=== PATIENT | female | born 1980 | race Caucasian/White ===

== ENCOUNTER 2016-05-19 10:06 | Emergency (ER) | payer MEDICARE, OTHER ==
[2016-05-19] MEDS ORDERED: PANTOPRAZOLE 40 MG/10 ML VIAL IVP STA (10:46)
[2016-05-19] MEDS ORDERED: ONDANSETRON 4 MG/2 ML VIAL IVP STA (10:46)
[2016-05-19] MEDS ORDERED: SODIUM CHLORIDE 0.9% 1,000 ML IV STA ×2 (10:46)
--- NOTE | 2016-05-19 11:11 | ED ---
General Adult HPI - General Chief complaint: Upper Respiratory Infection Stated complaint: Sob/weak Time Seen by Provider: 05/19/16 10:33 Source: patient, RN notes reviewed Mode of arrival: ambulatory Limitations: no limitations - History of Present Illness Initial comments: Patient 36-year-old female who presents emergency room today with a chief complaint of cough congestion over the last 5 days. Does admit that her boyfriend was diagnosed with pneumonia. Does admit that she's had increased cough congestion. Does admit to bodyaches. Admits also that she's been having some abdominal pain over the last 2 days with diarrhea. States she noticed some black dark bowel movements over the last 2 days. Does admit that she's had a colonoscopy once in the past that this all polyps. She also admits to symptoms of nausea vomiting this morning. Patient currently denies any other complaints or symptoms at this time. Patient denies any shortness of breath, chest pain, back pain, numbness or tingling, dysuria or hematuria, constipation , headaches or visual changes, or any other complaints. - Related Data Home Medications Medication Instructions Recorded Confirmed Albuterol Inhaler [Ventolin Hfa 2 puff INHALATION RT-Q4H PRN 05/19/16 05/19/16 Inhaler] Pantoprazole [Protonix] 40 mg PO DAILY PRN 05/19/16 05/19/16 Travoprost [Travatan Z 0.004%] 1 drop BOTH EYES HS 05/19/16 05/19/16 Previous Rx's Medication Instructions Recorded Dicyclomine [Bentyl] 20 mg PO QID #20 tablet 05/19/16 Ondansetron Odt [Zofran ODT] 4 mg PO Q8HR PRN #15 tab 05/19/16 Allergies Allergy/AdvReac Type Severity Reaction Status Date / Time carbamazepine [From Tegretol] Allergy Intermediate Unknown Verified 05/19/16 12: 05 adhesive Allergy Unknown Verified 05/19/16 12:05 amphetamine aspartate Allergy Unknown Verified 05/19/16 12:05 [From Adderall] amphetamine sulfate Allergy Unknown Verified 05/19/16 12:05 [From Adderall] azithromycin Allergy Unknown Verified 05/19/16 12:05 [From Zithromax Z-Tunde] cephalexin monohydrate Allergy Unknown Verified 05/19/16 12:05 [From Keflex] dextroamphetamine saccharate Allergy Unknown Verified 05/19/16 12:05 [From Adderall] dextroamphetamine sulfate Allergy Unknown Verified 05/19/16 12:05 [From Adderall] Iodinated Contrast Media - Allergy Anaphylaxis Verified 05/19/16 12:05 Oral and [Iodinated Contrast Media - IV Dye] ketorolac tromethamine Allergy Rash/Hives Verified 05/19/16 12:05 [From Toradol] latex Allergy Anaphylaxis Verified 05/19/16 12:05 levofloxacin [From Levaquin] Allergy Swelling Verified 05/19/16 12:05 lorazepam [From Ativan] Allergy Unknown Verified 05/19/16 12:05 metoclopramide HCl Allergy Unknown Verified 05/19/16 12:05 [From Reglan] nitrofurantoin Allergy Unknown Verified 05/19/16 12:05 [From Macrobid] nitrofurantoin Allergy Unknown Verified 05/19/16 12:05 macrocrystalline [From Macrobid] Sulfa (Sulfonamide Allergy Unknown Verified 05/19/16 12:05 Antibiotics) codeine AdvReac Diarrhea Verified 05/19/16 12:05 doxycycline AdvReac Diarrhea Verified 05/19/16 12:05 methimazole AdvReac Unknown Verified 05/19/16 12:05 Penicillins AdvReac Diarrhea Verified 05/19/16 12:05 Review of Systems ROS Statement: Those systems with pertinent positive or pertinent negative responses have been documented in the HPI. ROS Other: All systems not noted in ROS Statement are negative. Past Medical History Past Medical History: Asthma, GERD/Reflux, Pneumonia, Seizure Disorder Additional Past Medical History / Comment(s): arthritis, hiatal hernia, 4X CHROMOSONE DISORDER, (MTHFR-GENE)-METHYLENETETRAHYDROFOLATE REDUCTASE. History of Any Multi-Drug Resistant Organisms: MRSA Date of last positivie culture/infection: 2006 MDRO Source:: spider bite/buttocks Past Surgical History: Cholecystectomy, Hysterectomy, Orthopedic Surgery, Tubal Ligation Additional Past Surgical History / Comment(s): rt elbow orif. debridment frank buttocks d/t spider bite Past Anesthesia/Blood Transfusion Reactions: No Reported Reaction Past Psychological History: No Psychological Hx Reported Additional Psychological History / Comment(s): Patient continues to smoke on a daily basis. At this point in with mother present extensive conversation about smoking and its many adverse reactions are discussed. We talked about smoking and pulmonary infections. No each bout of pulmonary infection related to smoking can worsen her pulmonary function. His primary function worsens she will get more infections and have a poor quality of life. Because a smoking cessation is important. She was she cannot wear the patch she is ALLERGIC to adhesive. And she doesn't have teeth that she can't to the gum. We talked about the nicotine lozenge or so she relates she doesn't like cough drops. We discussed the lozenge or is not a cough drop and certainly could be one of her options to try to help with smoking cessation. There is a cat at the house. No experience, no travels, so that she does have a boyfriend. Smoking Status: Current every day smoker Past Alcohol Use History: None Reported Past Drug Use History: None Reported - Past Family History Mother Family Medical History: Congestive Heart Failure (CHF) General Exam - General Exam Comments Initial Comments: General: The patient is awake and alert, in no distress, and does not appear acutely ill. Eye: Pupils are equal, round and reactive to light, extra-ocular movements are intact. No nystagmus. There is normal conjunctiva bilaterally. No signs of icterus. Ears, nose, mouth and throat: There are moist mucous membranes and no oral lesions. Neck: The neck is supple, there is no tenderness or JVD. Cardiovascular: There is a regular rate and rhythm. No murmur, rub or gallop is appreciated. Respiratory: Lungs are clear to auscultation, respirations are non-labored, breath sounds are equal. No wheezes, stridor, rales, or rhonchi. Gastrointestinal: Normal appearance of the abdomen. Normal bowel sounds. Abdomen soft on palpation. Patient does have mild tenderness and lower quadrants. No rebound tenderness. No guarding. No CVA tenderness. Musculoskeletal: Normal ROM, no tenderness. Strength 5/5. Sensation intact. Pulses equal bilaterally 2+. Neurological: A&O x 3. CN II-XII intact, There are no obvious motor or sensory deficits. Coordination appears grossly intact. Speech is normal. Skin: Skin is warm and dry and no rashes or lesions are noted. Psychiatric: Cooperative, appropriate mood & affect, normal judgment. : [employer] present for exam. Normal rectal tone. No bright red blood per rectum. Limitations: no limitations Course Vital Signs 05/19/16 10:22 Temperature 97.7 F Pulse Rate 83 Respiratory 18 Rate Blood Pressure 136/72 O2 Sat by Pulse 97 Oximetry Medical Decision Making - Medical Decision Making His labs been reviewed and are unremarkable. Patient's guaiac test negative. X -rays of both chest and abdomen are unremarkable. Patient does admit to cough congestion with sputum production. Admits that boyfriend was diagnosed with pneumonia. She'll be given Bentyl and nausea medication go home with for her symptoms of abdominal discomfort with diarrhea. Patient advised follow-up the family doctor over the next 2 days. Advised return to emergency room if any symptoms increase or worsen or for any other concerns. - Lab Data Result diagrams: 05/19/16 11:10 05/19/16 11:10 Lab Results 05/19/16 05/19/16 05/19/16 Range/Units 11:10 11:10 11:10 WBC 5.7 (3.8-10.6) k/uL RBC 4.33 (3.80-5.40) m/uL Hgb 14.1 (11.4-16.0) gm/dL Hct 41.5 (34.0-46.0) % MCV 95.8 (80.0-100.0) fL MCH 32.5 (25.0-35.0) pg MCHC 33.9 (31.0-37.0) g/dL RDW 12.8 (11.5-15.5) % Plt Count 189 (150-450) k/uL Neutrophils % 48 % Lymphocytes % 38 % Monocytes % 7 % Eosinophils % 2 % Basophils % 3 % Neutrophils # 2.7 (1.3-7.7) k/uL Lymphocytes # 2.2 (1.0-4.8) k/uL Monocytes # 0.4 (0-1.0) k/uL Eosinophils # 0.1 (0-0.7) k/uL Basophils # 0.2 (0-0.2) k/uL PT (9.0-12.0) sec INR (<1.1) APTT (22.0-30.0) sec Sodium 144 (137-145) mmol/L Potassium 4.3 (3.5-5.1) mmol/L Chloride 108 H (98-107) mmol/L Carbon Dioxide 26 (22-30) mmol/L Anion Gap 10 mmol/L BUN 16 (7-17) mg/dL Creatinine 0.78 (0.52-1.04) mg/dL Est GFR (MDRD) Af Amer >60 (>60 ml/min/1.73 sqM) Est GFR (MDRD) Non-Af >60 (>60 ml/min/1.73 sqM) Glucose 85 (74-99) mg/dL Calcium 9.6 (8.4-10.2) mg/dL Total Bilirubin 0.9 (0.2-1.3) mg/dL AST 25 (14-36) U/L ALT 39 (9-52) U/L Alkaline Phosphatase 72 (38-126) U/L Total Protein 8.0 (6.3-8.2) g/dL Albumin 4.4 (3.5-5.0) g/dL Urine Color Urine Appearance (Clear) Urine pH (5.0-8.0) Ur Specific [place] (1.001-1.035) Urine Protein (Negative) Urine Glucose (UA) (Negative) Urine Ketones (Negative) Urine Blood (Negative) Urine Nitrate (Negative) Urine Bilirubin (Negative) Urine Urobilinogen (<2.0) mg/dL Ur Leukocyte Esterase (Negative) Urine RBC (0-5) /hpf Urine WBC (0-5) /hpf Ur Squamous Epith Cells (0-4) /hpf Urine Bacteria (None) /hpf Hyaline Casts (0-2) /lpf Urine Mucus (None) /hpf Stool Occult Blood Negative (Negative) 05/19/16 05/19/16 Range/Units 11:10 11:10 WBC (3.8-10.6) k/uL RBC (3.80-5.40) m/uL Hgb (11.4-16.0) gm/dL Hct (34.0-46.0) % MCV (80.0-100.0) fL MCH (25.0-35.0) pg MCHC (31.0-37.0) g/dL RDW (11.5-15.5) % Plt Count (150-450) k/uL Neutrophils % % Lymphocytes % % Monocytes % % Eosinophils % % Basophils % % Neutrophils # (1.3-7.7) k/uL Lymphocytes # (1.0-4.8) k/uL Monocytes # (0-1.0) k/uL Eosinophils # (0-0.7) k/uL Basophils # (0-0.2) k/uL PT 10.4 (9.0-12.0) sec INR 1.0 (<1.1) APTT 25.5 (22.0-30.0) sec Sodium (137-145) mmol/L Potassium (3.5-5.1) mmol/L Chloride (98-107) mmol/L Carbon Dioxide (22-30) mmol/L Anion Gap mmol/L BUN (7-17) mg/dL Creatinine (0.52-1.04) mg/dL Est GFR (MDRD) Af Amer (>60 ml/min/1.73 sqM) Est GFR (MDRD) Non-Af (>60 ml/min/1.73 sqM) Glucose (74-99) mg/dL Calcium (8.4-10.2) mg/dL Total Bilirubin (0.2-1.3) mg/dL AST (14-36) U/L ALT (9-52) U/L Alkaline Phosphatase (38-126) U/L Total Protein (6.3-8.2) g/dL Albumin (3.5-5.0) g/dL Urine Color Yellow Urine Appearance Cloudy H (Clear) Urine pH 6.0 (5.0-8.0) Ur Specific [place] 1.025 (1.001-1.035) Urine Protein 1+ H (Negative) Urine Glucose (UA) Negative (Negative) Urine Ketones Negative (Negative) Urine Blood Negative (Negative) Urine Nitrate Negative (Negative) Urine Bilirubin Negative (Negative) Urine Urobilinogen 3.0 (<2.0) mg/dL Ur Leukocyte Esterase Negative (Negative) Urine RBC 1 (0-5) /hpf Urine WBC 4 (0-5) /hpf Ur Squamous Epith Cells 18 H (0-4) /hpf Urine Bacteria Rare H (None) /hpf Hyaline Casts 2 (0-2) /lpf Urine Mucus Occasional H (None) /hpf Stool Occult Blood (Negative) Disposition Clinical Impression: Nausea vomiting and diarrhea, Acute bronchitis Disposition: HOME SELF-CARE Condition: Good Instructions: Acute Bronchitis (ED) Additional Instructions: Please use medication as discussed. Please follow-up with family doctor in the next 2 days of symptoms have not improved. Please return to emergency room if the symptoms increase or worsen or for any other concerns. Prescriptions: Dicyclomine [Bentyl] 20 mg PO QID #20 tablet Ondansetron Odt [Zofran ODT] 4 mg PO Q8HR PRN #15 tab PRN Reason: Nausea Referrals: None,Stated [Primary Care Provider] - 1-2 days Vilma Gonzalez MD [REFERRING] - 1-2 days Temi Dillard MD [STAFF PHYSICIAN] - 1-2 days Time of Disposition: 12:27
[2016-05-19 11:36] LABS: Basophils # (A) 0.2 k/uL (0-0.2); Basophils % (A) 3 %; CH 33.1; CHCM 34.8; Eosinophils # (A) 0.1 k/uL (0-0.7); Eosinophils % (A) 2 %; HCT 41.5 % (34.0-46.0); HDW 2.83; HGB 14.1 gm/dL (11.4-16.0); Luc # (Auto) 0.14; Luc % (Auto) 3; Lymphocytes # (A) 2.2 k/uL (1.0-4.8); Lymphocytes % (A) 38 %; MCH 32.5 pg (25.0-35.0); MCHC 33.9 g/dL (31.0-37.0); MCV 95.8 fL (80.0-100.0); Mean Platelet Volume 7.7; Monocytes # (A) 0.4 k/uL (0-1.0); Monocytes % (A) 7 %; Neutrophils # (A) 2.7 k/uL (1.3-7.7); Neutrophils % (A) 48 %; RBC 4.33 m/uL (3.80-5.40); RDW 12.8 % (11.5-15.5); WBC 5.7 k/uL (3.8-10.6); WBC (Perox) 5.37
[2016-05-19 11:41] LABS: Appearance,Urine Cloudy (Clear); Bacteria,Urine Rare /hpf; Bilirubin,Urine Negative (Negative); Glucose,Urine (UA) Negative (Negative); Ketones,Urine Negative (Negative); Leukocyte Esterase,Urine Negative (Negative); Mucus,Urine Occasional /hpf; Nitrite,Urine Negative (Negative); Particle Count 9172; Protein,Urine 1+ (Negative); RBC,Urine 1 /hpf (0-5); Specific Gravity,Urine 1.025 (1.001-1.035); Squamous Epithelial Cell,Urine 18 /hpf (0-4); UA Billing (MACRO vs. MICRO) MICRO; WBC,Urine 4 /hpf (0-5)
[2016-05-19 11:45] LABS: ALT 39 U/L (9-52); AST 25 U/L (14-36); Alkaline Phosphatase 72 U/L (38-126); Anion Gap 10 mmol/L; Blood Urea Nitrogen 16 mg/dL (7-17); Calcium 9.6 mg/dL (8.4-10.2); Carbon Dioxide 26 mmol/L (22-30); Chloride 108 mmol/L (98-107); Glucose 85 mg/dL (74-99); Non-African American GFR(MDRD) >60 (>60 ml/min/1.73 sqM); Potassium 4.3 mmol/L (3.5-5.1); Sodium 144 mmol/L (137-145); Total Bilirubin 0.9 mg/dL (0.2-1.3)
--- NOTE | 2016-05-19 11:57 | XR ---
EXAMINATION TYPE: XR chest 2V DATE OF EXAM: 05/19/2016 11:51 AM COMPARISON: 01/10/2015 INDICATION: Cough abdomen pain for a few days TECHNIQUE: Frontal and lateral views of the chest are obtained. FINDINGS: The heart size is normal. The pulmonary vasculature is normal. The lungs are clear. IMPRESSION: 1. No acute pulmonary process.
--- NOTE | 2016-05-19 11:58 | XR ---
EXAMINATION TYPE: XR KUB DATE OF EXAM: 05/19/2016 11:51 AM COMPARISON: NONE INDICATION: Abdomen pain TECHNIQUE: Single view abdomen FINDINGS: There is a normal bowel gas pattern. Psoas margins are normal. No organomegaly is present. Post cholecystectomy surgical clips are present. No suspicious air-fluid levels or differential air-fluid levels are present. No free air is present. Mild fecal debris is within the colon. IMPRESSION: 1. Unremarkable Abdomen
[2016-05-19 12:14] LABS: Partial Thromboplastin Time 25.5 sec (22.0-30.0); Prothrombin Time 10.4 sec (9.0-12.0)
[2016-05-19] MEDS ORDERED: DICYCLOMINE 10 MG/ML 2 ML AMP IM STA (12:25)
[2016-05-19 12:48] VITALS: BP 100/57; PULSE 68; RESP 16; TEMP 98.7
== END 2016-05-19 12:48 | disposition home or self-care (01) ==
LOC: EC 10:06
DX: J20.9 Acute bronchitis, unspecified (principal); R11.2 Nausea with vomiting, unspecified; R19.7 Diarrhea, unspecified; R10.9 Unspecified abdominal pain; F17.200 Nicotine dependence, unspecified, uncomplicated; K21.9 Gastro-esophageal reflux disease without esophagitis; Z86.14 Personal history of Methicillin resistant Staphylococcus aureus infection; Z79.899 Other long term (current) drug therapy; Z88.2 Allergy status to sulfonamides; Z88.1 Allergy status to other antibiotic agents; Z88.5 Allergy status to narcotic agent; Z88.8 Allergy status to other drugs, medicaments and biological substances; Z91.041 Radiographic dye allergy status
CPT/HCPCS: 36415; 80053; 85025; 85610; 85730; 82272; 81001; 71020; 74000; 99283; 96374; 96375; 96361; 96372; J0500; J2405; C9113

== ENCOUNTER 2016-05-24 11:22 | Emergency (ER) | payer MEDICARE, OTHER ==
[2016-05-24] MEDS ORDERED: MORPHINE SULFATE 4 MG/ML SYRINGE IVP STA (12:07)
[2016-05-24] MEDS ORDERED: ONDANSETRON 4 MG/2 ML VIAL IVP STA (12:07)
[2016-05-24] MEDS ORDERED: SODIUM CHLORIDE 0.9% 1,000 ML IV STA (12:07)
--- NOTE | 2016-05-24 12:10 | ED ---
Abdominal Pain HPI - General Chief Complaint: Abdominal Pain Stated Complaint: LLQ pain Time Seen by Provider: 05/24/16 11:39 Source: patient Mode of arrival: ambulatory Limitations: no limitations - History of Present Illness Initial Comments: Patient is a 36-year-old female history of XXXX chromosomes, COPD, tobacco abuse , seizure disorder, cholecystectomy, hysterectomy presenting with left lower quadrant pain. Mom is guardian. Mom states has been on for the past several weeks. She is been trying Tylenol without relief. She was seen on May 19 and diagnosed with possible IBS and started on Bentyl. Mom states the Bentyl is not working and patient states the Bentyl is causing her pain. Mom states she alternates from diarrhea to hard stools. She is currently having hard stools and had hard bowel movement yesterday. Mom denies any documented fever, chills, chest pain, shortness breath, vomiting, diarrhea, vaginal bleeding, vaginal discharge. Patient did have a hysterectomy. - Related Data Home Medications Medication Instructions Recorded Confirmed Albuterol Inhaler [Ventolin Hfa 2 puff INHALATION RT-Q4H PRN 05/19/16 05/24/16 Inhaler] Pantoprazole [Protonix] 40 mg PO DAILY PRN 05/19/16 05/24/16 Travoprost [Travatan Z 0.004%] 1 drop BOTH EYES HS 05/19/16 05/24/16 Previous Rx's Medication Instructions Recorded Dicyclomine [Bentyl] 20 mg PO QID #20 tablet 05/19/16 Ondansetron Odt [Zofran ODT] 4 mg PO Q8HR PRN #15 tab 05/19/16 Allergies Allergy/AdvReac Type Severity Reaction Status Date / Time carbamazepine [From Tegretol] Allergy Intermediate Unknown Verified 05/24/16 12: 38 adhesive Allergy Unknown Verified 05/24/16 12:38 amphetamine aspartate Allergy Unknown Verified 05/24/16 12:38 [From Adderall] amphetamine sulfate Allergy Unknown Verified 05/24/16 12:38 [From Adderall] azithromycin Allergy Unknown Verified 05/24/16 12:38 [From Zithromax Z-Tunde] cephalexin monohydrate Allergy Unknown Verified 05/24/16 12:38 [From Keflex] dextroamphetamine saccharate Allergy Unknown Verified 05/24/16 12:38 [From Adderall] dextroamphetamine sulfate Allergy Unknown Verified 05/24/16 12:38 [From Adderall] Iodinated Contrast Media - Allergy Anaphylaxis Verified 05/24/16 12:38 Oral and [Iodinated Contrast Media - IV Dye] ketorolac tromethamine Allergy Rash/Hives Verified 05/24/16 12:38 [From Toradol] latex Allergy Anaphylaxis Verified 05/24/16 12:38 levofloxacin [From Levaquin] Allergy Swelling Verified 05/24/16 12:38 lorazepam [From Ativan] Allergy Unknown Verified 05/24/16 12:38 metoclopramide HCl Allergy Unknown Verified 05/24/16 12:38 [From Reglan] nitrofurantoin Allergy Unknown Verified 05/24/16 12:38 [From Macrobid] nitrofurantoin Allergy Unknown Verified 05/24/16 12:38 macrocrystalline [From Macrobid] Sulfa (Sulfonamide Allergy Unknown Verified 05/24/16 12:38 Antibiotics) codeine AdvReac Diarrhea Verified 05/24/16 12:38 doxycycline AdvReac Diarrhea Verified 05/24/16 12:38 methimazole AdvReac Unknown Verified 05/24/16 12:38 Penicillins AdvReac Diarrhea Verified 05/24/16 12:38 Review of Systems ROS Statement: Those systems with pertinent positive or pertinent negative responses have been documented in the HPI. Constitutional: No fever and no chills. HENT: No congestion, no rhinorrhea and no sore throat. Eyes: No discharge and no redness. Respiratory: No cough and no shortness of breath. Cardiovascular: No chest pain and no palpitations. Gastrointestinal: +nausea, no vomiting, +abdominal pain and no diarrhea. Genitourinary: No dysuria and no hematuria. Musculoskeletal: No back pain and no arthralgias. Skin: No pallor and no rash. Neurological: No dizziness and No headaches. ROS Other: All systems not noted in ROS Statement are negative. Past Medical History Past Medical History: Asthma, GERD/Reflux, Pneumonia, Seizure Disorder Additional Past Medical History / Comment(s): arthritis, hiatal hernia, 4X CHROMOSONE DISORDER, (MTHFR-GENE)-METHYLENETETRAHYDROFOLATE REDUCTASE. History of Any Multi-Drug Resistant Organisms: MRSA Date of last positivie culture/infection: 2006 MDRO Source:: spider bite/buttocks Past Surgical History: Cholecystectomy, Hysterectomy, Orthopedic Surgery, Tubal Ligation Additional Past Surgical History / Comment(s): rt elbow orif. debridment frank buttocks d/t spider bite Past Anesthesia/Blood Transfusion Reactions: No Reported Reaction Past Psychological History: No Psychological Hx Reported Additional Psychological History / Comment(s): Patient continues to smoke on a daily basis. At this point in with mother present extensive conversation about smoking and its many adverse reactions are discussed. We talked about smoking and pulmonary infections. No each bout of pulmonary infection related to smoking can worsen her pulmonary function. His primary function worsens she will get more infections and have a poor quality of life. Because a smoking cessation is important. She was she cannot wear the patch she is ALLERGIC to adhesive. And she doesn't have teeth that she can't to the gum. We talked about the nicotine lozenge or so she relates she doesn't like cough drops. We discussed the lozenge or is not a cough drop and certainly could be one of her options to try to help with smoking cessation. There is a cat at the house. No experience, no travels, so that she does have a boyfriend. Smoking Status: Current every day smoker Past Alcohol Use History: None Reported Past Drug Use History: None Reported - Past Family History Mother Family Medical History: Congestive Heart Failure (CHF) General Exam - General Exam Comments Initial Comments: Constitutional: Patient appears well-developed and well-nourished. Mild distress. Head: Normocephalic and atraumatic. Eyes: Conjunctivae and EOM are normal. Right eye exhibits no discharge. Left eye exhibits no discharge. No scleral icterus. Neck: Normal range of motion. Neck supple. Cardiovascular: Normal rate and regular rhythm. No murmur heard. Pulmonary/Chest: Effort normal and breath sounds normal. No respiratory distress. Faint wheezes. Abdominal: Soft. No distension. Tenderness to left upper quadrant, left lower quadrant, suprapubic region.. There is no rebound and no guarding. Musculoskeletal: Normal range of motion. No edema or tenderness. Neurological: Patient alert and oriented to person. Skin: Skin is warm and dry. Not diaphoretic. Nursing notes and vitals reviewed. Limitations: no limitations Course Vital Signs 05/24/16 05/24/16 11:33 14:55 Temperature 98.2 F 97.4 F L Pulse Rate 68 64 Respiratory 18 16 Rate Blood Pressure 97/65 103/59 O2 Sat by Pulse 99 100 Oximetry - Reevaluation(s) Reevaluation #1: I reevaluation patient resting comfortably in bed. Patient improved with IV fluids and morphine. Abdomen Soft nontender. Medical Decision Making - Medical Decision Making Patient is a 36-year-old female presenting with left-sided abdominal pain. Patient is diffusely tender left-sided and suprapubic. Pain was controlled with IV fluids and morphine. Laboratory work including CBC, CMP, lipase, UA unremarkable. CT abdomen and pelvis showed large stool burden. Prior to discharge, patient was resting comfortably in bed. Course of stay improved. Abdomen soft nontender. Denies pain. Discussed physical exam and diagnostic tests with patient. Questions answered and patient is agreeable to discharge with close follow up with Primary Care Physician. Instructed to return to Emergency Department if symptoms worsen. Patient given GI referral and instructed to increase fluid intake until clear urine as her urine here is concentrated. - Lab Data Result diagrams: 05/24/16 12:27 05/24/16 12:27 Lab Results 05/24/16 05/24/16 05/24/16 Range/Units 12:27 12:27 12:27 WBC 5.8 (3.8-10.6) k/uL RBC 4.23 (3.80-5.40) m/uL Hgb 13.7 (11.4-16.0) gm/dL Hct 40.8 (34.0-46.0) % MCV 96.3 (80.0-100.0) fL MCH 32.3 (25.0-35.0) pg MCHC 33.5 (31.0-37.0) g/dL RDW 12.6 (11.5-15.5) % Plt Count 186 (150-450) k/uL Neutrophils % 58 % Lymphocytes % 33 % Monocytes % 5 % Eosinophils % 1 % Basophils % 0 % Neutrophils # 3.4 (1.3-7.7) k/uL Lymphocytes # 1.9 (1.0-4.8) k/uL Monocytes # 0.3 (0-1.0) k/uL Eosinophils # 0.1 (0-0.7) k/uL Basophils # 0.0 (0-0.2) k/uL Sodium 144 (137-145) mmol/L Potassium 4.3 (3.5-5.1) mmol/L Chloride 110 H (98-107) mmol/L Carbon Dioxide 25 (22-30) mmol/L Anion Gap 9 mmol/L BUN 16 (7-17) mg/dL Creatinine 0.79 (0.52-1.04) mg/dL Est GFR (MDRD) Af Amer >60 (>60 ml/min/1.73 sqM) Est GFR (MDRD) Non-Af >60 (>60 ml/min/1.73 sqM) Glucose 95 (74-99) mg/dL Plasma Lactic Acid Eladio 0.9 (0.7-2.0) mmol/L Calcium 9.7 (8.4-10.2) mg/dL Magnesium 1.9 (1.6-2.3) mg/dL Total Bilirubin 0.6 (0.2-1.3) mg/dL AST 19 (14-36) U/L ALT 31 (9-52) U/L Alkaline Phosphatase 69 (38-126) U/L Total Protein 7.5 (6.3-8.2) g/dL Albumin 4.2 (3.5-5.0) g/dL Lipase 197 (23-300) U/L Urine Color Urine Appearance (Clear) Urine pH (5.0-8.0) Ur Specific [place] (1.001-1.035) Urine Protein (Negative) Urine Glucose (UA) (Negative) Urine Ketones (Negative) Urine Blood (Negative) Urine Nitrate (Negative) Urine Bilirubin (Negative) Urine Urobilinogen (<2.0) mg/dL Ur Leukocyte Esterase (Negative) 05/24/16 Range/Units 12:27 WBC (3.8-10.6) k/uL RBC (3.80-5.40) m/uL Hgb (11.4-16.0) gm/dL Hct (34.0-46.0) % MCV (80.0-100.0) fL MCH (25.0-35.0) pg MCHC (31.0-37.0) g/dL RDW (11.5-15.5) % Plt Count (150-450) k/uL Neutrophils % % Lymphocytes % % Monocytes % % Eosinophils % % Basophils % % Neutrophils # (1.3-7.7) k/uL Lymphocytes # (1.0-4.8) k/uL Monocytes # (0-1.0) k/uL Eosinophils # (0-0.7) k/uL Basophils # (0-0.2) k/uL Sodium (137-145) mmol/L Potassium (3.5-5.1) mmol/L Chloride (98-107) mmol/L Carbon Dioxide (22-30) mmol/L Anion Gap mmol/L BUN (7-17) mg/dL Creatinine (0.52-1.04) mg/dL Est GFR (MDRD) Af Amer (>60 ml/min/1.73 sqM) Est GFR (MDRD) Non-Af (>60 ml/min/1.73 sqM) Glucose (74-99) mg/dL Plasma Lactic Acid [place]adio (0.7-2.0) mmol/L Calcium (8.4-10.2) mg/dL Magnesium (1.6-2.3) mg/dL Total Bilirubin (0.2-1.3) mg/dL AST (14-36) U/L ALT (9-52) U/L Alkaline Phosphatase (38-126) U/L Total Protein (6.3-8.2) g/dL Albumin (3.5-5.0) g/dL Lipase (23-300) U/L Urine Color Yellow Urine Appearance Clear (Clear) Urine pH 5.5 (5.0-8.0) Ur Specific [place] 1.025 (1.001-1.035) Urine Protein Trace H (Negative) Urine Glucose (UA) Negative (Negative) Urine Ketones Negative (Negative) Urine Blood Negative (Negative) Urine Nitrate Negative (Negative) Urine Bilirubin Negative (Negative) Urine Urobilinogen 3.0 (<2.0) mg/dL Ur Leukocyte Esterase Negative (Negative) Disposition Clinical Impression: Abdominal pain, Constipation Disposition: HOME SELF-CARE Condition: Good Instructions: Abdominal Pain (ED) Referrals: None,Stated [Primary Care Provider] - 1-2 days Vilma Gonzalez MD [REFERRING] - 1-2 days Miguel Angel Mac MD [STAFF PHYSICIAN] - 1-2 days
[2016-05-24 12:45] LABS: Appearance,Urine Clear (Clear); Bilirubin,Urine Negative (Negative); Glucose,Urine (UA) Negative (Negative); Ketones,Urine Negative (Negative); Leukocyte Esterase,Urine Negative (Negative); Nitrite,Urine Negative (Negative); PH, Urine 5.5 (5.0-8.0); Protein,Urine Trace (Negative); Specific Gravity,Urine 1.025 (1.001-1.035); UA Billing (MACRO vs. MICRO) CHEM
[2016-05-24 13:04] LABS: ALT 31 U/L (9-52); AST 19 U/L (14-36); Alkaline Phosphatase 69 U/L (38-126); Anion Gap 9 mmol/L; Blood Urea Nitrogen 16 mg/dL (7-17); Calcium 9.7 mg/dL (8.4-10.2); Carbon Dioxide 25 mmol/L (22-30); Chloride 110 mmol/L (98-107); Glucose 95 mg/dL (74-99); Magnesium 1.9 mg/dL (1.6-2.3); Non-African American GFR(MDRD) >60 (>60 ml/min/1.73 sqM); Potassium 4.3 mmol/L (3.5-5.1); Sodium 144 mmol/L (137-145); Total Bilirubin 0.6 mg/dL (0.2-1.3); Total Protein 7.5 g/dL (6.3-8.2)
[2016-05-24 13:05] LABS: Basophils % (A) 0 %; CH 33.2; CHCM 34.6; Eosinophils # (A) 0.1 k/uL (0-0.7); Eosinophils % (A) 1 %; HCT 40.8 % (34.0-46.0); HDW 2.77; HGB 13.7 gm/dL (11.4-16.0); Luc # (Auto) 0.16; Luc % (Auto) 3; Lymphocytes # (A) 1.9 k/uL (1.0-4.8); Lymphocytes % (A) 33 %; MCH 32.3 pg (25.0-35.0); MCHC 33.5 g/dL (31.0-37.0); MCV 96.3 fL (80.0-100.0); Mean Platelet Volume 7.1; Monocytes # (A) 0.3 k/uL (0-1.0); Monocytes % (A) 5 %; Neutrophils # (A) 3.4 k/uL (1.3-7.7); Neutrophils % (A) 58 %; RBC 4.23 m/uL (3.80-5.40); RDW 12.6 % (11.5-15.5); WBC 5.8 k/uL (3.8-10.6)
--- NOTE | 2016-05-24 13:21 | CT ---
EXAMINATION TYPE: CT abdomen pelvis wo con DATE OF EXAM: 05/24/2016 1:01 PM COMPARISON: 12/14/2013 HISTORY: 36-year-old female LLQ pain CT DLP: 289.5 mGycm. Automated exposure control for dose reduction was used. TECHNIQUE: Contiguous axial scanning of the abdomen and pelvis without IV contrast. Coronal and sagit lena reconstructions performed. FINDINGS: Heart is normal size without pericardial effusion. Lung bases clear without pleural effusion. Noncontrast appearance of the liver, adrenal glands, kidneys, spleen, and pancreas grossly unremarkab le. Cholecystectomy clips are present. Stable scattered prominent mesenteric lymph nodes. No dilated small bowel, free fluid, or free air. Normal appendix. Moderate stool burden. No pericolonic inflammatory change. Bladder is nondistended. Uterus appears surgically absent. Neither ovary is visualized and could be s mall or also surgically absent. No abnormal fluid collection in the pelvis. Bones: Mild marginal spurring at the hips. No osseous destructive process. IMPRESSION: 1. Moderate stool burden. 2. No acute inflammatory process identified in the abdomen or pelvis to explain the patient's sympto ms.
[2016-05-24 14:55] VITALS: BP 103/59; PULSE 64; RESP 16; TEMP 97.4
== END 2016-05-24 15:10 | disposition home or self-care (01) ==
LOC: EC 11:22
DX: K59.00 Constipation, unspecified (principal); J45.909 Unspecified asthma, uncomplicated; K21.9 Gastro-esophageal reflux disease without esophagitis; F17.200 Nicotine dependence, unspecified, uncomplicated; Z86.14 Personal history of Methicillin resistant Staphylococcus aureus infection; Z87.01 Personal history of pneumonia (recurrent); Z79.899 Other long term (current) drug therapy; Z88.1 Allergy status to other antibiotic agents; Z88.6 Allergy status to analgesic agent; Z88.8 Allergy status to other drugs, medicaments and biological substances; Z88.2 Allergy status to sulfonamides; Z88.5 Allergy status to narcotic agent; Z90.49 Acquired absence of other specified parts of digestive tract; Z90.710 Acquired absence of both cervix and uterus
CPT/HCPCS: 36415; 80053; 83605; 83690; 83735; 85025; 81003; 87086; 74176; 99284; 96374; 96375; 96361 ×2; J2270; J2405

== ENCOUNTER 2016-07-02 11:56 | Inpatient (IN) | payer MEDICARE, OTHER ==
[2016-07-02] MEDS ORDERED: ACETAMINOPHEN TAB 325 MG TAB PO PRN (14:17)
[2016-07-02] MEDS ORDERED: ONDANSETRON 4 MG/2 ML VIAL IVP PRN (14:17)
[2016-07-02] MEDS ORDERED: ALBUTEROL NEBULIZED 2.5 MG/3 ML INHALATION PRN (14:19)
[2016-07-02] MEDS ORDERED: Magnesium Replacement Protocol 1 EACH MISC MISCELLANE PRN (14:20)
[2016-07-02] MEDS ORDERED: Potassium Replacement Protocol 1 EACH MISC MISCELLANE PRN (14:20)
[2016-07-02] MEDS ORDERED: LEVALBUTEROL NEB (CONC) 1.25 MG/0.5 ML AMP INHALATION PRN (14:46)
--- NOTE | 2016-07-02 15:06 | P.HPIM ---
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 Patient said for the past several days her chest is being getting more tight. She noted audible wheezing. She is also complaining of worsening shortness of breath mostly with ambulation. She is having cough that is generally productive of yellowish or greenish sputum. She denies any fevers or chills. She is not aware of any trigger for this current exacerbation. She said that she was unable to use her nebulizer at home as they don't half hour. She is also complaining of blood per rectum. She said that she's been having the symptoms on-and-off for couple of weeks and started initially with small amount of bright red blood. She is also complaining of significant abdominal pain. For the past few days the amount of blood is being getting worse. Last time she had a large bowel movement with approximately half cupful of blood. She denies feeling dizzy or lightheaded. No known history of GI bleed. No underlying inflammatory bowel disease. She is having good appetite otherwise. Review of Systems Review of system: 14 points review of systems were obtained and were negative except to what were mentioned in the HPI. Past Medical History Past Medical History: Asthma, Eye Disorder, GERD/Reflux, Osteoarthritis (OA), Pneumonia, Seizure Disorder Additional Past Medical History / Comment(s): Pt and her mother states that pt has had abdominal pain and rectal bleeding intermittently over the past 4-5 months and that it has become worse over the past 4 days. She was seen be Dr. Frias today in his office and he stated her lungs sounded like she was not moving air so she was sent to hospital per mother. 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 History of Any Multi-Drug Resistant Organisms: MRSA Date of last positivie culture/infection: 2006 MDRO Source:: spider bite/buttocks Past Surgical History: Cholecystectomy, Hysterectomy, Orthopedic Surgery, Tubal Ligation Additional Past Surgical History / Comment(s): rt elbow orif. debridment frank buttocks d/t spider bite, nasal septal surgery, mediastinoscopy with bx-benign, colonoscopy, laparoscopy with lysis of adhesions. Past Anesthesia/Blood Transfusion Reactions: No Reported Reaction Past Psychological History: No Psychological Hx Reported Additional Psychological History / Comment(s): Pt resides with her parents. She has developmental diability. She performs her own ADLs. She uses no assistive device. She does not drive. Mother takes her to [employer]. Smoking Status: Current every day smoker Past Alcohol Use History: None Reported Additional Past Alcohol Use History / Comment(s): Pt started smoking in 2001. Past Drug Use History: None Reported - Past Family History Father Family Medical History: Coronary Artery Disease (CAD), Diabetes Mellitus, Myocardial Infarction (DC) Additional Family Medical History / Comment(s): Father had a DC at the age of 62 yrs. He has had CABG. Mother Family Medical History: Congestive Heart Failure (CHF), COPD, Osteoarthritis (OA ), Rheumatoid Arthritis (RA) Additional Family Medical History / Comment(s): Spondylosis, subclavian boyce with stents. Medications and Allergies Home Medications Medication Instructions Recorded Confirmed Type Albuterol Inhaler [Ventolin Hfa 2 puff INHALATION RT-Q4H PRN 05/19/16 07/02/16 History Inhaler] Pantoprazole [Protonix] 40 mg PO DAILY PRN 05/19/16 07/02/16 History Travoprost [Travatan Z 0.004%] 1 drop BOTH EYES HS 05/19/16 07/02/16 History Hydrocodone/Acetaminophen [[place] 1 tab PO Q6H PRN 07/02/16 07/02/16 History 10-325] Multivitamin [Children's 2 tab PO DAILY 07/02/16 07/02/16 History Multivitamins] Olopatadine HCl [Pataday] 2.5 ml OP DAILY PRN 07/02/16 07/02/16 History valACYclovir HCL [Valtrex] 500 mg PO DAILY PRN 07/02/16 07/02/16 History Allergies Allergy/AdvReac Type Severity Reaction Status Date / Time carbamazepine [From Tegretol] Allergy Intermediate Unknown Verified 07/02/16 14: 30 adhesive Allergy Unknown Verified 07/02/16 14:30 amphetamine aspartate Allergy Unknown Verified 07/02/16 14:30 [From Adderall] amphetamine sulfate Allergy Unknown Verified 07/02/16 14:30 [From Adderall] azithromycin Allergy Unknown Verified 07/02/16 14:30 [From Zithromax Z-Tunde] cephalexin monohydrate Allergy Unknown Verified 07/02/16 14:30 [From Keflex] dextroamphetamine saccharate Allergy Unknown Verified 07/02/16 14:30 [From Adderall] dextroamphetamine sulfate Allergy Unknown Verified 07/02/16 14:30 [From Adderall] Iodinated Contrast Media - Allergy Anaphylaxis Verified 07/02/16 14:30 Oral and [Iodinated Contrast Media - IV Dye] ketorolac tromethamine Allergy Rash/Hives Verified 07/02/16 14:30 [From Toradol] latex Allergy Anaphylaxis Verified 07/02/16 14:30 levofloxacin [From Levaquin] Allergy Swelling Verified 07/02/16 14:30 lorazepam [From Ativan] Allergy Unknown Verified 07/02/16 14:30 metoclopramide HCl Allergy Unknown Verified 07/02/16 14:30 [From Reglan] nitrofurantoin Allergy Unknown Verified 07/02/16 14:30 [From Macrobid] nitrofurantoin Allergy Unknown Verified 07/02/16 14:30 macrocrystalline [From Macrobid] Sulfa (Sulfonamide Allergy Unknown Verified 07/02/16 14:30 Antibiotics) codeine AdvReac Diarrhea Verified 07/02/16 14:30 doxycycline AdvReac Diarrhea Verified 07/02/16 14:30 methimazole AdvReac Unknown Verified 07/02/16 14:30 Penicillins AdvReac Diarrhea Verified 07/02/16 14:30 prednisone AdvReac Unknown Verified 07/02/16 14:30 TAPE AdvReac Unknown Uncoded 07/02/16 14:30 Physical Exam Vitals: Intake and Output 07/01/16 07/02/16 07/02/16 22:59 06:59 14:59 Other: Weight 71.441 kg Patient Weight 07/03/16 06:59 Weight 71.441 kg General: The patient is awake and alert Eye: extra-ocular movements are intact; there is normal conjunctiva bilaterally. Neck: The neck is supple, there is no VD. Cardiovascular: Normal S1-S2, no S3-S4, no murmurs. Respiratory: Lungs are diminished with diffuse end expiratory wheezing Gastrointestinal: Abdomen is soft, nondistended, with moderate to severe tenderness to palpation all over the abdomen Musculoskeletal: Normal ROM, no tenderness, There is no pedal edema. Neurological: There are no obvious motor or sensory deficits. Speech is normal. Skin: Skin is warm and dry and no rashes or lesions are noted. Thrombosis Risk Factor Assmnt - Choose All That Apply Any of the Below Risk Factors Present?: Yes Other Risk Factors: No Other congenital or acquired thrombophilia - If yes, enter type in comment: No Assessment and Plan Plan: 1. Acute asthma exacerbation: Started on bronchodilators and IV steroids. Pulmonology consulted. 2. Lower GI bleed: Exact etiology unclear. We will check stat CBC. Liquid diet for now. GI consult requested. 3. Acute bacterial bronchitis: I would obtain chest x-ray to rule out pneumonia. Consultation requested for infectious disease given her multiple ALLERGIES. I would clarify her ALLERGIES with her mother in details 4. Tetrasomy X syndrome with mild developmental delay Today, I discussed with the patient and her mother, her legal guardian, at the bedside to her current clinical condition. I answered all their questions to their satisfaction. We will continue current regimen for now. Continue clear liquid diet until evaluated by GI. Pain control and antiemetic as needed. Stat Hemoccult test ordered.
--- NOTE | 2016-07-02 15:13 | XR ---
EXAMINATION TYPE: XR chest 2V DATE OF EXAM: 07/02/2016 3:05 PM COMPARISON: Prior chest x-ray May 19, 2016 HISTORY: Shortness of breath TECHNIQUE: Frontal and lateral views of the chest are obtained. FINDINGS: There is no focal air space opacity, pleural effusion, or pneumothorax seen. The cardiac silhouette size is within normal limits. The osseous structures are intact. Multiple cholecystectom y clips are redemonstrated. IMPRESSION: No acute process. No significant change from prior.
[2016-07-02] MEDS ORDERED: IPRATROPIUM-ALBUTEROL 3 ML NEB INHALATION SCH (16:00)
[2016-07-02] MEDS: LEVALBUTEROL NEB 1.25 MG/3 ML AMP INHALATION SCH ×2 (16:22→20:46)
[2016-07-02 16:24] LABS: Basophils # (A) 0.1 k/uL (0-0.2); Basophils % (A) 1 %; CHCM 34.3; Eosinophils # (A) 0.1 k/uL (0-0.7); Eosinophils % (A) 1 %; HCT 42.9 % (34.0-46.0); HDW 2.71; HGB 14.6 gm/dL (11.4-16.0); Luc # (Auto) 0.28; Luc % (Auto) 4; Lymphocytes # (A) 1.9 k/uL (1.0-4.8); Lymphocytes % (A) 30 %; MCH 32.9 pg (25.0-35.0); MCHC 34.1 g/dL (31.0-37.0); MCV 96.6 fL (80.0-100.0); Monocytes # (A) 0.3 k/uL (0-1.0); Monocytes % (A) 5 %; Neutrophils # (A) 3.7 k/uL (1.3-7.7); Neutrophils % (A) 59 %; RBC 4.44 m/uL (3.80-5.40); RDW 12.4 % (11.5-15.5); WBC 6.4 k/uL (3.8-10.6); WBC (Perox) 6.61
[2016-07-02 16:36] LABS: ALT 46 U/L (9-52); AST 30 U/L (14-36); Alkaline Phosphatase 69 U/L (38-126); Anion Gap 11 mmol/L; Blood Urea Nitrogen 14 mg/dL (7-17); Calcium 9.7 mg/dL (8.4-10.2); Carbon Dioxide 25 mmol/L (22-30); Chloride 108 mmol/L (98-107); Glucose 90 mg/dL (74-99); Iron 81 ug/dL (37-170); Magnesium 1.8 mg/dL (1.6-2.3); Non-African American GFR(MDRD) >60 (>60 ml/min/1.73 sqM); Potassium 4.1 mmol/L (3.5-5.1); Sodium 144 mmol/L (137-145); Total Bilirubin 0.5 mg/dL (0.2-1.3); Total Protein 7.6 g/dL (6.3-8.2)
[2016-07-02 16:46] LABS: Total Iron Binding Capacity 316 ug/dL (265-497)
[2016-07-02] MEDS: DEXAMETHASONE SOD PHOSPHATE 4 MG/ML 1 ML VIAL IV SCH ×2 (18:00→23:35)
[2016-07-02] MEDS: SODIUM CHLORIDE 0.9% 1,000 ML IV SCH (18:03)
[2016-07-02] MEDS: HYDROmorphone 1 MG/ML 1 ML SYRINGE IVP PRN ×2 (18:55→23:35)
[2016-07-02 19:05] LABS: Amorphous Sediment,Urine Rare /hpf; Appearance,Urine Turbid (Clear); Bacteria,Urine Many /hpf; Bilirubin,Urine Negative (Negative); Glucose,Urine (UA) Negative (Negative); Ketones,Urine Negative (Negative); Leukocyte Esterase,Urine Negative (Negative); Mucus,Urine Many /hpf; Nitrite,Urine Negative (Negative); PH, Urine 5.5 (5.0-8.0); Particle Count 35612; Protein,Urine 1+ (Negative); RBC,Urine 17 /hpf (0-5); Squamous Epithelial Cell,Urine 36 /hpf (0-4); UA Billing (MACRO vs. MICRO) MICRO
[2016-07-02] MEDS: SYMBICORT 160-4.5 MCG INHALER INHALATION SCH (20:39)
[2016-07-02] MEDS ORDERED: HEPARIN SODIUM,PORCINE 5,000 UNIT/ML 1 ML VIAL SQ SCH (21:00)
--- NOTE | 2016-07-02 23:21 | P.CONS ---
History of Present Illness - Reason for Consult Consult date: 07/02/16 - Chief Complaint Shortness of breath - History of Present Illness 36 year old female with history of tetrasomy X syndrome who presents from home with a several-day history of increasing shortness of breath. She's having increasing chest tightness over the last few days. The family's home had no power and she was unable to give her several breathing treatment. Her mother is also been ill with a viral infection and was also having some cough and shortness of breath. Because of the worsening shortness of breath she was seen in the outpatient clinic. There believe she was given a treatment and then sent to hospital for admission because of her significant exacerbation of her shortness of breath and asthma. She is now received a treatment and is feeling a bit jittery inability irritation to her mouth. But his breathing considerably better. She is denying significant fevers chills or rigors. Her shortness of breath as noted is improved She is having some intermittent bright red blood per rectum. Which the mother is extremely concerned about. She is denying abdominal pain or rectal pain. Exposure to ill mother's occurred. No other acute changes in the home environment. Review of Systems HEENT:Denies headache or acute visual change. Denies sinus or mouth discomforts. Denies neck stiffness or pain. Denies significant oral cavity pain. Denies difficulty on swallowing. After breathing treatment developed some minimal discomfort to oral cavity. Lungs: As per the HPI Cardiovascular: Denies chest pain, chest wall pain, orthopnea, dyspnea on exertion, syncope Gastrointestinal:Denies nausea, vomiting, diarrhea, constipation, hematemesis, but has had some blood per rectum. Quantity is difficult to determine. Musculoskeletal: denies significant myalgias or arthralgias. No new joint swelling. Denies new back pain. Skin: Denies new rash or lesions. No new ulcers or wounds are related.. Neuro: Denies headache or visual change. Denies any new onset weakness or difficulty with ambulation. Denies falls or seizures. Psychiatric:Denies anxiety or depression. Endocrine: Chronic fatigue weight is stable Past Medical History Past Medical History: Asthma, Eye Disorder, GERD/Reflux, Osteoarthritis (OA), Pneumonia, Seizure Disorder Additional Past Medical History / Comment(s): Pt and her mother states that pt has had abdominal pain and rectal bleeding intermittently over the past 4-5 months and that it has become worse over the past 4 days. She was seen be Dr. Frias today in his office and he stated her lungs sounded like she was not moving air so she was sent to hospital per mother. 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 History of Any Multi-Drug Resistant Organisms: MRSA Year Discovered:: 2006 MDRO Source:: spider bite/buttocks Past Surgical History: Cholecystectomy, Hysterectomy, Orthopedic Surgery, Tubal Ligation Additional Past Surgical History / Comment(s): rt elbow orif. debridment frank buttocks d/t spider bite, nasal septal surgery, mediastinoscopy with bx-benign, colonoscopy, laparoscopy with lysis of adhesions. Past Anesthesia/Blood Transfusion Reactions: No Reported Reaction Past Psychological History: No Psychological Hx Reported Additional Psychological History / Comment(s): Pt resides with her parents. She has developmental diability. She performs her own ADLs. She uses no assistive device. She does not drive. Mother takes her to [employer]. There is a pet cat in the home. No other animal exposures. No tobacco use. No alcohol use. No travel Smoking Status: Current every day smoker Past Alcohol Use History: None Reported Additional Past Alcohol Use History / Comment(s): Pt started smoking in 2001. Past Drug Use History: None Reported - Past Family History Father Family Medical History: Coronary Artery Disease (CAD), Diabetes Mellitus, Myocardial Infarction (LA) Additional Family Medical History / Comment(s): Father had a LA at the age of 62 yrs. He has had CABG. Mother Family Medical History: Congestive Heart Failure (CHF), COPD, Osteoarthritis (OA ), Rheumatoid Arthritis (RA) Additional Family Medical History / Comment(s): Spondylosis, subclavian boyce with stents. Medications and Allergies Home Medications and Allergies Comment(s): Current Medications Acetaminophen (Tylenol Tab) 650 mg PO Q6HR PRN PRN Reason: Fever and/ or Mild Pain Budesonide/Formoterol Fumarate (Symbicort 160-4.5 Mcg Inhaler) 2 puff INHALATION RT-BID DOMINIQUE Last Admin: 03/16/17 20:39 Dose: 2 puff Dexamethasone Sodium Phosphate (Decadron) 4 mg IV Q6HR [facility] Last Admin: 07/02/16 18:00 Dose: 4 mg Hydromorphone HCl (Dilaudid) 0.5 mg IVP Q4HR PRN PRN Reason: Moderate-Severe Pain Last Admin: 07/02/16 18:55 Dose: 0.5 mg Sodium Chloride (Saline 0.9%) 1,000 mls @ 75 mls/hr IV .[id number] [facility] Last Admin: 07/02/16 18:03 Dose: 75 mls/hr Levalbuterol HCl (Xopenex Nebulized) 1.25 mg INHALATION RT-TID [facility] Last Admin: 07/02/16 20:46 Dose: 1.25 mg Miscellaneous Information (Magnesium Per Protocol) 1 each MISCELLANE DAILY PRN ; Protocol PRN Reason: Per Protocol Miscellaneous Information (Potassium Per Protocol) 1 each MISCELLANE DAILY PRN ; Protocol PRN Reason: Per Protocol Ondansetron HCl (Zofran) 4 mg IVP Q6HR PRN PRN Reason: Nausea And Vomiting Sodium Bicarbonate () 10 ml PO 5XD [facility] Home Medications Medication Instructions Recorded Confirmed Type Albuterol Inhaler [Ventolin Hfa 2 puff INHALATION RT-Q4H PRN 05/19/16 07/02/16 History Inhaler] Pantoprazole [Protonix] 40 mg PO DAILY PRN 05/19/16 07/02/16 History Travoprost [Travatan Z 0.004%] 1 drop BOTH EYES HS 05/19/16 07/02/16 History Hydrocodone/Acetaminophen [[place] 1 tab PO Q6H PRN 07/02/16 07/02/16 History 10-325] Multivitamin [Children's 2 tab PO DAILY 07/02/16 07/02/16 History Multivitamins] Olopatadine HCl [Pataday] 2.5 ml OP DAILY PRN 07/02/16 07/02/16 History valACYclovir HCL [Valtrex] 500 mg PO DAILY PRN 07/02/16 07/02/16 History Allergies Allergy/AdvReac Type Severity Reaction Status Date / Time carbamazepine [From Tegretol] Allergy Intermediate Unknown Verified 07/02/16 14: 30 adhesive Allergy Unknown Verified 07/02/16 14:30 amphetamine aspartate Allergy Unknown Verified 07/02/16 14:30 [From Adderall] amphetamine sulfate Allergy Unknown Verified 07/02/16 14:30 [From Adderall] azithromycin Allergy Unknown Verified 07/02/16 14:30 [From Zithromax Z-Tunde] cephalexin monohydrate Allergy Unknown Verified 07/02/16 14:30 [From Keflex] dextroamphetamine saccharate Allergy Unknown Verified 07/02/16 14:30 [From Adderall] dextroamphetamine sulfate Allergy Unknown Verified 07/02/16 14:30 [From Adderall] Iodinated Contrast Media - Allergy Anaphylaxis Verified 07/02/16 14:30 Oral and [Iodinated Contrast Media - IV Dye] ketorolac tromethamine Allergy Rash/Hives Verified 07/02/16 14:30 [From Toradol] kiwi Allergy Anaphylaxis Verified 07/02/16 15:49 latex Allergy Anaphylaxis Verified 07/02/16 14:30 levofloxacin [From Levaquin] Allergy Swelling Verified 07/02/16 14:30 lorazepam [From Ativan] Allergy Unknown Verified 07/02/16 14:30 metoclopramide HCl Allergy Unknown Verified 07/02/16 14:30 [From Reglan] nitrofurantoin Allergy Unknown Verified 07/02/16 14:30 [From Macrobid] nitrofurantoin Allergy Unknown Verified 07/02/16 14:30 macrocrystalline [From Macrobid] peanut Allergy Anaphylaxis Verified 07/02/16 15:49 Sulfa (Sulfonamide Allergy Unknown Verified 07/02/16 14:30 Antibiotics) codeine AdvReac Diarrhea Verified 07/02/16 14:30 doxycycline AdvReac Diarrhea Verified 07/02/16 14:30 methimazole AdvReac Unknown Verified 07/02/16 14:30 Penicillins AdvReac Diarrhea Verified 07/02/16 14:30 prednisone AdvReac Unknown Verified 07/02/16 14:30 [place] Allergy Anaphylaxis Uncoded 07/02/16 15:49 cantalope Allergy Anaphylaxis Uncoded 07/02/16 15:49 TAPE AdvReac Unknown Uncoded 07/02/16 14:30 Physical Exam Vitals: Vital Signs Temp Pulse Pulse Resp BP Pulse Ox 07/02/16 21:11 74 07/02/16 20:46 70 07/02/16 16:35 74 07/02/16 16:22 72 07/02/16 16:00 18 07/02/16 15:00 97.9 F 79 18 121/59 98 Intake and Output 07/02/16 07/02/16 07/03/16 14:59 22:59 06:59 Other: Voiding Method Toilet # Voids 2 # Bowel Movements 1 Weight 71.441 kg Patient Weight 07/03/16 06:59 Weight 71.441 kg Pleasant 36-year-old woman who is comfortable at this time. She is much less short of breath. His minimal oral cavity discomfort. HEENT: Anicteric conjunctiva are pink and moist nasal mucosa grossly intact without significant lesions, there is no thrush. Is some minimal swelling to the lower part of the gumline where her teeth yet been removed. But no ulcerations are seen Neck: The neck is supple without significant lymphadenopathy or thyromegaly. Lungs: There is no symmetric air entry. There is good air exchange. There are few expiratory wheezes. There are no bronchial sounds. No egophony or dullness. This apparently is a much improved exam from admission. Heart: Regular rate and rhythm with an audible S1-S2, no S3 no S4. There is no significant murmur click or rub, PMI was nondisplaced. Abdomen: Abdomen has evidence of the prior surgery. There some tenderness into the right upper quadrant. No guarding or rebound is noted. Rectal exam is deferred to the surgeon. Extremities: The upper extremities have excellent pulses they are symmetric, no significant petechiae or telangiectasia. No splinter hemorrhages were noted. The lower extremities are free from significant edema. The peripheral pulses were 2+ and symmetric. Neuro: Awake alert oriented to person place and time. There are no acute new gross focal sensory motor deficits. Results CBC & Chem 7: 07/02/16 16:00 07/02/16 16:00 Labs: Abnormal Lab Results - Last 24 Hours (Table) 07/02/16 07/02/16 Range/Units 16:00 18:30 Chloride 108 H (98-107) mmol/L Urine Appearance Turbid H (Clear) Urine Protein 1+ H (Negative) Urine RBC 17 H (0-5) /hpf Ur Squamous Epith Cells 36 H (0-4) /hpf Amorphous Sediment Rare H (None) /hpf Urine Bacteria Many H (None) /hpf Urine Mucus Many H (None) /hpf Laboratory Results WBC 6.4 k/uL (3.8-10.6) 07/02/16 16:00 RBC 4.44 m/uL (3.80-5.40) 07/02/16 16:00 Hgb 14.6 gm/dL (11.4-16.0) 07/02/16 16:00 Hct 42.9 % (34.0-46.0) 07/02/16 16:00 MCV 96.6 fL (80.0-100.0) 07/02/16 16:00 MCH 32.9 pg (25.0-35.0) 07/02/16 16:00 MCHC 34.1 g/dL (31.0-37.0) 07/02/16 16:00 RDW 12.4 % (11.5-15.5) 07/02/16 16:00 Plt Count 166 k/uL (150-450) 07/02/16 16:00 Neutrophils % 59 % 07/02/16 16:00 Lymphocytes % 30 % 07/02/16 16:00 Monocytes % 5 % 07/02/16 16:00 Eosinophils % 1 % 07/02/16 16:00 Basophils % 1 % 07/02/16 16:00 Neutrophils # 3.7 k/uL (1.3-7.7) 07/02/16 16:00 Lymphocytes # 1.9 k/uL (1.0-4.8) 07/02/16 16:00 Monocytes # 0.3 k/uL (0-1.0) 07/02/16 16:00 Eosinophils # 0.1 k/uL (0-0.7) 07/02/16 16:00 Basophils # 0.1 k/uL (0-0.2) 07/02/16 16:00 Sodium 144 mmol/L (137-145) 07/02/16 16:00 Potassium 4.1 mmol/L (3.5-5.1) 07/02/16 16:00 Chloride 108 mmol/L (98-107) H 07/02/16 16:00 Carbon Dioxide 25 mmol/L (22-30) 07/02/16 16:00 Anion Gap 11 mmol/L 07/02/16 16:00 BUN 14 mg/dL (7-17) 07/02/16 16:00 Creatinine 0.70 mg/dL (0.52-1.04) 07/02/16 16:00 Est GFR (MDRD) Af Amer >60 (>60 ml/min/1.73 sqM) 07/02/16 16:00 Est GFR (MDRD) Non-Af >60 (>60 ml/min/1.73 sqM) 07/02/16 16:00 Glucose 90 mg/dL (74-99) 07/02/16 16:00 Plasma Lactic Acid Eladio 1.1 mmol/L (0.7-2.0) 07/02/16 16:00 Calcium 9.7 mg/dL (8.4-10.2) 07/02/16 16:00 Magnesium 1.8 mg/dL (1.6-2.3) 07/02/16 16:00 Iron 81 ug/dL (37-170) 07/02/16 16:00 TIBC 316 ug/dL (265-497) 07/02/16 16:00 Ferritin 135 ng/mL (6-137) 07/02/16 16:00 Total Bilirubin 0.5 mg/dL (0.2-1.3) 07/02/16 16:00 AST 30 U/L (14-36) 07/02/16 16:00 ALT 46 U/L (9-52) 07/02/16 16:00 Alkaline Phosphatase 69 U/L (38-126) 07/02/16 16:00 Total Protein 7.6 g/dL (6.3-8.2) 07/02/16 16:00 Albumin 4.3 g/dL (3.5-5.0) 07/02/16 16:00 Urine Color Yellow 07/02/16 18:30 Urine Appearance Turbid (Clear) H 07/02/16 18:30 Urine pH 5.5 (5.0-8.0) 07/02/16 18:30 Ur Specific [place] 1.030 (1.001-1.035) 07/02/16 18:30 Urine Protein 1+ (Negative) H 07/02/16 18:30 Urine Glucose (UA) Negative (Negative) 07/02/16 18:30 Urine Ketones Negative (Negative) 07/02/16 18:30 Urine Blood Negative (Negative) 07/02/16 18:30 Urine Nitrite Negative (Negative) 07/02/16 18:30 Urine Bilirubin Negative (Negative) 07/02/16 18:30 Urine Urobilinogen 2.0 mg/dL (<2.0) 07/02/16 18:30 Ur Leukocyte Esterase Negative (Negative) 07/02/16 18:30 Urine RBC 17 /hpf (0-5) H 07/02/16 18:30 Ur Squamous Epith Cells 36 /hpf (0-4) H 07/02/16 18:30 Amorphous Sediment Rare /hpf (None) H 07/02/16 18:30 Urine Bacteria Many /hpf (None) H 07/02/16 18:30 Urine Mucus Many /hpf (None) H 07/02/16 18:30 Stool Occult Blood Negative (Negative) 07/02/16 19:27 Chest x-ray: image reviewed (No evidence of pneumonia) Assessment and Plan (1) Acute bronchospasm Narrative/Plan: 36-year-old woman with history of tetrasomy X syndrome presents to Hospital was having shortness of breath. The patient did not have access to her respiratory treatments at home due to the lack of power. This developed an acute exacerbation. She's now been given breathing treatments as well as some IV steroids. She's feeling jittery and out of sorts from the steroid therapy. Her breathing is much improved. From the recent Xopenex treatment her oral cavity is minimally irritated. Salt and soda will be given for the oral cavity. There is no thrush. Her chest x-ray was reviewed and she does not have pneumonia. She has not need of antibiotic therapy at this point in time. Mother been ill and if she does have a pulmonary process at this time is most likely viral. She is without high-grade fever or leukocytosis. With her many ALLERGIES would avoid antibiotics therapy unless she has a distinct pneumonia at this time. Status: Acute
[2016-07-03] MEDS: SALT AND SODA MOUTHWASH 1,000 ML PO SCH ×5 (00:22→22:35)
[2016-07-03] MEDS: SODIUM CHLORIDE 0.9% 1,000 ML IV SCH ×2 (05:49→18:00)
[2016-07-03] MEDS: DEXAMETHASONE SOD PHOSPHATE 4 MG/ML 1 ML VIAL IV SCH ×3 (05:50→16:20)
[2016-07-03] MEDS: LEVALBUTEROL NEB 1.25 MG/3 ML AMP INHALATION SCH ×3 (07:14→19:34)
[2016-07-03] MEDS: SYMBICORT 160-4.5 MCG INHALER INHALATION SCH ×2 (07:14→19:34)
[2016-07-03 07:39] LABS: Basophils % (A) 0 %; CH 32.6; CHCM 33.6; Eosinophils % (A) 0 %; HCT 39.4 % (34.0-46.0); HDW 2.68; HGB 12.9 gm/dL (11.4-16.0); Luc # (Auto) 0.07; Luc % (Auto) 1; Lymphocytes # (A) 0.8 k/uL (1.0-4.8); Lymphocytes % (A) 15 %; MCHC 32.8 g/dL (31.0-37.0); MCV 97.4 fL (80.0-100.0); Mean Platelet Volume 7.2; Monocytes # (A) 0.1 k/uL (0-1.0); Monocytes % (A) 2 %; Neutrophils # (A) 4.6 k/uL (1.3-7.7); Neutrophils % (A) 82 %; RBC 4.04 m/uL (3.80-5.40); RDW 12.4 % (11.5-15.5); WBC 5.6 k/uL (3.8-10.6); WBC (Perox) 6.18
[2016-07-03 08:12] LABS: Anion Gap 13 mmol/L; Blood Urea Nitrogen 11 mg/dL (7-17); Calcium 9.9 mg/dL (8.4-10.2); Carbon Dioxide 23 mmol/L (22-30); Chloride 107 mmol/L (98-107); Glucose 161 mg/dL (74-99); Magnesium 1.7 mg/dL (1.6-2.3); Non-African American GFR(MDRD) >60 (>60 ml/min/1.73 sqM); Potassium 4.6 mmol/L (3.5-5.1); Sodium 143 mmol/L (137-145)
[2016-07-03] MEDS ORDERED: PANTOPRAZOLE 40 MG TABLET PO PRN (08:41)
[2016-07-03] MEDS ORDERED: ALBUTEROL NEBULIZED 2.5 MG/3 ML INHALATION PRN (08:41)
[2016-07-03] MEDS ORDERED: HYDROcodone/APAP 10-325MG 1 EACH TAB PO PRN (08:41)
[2016-07-03] MEDS ORDERED: KETOTIFEN 0.025% OPHTH DROPS 5 ML BTL BOTH EYES PRN (08:41)
[2016-07-03] MEDS: DICYCLOMINE 20 MG TAB PO SCH ×4 (10:35→22:35)
--- NOTE | 2016-07-03 11:29 | P.PN ---
Subjective patient presented with shortness of breath and blood per rectum. she's been treated for an asthma exacerbation. Patient reports improvement in her breathing. No further blood in stool. Stool for occult blood was negative. Denies any chest pain. Denies any nausea or vomiting. Is complaining of some diffuse abdominal pain. Objective - Vital Signs Vital signs: Vital Signs Temp 97.6 F 07/03/16 07:00 Pulse 73 07/03/16 07:00 Resp 18 07/03/16 08:00 BP 134/71 07/03/16 07:00 Pulse Ox 98 07/03/16 07:00 Intake & Output 07/02/16 07/03/16 07/03/16 18:59 06:59 18:59 Intake Total 725 Balance 725 Weight 71.441 kg Intake: IV 375 Sodium Chloride 0.9% 1, 375 000 ml @ 75 mls/hr IV . [id number] [facility] Rx#:[id number] Oral 350 Other: Voiding Method Toilet Toilet Toilet # Voids 1 # Bowel Movements 1 - Exam Head normocephalic Neck supple Lungs diminished and no wheezing Heart regular rate and rhythm S1-S2, no rub or gallop Abdomen is soft nondistended with diffuse abdominal tenderness with palpation Extremities no edema Neuro alert and orientated to 3 - Labs CBC & Chem 7: 07/03/16 07:14 07/03/16 07:14 Labs: Abnormal Lab Results - Last 24 Hours (Table) 07/02/16 07/02/16 07/03/16 Range/Units 16:00 18:30 07:14 Lymphocytes # 0.8 L (1.0-4.8) k/uL Chloride 108 H (98-107) mmol/L Glucose (74-99) mg/dL Urine Appearance Turbid H (Clear) Urine Protein 1+ H (Negative) Urine RBC 17 H (0-5) /hpf Ur Squamous Epith Cells 36 H (0-4) /hpf Amorphous Sediment Rare H (None) /hpf Urine Bacteria Many H (None) /hpf Urine Mucus Many H (None) /hpf 07/03/16 Range/Units 07:14 Lymphocytes # (1.0-4.8) k/uL Chloride (98-107) mmol/L Glucose 161 H (74-99) mg/dL Urine Appearance (Clear) Urine Protein (Negative) Urine RBC (0-5) /hpf Ur Squamous Epith Cells (0-4) /hpf Amorphous Sediment (None) /hpf Urine Bacteria (None) /hpf Urine Mucus (None) /hpf Microbiology - Last 24 Hours (Table) 07/02/16 18:30 Urine Culture - Preliminary Urine,Voided Assessment and Plan Plan: 1. Acute asthma exacerbation: continue bronchodilators and IV steroids. Pulmonology consulted. 2. Lower GI bleed: Exact etiology unclear. Liquid diet for now. GI consult requested. hemoglobin stable at 12.9. Stool for occult blood negative 3. viral upper respiratory infection: Evaluated by infectious disease. They' re recommending no antibiotics at this time. Chest x-ray negative for pneumonia. patient is afebrile and no leukocytosis 4. 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
[2016-07-03] MEDS ORDERED: MULTIVITAMINS, THERA 1 EACH TAB PO SCH (12:00)
--- NOTE | 2016-07-03 13:18 | P.CONS ---
History of Present Illness - Reason for Consult Consult date: 07/03/16 rectal bleeding Requesting physician: Zabrina Burrell - History of Present Illness 36-year-old female with a history of Tetrasomy X syndrome presents with shortness of breath exacerbation of asthma. Consultation requested for rectal bleeding. History obtained from mother and patient. According to the mother she's had intermittent bright red blood per rectum with clots for the last 3 months mixed in her stool as well as on toilet tissue. Intermittent bloatedness with lower abdominal discomfort. EGD colonoscopy about [address] [facility] but does not remember the results. Sometimes bowel movements are black in color sometimes red. Denies aspirin or NSAID usage. No fever, chills, weight loss. admission hemoglobin 14.6. MCV 96. Platelet 166. BUN 14. Creatinine 0.7. hemoglobin today 12.9. Hemoccult stool negative. Review of Systems Constitutional: Denies fever, chills, sweats, weight gain, or loss. HEENT: Negative for migraines, blurred vision or loss, earaches, drainage, tinnitus, oral mucosal lesions, dysphagia, or odynophagia. CARDIAC: Negative for chest pain, arrhythmias, or palpitation. RESPIRATORY: asthma.shortness of breath on admission. Denies production of sputum. GI: See HPI for pertinent findings.history of GERD. : Negative for hematuria, urgency, frequency, polyuria, or dysuria. GYNc: Denies possibility of . Negative vaginal discharge. MUSCULOSKELETAL: Negative for muscle aches, swelling, arthritis, and arthralgias. NEUROLOGIC: history of seizure disorder.Negative for stroke or TIA. ENDOCRINE: Negative for thyroid problems. SKIN: Negative for rash or itching.history of MRSA. PSYCHIATRIC: Tetrasomy X. Negative history for depression and anxiety All systems: negative (see HPI) Past Medical History Past Medical History: Asthma, Eye Disorder, GERD/Reflux, Osteoarthritis (OA), Pneumonia, Seizure Disorder Additional Past Medical History / Comment(s): Pt and her mother states that pt has had abdominal pain and rectal bleeding intermittently over the past 4-5 months and that it has become worse over the past 4 days. She was seen be Dr. Frias today in his office and he stated her lungs sounded like she was not moving air so she was sent to hospital per mother. 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 History of Any Multi-Drug Resistant Organisms: MRSA Year Discovered:: 2006 MDRO Source:: spider bite/buttocks Past Surgical History: Cholecystectomy, Hysterectomy, Orthopedic Surgery, Tubal Ligation Additional Past Surgical History / Comment(s): rt elbow orif. debridment frank buttocks d/t spider bite, nasal septal surgery, mediastinoscopy with bx-benign, colonoscopy, laparoscopy with lysis of adhesions. Past Anesthesia/Blood Transfusion Reactions: No Reported Reaction Past Psychological History: No Psychological Hx Reported Additional Psychological History / Comment(s): Pt resides with her parents. She has developmental diability. She performs her own ADLs. She uses no assistive device. She does not drive. Mother takes her to [place]. There is a pet cat in the home. No other animal exposures. No tobacco use. No alcohol use. No travel Smoking Status: Current every day smoker Past Alcohol Use History: None Reported Additional Past Alcohol Use History / Comment(s): Pt started smoking in 2001. Past Drug Use History: None Reported - Past Family History Father Family Medical History: Coronary Artery Disease (CAD), Diabetes Mellitus, Myocardial Infarction ([place]) Additional Family Medical History / Comment(s): Father had a [place] at the age of 62 yrs. He has had CABG. Mother Family Medical History: Congestive Heart Failure (CHF), COPD, Osteoarthritis (OA ), Rheumatoid Arthritis (RA) Additional Family Medical History / Comment(s): Spondylosis, subclavian boyce with stents. Medications and Allergies Home Medications Medication Instructions Recorded Confirmed Type Albuterol Inhaler [Ventolin Hfa 2 puff INHALATION RT-Q4H PRN 05/19/16 07/02/16 History Inhaler] Pantoprazole [Protonix] 40 mg PO DAILY PRN 05/19/16 07/02/16 History Travoprost [Travatan Z 0.004%] 1 drop BOTH EYES HS 05/19/16 07/02/16 History Hydrocodone/Acetaminophen [[place] 1 tab PO Q6H PRN 07/02/16 07/02/16 History 10-325] Multivitamin [Children's 2 tab PO DAILY 07/02/16 07/02/16 History Multivitamins] Olopatadine HCl [Pataday] 2.5 ml OP DAILY PRN 07/02/16 07/02/16 History valACYclovir HCL [Valtrex] 500 mg PO DAILY PRN 07/02/16 07/02/16 History Allergies Allergy/AdvReac Type Severity Reaction Status Date / Time carbamazepine [From Tegretol] Allergy Intermediate Unknown Verified 07/02/16 14: 30 adhesive Allergy Unknown Verified 07/02/16 14:30 amphetamine aspartate Allergy Unknown Verified 07/02/16 14:30 [From Adderall] amphetamine sulfate Allergy Unknown Verified 07/02/16 14:30 [From Adderall] azithromycin Allergy Unknown Verified 07/02/16 14:30 [From Zithromax Z-Tunde] cephalexin monohydrate Allergy Unknown Verified 07/02/16 14:30 [From Keflex] dextroamphetamine saccharate Allergy Unknown Verified 07/02/16 14:30 [From Adderall] dextroamphetamine sulfate Allergy Unknown Verified 07/02/16 14:30 [From Adderall] Iodinated Contrast Media - Allergy Anaphylaxis Verified 07/02/16 14:30 Oral and [Iodinated Contrast Media - IV Dye] ketorolac tromethamine Allergy Rash/Hives Verified 07/02/16 14:30 [From Toradol] kiwi Allergy Anaphylaxis Verified 07/02/16 15:49 latex Allergy Anaphylaxis Verified 07/02/16 14:30 levofloxacin [From Levaquin] Allergy Swelling Verified 07/02/16 14:30 lorazepam [From Ativan] Allergy Unknown Verified 07/02/16 14:30 metoclopramide HCl Allergy Unknown Verified 07/02/16 14:30 [From Reglan] nitrofurantoin Allergy Unknown Verified 07/02/16 14:30 [From Macrobid] nitrofurantoin Allergy Unknown Verified 07/02/16 14:30 macrocrystalline [From Macrobid] peanut Allergy Anaphylaxis Verified 07/02/16 15:49 Sulfa (Sulfonamide Allergy Unknown Verified 07/02/16 14:30 Antibiotics) codeine AdvReac Diarrhea Verified 07/02/16 14:30 doxycycline AdvReac Diarrhea Verified 07/02/16 14:30 methimazole AdvReac Unknown Verified 07/02/16 14:30 Penicillins AdvReac Diarrhea Verified 07/02/16 14:30 prednisone AdvReac Unknown Verified 07/02/16 14:30 [place]ac[place] Allergy Anaphylaxis Uncoded 07/02/16 15:49 cantalope Allergy Anaphylaxis Uncoded 07/02/16 15:49 TAPE AdvReac Unknown Uncoded 07/02/16 14:30 Physical Exam Vitals: Vital Signs Temp Pulse Pulse Resp BP Pulse Ox 07/03/16 08:00 18 07/03/16 07:00 97.6 F 73 18 134/71 98 07/02/16 23:00 98.9 F 104 H 16 103/50 96 07/02/16 21:11 74 07/02/16 20:46 70 07/02/16 16:35 74 07/02/16 16:22 72 07/02/16 16:00 18 07/02/16 15:00 97.9 F 79 18 121/59 98 Intake and Output 07/02/16 07/03/16 07/03/16 22:59 06:59 14:59 Intake Total 725 Balance 725 Intake: IV 375 Sodium Chloride 0.9% 1, 375 000 ml @ 75 mls/hr IV . [id number] COUNT INCLUDES THE [facility] Rx#:[id number] Oral 350 Other: Voiding Method Toilet Toilet # Voids 2 1 # Bowel Movements 1 General appearance: The patient is alert, oriented, in no acute distress. HET: Head is normocephalic and atraumatic. Pupils are equal and reactive. Oropharynx is clear without lesions. Neck: Supple without lymphadenopathy. Trachea midline. Heart: S1 S2. Regular rate and rhythm. Lungs: No crackles or wheezes are heard. Abdomen: Soft, nontender, nondistended with bowel sounds. No peritoneal signs. No palpable organomegaly or masses. Extremities: Normal skin color and turgor. No cyanosis, rash, ulceration, clubbing, or edema. Radial and pedal pulses are 2/4 bilaterally. Neurological: No focal deficits. Strength and sensation are grossly intact. Rectal: no external hemorrhoids. Yellow stool on finger. No palpable masses. Results CBC & Chem 7: 07/03/16 07:14 07/03/16 07:14 Labs: Abnormal Lab Results - Last 24 Hours (Table) 07/02/16 07/02/16 07/03/16 Range/Units 16:00 18:30 07:14 Lymphocytes # 0.8 L (1.0-4.8) k/uL Chloride 108 H (98-107) mmol/L Glucose (74-99) mg/dL Urine Appearance Turbid H (Clear) Urine Protein 1+ H (Negative) Urine RBC 17 H (0-5) /hpf Ur Squamous Epith Cells 36 H (0-4) /hpf Amorphous Sediment Rare H (None) /hpf Urine Bacteria Many H (None) /hpf Urine Mucus Many H (None) /hpf 07/03/16 Range/Units 07:14 Lymphocytes # (1.0-4.8) k/uL Chloride (98-107) mmol/L Glucose 161 H (74-99) mg/dL Urine Appearance (Clear) Urine Protein (Negative) Urine RBC (0-5) /hpf Ur Squamous Epith Cells (0-4) /hpf Amorphous Sediment (None) /hpf Urine Bacteria (None) /hpf Urine Mucus (None) /hpf Microbiology - Last 24 Hours (Table) 07/02/16 18:30 Urine Culture - Preliminary Urine,Voided Assessment and Plan (1) Rectal bleeding Narrative/Plan: 36-year-old female with history of chromosomal disorder presents withshortness of breath exacerbation of asthma with intermittent rectal bleeding with bright red blood sometimes black bowel movements x 3 months. Status: Acute Plan: 1. Colonoscopy EGD was discussed with family scheduled Wednesday[address] [facility]. 2. Discharge per medicine. GI office provided electronic bowel prep prescription. Thank you for this kind referral and the opportunity to participate in the care of your patient. This consultation was discussed with Dr. Mac. The impression and plan of care have been directed as dictated.
[2016-07-03 15:52] VITALS: BMI 23.9
--- NOTE | 2016-07-03 17:38 | P.CNPUL ---
History of Present Illness Consult date: 07/03/16 Requesting physician: Zabrina Burrell Reason for consult: asthma Chief complaint: Shortness of breath and abdominal pain, rectal bleeding History of present illness: This is a very pleasant 36-year-old female patient who follows with Dr. Frias in our office as her primary care physician. She has a history of tetrasomy X syndrome and mild developmental delay, chronic bronchial asthma, chronic tobacco dependence, gastroesophageal reflux disease, osteoarthritis, seizure disorder, MTHFR deficiency. She and her mother had presented to Dr. Johnson's office yesterday with complaints of abdominal pain and intermittent rectal bleeding of the past 4-5 months. She said some complaints of shortness of breath and suspected asthma exacerbation. She was admitted for the same. She is seen today in consultation. She is awake and alert in no acute distress. She's been refusing most of her medications. She is taking her nebulized treatments. She's been up ambulating in the hallway. She currently denies any shortness of breath, cough or congestion. No fever chills or night sweats. Her chest x-ray is negative for any acute pulmonary process. Her abdominal pain is improved. There's been no significant bleeding since admission. Her hemoglobin is stable at 12.9. Stool for occult blood was negative. He has no previous history of GI bleeding. She has been seen by GI services recommended outpatient upper and lower endoscopy to be performed on 07/06/2016. Review of Systems 14 point review of systems was conducted. All negative other than as mentioned in the HPI. Past Medical History Past Medical History: Asthma, Eye Disorder, GERD/Reflux, Osteoarthritis (OA), Pneumonia, Seizure Disorder Additional Past Medical History / Comment(s): Pt and her mother states that pt has had abdominal pain and rectal bleeding intermittently over the past 4-5 months and that it has become worse over the past 4 days. She was seen be Dr. Frias today in his office and he stated her lungs sounded like she was not moving air so she was sent to hospital per mother. 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 History of Any Multi-Drug Resistant Organisms: MRSA Date of last positivie culture/infection: 2006 MDRO Source:: spider bite/buttocks Past Surgical History: Cholecystectomy, Hysterectomy, Orthopedic Surgery, Tubal Ligation Additional Past Surgical History / Comment(s): rt elbow orif. debridment frank buttocks d/t spider bite, nasal septal surgery, mediastinoscopy with bx-benign, colonoscopy, laparoscopy with lysis of adhesions. Past Anesthesia/Blood Transfusion Reactions: No Reported Reaction Past Psychological History: No Psychological Hx Reported Additional Psychological History / Comment(s): Pt resides with her parents. She has developmental diability. She performs her own ADLs. She uses no assistive device. She does not drive. Mother takes her to [email or web address]. There is a pet cat in the home. No other animal exposures. No tobacco use. No alcohol use. No travel Smoking Status: Current every day smoker Past Alcohol Use History: None Reported Additional Past Alcohol Use History / Comment(s): Pt started smoking in 2001. Past Drug Use History: None Reported - Past Family History Father Family Medical History: Coronary Artery Disease (CAD), Diabetes Mellitus, Myocardial Infarction ([place]) Additional Family Medical History / Comment(s): Father had a [place] at the age of 62 yrs. He has had CABG. Mother Family Medical History: Congestive Heart Failure (CHF), COPD, Osteoarthritis (OA ), Rheumatoid Arthritis ([place]) Additional Family Medical History / Comment(s): Spondylosis, subclavian boyce with stents. Medications and Allergies Home Medications Medication Instructions Recorded Confirmed Type Albuterol Inhaler [Ventolin Hfa 2 puff INHALATION RT-Q4H PRN 05/19/16 07/02/16 History Inhaler] Pantoprazole [Protonix] 40 mg PO DAILY PRN 05/19/16 07/02/16 History Travoprost [Travatan Z 0.004%] 1 drop BOTH EYES HS 05/19/16 07/02/16 History Hydrocodone/Acetaminophen [[place] 1 tab PO Q6H PRN 07/02/16 07/02/16 History 10-325] Multivitamin [Children's 2 tab PO DAILY 07/02/16 07/02/16 History Multivitamins] Olopatadine HCl [Pataday] 2.5 ml OP DAILY PRN 07/02/16 07/02/16 History valACYclovir HCL [Valtrex] 500 mg PO DAILY PRN 07/02/16 07/02/16 History Allergies Allergy/AdvReac Type Severity Reaction Status Date / Time carbamazepine [From Tegretol] Allergy Intermediate Unknown Verified 07/02/16 14: 30 adhesive Allergy Unknown Verified 07/02/16 14:30 amphetamine aspartate Allergy Unknown Verified 07/02/16 14:30 [From Adderall] amphetamine sulfate Allergy Unknown Verified 07/02/16 14:30 [From Adderall] azithromycin Allergy Unknown Verified 07/02/16 14:30 [From Zithromax Z-Tunde] cephalexin monohydrate Allergy Unknown Verified 07/02/16 14:30 [From Keflex] dextroamphetamine saccharate Allergy Unknown Verified 07/02/16 14:30 [From Adderall] dextroamphetamine sulfate Allergy Unknown Verified 07/02/16 14:30 [From Adderall] Iodinated Contrast Media - Allergy Anaphylaxis Verified 07/02/16 14:30 Oral and [Iodinated Contrast Media - IV Dye] ketorolac tromethamine Allergy Rash/Hives Verified 07/02/16 14:30 [From Toradol] kiwi Allergy Anaphylaxis Verified 07/02/16 15:49 latex Allergy Anaphylaxis Verified 07/02/16 14:30 levofloxacin [From Levaquin] Allergy Swelling Verified 07/02/16 14:30 lorazepam [From Ativan] Allergy Unknown Verified 07/02/16 14:30 metoclopramide HCl Allergy Unknown Verified 07/02/16 14:30 [From Reglan] nitrofurantoin Allergy Unknown Verified 07/02/16 14:30 [From Macrobid] nitrofurantoin Allergy Unknown Verified 07/02/16 14:30 macrocrystalline [From Macrobid] peanut Allergy Anaphylaxis Verified 07/02/16 15:49 Sulfa (Sulfonamide Allergy Unknown Verified 07/02/16 14:30 Antibiotics) codeine AdvReac Diarrhea Verified 07/02/16 14:30 doxycycline AdvReac Diarrhea Verified 07/02/16 14:30 methimazole AdvReac Unknown Verified 07/02/16 14:30 Penicillins AdvReac Diarrhea Verified 07/02/16 14:30 prednisone AdvReac Unknown Verified 07/02/16 14:30 [place] Allergy Anaphylaxis Uncoded 07/02/16 15:49 cantalope Allergy Anaphylaxis Uncoded 07/02/16 15:49 TAPE AdvReac Unknown Uncoded 07/02/16 14:30 Physical Exam Vitals: Vital Signs Temp Pulse Pulse Resp BP Pulse Ox 07/03/16 16:00 18 07/03/16 08:00 18 07/03/16 07:00 97.6 F 73 18 134/71 98 07/02/16 23:00 98.9 F 104 H 16 103/50 96 07/02/16 21:11 74 07/02/16 20:46 70 Intake and Output 07/03/16 07/03/16 07/03/16 06:59 14:59 22:59 Intake Total 725 525 Balance 725 525 Intake: IV 375 525 Sodium Chloride 0.9% 1, 375 525 000 ml @ 75 mls/hr IV . [id number] [facility] Rx#:[id number] Oral 350 Other: Voiding Method Toilet Toilet # Voids 1 Weight 71.441 kg Patient Weight 07/04/16 06:59 Weight 71.441 kg GENERAL EXAM: Alert, active, comfortable in no apparent distress. Developmentally delayed. HEAD: Normocephalic. EYES: Normal reaction of pupils, equal size. NOSE: Clear with pink turbinates. THROAT: No erythema or exudates. NECK: No masses, no JVD. CHEST: No chest wall deformity. LUNGS: Equal air entry with no crackles, wheeze, rhonchi or dullness. CVS: S1 and S2 normal with no audible murmurs, regular rhythm. ABDOMEN: No hepatosplenomegaly, normal bowel sounds, no guarding or rigidity. Extremities: There is no peripheral edema. No clubbing, no cyanosis. Peripheral pulses are intact. Results - Laboratory Findings CBC and BMP: 07/03/16 07:14 07/03/16 07:14 Abnormal lab findings: Abnormal Labs 07/02/16 07/02/16 07/03/16 16:00 18:30 07:14 Lymphocytes # 0.8 L Chloride 108 H Glucose Urine Appearance Turbid H Urine Protein 1+ H Urine RBC 17 H Ur Squamous Epith Cells 36 H Amorphous Sediment Rare H Urine Bacteria Many H Urine Mucus Many H 07/03/16 07:14 Lymphocytes # Chloride Glucose 161 H Urine Appearance Urine Protein Urine RBC Ur Squamous Epith Cells Amorphous Sediment Urine Bacteria Urine Mucus - Diagnostic Findings Chest x-ray: image reviewed (No acute pulmonary process.) Assessment and Plan Plan: Impression: #1 Acute exacerbation of mild intermittent asthma. #2 Chronic and ongoing tobacco dependence. #3 Abdominal pain with intermittent rectal bleeding. #4 Trisomy X syndrome with developmental delay #5 Multiple medication ALLERGIES #6 History of seizure disorder. #7 Gastroesophageal reflux disease. #8 Osteoarthritis. Plan: The patient was seen and evaluated by Dr. Brunner. Her chest x-ray and labs were reviewed. There is no evidence of acute pulmonary process. She is significantly improved today as far as her pulmonary status. She denies any shortness of breath, cough or congestion. No wheezing or bronchospasms. No evidence of acute GI bleed. She was seen and evaluated by GI services were planning a EGD/colonoscopy on 07/06/2016. She's been seen and evaluated by infectious disease was not recommending any antibiotics at this time. The patient has refused all steroids. She does have sensitivities to them. The patient is quite anxious to go home and is restless and pacing the hallways. Her mother who is at the bedside is agreeable for her to go home. She will follow-up with Dr. Frias in the office next week. They will call sooner with any recurrence of symptoms or other questions or concerns. She is cleared for discharge from the pulmonary standpoint. Time with Patient: Greater than 30
--- NOTE | 2016-07-03 18:00 | P.PN ---
Subjective Principal diagnosis: Shortness of breath 36 year old female with history of tetrasomy X syndrome who presents from home with a several-day history of increasing shortness of breath. She's having increasing chest tightness over the last few days. The family's home had no power and she was unable to give her several breathing treatment. Her mother is also been ill with a viral infection and was also having some cough and shortness of breath. Because of the worsening shortness of breath she was seen in the outpatient clinic. There believe she was given a treatment and then sent to hospital for admission because of her significant exacerbation of her shortness of breath and asthma. She is now received a treatment and is feeling a bit jittery inability irritation to her mouth. But his breathing considerably better. She is denying significant fevers chills or rigors. Her shortness of breath as noted is improved She is having some intermittent bright red blood per rectum. Which the mother is extremely concerned about. She is denying abdominal pain or rectal pain. Exposure to ill mother's occurred. No other acute changes in the home environment. Feeling considerably better today. Up walking the hallways without wheezing. Energy level is good. Does have some pain to her left hip which is not new. Does follow with orthopedics. Objective - Vital Signs Vital signs: Vital Signs Temp 97.6 F 07/03/16 07:00 Pulse 71 07/03/16 15:00 Resp 18 07/03/16 16:00 BP 110/57 07/03/16 15:00 Pulse Ox 98 07/03/16 15:00 Intake & Output 07/02/16 07/03/16 07/03/16 18:59 06:59 18:59 Intake Total 725 525 Balance 725 525 Weight 71.441 kg 71.441 kg Intake: IV 375 525 Sodium Chloride 0.9% 1, 375 525 000 ml @ 75 mls/hr IV . [id number] [facility] Rx#:[id number] Oral 350 Other: Voiding Method Toilet Toilet Toilet # Voids 1 # Bowel Movements 1 - Exam Pleasant 36-year-old woman who is comfortable at this time. She is much less short of breath. His minimal oral cavity discomfort. HEENT: Anicteric conjunctiva are pink and moist nasal mucosa grossly intact without significant lesions, there is no thrush. Is some minimal swelling to the lower part of the gumline where her teeth yet been removed. But no ulcerations are seen Neck: The neck is supple without significant lymphadenopathy or thyromegaly. Lungs: There is no symmetric air entry. There is good air exchange. There are few expiratory wheezes. There are no bronchial sounds. No egophony or dullness. This apparently is a much improved exam from admission. Heart: Regular rate and rhythm with an audible S1-S2, no S3 no S4. There is no significant murmur click or rub, PMI was nondisplaced. Abdomen: Abdomen has evidence of the prior surgery. There some tenderness into the right upper quadrant. No guarding or rebound is noted. Rectal exam is deferred to the surgeon. Extremities: The upper extremities have excellent pulses they are symmetric, no significant petechiae or telangiectasia. No splinter hemorrhages were noted. The lower extremities are free from significant edema. The peripheral pulses were 2+ and symmetric. Neuro: Awake alert oriented to person place and time. There are no acute new gross focal sensory motor deficits. - Labs CBC & Chem 7: 07/03/16 07:14 07/03/16 07:14 Labs: Abnormal Lab Results - Last 24 Hours (Table) 07/02/16 07/03/16 07/03/16 Range/Units 18:30 07:14 07:14 Lymphocytes # 0.8 L (1.0-4.8) k/uL Glucose 161 H (74-99) mg/dL Urine Appearance Turbid H (Clear) Urine Protein 1+ H (Negative) Urine RBC 17 H (0-5) /hpf Ur Squamous Epith Cells 36 H (0-4) /hpf Amorphous Sediment Rare H (None) /hpf Urine Bacteria Many H (None) /hpf Urine Mucus Many H (None) /hpf Microbiology - Last 24 Hours (Table) 07/02/16 18:30 Urine Culture - Preliminary Urine,Voided Laboratory Results WBC 5.6 k/uL (3.8-10.6) 07/03/16 07:14 RBC 4.04 m/uL (3.80-5.40) 07/03/16 07:14 Hgb 12.9 gm/dL (11.4-16.0) 07/03/16 07:14 Hct 39.4 % (34.0-46.0) 07/03/16 07:14 MCV 97.4 fL (80.0-100.0) 07/03/16 07:14 MCH 32.0 pg (25.0-35.0) 07/03/16 07:14 MCHC 32.8 g/dL (31.0-37.0) 07/03/16 07:14 RDW 12.4 % (11.5-15.5) 07/03/16 07:14 Plt Count 164 k/uL (150-450) 07/03/16 07:14 Neutrophils % 82 % 07/03/16 07:14 Lymphocytes % 15 % 07/03/16 07:14 Monocytes % 2 % 07/03/16 07:14 Eosinophils % 0 % 07/03/16 07:14 Basophils % 0 % 07/03/16 07:14 Neutrophils # 4.6 k/uL (1.3-7.7) 07/03/16 07:14 Lymphocytes # 0.8 k/uL (1.0-4.8) L 07/03/16 07:14 Monocytes # 0.1 k/uL (0-1.0) 07/03/16 07:14 Eosinophils # 0.0 k/uL (0-0.7) 07/03/16 07:14 Basophils # 0.0 k/uL (0-0.2) 07/03/16 07:14 Sodium 143 mmol/L (137-145) 07/03/16 07:14 Potassium 4.6 mmol/L (3.5-5.1) 07/03/16 07:14 Chloride 107 mmol/L (98-107) 07/03/16 07:14 Carbon Dioxide 23 mmol/L (22-30) 07/03/16 07:14 Anion Gap 13 mmol/L 07/03/16 07:14 BUN 11 mg/dL (7-17) 07/03/16 07:14 Creatinine 0.62 mg/dL (0.52-1.04) 07/03/16 07:14 Est GFR (MDRD) Af Amer >60 (>60 ml/min/1.73 sqM) 07/03/16 07:14 Est GFR (MDRD) Non-Af >60 (>60 ml/min/1.73 sqM) 07/03/16 07:14 Glucose 161 mg/dL (74-99) H 07/03/16 07:14 Plasma Lactic Acid Eladio 1.1 mmol/L (0.7-2.0) 07/02/16 16:00 Calcium 9.9 mg/dL (8.4-10.2) 07/03/16 07:14 Magnesium 1.7 mg/dL (1.6-2.3) 07/03/16 07:14 Iron 81 ug/dL (37-170) 07/02/16 16:00 TIBC 316 ug/dL (265-497) 07/02/16 16:00 Ferritin 135 ng/mL (6-137) 07/02/16 16:00 Total Bilirubin 0.5 mg/dL (0.2-1.3) 07/02/16 16:00 AST 30 U/L (14-36) 07/02/16 16:00 ALT 46 U/L (9-52) 07/02/16 16:00 Alkaline Phosphatase 69 U/L (38-126) 07/02/16 16:00 Total Protein 7.6 g/dL (6.3-8.2) 07/02/16 16:00 Albumin 4.3 g/dL (3.5-5.0) 07/02/16 16:00 Urine Color Yellow 07/02/16 18:30 Urine Appearance Turbid (Clear) H 07/02/16 18:30 Urine pH 5.5 (5.0-8.0) 07/02/16 18:[address] [place] 1.030 (1.001-1.035) 07/02/16 18:30 Urine Protein 1+ (Negative) H 07/02/16 18:30 Urine Glucose (UA) Negative (Negative) 07/02/16 18:30 Urine Ketones Negative (Negative) 07/02/16 18:30 Urine Blood Negative (Negative) 07/02/16 18:30 Urine Nitrite Negative (Negative) 07/02/16 18:30 Urine Bilirubin Negative (Negative) 07/02/16 18:30 Urine Urobilinogen 2.0 mg/dL (<2.0) 07/02/16 18:30 Ur Leukocyte Esterase Negative (Negative) 07/02/16 18:30 Urine RBC 17 /hpf (0-5) H 07/02/16 18:30 Ur Squamous Epith Cells 36 /hpf (0-4) H 07/02/16 18:30 Amorphous Sediment Rare /hpf (None) H 07/02/16 18:30 Urine Bacteria Many /hpf (None) H 07/02/16 18:30 Urine Mucus Many /hpf (None) H 07/02/16 18:30 Stool Occult Blood Negative (Negative) 07/02/16 19:27 Microbiology 07/02/16 18:30 Urine,Voided Urine Culture - Preliminary Assessment and Plan (1) Acute bronchospasm Narrative/Plan: 36-year-old woman with history of tetrasomy X syndrome presents to Hospital was having shortness of breath. The patient did not have access to her respiratory treatments at home due to the lack of power. This developed an acute exacerbation. She's now been given breathing treatments as well as some IV steroids. She's feeling jittery and out of sorts from the steroid therapy. Her breathing is much improved. From the recent Xopenex treatment her oral cavity is minimally irritated. Salt and soda will be given for the oral cavity. There is no thrush. Her chest x-ray was reviewed and she does not have pneumonia. She has not need of antibiotic therapy at this point in time. Urinalysis mildly abnormal but she has no urine symptoms Mother been ill and if she does have a pulmonary process at this time is most likely viral. She is without high-grade fever or leukocytosis. With her many ALLERGIES would avoid antibiotics therapy unless she has a distinct pneumonia at this time. Status: Acute
[2016-07-03] MEDS ORDERED: LATANOPROST 0.005% OPHTH DROPS 2.5 ML BTL BOTH EYES SCH (21:00)
[2016-07-04] MEDS: SALT AND SODA MOUTHWASH 1,000 ML PO SCH ×2 (00:13→06:09)
[2016-07-04] MEDS: DEXAMETHASONE SOD PHOSPHATE 4 MG/ML 1 ML VIAL IV SCH ×2 (00:14→06:11)
[2016-07-04 07:48] LABS: Basophils % (A) 0 %; CH 32.3; Eosinophils % (A) 0 %; HCT 35.6 % (34.0-46.0); HDW 2.66; HGB 11.7 gm/dL (11.4-16.0); Luc # (Auto) 0.16; Luc % (Auto) 3; Lymphocytes # (A) 2.3 k/uL (1.0-4.8); Lymphocytes % (A) 38 %; MCH 32.4 pg (25.0-35.0); MCHC 32.9 g/dL (31.0-37.0); MCV 98.4 fL (80.0-100.0); Mean Platelet Volume 7.8; Monocytes # (A) 0.2 k/uL (0-1.0); Monocytes % (A) 4 %; Neutrophils # (A) 3.4 k/uL (1.3-7.7); Neutrophils % (A) 55 %; RBC 3.62 m/uL (3.80-5.40); RDW 12.6 % (11.5-15.5); WBC 6.1 k/uL (3.8-10.6); WBC (Perox) 6.15
[2016-07-04 08:02] LABS: Anion Gap 8 mmol/L; Blood Urea Nitrogen 13 mg/dL (7-17); Calcium 9.5 mg/dL (8.4-10.2); Carbon Dioxide 25 mmol/L (22-30); Chloride 109 mmol/L (98-107); Glucose 88 mg/dL (74-99); Magnesium 1.8 mg/dL (1.6-2.3); Non-African American GFR(MDRD) >60 (>60 ml/min/1.73 sqM); Potassium 4.1 mmol/L (3.5-5.1); Sodium 142 mmol/L (137-145)
[2016-07-04] MEDS: DICYCLOMINE 20 MG TAB PO SCH (08:22)
[2016-07-04] MEDS: SYMBICORT 160-4.5 MCG INHALER INHALATION SCH (08:23)
[2016-07-04] MEDS: LEVALBUTEROL NEB 1.25 MG/3 ML AMP INHALATION SCH (08:23)
[2016-07-04 08:43] VITALS: BP 100/61; PULSE 64; RESP 19; TEMP 97.6
--- NOTE | 2016-07-04 12:06 | P.DS ---
Providers Date of admission: 07/02/16 12:09 Expected date of discharge: 07/04/16 [facility] Consults: 07/02/16 14:18 Consult Physician Routine Consulting Provider: Zoe Frias Consult Reason/Comments: Asthma exacerbation Do you want consulting provider notified?: Yes 07/02/16 14:44 Consult Physician Routine Consulting Provider: Mackenzie Giron Consult Reason/Comments: GI bleed Do you want consulting provider notified?: Yes 07/02/16 14:48 Consult Physician Routine Consulting Provider: Javy Chavez Consult Reason/Comments: Multiple antibiotic allergies Do you want consulting provider notified?: Yes Primary care physician: [facility] Course: This is a 36-year-old female with past medical history noted below who presented to the hospital with acute asthma exacerbation and reported blood per rectum. Patient was monitored and was treated with IV steroids and bronchodilator. Hemoccult test was negative. No evidence of blood in stool during this admission. Hemoglobin relatively stable. She was seen and evaluated by GI. Plan for colonoscopy on Wednesday. Patient will be discharged home in a stable condition. 1. Acute asthma exacerbation 2. Lower GI bleed 3. viral upper respiratory infection: Evaluated by infectious disease. They' re recommending no antibiotics at this time. Chest x-ray negative for pneumonia. patient is afebrile and no leukocytosis 4. Tetrasomy X syndrome with mild developmental delay Plan - Discharge Summary Discharge Medication List Albuterol Inhaler [Ventolin Hfa Inhaler] 2 puff INHALATION RT-Q4H PRN 05/19/16 [ History] Dicyclomine [Bentyl] 20 mg PO QID #20 tablet 05/19/16 [Rx] Pantoprazole [Protonix] 40 mg PO DAILY PRN 05/19/16 [History] Travoprost [Travatan Z 0.004%] 1 drop BOTH EYES HS 05/19/16 [History] Hydrocodone/Acetaminophen [[place] 10-325] 1 tab PO Q6H PRN 07/02/16 [History] Multivitamin [Children's Multivitamins] 2 tab PO DAILY 07/02/16 [History] Olopatadine HCl [Pataday] 2.5 ml OP DAILY PRN 07/02/16 [History] valACYclovir HCL [Valtrex] 500 mg PO DAILY PRN 07/02/16 [History] Follow up Appointment(s)/Referral(s): Jessica New MD [Primary Care Provider] - 1 Week Activity/Diet/Wound Care/Special Instructions: Outpatient EGD/colonoscopy with Dr. Giron at [facility] Wednesday July 06, 2016. presurgical screening to notify patient with additional instructions and arrival time. Clear liquid diet WednesdayJuly 05 breakfast followed by nothing to eat or drink after midnight. Discharge Disposition: HOME SELF-CARE
--- NOTE | 2016-07-04 12:52 | P.PN ---
Subjective This is a very pleasant 36-year-old female patient who follows with Dr. Frias in our office as her primary care physician. She has a history of tetrasomy X syndrome and mild developmental delay, chronic bronchial asthma, chronic tobacco dependence, gastroesophageal reflux disease, osteoarthritis, seizure disorder, MTHFR deficiency. She and her mother had presented to Dr. Johnson's office yesterday with complaints of abdominal pain and intermittent rectal bleeding of the past 4-5 months. She said some complaints of shortness of breath and suspected asthma exacerbation. She was admitted for the same. She is seen today in consultation. She is awake and alert in no acute distress. She's been refusing most of her medications. She is taking her nebulized treatments. She's been up ambulating in the hallway. She currently denies any shortness of breath, cough or congestion. No fever chills or night sweats. Her chest x-ray is negative for any acute pulmonary process. Her abdominal pain is improved. There's been no significant bleeding since admission. Her hemoglobin is stable at 12.9. Stool for occult blood was negative. He has no previous history of GI bleeding. She has been seen by GI services recommended outpatient upper and lower endoscopy to be performed on 07/06/2016. The patient was seen and evaluated again 07/04/2016 on the pediatric unit. She is awake and alert in no acute distress. She denies any worsening shortness of breath, cough or congestion. No evidence of gastrointestinal bleeding. No other complaints. She is quite anxious to go home. Objective - Vital Signs Vital signs: Vital Signs Temp 97.6 F 07/04/16 07:00 Pulse 64 07/04/16 07:00 Resp 19 07/04/16 07:00 BP 100/61 07/04/16 07:00 Pulse Ox 97 07/04/16 07:00 Intake & Output 07/03/16 07/04/16 07/04/16 18:59 06:59 18:59 Intake Total 525 240 Balance 525 240 Weight 71.441 kg Intake: IV 525 Sodium Chloride 0.9% 1, 525 000 ml @ 75 mls/hr IV . [id number] [facility] Rx#:[id number] Oral 240 Other: Voiding Method Toilet # Voids 1 - Exam GENERAL EXAM: Alert, active, comfortable in no apparent distress. Developmentally delayed. HEAD: Normocephalic. EYES: Normal reaction of pupils, equal size. NOSE: Clear with pink turbinates. THROAT: No erythema or exudates. NECK: No masses, no JVD. CHEST: No chest wall deformity. LUNGS: Equal air entry with no crackles, wheeze, rhonchi or dullness. CVS: S1 and S2 normal with no audible murmurs, regular rhythm. ABDOMEN: No hepatosplenomegaly, normal bowel sounds, no guarding or rigidity. Extremities: There is no peripheral edema. No clubbing, no cyanosis. Peripheral pulses are intact. - Labs CBC & Chem 7: 07/04/16 06:37 07/04/16 06:37 Labs: Abnormal Lab Results - Last 24 Hours (Table) 07/04/16 07/04/16 Range/Units 06:37 06:37 RBC 3.62 L (3.80-5.40) m/uL Plt Count 128 L (150-450) k/uL Chloride 109 H (98-107) mmol/L Microbiology - Last 24 Hours (Table) 07/02/16 18:30 Urine Culture - Final Urine,Voided Assessment and Plan Plan: Impression: #1 Acute exacerbation of mild intermittent asthma. #2 Chronic and ongoing tobacco dependence. #3 Abdominal pain with intermittent rectal bleeding. #4 Trisomy X syndrome with developmental delay #5 Multiple medication ALLERGIES #6 History of seizure disorder. #7 Gastroesophageal reflux disease. #8 Osteoarthritis. Plan: The patient was seen and evaluated by Dr. Brunner. She is significantly improved today as far as her pulmonary status. She denies any shortness of breath, cough or congestion. No wheezing or bronchospasms. No evidence of acute GI bleed. She was seen and evaluated by GI services were planning a EGD/ colonoscopy on 07/06/2016. She's been seen and evaluated by infectious disease was not recommending any antibiotics at this time. She is cleared for discharge from the pulmonary standpoint. She'll follow-up with Dr. Frias in our office in 1-2 weeks' time. She and her mother are both encouraged to call sooner with any recurrence of symptoms or any other questions or concerns.
== END 2016-07-04 12:35 | disposition home or self-care (01) | DRG 203 ==
LOC: 5MS5E 12:09 → 6PED 07-03 21:38
PROVIDERS: ADMIT Internal Medicine; ATTEND Internal Medicine
DX: J45.21 Mild intermittent asthma with (acute) exacerbation (principal); G40.909 Epilepsy, unspecified, not intractable, without status epilepticus; J06.9 Acute upper respiratory infection, unspecified; Z72.0 Tobacco use; J40 Bronchitis, not specified as acute or chronic; K21.9 Gastro-esophageal reflux disease without esophagitis; M19.90 Unspecified osteoarthritis, unspecified site; Q92.9 Trisomy and partial trisomy of autosomes, unspecified; Z82.49 Family history of ischemic heart disease and other diseases of the circulatory system; Z82.5 Family history of asthma and other chronic lower respiratory diseases; Z88.1 Allergy status to other antibiotic agents; Z79.899 Other long term (current) drug therapy
CPT/HCPCS: 71020; 80048; 80053; 81001; 82272; 82728; 83540; 83550; 83605; 83735; 85025; 87086; 94640; 99214

== ENCOUNTER → 2016-07-31 | Outpatient (CLI) | payer MEDICARE, OTHER ==
--- NOTE | 2016-07-31 09:15 | US ---
EXAMINATION TYPE: US abdomen complete DATE OF EXAM: 07/31/2016 8:04 AM COMPARISON: Previous study dated 01/24/2011. CLINICAL HISTORY: R10.0 R FLANK PAIN. Right side pain. GB removed. EXAM MEASUREMENTS: Liver Length: 14.1 cm CHD: 0.4 cm Spleen: 9.3 cm Right Kidney: 10.2 x 4.6 x 4.0 cm Left Kidney: 10.9 x 4.3 x 4.6 cm Pancreas: echogenic, tail not well seen due to overlying bowel gas Liver: wnl Gallbladder: removed CHD: wnl Spleen: wnl Right Kidney: wnl Left Kidney: wnl Upper IVC: seen Abd Aorta: seen Limited views of the pancreas are unremarkable. Liver is normal in size without biliary dilatation. There is a previous cholecystectomy. The distal common hepatic duct measures 4 mm. Both kidneys are unremarkable. The spleen is normal in size. Visualized portions of the aorta and IVC are normal. IMPRESSION: NORMAL POST CHOLECYSTECTOMY ULTRASOUND.
== END | disposition home or self-care (01) ==
LOC: RADUSWWP 07:38
PROVIDERS: ATTEND Internal Medicine
DX: R10.11 Right upper quadrant pain (principal); Z98.890 Other specified postprocedural states
CPT/HCPCS: 76700

== ENCOUNTER → 2016-09-09 | Outpatient (CLI) | payer MEDICARE, OTHER ==
--- NOTE | 2016-09-09 07:53 | US ---
EXAMINATION TYPE: US abdomen complete DATE OF EXAM: 09/09/2016 7:16 AM COMPARISON: 07/31/2016 CLINICAL HISTORY: R10.9 Abdominal pain. RLQ pain and swelling EXAM MEASUREMENTS: Liver Length: 12.3 cm Gallbladder Wall: Surgically absent cm CBD: 0.4 cm Spleen: 8.8 cm Right Kidney: 9.9 x 4.1 x 4.2 cm Left Kidney: 10.6 x 4.3 x 4.7 cm Pancreas: Limited by bowel gas. Liver: wnl Gallbladder: Surgically absent CBD: wnl Spleen: wnl Right Kidney: No hydronephrosis or masses seen Left Kidney: No hydronephrosis or masses seen Upper IVC: wnl Abd Aorta: wnl The liver is homogenous. The intrahepatic portion of the IVC and proximal abdominal aorta are within normal limits. There is absence of the gallbladder. Common bile duct is unremarkable. The visuali zed portions of the pancreas are homogenous. The spleen is unremarkable. Kidneys are symmetric and free of hydronephrosis. No renal lesions are seen. IMPRESSION: 1. No acute process.
--- NOTE | 2016-09-09 07:54 | US ---
EXAMINATION TYPE: US transvaginal DATE OF EXAM: 09/09/2016 7:41 AM COMPARISON: NONE CLINICAL HISTORY: R10.9 Abdominal pain. RLQ pain and swelling TECHNIQUE: Transvaginal (TV) Date of LMP: hysterectomy EXAM MEASUREMENTS: Uterus: Surgically absent cm Endometrial Stripe: Surgically absent cm Right Ovary: 1.8 x 1.8 x 1.3 cm Left Ovary: 1.8 x 2.0 x 1.0 cm 1. Uterus: Surgically absent 2. Endometrium: Surgically absent 3. Right Ovary: wnl 4. Left Ovary: wnl 5. Bilateral Adnexa: bowel noted left adnexa 6. Posterior cul-de-sac: no free fluid IMPRESSION: 1. Postsurgical changes.
== END | disposition home or self-care (01) ==
LOC: RADUSWWP 06:54
PROVIDERS: ATTEND Internal Medicine Gastroenterology
DX: R10.9 Unspecified abdominal pain (principal); Z90.710 Acquired absence of both cervix and uterus; Z90.49 Acquired absence of other specified parts of digestive tract
CPT/HCPCS: 76700; 76830

== ENCOUNTER → 2017-07-08 | Outpatient (CLI) | payer MEDICARE, OTHER ==
[2017-07-08 11:10] LABS: HCT 42.2 % (34.0-46.0); MCHC 33.2 g/dL (31.0-37.0); MCV 96.5 fL (80.0-100.0); Mean Platelet Volume 7.5; Platelet Count 197 k/uL (150-450); RBC 4.37 m/uL (3.80-5.40); RDW 12.5 % (11.5-15.5)
[2017-07-08 11:17] LABS: ALT 16 U/L (9-52); AST 16 U/L (14-36); Albumin 4.4 g/dL (3.5-5.0); Alkaline Phosphatase 71 U/L (38-126); Anion Gap 10 mmol/L; Blood Urea Nitrogen 13 mg/dL (7-17); Carbon Dioxide 27 mmol/L (22-30); Chloride 111 mmol/L (98-107); Glucose 87 mg/dL (74-99); Sodium 148 mmol/L (137-145); Total Bilirubin 0.3 mg/dL (0.2-1.3); Total Protein 7.7 g/dL (6.3-8.2)
[2017-07-08 11:32] LABS: T4, Free (Free Thyroxine) 0.92 ng/dL (0.78-2.19)
== END | disposition home or self-care (01) ==
LOC: LABWHC1 10:40
PROVIDERS: ATTEND Internal Medicine Endocrinology, Diabetes & Metabolism
DX: R53.83 Other fatigue (principal)
CPT/HCPCS: 36415; 80053; 82533; 82607; 84146; 84439; 84443; 84481; 85027

== ENCOUNTER 2018-07-03 16:31 | Inpatient (IN) | payer MEDICARE, OTHER ==
[2018-07-03] MEDS ORDERED: PANTOPRAZOLE 40 MG/10 ML VIAL IVP STA (17:58)
[2018-07-03] MEDS ORDERED: SODIUM CHLORIDE 0.9% 1,000 ML IV STA (17:58)
[2018-07-03 18:10] LABS: Basophils % (A) 1 %; Eosinophils # (A) 0.1 k/uL (0-0.7); Eosinophils % (A) 2 %; HCT 43.2 % (34.0-46.0); Lymphocytes # (A) 2.3 k/uL (1.0-4.8); Lymphocytes % (A) 42 %; MCH 30.9 pg (25.0-35.0); MCHC 32.3 g/dL (31.0-37.0); MCV 95.7 fL (80.0-100.0); Mean Platelet Volume 7.6; Monocytes # (A) 0.3 k/uL (0-1.0); Monocytes % (A) 5 %; Neutrophils # (A) 2.5 k/uL (1.3-7.7); Neutrophils % (A) 46 %; Platelet Count 188 k/uL (150-450); RBC 4.51 m/uL (3.80-5.40); RDW 13.2 % (11.5-15.5); WBC 5.4 k/uL (3.8-10.6)
[2018-07-03] MEDS ORDERED: ONDANSETRON 4 MG/2 ML VIAL IVP STA (18:17)
[2018-07-03] MEDS ORDERED: HYDROmorphone 1 MG/ML 1 ML SYRINGE IVP STA (18:17)
[2018-07-03 18:18] LABS: ALT 29 U/L (9-52); AST 22 U/L (14-36); Albumin 4.4 g/dL (3.5-5.0); Alkaline Phosphatase 86 U/L (38-126); Anion Gap 9 mmol/L; Blood Urea Nitrogen 16 mg/dL (7-17); Calcium 9.5 mg/dL (8.4-10.2); Carbon Dioxide 22 mmol/L (22-30); Chloride 113 mmol/L (98-107); Glucose 79 mg/dL (74-99); Potassium 4.3 mmol/L (3.5-5.1); Sodium 144 mmol/L (137-145); Total Bilirubin 0.4 mg/dL (0.2-1.3); Total Protein 7.8 g/dL (6.3-8.2)
[2018-07-03 18:19] LABS: INR 0.9 (<1.2); Partial Thromboplastin Time 24.7 sec (22.0-30.0); Prothrombin Time 9.7 sec (9.0-12.0)
--- NOTE | 2018-07-03 18:21 | ED ---
GI Bleed HPI - General Source: patient Mode of arrival: ambulatory Limitations: no limitations <Lizette Nickerson - Last Filed: 07/03/18 20:29> <Evans Valencia - Last Filed: 07/03/18 20:40> - General Chief complaint: GI Bleed Stated complaint: Rectal Bleeding Time Seen by Provider: 07/03/18 17:31 - History of Present Illness Initial comments: 38-year-old female patient who is mentally disabled presents with mother for evaluation of GI bleed and abdominal pain. Patient states that bleeding started earlier today. States it was initially next with stool and then proceeded to be only bloody output. States her was presence of clots. States it is bright red in color. States she is having significant pain to the right lower quadrant abdomen. Denies any nausea or vomiting with this. Patient states that she did have rectal bleeding in the past however they're unable to find a cause for her symptoms. Denies history of hemorrhoids. Patient is also reporting increased low back pain. States that she has chronic back issues and pain does radiate down the right leg. Denies any loss of bowel or bladder control. Denies any saddle anesthesia. Denies any numbness or tingling to the lower extremities. Patient denies any recent rash, fever, chills, shortness breath, chest pain, dizziness, weakness, hematuria, dysuria, urinary urgency, urinary frequency, headache, visual changes, or any other complaints. (Lizette Nickerson) - Related Data Home Medications Medication Instructions Recorded Confirmed Albuterol Inhaler [Ventolin Hfa 2 puff INHALATION RT-Q4H PRN 05/19/16 07/03/18 Inhaler] Pantoprazole [Protonix] 40 mg PO DAILY PRN 05/19/16 07/03/18 Travoprost [Travatan Z 0.004%] 1 drop BOTH EYES HS 05/19/16 07/03/18 Multivitamin [Children's 2 tab PO DAILY 07/02/16 07/03/18 Multivitamins] Olopatadine HCl [Pataday] 2.5 ml BOTH EYES DAILY PRN 07/02/16 07/03/18 Suzan Back And Body (Unknown) 1 tab PO DAILY 07/03/18 07/03/18 EPINEPHrine (Auto Inject) [Epipen] 0.3 mg IM DIRECTED PRN 07/03/18 07/03/18 Topiramate [Topamax] 50 mg PO HS 07/03/18 07/03/18 Allergies Allergy/AdvReac Type Severity Reaction Status Date / Time carbamazepine [From Tegretol] Allergy Intermediate Unknown Verified 07/03/18 18:12 adhesive Allergy Unknown Verified 07/03/18 18:12 amphetamine aspartate Allergy Unknown Verified 07/03/18 18:12 [From Adderall] amphetamine sulfate Allergy Unknown Verified 07/03/18 18:12 [From Adderall] azithromycin Allergy Unknown Verified 07/03/18 18:12 [From Zithromax Z-Tunde] cephalexin monohydrate Allergy Unknown Verified 07/03/18 18:12 [From Keflex] dextroamphetamine saccharate Allergy Unknown Verified 07/03/18 18:12 [From Adderall] dextroamphetamine sulfate Allergy Unknown Verified 07/03/18 18:12 [From Adderall] Iodinated Contrast- Oral and Allergy Anaphylaxis Verified 07/03/18 18:12 IV Dye [Iodinated Contrast Media - IV Dye] ketorolac tromethamine Allergy Rash/Hives Verified 07/03/18 18:12 [From Toradol] kiwi Allergy Anaphylaxis Verified 07/03/18 18:12 latex Allergy Anaphylaxis Verified 07/03/18 18:12 levofloxacin [From Levaquin] Allergy Swelling Verified 07/03/18 18:12 lorazepam [From Ativan] Allergy Unknown Verified 07/03/18 18:12 metoclopramide HCl Allergy Unknown Verified 07/03/18 18:12 [From Reglan] nitrofurantoin Allergy Unknown Verified 07/03/18 18:12 [From Macrobid] nitrofurantoin Allergy Unknown Verified 07/03/18 18:12 macrocrystalline [From Macrobid] peanut Allergy Anaphylaxis Verified 07/03/18 18:12 Sulfa (Sulfonamide Allergy Unknown Verified 07/03/18 18:12 Antibiotics) codeine AdvReac Diarrhea Verified 07/03/18 18:12 doxycycline AdvReac Diarrhea Verified 07/03/18 18:12 methimazole AdvReac Unknown Verified 07/03/18 18:12 Penicillins AdvReac Diarrhea Verified 07/03/18 18:12 prednisone AdvReac Unknown Verified 07/03/18 18:12 avacado Allergy Anaphylaxis Uncoded 09/21/16 15:14 cantalope Allergy Anaphylaxis Uncoded 09/21/16 15:14 TAPE AdvReac Unknown Uncoded 09/21/16 15:14 Review of Systems ROS Other: All systems not noted in ROS Statement are negative. <Lizette Nickerson - Last Filed: 07/03/18 20:29> ROS Other: All systems not noted in ROS Statement are negative. <Evans Valencia - Last Filed: 07/03/18 20:40> ROS Statement: Those systems with pertinent positive or pertinent negative responses have been documented in the HPI. Past Medical History Past Medical History: Asthma, Eye Disorder, GERD/Reflux, Osteoarthritis (OA), Pneumonia, Seizure Disorder Additional Past Medical History / Comment(s): Pt and her mother states that pt has had abdominal pain and rectal bleeding intermittently over the past 4-5 months and that it has become worse over the past 4 days. She was seen be Dr. Frias today in his office and he stated her lungs sounded like she was not moving air so she was sent to hospital per mother. 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 History of Any Multi-Drug Resistant Organisms: MRSA Date of last positivie culture/infection: 2006 MDRO Source:: spider bite/buttocks Past Surgical History: Cholecystectomy, Hysterectomy, Orthopedic Surgery, Tubal Ligation Additional Past Surgical History / Comment(s): rt elbow orif. debridment frank buttocks d/t spider bite, nasal septal surgery, mediastinoscopy with bx-benign, colonoscopy, laparoscopy with lysis of adhesions. Past Anesthesia/Blood Transfusion Reactions: No Reported Reaction Past Psychological History: No Psychological Hx Reported Smoking Status: Current every day smoker Past Alcohol Use History: None Reported Past Drug Use History: None Reported - Past Family History Father Family Medical History: Coronary Artery Disease (CAD), Diabetes Mellitus, Myocardial Infarction ([place]) Additional Family Medical History / Comment(s): Father had a ID at the age of 62 yrs. He has had CABG. Mother Family Medical History: Congestive Heart Failure (CHF), COPD, Osteoarthritis (OA), Rheumatoid Arthritis (RA) Additional Family Medical History / Comment(s): Spondylosis, subclavian boyce with stents. <Lizette Nickerson - Last Filed: 07/03/18 20:29> General Exam Limitations: no limitations General appearance: alert, in no apparent distress, other (Physical well- developed, well-nourished adult female patient in no acute distress. Vital sig ns upon presentation are temperature 98.1F, pulse 76, respirations 18, blood pressure 105/70, pulse ox 96% on room air.) Eye exam: Present: normal appearance, PERRL, EOMI. Absent: scleral icterus, conjunctival injection, periorbital swelling ENT exam: Present: normal exam, normal oropharynx, mucous membranes moist Respiratory exam: Present: normal lung sounds bilaterally. Absent: respiratory distress, wheezes, rales, rhonchi, stridor Cardiovascular Exam: Present: regular rate, normal rhythm, normal heart sounds. Absent: systolic murmur, diastolic murmur, rubs, gallop, clicks GI/Abdominal exam: Present: soft, tenderness (Right upper and right lower quadrant tenderness), normal bowel sounds. Absent: distended, guarding, rebound, rigid Rectal exam: Present: bloody stool. Absent: hemorrhoids Neurological exam: Present: alert, oriented X3, CN II-XII intact Psychiatric exam: Present: normal affect, normal mood Skin exam: Present: warm, dry, intact, normal color. Absent: rash <Lizette Nickerson - Last Filed: 07/03/18 20:29> Course Vital Signs 07/03/18 07/03/18 16:55 18:26 Temperature 98.1 F Pulse Rate 76 65 Respiratory 18 18 Rate Blood Pressure 105/70 101/63 O2 Sat by Pulse 96 98 Oximetry Medical Decision Making - Lab Data Result diagrams: 07/03/18 17:35 07/03/18 17:35 - EKG Data -: EKG Interpreted by Az - Radiology Data Radiology results: report reviewed, image reviewed <Lizette Nickerson - Last Filed: 07/03/18 20:29> - Lab Data Result diagrams: 07/03/18 17:35 07/03/18 17:35 <Evans Valencia - Last Filed: 03/17/19 20:40> - Medical Decision Making 38-year-old female patient presented to the emergency department today for evaluation after having 2 bloody bowel movements at home. Physical examination did reveal right lower quadrant abdominal tenderness. The rectal exam was unremarkable. Labs reviewed and were unremarkable. Occult was positive for blood. Patient was given Protonix here in the emergency department. Given IV fluids. Patient remains uncomfortable and did have one bloody bowel movement here in the emergency department. By attending Dr. Valencia was in to see and evaluate the patient and she'll be admitted to the hospital for further evaluation and GI consult. We'll repeat CBCs every 6 hours. Parent and patient verbalize understanding and agree with this plan. (Lizette Nickerson) Medical decision making; this is a 38-year-old female with complaint of abdominal discomfort for several weeks if not several months. She has an the past seen both GI and general surgery. Today she had a bloody bowel movement and then blood without stool. One emergency the patient's labs were white count of 5 hemoglobin 14 hematocrit 43. INR 0.9. Patient is not on blood thinners. Potassium is 4.3, BUN 16 creatinine 0.83 with a GFR 89. Glucose 79. Troponin less than 0.012. CT the abdomen was done with IV contrast ; radiologist report mentions there is some ground glass interstitial density in the lower lung cody. Heart is enlarged. There is no pericardial effusion. There is no pleural effusion. There is no interstitial wall thickening. There is no mesenteric edema. Appendix appears normal. There is no free air. There is no ascites. Impression; mild increased interstitial density at the lung bases is nons pecific. No acute abnormality within the abdomen and pelvis. He does not see a cause for the rectal bleeding. No adverse change compared to old exam. As read by Dr. Avila. The case discussed with Dr. Burrell, patient will be admitted his service. I discussed the case with her security systems specialist Dr. Amanda Giron. She recommended a clear liquid diet and hemoglobin and hematocrit every [address] Valencia (Evans Valencia) - Lab Data Lab Results 07/03/18 07/03/18 07/03/18 Range/Units 17:35 17:35 17:35 WBC 5.4 (3.8-10.6) k/uL RBC 4.51 (3.80-5.40) m/uL Hgb 14.0 (11.4-16.0) gm/dL Hct 43.2 (34.0-46.0) % MCV 95.7 (80.0-100.0) fL MCH 30.9 (25.0-35.0) pg MCHC 32.3 (31.0-37.0) g/dL RDW 13.2 (11.5-15.5) % Plt Count 188 (150-450) k/uL Neutrophils % 46 % Lymphocytes % 42 % Monocytes % 5 % Eosinophils % 2 % Basophils % 1 % Neutrophils # 2.5 (1.3-7.7) k/uL Lymphocytes # 2.3 (1.0-4.8) k/uL Monocytes # 0.3 (0-1.0) k/uL Eosinophils # 0.1 (0-0.7) k/uL Basophils # 0.0 (0-0.2) k/uL PT 9.7 (9.0-12.0) sec INR 0.9 (<1.2) APTT 24.7 (22.0-30.0) sec Sodium 144 (137-145) mmol/L Potassium 4.3 (3.5-5.1) mmol/L Chloride 113 H (98-107) mmol/L Carbon Dioxide 22 (22-30) mmol/L Anion Gap 9 mmol/L BUN 16 (7-17) mg/dL Creatinine 0.83 (0.52-1.04) mg/dL Est GFR (CKD-EPI)AfAm >90 (>60 ml/min/1.73 sqM) Est GFR (CKD-EPI)NonAf 89 (>60 ml/min/1.73 sqM) Glucose 79 (74-99) mg/dL Calcium 9.5 (8.4-10.2) mg/dL Total Bilirubin 0.4 (0.2-1.3) mg/dL AST 22 (14-36) U/L ALT 29 (9-52) U/L Alkaline Phosphatase 86 (38-126) U/L Troponin I (0.000-0.034) ng/mL Total Protein 7.8 (6.3-8.2) g/dL Albumin 4.4 (3.5-5.0) g/dL Stool Occult Blood (Negative) 07/03/18 07/03/18 Range/Units 17:35 18:41 WBC (3.8-10.6) k/uL RBC (3.80-5.40) m/uL Hgb (11.4-16.0) gm/dL Hct (34.0-46.0) % MCV (80.0-100.0) fL MCH (25.0-35.0) pg MCHC (31.0-37.0) g/dL RDW (11.5-15.5) % Plt Count (150-450) k/uL Neutrophils % % Lymphocytes % % Monocytes % % Eosinophils % % Basophils % % Neutrophils # (1.3-7.7) k/uL Lymphocytes # (1.0-4.8) k/uL Monocytes # (0-1.0) k/uL Eosinophils # (0-0.7) k/uL Basophils # (0-0.2) k/uL PT (9.0-12.0) sec INR (<1.2) APTT (22.0-30.0) sec Sodium (137-145) mmol/L Potassium (3.5-5.1) mmol/L Chloride (98-107) mmol/L Carbon Dioxide (22-30) mmol/L Anion Gap mmol/L BUN (7-17) mg/dL Creatinine (0.52-1.04) mg/dL Est GFR (CKD-EPI)AfAm (>60 ml/min/1.73 sqM) Est GFR (CKD-EPI)NonAf (>60 ml/min/1.73 sqM) Glucose (74-99) mg/dL Calcium (8.4-10.2) mg/dL Total Bilirubin (0.2-1.3) mg/dL AST (14-36) U/L ALT (9-52) U/L Alkaline Phosphatase (38-126) U/L Troponin I <0.012 (0.000-0.034) ng/mL Total Protein (6.3-8.2) g/dL Albumin (3.5-5.0) g/dL Stool Occult Blood Positive H (Negative) - EKG Data EKG Comments: EKG obtained at 1814 shows normal sinus rhythm with a ventricular rate of 60, LA interval 186, QRS duration 86, QTc 436, QTc 436. No evidence of ST elevation or depression. (Lizette Nickerson) - Radiology Data CT abdomen and pelvis with contrast was obtained. Report was reviewed in its entirety. Impression by Dr. Mtezger shows mild increased interstitial density at the lung bases is nonspecific. No acute abnormality within the abdomen and pelvis. I do not see a cause for rectal bleeding. No adverse change compared to old exam. (Lizette Nickerson) Disposition Decision to Admit Reason: Admit from EC Decision Date: 07/03/18 Decision Time: 20:31 <Lizette Nickerson - Last Filed: 07/03/18 20:29> <Evans Valencia - Last Filed: 07/03/18 20:40> Clinical Impression: GI bleed, Abdominal pain Disposition: ADMITTED IP TO THIS [facility] Condition: Serious Referrals: Zabrina Burrell MD [Primary Care Provider] - 1-2 days
[2018-07-03] MEDS ORDERED: diphenhydrAMINE 50 MG/ML 1 ML VIAL IVP STA (18:44)
[2018-07-03] MEDS ORDERED: methylPREDNISolone SOD SUCCI 125 MG/2 ML VIAL IV STA (18:44)
[2018-07-03] MEDS ORDERED: FAMOTIDINE 20 MG/2 ML VIAL IV STA ×2 (18:44→19:49)
--- NOTE | 2018-07-03 19:50 | CT ---
EXAMINATION TYPE: CT abdomen pelvis w con DATE OF EXAM: 07/03/2018 COMPARISON: 05/24/2016 HISTORY: Rectal bleeding. CT DLP: 693.1 mGycm Automated exposure control for dose reduction was used. TECHNIQUE: Helical acquisition of images was performed from the lung bases through the pelvis. CONTRAST: Performed without Oral Contrast and with IV Contrast, patient injected with 100ml mL of Isovue 300. FINDINGS: There is some groundglass interstitial density in the lower lung cody. Heart is enlarged. There is no pericardial effusion. There is no pleural effusion. There are clips from cholecystectomy. Liver shows no focal defect. There is no evidence of pancreatic mass. Spleen appears normal. Stomach appears normal. There is no adrenal mass. Kidneys show satisfac tory contrast opacification. There is no hydronephrosis. Ureters are not dilated. Bladder distends sm oothly. There is no inguinal hernia. There is no intestinal wall thickening. There is no mesenteric edema. Appendix appears normal. There is no free air. There is no ascites. Lumbar vertebra have normal spacing and alignment. Bony pelvis is intact. I see no bony destructive p rocess. There is no evidence of a pelvic mass. IMPRESSION: MILD INCREASED INTERSTITIAL DENSITY AT THE LUNG BASES IS NONSPECIFIC. NO ACUTE ABNORMALITY WITHIN THE ABDOMEN AND PELVIS. I DO NOT SEE A CAUSE FOR RECTAL BLEEDING. NO ADVERSE CHANGE COMPARED TO OLD EXAM.
[2018-07-03] MEDS ORDERED: NALOXONE 0.4 MG/ML 1 ML VIAL IV PRN (20:26)
[2018-07-03] MEDS ORDERED: ONDANSETRON 4 MG/2 ML VIAL IVP PRN (20:26)
[2018-07-03 23:14] VITALS: BMI 23.1
[2018-07-03] MEDS: SODIUM CHLORIDE 0.9% 1,000 ML IV SCH (23:54)
[2018-07-03] MEDS: HYDROmorphone 1 MG/ML 1 ML SYRINGE IVP PRN (23:54)
[2018-07-04 01:27] LABS: Basophils % (A) 1 %; Eosinophils # (A) 0.1 k/uL (0-0.7); Eosinophils % (A) 2 %; HCT 38.4 % (34.0-46.0); HGB 12.5 gm/dL (11.4-16.0); Lymphocytes # (A) 2.1 k/uL (1.0-4.8); Lymphocytes % (A) 44 %; MCH 31.5 pg (25.0-35.0); MCHC 32.6 g/dL (31.0-37.0); MCV 96.5 fL (80.0-100.0); Mean Platelet Volume 7.8; Monocytes # (A) 0.3 k/uL (0-1.0); Monocytes % (A) 5 %; Neutrophils # (A) 2.2 k/uL (1.3-7.7); Neutrophils % (A) 46 %; Platelet Count 156 k/uL (150-450); RBC 3.98 m/uL (3.80-5.40); RDW 13.2 % (11.5-15.5); WBC 4.8 k/uL (3.8-10.6)
[2018-07-04] MEDS: HYDROmorphone 1 MG/ML 1 ML SYRINGE IVP PRN ×2 (08:25→19:32)
[2018-07-04] MEDS ORDERED: ALBUTEROL NEBULIZED 2.5 MG/3 ML INHALATION PRN (08:36)
[2018-07-04] MEDS ORDERED: KETOTIFEN 0.025% OPHTH DROPS 5 ML BTL BOTH EYES PRN (08:36)
[2018-07-04] MEDS ORDERED: PANTOPRAZOLE 40 MG/10 ML VIAL IV SCH (09:00)
[2018-07-04] MEDS: PANTOPRAZOLE 40 MG/10 ML VIAL IVP SCH (09:05)
[2018-07-04 09:11] LABS: Basophils % (A) 1 %; Eosinophils # (A) 0.1 k/uL (0-0.7); Eosinophils % (A) 2 %; HGB 12.4 gm/dL (11.4-16.0); Lymphocytes # (A) 1.8 k/uL (1.0-4.8); Lymphocytes % (A) 45 %; MCH 32.1 pg (25.0-35.0); MCHC 32.6 g/dL (31.0-37.0); MCV 98.5 fL (80.0-100.0); Mean Platelet Volume 6.9; Monocytes # (A) 0.2 k/uL (0-1.0); Monocytes % (A) 6 %; Neutrophils # (A) 1.8 k/uL (1.3-7.7); Neutrophils % (A) 45 %; Platelet Count 145 k/uL (150-450); RBC 3.85 m/uL (3.80-5.40)
[2018-07-04 09:20] LABS: ALT 33 U/L (9-52); AST 21 U/L (14-36); Albumin 3.7 g/dL (3.5-5.0); Alkaline Phosphatase 60 U/L (38-126); Anion Gap 5 mmol/L; Blood Urea Nitrogen 13 mg/dL (7-17); Calcium 8.8 mg/dL (8.4-10.2); Carbon Dioxide 24 mmol/L (22-30); Chloride 113 mmol/L (98-107); Glucose 74 mg/dL (74-99); Potassium 4.5 mmol/L (3.5-5.1); Sodium 142 mmol/L (137-145); Total Bilirubin 0.4 mg/dL (0.2-1.3); Total Protein 6.7 g/dL (6.3-8.2)
--- NOTE | 2018-07-04 11:30 | P.HPIM ---
History of Present Illness H&P Date: 07/04/18 This is a 38-year-old female patient presented to the hospital complaints of GI bleed. Patient reports that the blood started in her stool but then proceeded to just be blood and blood clots. Patient reports that is bright red. Patient also complaining of right lower quadrant abdomen pain. Patient denies taking any blood thinners. Occult stool positive for blood. Per patient this has been intermittently occurring over the past 4-5 months but has never become this bad. patient denies any nausea or vomiting. Patient denies alcohol intake. Patient does have a past medical history of chromosomal defect developmental disability,Asthma, GERD, osteoarthritis, pneumonia and seizure disorder. CT and of abdomen and pelvis completed showing mild increased interstitial density at the lung bases is nonspecific. No acute abnormality within the abdomen and pelvis do not see a cause for rectal bleeding. No adverse change compared to old exam. EKG completed in ER showing normal sinus rhythm normal EKG. Patient started on clear liquid diet. GI services have been consulted. At this time patient denies chest pain or shortness of breath. Patient is complaining of lower right abdomen pain. Patient denies any nausea or vomiting. Patient denies any urinary burning or frequency Review of Systems Please refer to HPI otherwise unremarkable Past Medical History Past Medical History: Asthma, Eye Disorder, GERD/Reflux, Osteoarthritis (OA), Pneumonia, Seizure Disorder Additional Past Medical History / Comment(s): Pt and her mother states that pt has had abdominal pain and rectal bleeding intermittently over the past 4-5 months and that it has become worse over the past 4 days. She was seen be Dr. Frias today in his office and he stated her lungs sounded like she was not moving air so she was sent to hospital per mother. 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 History of Any Multi-Drug Resistant Organisms: MRSA Date of last positivie culture/infection: 2006 MDRO Source:: spider bite/buttocks Past Surgical History: Cholecystectomy, Hysterectomy, Orthopedic Surgery, Tubal Ligation Additional Past Surgical History / Comment(s): rt elbow orif. debridment frank buttocks d/t spider bite, nasal septal surgery, mediastinoscopy with bx-benign, colonoscopy, laparoscopy with lysis of adhesions. Past Anesthesia/Blood Transfusion Reactions: No Reported Reaction Past Psychological History: No Psychological Hx Reported Additional Psychological History / Comment(s): Pt resides with her parents. She has developmental diability. She performs her own ADLs. She uses no assistive device. She does not drive. Mother takes her to [place]. There is a pet cat in the home. No other animal exposures. No tobacco use. No alcohol use. No travel Smoking Status: Current every day smoker Past Alcohol Use History: None Reported Additional Past Alcohol Use History / Comment(s): Pt started smoking in 2001. Past Drug Use History: None Reported - Past Family History Father Family Medical History: Coronary Artery Disease (CAD), Diabetes Mellitus, My ocardial Infarction ([place]) Additional Family Medical History / Comment(s): Father had a [place] at the age of 62 yrs. He has had CABG. Mother Family Medical History: Congestive Heart Failure (CHF), COPD, Osteoarthritis (OA), Rheumatoid Arthritis (RA) Additional Family Medical History / Comment(s): Spondylosis, subclavian boyce with stents. Medications and Allergies Home Medications Medication Instructions Recorded Confirmed Type Albuterol Inhaler [Ventolin Hfa 2 puff INHALATION RT-Q4H PRN 05/19/16 07/03/18 History Inhaler] Pantoprazole [Protonix] 40 mg PO DAILY PRN 05/19/16 07/03/18 History Travoprost [Travatan Z 0.004%] 1 drop BOTH EYES HS 05/19/16 07/03/18 History Multivitamin [Children's 2 tab PO DAILY 07/02/16 07/03/18 History Multivitamins] Olopatadine HCl [Pataday] 2.5 ml BOTH EYES DAILY PRN 07/02/16 07/03/18 History Suzan Back And Body (Unknown) 1 tab PO DAILY 07/03/18 07/03/18 History EPINEPHrine (Auto Inject) [Epipen] 0.3 mg IM DIRECTED PRN 07/03/18 07/03/18 History Topiramate [Topamax] 50 mg PO HS 07/03/18 07/03/18 History Allergies Allergy/AdvReac Type Severity Reaction Status Date / Time carbamazepine [From Tegretol] Allergy Intermediate Unknown Verified 07/03/18 18:12 adhesive Allergy Unknown Verified 07/03/18 18:12 amphetamine aspartate Allergy Unknown Verified 07/03/18 18:12 [From Adderall] amphetamine sulfate Allergy Unknown Verified 07/03/18 18:12 [From Adderall] azithromycin Allergy Unknown Verified 07/03/18 18:12 [From Zithromax Z-Tunde] cephalexin monohydrate Allergy Unknown Verified 07/03/18 18:12 [From Keflex] dextroamphetamine saccharate Allergy Unknown Verified 07/03/18 18:12 [From Adderall] dextroamphetamine sulfate Allergy Unknown Verified 07/03/18 18:12 [From Adderall] Iodinated Contrast- Oral and Allergy Anaphylaxis Verified 07/03/18 18:12 IV Dye [Iodinated Contrast Media - IV Dye] ketorolac tromethamine Allergy Rash/Hives Verified 07/03/18 18:12 [From Toradol] kiwi Allergy Anaphylaxis Verified 07/03/18 18:12 latex Allergy Anaphylaxis Verified 07/03/18 18:12 levofloxacin [From Levaquin] Allergy Swelling Verified 07/03/18 18:12 lorazepam [From Ativan] Allergy Unknown Verified 07/03/18 18:12 metoclopramide HCl Allergy Unknown Verified 07/03/18 18:12 [From Reglan] nitrofurantoin Allergy Unknown Verified 07/03/18 18:12 [From Macrobid] nitrofurantoin Allergy Unknown Verified 07/03/18 18:12 macrocrystalline [From Macrobid] peanut Allergy Anaphylaxis Verified 07/03/18 18:12 Sulfa (Sulfonamide Allergy Unknown Verified 07/03/18 18:12 Antibiotics) codeine AdvReac Diarrhea Verified 07/03/18 18:12 doxycycline AdvReac Diarrhea Verified 07/03/18 18:12 methimazole AdvReac Unknown Verified 07/03/18 18:12 Penicillins AdvReac Diarrhea Verified 07/03/18 18:12 prednisone AdvReac Unknown Verified 07/03/18 18:12 avacado Allergy Anaphylaxis Uncoded 09/21/16 15:14 cantalope Allergy Anaphylaxis Uncoded 09/21/16 15:14 TAPE AdvReac Unknown Uncoded 09/21/16 15:14 Physical Exam Vitals: Vital Signs Temp Pulse Pulse Resp BP BP Pulse Ox 07/04/18 08:42 98 F 54 L 12 82/51 100 07/03/18 22:20 57 L 18 94/62 100 07/03/18 18:26 65 18 101/63 98 07/03/18 16:55 98.1 F 76 18 105/70 96 Intake and Output 07/03/18 07/04/18 07/04/18 22:59 06:59 14:59 Other: Voiding Method Toilet # Voids 3 Weight 68.946 kg Head normocephalic Neck supple Lungs clear to auscultation bilaterally no wheezing or crackles Heart regular rate and rhythm S1-S2, no rub or gallop Abdomen right side of abdomen tender to palpation Extremities no edema Neuro alert and orientated to 3 Results CBC & Chem 7: 07/04/18 08:20 07/04/18 08:53 Labs: Abnormal Lab Results - Last 24 Hours (Table) 07/03/18 07/03/18 07/04/18 Range/Units 17:35 18:41 08:20 Plt Count 145 L (150-450) k/uL Chloride 113 H (98-107) mmol/L Stool Occult Blood Positive H (Negative) 07/04/18 Range/Units 08:53 Plt Count (150-450) k/uL Chloride 113 H (98-107) mmol/L Stool Occult Blood (Negative) Thrombosis Risk Factor Assmnt - Choose All That Apply Any of the Below Risk Factors Present?: No Assessment and Plan Assessment: 1. GI bleed with abdominal tenderness. Positive occult blood. CT of abdomen and pelvis completed showing mild increased interstitial density at the lung bases is nonspecific. No acute abnormality within the abdomen and pelvis. No adverse change compared to old exam. Hemoglobin stable at 12.4. We'll continue to monitor. Patient currently on clear liquid diet. GI service is consulted. IV Protonix ordered 2. History of asthma 3. Chromosomal defect with developmental disability 4. History of seizures. Last seizure 2004. Not currently on any seizure medication 5. History of GERD 6. History of osteoarthritis 7. Nicotine dependence. Patient educated greater than 3 minutes on smoking cessation DVT prophylaxis SCDs. GI prophylaxis Protonix Time with Patient: Greater than 30 (Greater than 60% of the total time spent in counseling and coordination of care. I performed an examination of the patient a nd discussed their management with the Nurse Practitioner. I have reviewed the Nurse Practitioner's notes and agree with the documented findings and plan of care)
[2018-07-04 15:19] LABS: Basophils % (A) 1 %; Eosinophils # (A) 0.1 k/uL (0-0.7); Eosinophils % (A) 1 %; HCT 37.6 % (34.0-46.0); HGB 12.4 gm/dL (11.4-16.0); Lymphocytes # (A) 2.2 k/uL (1.0-4.8); Lymphocytes % (A) 49 %; MCH 31.4 pg (25.0-35.0); MCHC 32.9 g/dL (31.0-37.0); MCV 95.5 fL (80.0-100.0); Mean Platelet Volume 7.8; Monocytes # (A) 0.2 k/uL (0-1.0); Monocytes % (A) 5 %; Neutrophils # (A) 1.9 k/uL (1.3-7.7); Neutrophils % (A) 42 %; Platelet Count 141 k/uL (150-450); RBC 3.93 m/uL (3.80-5.40); RDW 13.1 % (11.5-15.5); WBC 4.6 k/uL (3.8-10.6)
[2018-07-04] MEDS ORDERED: ACETAMINOPHEN TAB 325 MG TAB PO PRN (15:33)
[2018-07-04] MEDS: SODIUM CHLORIDE 0.9% 1,000 ML IV SCH (15:46)
--- NOTE | 2018-07-04 21:14 | P.CONS ---
History of Present Illness - Reason for Consult Consult date: 07/04/18 Blood per rectum Requesting physician: Zabrina Burrell - Chief Complaint Blood per rectum - History of Present Illness 38-year-old female with medical history including developmental disability, seizure disorder, osteoarthritis, GERD and prior episodes of rectal bleeding who presents to the hospital with complaints of multiple episodes of bright red blood per rectum. The patient has been having intermittent episodes of blood per rectum over the past 6 months. However over the past 4 days prior to admission the patient reports a large amount of bright red blood per rectum. There were also reports of clots. The patient has also been having associated right lower quadrant abdominal pain. This is also happened 2 times in the past and the patient has had evaluation with endoscopy in the past with no source of bleeding identified per the patient's mother. On admission to the hospital the patient had a computed tomography scan of the abdomen which showed no evidence of any acute abdominal or pelvic process with some increased interstitial densities at the lung bases. Hemoglobin has been stable with repeat hemoglobin of 12.4 stable from 12.5 on previous lab draw. Liver enzymes normal with total bilirubin 0.9, alkaline phosphatase 60, AST 21, and ALT 33. The patient's mother does report that the patient has been difficult to prep in the past and will only take certain preps which are not high-volume parts colonoscopies. Review of Systems REVIEW OF SYSTEMS: CONSTITUTIONAL: Denies any fevers, chills, weight change or fatigue. CARDIOVASCULAR: Denies any chest pain, palpitations high or low blood pressures RESPIRATORY: Denies any shortness of breath, hemoptysis or cough. GENITOURINARY: No dysuria or hematuria. MUSCULOSKELETAL: No weakness reported. SKIN: Denies any new rashes or lesions, jaundice or pallor. PSYCHIATRIC: Denies any new depression or anxiety. NEUROLOGY: Denies headache, denies any new focal deficits. EARS/NOSE/THROAT: No recent hearing change, congestion, nasal discharge or sore throat. EYES: No pain in eyes, discharge or change in vision. GASTROINTESTINAL: As per HPI. Past Medical History Past Medical History: Asthma, Eye Disorder, GERD/Reflux, Osteoarthritis (OA), Pneumonia, Seizure Disorder Additional Past Medical History / Comment(s): Pt and her mother states that pt has had abdominal pain and rectal bleeding intermittently over the past 4-5 months and that it has become worse over the past 4 days. She was seen be Dr. Frias today in his office and he stated her lungs sounded like she was not moving air so she was sent to hospital per mother. 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 History of Any Multi-Drug Resistant Organisms: MRSA Year Discovered:: 2006 MDRO Source:: spider bite/buttocks Past Surgical History: Cholecystectomy, Hysterectomy, Orthopedic Surgery, Tubal Ligation Additional Past Surgical History / Comment(s): rt elbow orif. debridment frank buttocks d/t spider bite, nasal septal surgery, mediastinoscopy with bx-benign, colonoscopy, laparoscopy with lysis of adhesions. Past Anesthesia/Blood Transfusion Reactions: No Reported Reaction Past Psychological History: No Psychological Hx Reported Additional Psychological History / Comment(s): Pt resides with her parents. She has developmental diability. She performs her own ADLs. She uses no assistive device. She does not drive. Mother takes her to [employer]. There is a pet cat in the home. No other animal exposures. No tobacco use. No alcohol use. No travel Smoking Status: Current every day smoker Past Alcohol Use History: None Reported Additional Past Alcohol Use History / Comment(s): Pt started smoking in 2001. Past Drug Use History: None Reported - Past Family History Father Family Medical History: Coronary Artery Disease (CAD), Diabetes Mellitus, Myocardial Infarction ([place]) Additional Family Medical History / Comment(s): Father had a [place] at the age of 62 yrs. He has had CABG. Mother Family Medical History: Congestive Heart Failure (CHF), COPD, Osteoarthritis (OA), Rheumatoid Arthritis (RA) Additional Family Medical History / Comment(s): Spondylosis, subclavian boyce with stents. Medications and Allergies Home Medications Medication Instructions Recorded Confirmed Type Albuterol Inhaler [Ventolin Hfa 2 puff INHALATION RT-Q4H PRN 05/19/16 07/03/18 History Inhaler] Pantoprazole [Protonix] 40 mg PO DAILY PRN 05/19/16 07/03/18 History Travoprost [Travatan Z 0.004%] 1 drop BOTH EYES HS 05/19/16 07/03/18 History Multivitamin [Children's 2 tab PO DAILY 07/02/16 07/03/18 History Multivitamins] Olopatadine HCl [Pataday] 2.5 ml BOTH EYES DAILY PRN 07/02/16 07/03/18 History Suzan Back And Body (Unknown) 1 tab PO DAILY 07/03/18 07/03/18 History EPINEPHrine (Auto Inject) [Epipen] 0.3 mg IM DIRECTED PRN 07/03/18 07/03/18 History Topiramate [Topamax] 50 mg PO HS 07/03/18 07/03/18 History Allergies Allergy/AdvReac Type Severity Reaction Status Date / Time carbamazepine [From Tegretol] Allergy Intermediate Unknown Verified 07/03/18 18:12 adhesive Allergy Unknown Verified 07/03/18 18:12 amphetamine aspartate Allergy Unknown Verified 07/03/18 18:12 [From Adderall] amphetamine sulfate Allergy Unknown Verified 07/03/18 18:12 [From Adderall] azithromycin Allergy Unknown Verified 07/03/18 18:12 [From Zithromax Z-Tunde] cephalexin monohydrate Allergy Unknown Verified 07/03/18 18:12 [From Keflex] dextroamphetamine saccharate Allergy Unknown Verified 07/03/18 18:12 [From Adderall] dextroamphetamine sulfate Allergy Unknown Verified 07/03/18 18:12 [From Adderall] Iodinated Contrast- Oral and Allergy Anaphylaxis Verified 07/03/18 18:12 IV Dye [Iodinated Contrast Media - IV Dye] ketorolac tromethamine Allergy Rash/Hives Verified 07/03/18 18:12 [From Toradol] kiwi Allergy Anaphylaxis Verified 07/03/18 18:12 latex Allergy Anaphylaxis Verified 07/03/18 18:12 levofloxacin [From Levaquin] Allergy Swelling Verified 07/03/18 18:12 lorazepam [From Ativan] Allergy Unknown Verified 07/03/18 18:12 metoclopramide HCl Allergy Unknown Verified 07/03/18 18:12 [From Reglan] nitrofurantoin Allergy Unknown Verified 07/03/18 18:12 [From Macrobid] nitrofurantoin Allergy Unknown Verified 07/03/18 18:12 macrocrystalline [From Macrobid] peanut Allergy Anaphylaxis Verified 07/03/18 18:12 Sulfa (Sulfonamide Allergy Unknown Verified 07/03/18 18:12 Antibiotics) codeine AdvReac Diarrhea Verified 07/03/18 18:12 doxycycline AdvReac Diarrhea Verified 07/03/18 18:12 methimazole AdvReac Unknown Verified 07/03/18 18:12 Penicillins AdvReac Diarrhea Verified 07/03/18 18:12 prednisone AdvReac Unknown Verified 07/03/18 18:12 avacado Allergy Anaphylaxis Uncoded 09/21/16 15:14 cantalope Allergy Anaphylaxis Uncoded 09/21/16 15:14 TAPE AdvReac Unknown Uncoded 09/21/16 15:14 Physical Exam Vitals: Vital Signs Temp Pulse Pulse Resp BP BP Pulse Ox 07/04/18 13:07 97.0 F L 57 L 20 82/50 100 07/04/18 08:42 98 F 54 L 12 82/51 100 07/03/18 22:20 57 L 18 94/62 100 Intake and Output 07/04/18 07/04/18 07/04/18 06:59 14:59 22:59 Other: Voiding Method Toilet # Voids 3 3 1 On physical examination, patient appears comfortable in no apparent distress. HEAD: Normocephalic, atraumatic. EYES: No scleral icterus. No conjunctival injection. MOUTH: No lesions, tongue midline. NECK: Trachea midline, no gross abnormalities. CHEST: Clear to auscultation with no wheezing or rhonchi appreciated. HEART: Regular rate and rhythm. ABDOMEN: Soft, mildly tender to palpation. Bowel sounds are positive. No organomegaly. No guarding or rigidity. EXTREMITIES: No pedal edema. SKIN: No rashes, no jaundice. NEUROLOGIC: Alert and oriented. Results CBC & Chem 7: 07/04/18 15:06 07/04/18 08:53 Labs: Abnormal Lab Results - Last 24 Hours (Table) 07/04/18 07/04/18 07/04/18 Range/Units 08:20 08:53 15:06 Plt Count 145 L 141 L (150-450) k/uL Chloride 113 H (98-107) mmol/L CT scan - abdomen: report reviewed (Computed tomography scan of the abdomen negative for any acute pelvic or abdominal process with mild increased interstitial densities at the lung bases.) Assessment and Plan (1) GI bleed Narrative/Plan: Patient presenting with complaints of bright red blood per rectum and lower abdominal pain. Episodes of incurring intermittently over the past 6 months but of also occurred in the remote past with prior endoscopic evaluation with EGD and colonoscopy negative for source of bleeding per the patient's mother. Differential includes hemorrhoidal bleeding given stability of patient's hemoglobin at 12.4 from 12.5 previously, less likely diverticular, AVM, ischemia with absence of findings of colitis on CT, or upper GI bleed. Current Visit: Yes Status: Acute Code(s): K92.2 - GASTROINTESTINAL HEMORRHAGE, UNSPECIFIED SNOMED Code(s): 14558416 (2) GERD (gastroesophageal reflux disease) Current Visit: Yes Status: Acute Code(s): K21.9 - GASTRO-ESOPHAGEAL REFLUX DISEASE WITHOUT ESOPHAGITIS SNOMED Code(s): 138522607 (3) Abdominal pain Current Visit: Yes Status: Acute Code(s): R10.9 - UNSPECIFIED ABDOMINAL PAIN SNOMED Code(s): 85570353 Plan: Supportive care Continue to monitor hemoglobin and transfuse as needed Okay for clear liquids Nothing by mouth after midnight Continue Protonix therapy Plan is for flexible sigmoidoscopy tomorrow as the patient's mother has indicated that she will not tolerate oral prep and EGD for evaluation of possible source of bleeding, with tap water enemas ordered prior to the endos copic evaluation Thank you for allowing us to participate in the care of the patient we will continue to follow
[2018-07-04 21:21] LABS: Basophils % (A) 1 %; Eosinophils # (A) 0.1 k/uL (0-0.7); Eosinophils % (A) 2 %; HCT 37.8 % (34.0-46.0); HGB 12.6 gm/dL (11.4-16.0); Lymphocytes # (A) 2.4 k/uL (1.0-4.8); Lymphocytes % (A) 44 %; MCH 32.4 pg (25.0-35.0); MCHC 33.2 g/dL (31.0-37.0); MCV 97.5 fL (80.0-100.0); Mean Platelet Volume 6.7; Monocytes # (A) 0.3 k/uL (0-1.0); Monocytes % (A) 6 %; Neutrophils # (A) 2.4 k/uL (1.3-7.7); Neutrophils % (A) 45 %; Platelet Count 167 k/uL (150-450); RBC 3.88 m/uL (3.80-5.40); WBC 5.4 k/uL (3.8-10.6)
[2018-07-04] MEDS: TOPIRAMATE 25 MG TAB PO SCH (21:32)
[2018-07-04] MEDS: LATANOPROST 0.005% OPHTH DROPS 2.5 ML BTL BOTH EYES SCH (21:33)
[2018-07-05] MEDS: HYDROmorphone 1 MG/ML 1 ML SYRINGE IVP PRN (00:26)
[2018-07-05 03:22] LABS: Basophils % (A) 1 %; Eosinophils # (A) 0.1 k/uL (0-0.7); Eosinophils % (A) 1 %; HCT 38.7 % (34.0-46.0); HGB 12.7 gm/dL (11.4-16.0); Lymphocytes # (A) 1.6 k/uL (1.0-4.8); Lymphocytes % (A) 39 %; MCH 32.3 pg (25.0-35.0); MCHC 32.8 g/dL (31.0-37.0); MCV 98.6 fL (80.0-100.0); Mean Platelet Volume 6.4; Monocytes # (A) 0.2 k/uL (0-1.0); Monocytes % (A) 5 %; Neutrophils # (A) 2.3 k/uL (1.3-7.7); Neutrophils % (A) 53 %; Platelet Count 157 k/uL (150-450); RBC 3.93 m/uL (3.80-5.40); WBC 4.2 k/uL (3.8-10.6)
[2018-07-05 04:02] LABS: ALT 21 U/L (9-52); AST 19 U/L (14-36); Albumin 3.7 g/dL (3.5-5.0); Alkaline Phosphatase 62 U/L (38-126); Anion Gap 5 mmol/L; Blood Urea Nitrogen 8 mg/dL (7-17); Calcium 9.1 mg/dL (8.4-10.2); Carbon Dioxide 26 mmol/L (22-30); Chloride 111 mmol/L (98-107); Glucose 74 mg/dL (74-99); Potassium 4.2 mmol/L (3.5-5.1); Sodium 142 mmol/L (137-145); Total Bilirubin 0.5 mg/dL (0.2-1.3); Total Protein 6.6 g/dL (6.3-8.2)
[2018-07-05] MEDS: PANTOPRAZOLE 40 MG/10 ML VIAL IVP SCH (07:31)
[2018-07-05] MEDS: NICOTINE 14MG/24HR PATCH TRANSDERM SCH (07:32)
[2018-07-05 08:53] LABS: Basophils % (A) 1 %; Eosinophils # (A) 0.1 k/uL (0-0.7); Eosinophils % (A) 1 %; HCT 36.8 % (34.0-46.0); HGB 11.9 gm/dL (11.4-16.0); Lymphocytes # (A) 1.5 k/uL (1.0-4.8); Lymphocytes % (A) 40 %; MCH 30.9 pg (25.0-35.0); MCHC 32.3 g/dL (31.0-37.0); MCV 95.8 fL (80.0-100.0); Mean Platelet Volume 7.7; Monocytes # (A) 0.2 k/uL (0-1.0); Monocytes % (A) 5 %; Neutrophils % (A) 52 %; Platelet Count 152 k/uL (150-450); RBC 3.84 m/uL (3.80-5.40); RDW 12.8 % (11.5-15.5); WBC 3.8 k/uL (3.8-10.6)
[2018-07-05 10:00] LABS: Creatine Kinase 43 U/L (30-135)
[2018-07-05 10:08] LABS: Creatine Kinase MB <0.2 ng/mL (0.0-2.4)
--- NOTE | 2018-07-05 11:30 | P.PN ---
Subjective Progress Note Date: 07/05/18 This is a 38-year-old female patient presented to the hospital complaints of GI bleed. Patient reports that the blood started in her stool but then proceeded to just be blood and blood clots. Patient reports that is bright red. Patient also complaining of right lower quadrant abdomen pain. Patient denies taking any blood thinners. Occult stool positive for blood. Per patient this has been intermittently occurring over the past 4-5 months but has never become this bad. patient denies any nausea or vomiting. Patient denies alcohol intake. Patient does have a past medical history of chromosomal defect developmental disability,Asthma, GERD, osteoarthritis, pneumonia and seizure disorder. CT and of abdomen and pelvis completed showing mild increased interstitial density at the lung bases is nonspecific. No acute abnormality within the abdomen and pelvis do not see a cause for rectal bleeding. No adverse change compared to old exam. EKG completed in ER showing normal sinus rhythm normal EKG. Patient started on clear liquid diet. GI services have been consulted. At this time patient denies chest pain or shortness of breath. Patient is complaining of lower right abdomen pain. Patient denies any nausea or vomiting. Patient denies any urinary burning or frequency On 07/05/2018 patient is alert and oriented 3 resting comfortably in bed. Patient to undergo flex sigmoid in EGD today with GI services. At this time patient is stating that she's been having intermittent chest discomfort. Patient's heart rate has been low in the 50s. Will order EKG along with troponins and chest pain profile. Cardiology services have been consulted. 2-D echo ordered. Patient denies any shortness of breath. Patient denies nausea vomiting or diarrhea. Patient denies any urinary burning or frequency. Hemoglobin remains stable at 12.7 Objective - Vital Signs Vital signs: Vital Signs Temp 98.8 F 07/05/18 07:30 Pulse 53 L 07/05/18 07:30 Resp 16 07/05/18 07:30 BP 94/57 07/05/18 07:30 Pulse Ox 97 07/05/18 07:30 Intake & Output 07/04/18 07/05/18 07/05/18 18:59 06:59 18:59 Intake Total 200 Balance 200 Intake: Oral 200 Other: Voiding Method Toilet # Voids 1 1 # Bowel Movements 1 - Exam Head normocephalic Neck supple Lungs clear to auscultation bilaterally no wheezing or crackles Heart regular rate and rhythm S1-S2, no rub or gallop Abdomen right side of abdomen tender to palpation Extremities no edema Neuro alert and orientated to 3 - Labs CBC & Chem 7: 07/05/18 08:35 07/05/18 03:12 Labs: Abnormal Lab Results - Last 24 Hours (Table) 07/04/18 07/05/18 Range/Units 15:06 03:12 Plt Count 141 L (150-450) k/uL Chloride 111 H (98-107) mmol/L Assessment and Plan Assessment: 1. GI bleed with abdominal tenderness. Positive occult blood. CT of abdomen and pelvis completed showing mild increased interstitial density at the lung bases is nonspecific. No acute abnormality within the abdomen and pelvis. No adverse change compared to old exam. Hemoglobin stable at 12.4. We'll continue to monitor. Patient currently on clear liquid diet. IV Protonix ordered. P atient to undergo EGD and flex sigmoid colonoscopy today with GI services. Hemoglobin stable at 11.9 2. History of asthma 3. Chromosomal defect with developmental disability 4. History of seizures. Last seizure 2004. Not currently on any seizure medication 5. History of GERD 6. History of osteoarthritis 7. Nicotine dependence. Patient educated greater than 3 minutes on smoking cessation 8. Chest pain. patient complains this has been intermittent. EKG, troponins the chest pain profile ordered. 2-D echo and cardiology consult placed DVT prophylaxis SCDs. GI prophylaxis Protonix I performed an examination of the patient and discussed their management with the Nurse Practitioner. I have reviewed the Nurse Practitioner's notes and agree with the documented findings and plan of care
[2018-07-05] MEDS: SODIUM CHLORIDE 0.9% 1,000 ML IV SCH (11:46)
--- NOTE | 2018-07-05 12:53 | ECHOF ---
Referral Reason:bradycardia MEASUREMENTS -------- HEIGHT: 172.7 cm WEIGHT: 68.9 kg BP: 94/57 RVIDd: 2.4 cm (< 3.3) IVSd: 0.9 cm (0.6 - 1.1) LVIDd: 4.4 cm (3.9 - 5.3) LVPWd: 0.9 cm (0.6 - 1.1) IVSs: 1.3 cm LVIDs: 3.1 cm LVPWs: 1.5 cm LA Diam: 2.9 cm (2.7 - 3.8) LAESV Index (A-L): 17.30 ml/m Ao Diam: 2.7 cm (2.0 - 3.7) AV Cusp: 1.9 cm (1.5 - 2.6) EPSS: 0.3 cm MV E Min: 1.10 m/s MV DecT: 184 ms MV A Min: 0.47 m/s MV E/A Ratio: 2.36 AR PHT: 560 ms RAP: 5.00 mmHg RVSP: 27.48 mmHg MV EF SLOPE: 140.19 mm/s (70 - 150) MV EXCURSION: 1.69 cm (> 18.000) FINDINGS -------- Sinus rhythm. This was a technically good study. The left ventricular size is normal. Left ventricular wall thickness is normal. Overall left vent ricular systolic function is normal with, an EF between 60 - 65 %. The right ventricle is normal in size. Normal LA size by volume 22+/-6 ml/m2. The right atrium is normal in size. Aortic valve is trileaflet and is mildly thickened. There is mild aortic regurgitation. Mild mitral regurgitation is present. Mild tricuspid regurgitation present. Right ventricular systolic pressure is normal at < 35 mmHg. Trace/mild (physiologic) pulmonic regurgitation. The aortic root size is normal. Normal inferior vena cava with normal inspiratory collapse consistent with estimated right atrial pre ssure of 5 mmHg. There is no pericardial effusion. CONCLUSIONS -------- 1. Sinus rhythm. 2. This was a technically good study. 3. The left ventricular size is normal. 4. Left ventricular wall thickness is normal. 5. Overall left ventricular systolic function is normal with, an EF between 60 - 65 %. 6. The right ventricle is normal in size. 7. Normal LA size by volume 22+/-6 ml/m2. 8. The right atrium is normal in size. 9. Aortic valve is trileaflet and is mildly thickened. 10. There is mild aortic regurgitation. 11. Mild mitral regurgitation is present. 12. Mild tricuspid regurgitation present. 13. Right ventricular systolic pressure is normal at < 35 mmHg. 14. Trace/mild (physiologic) pulmonic regurgitation. 15. The aortic root size is normal. 16. Normal inferior vena cava with normal inspiratory collapse consistent with estimated right atrial pressure of 5 mmHg. 17. There is no pericardial effusion. LABELS MOLDER: VIKI Huynh
[2018-07-05] MEDS ORDERED: PROPOFOL 10 MG/ML 20 ML VIAL IV ONE (14:07)
[2018-07-05] MEDS ORDERED: GLYCOPYRROLATE 0.2 MG/ML 2 ML VIAL ONE (14:07)
[2018-07-05] MEDS ORDERED: LIDOCAINE 1% INJ 10MG/ML (20 ML MDV) ONE (14:07)
[2018-07-05] MEDS ORDERED: IV FLUID CONTINUATION 1,000 ML IV ONE (14:07)
[2018-07-05] MEDS ORDERED: LACTATED RINGERS 1,000 ML IV ONE (14:34)
--- NOTE | 2018-07-05 14:51 | P.PCN ---
Date of Procedure: 07/05/18 Description of Procedure: Brief history: 38-year-old female with medical history including developmental disability, seizure disorder, osteoarthritis, GERD and prior episodes of rectal bleeding who presents to the hospital with complaints of multiple episodes of bright red blood per rectum. The patient has been having intermittent episodes of blood per rectum over the past 6 months. However over the past 4 days prior to admission the patient reports a large amount of bright red blood per rectum. There were also reports of clots. The patient has also been having associated right lower quadrant abdominal pain. This is also happened 2 times in the past and the patient has had evaluation with endoscopy in the past with no source of bleeding identified per the patient's mother. On admission to the hospital the patient had a computed tomography scan of the abdomen which showed no evidence of any acute abdominal or pelvic process with some increased interstitial densities at the lung bases. Hemoglobin has been stable with repeat hemoglobin of 12.4 stable from 12.5 on previous lab draw. Procedure performed: Esophagogastroduodenoscopy with biopsy Flexible sigmoidoscopy Estimated blood loss: Minimal. Preoperative diagnosis: Hematochezia, bright red blood per rectum Anesthesia: MAC Procedure: After informed consent was obtained from the patient was brought into the endoscopy unit and IV sedation was administered by anesthesia under continuous monitoring. Initially upper endoscopy was done. The Olympus GF 190 video endoscope was inserted inserted into the mouth and esophagus intubated without any difficulty and was gradually advanced into the stomach and duodenum and carefully examined. The bulb and second part of the duodenum appeared normal. The scope was then withdrawn into the stomach adequately insufflated with air and upon careful examination the antrum and body, cardia and fundus appeared grossly normal except for diffuse erythema and superficial erosions in the antrum and body suggestive of moderate gastritis which was biopsied. The scope was then withdrawn into the esophagus. The GE junction was located at 39 cm to the incisors. It appeared regular with no erythema erosions or ulcerations. Rest of the esophagus appeared normal. Patient tolerated the procedure well. At this time the patient continued to remain sedation. Initial digital rectal examination was normal. Olympus CF 190 video colonoscope was then inserted into the rectum and gradually advanced the sigmoid. Careful examination was performed as the scope was gradually being withdrawn. The prep was poor as the patient had been noncompliant with the second tap water enema ordered. Stool noted throughout the entire visualized sigmoid and rectum. Visualized mucosa did appear normal with no signs or symptoms of active bleeding, old blood or inflammation. Moderate internal hemorrhoids were noted on retroflexion. Patient tolerated the procedure well. Impression: 1. No active bleeding or old blood on EGD or possible sigmoidoscopy. 2. Moderate gastritis, biopsied. 3. Moderate internal hemorrhoids. Recommendations: Findings of this examination were discussed with the patient as well as her mother. Continue to monitor hemoglobin and hematocrit and signs and symptoms. Clear liquid started the patient can be advanced as tolerated to low fiber low residual diet. We'll start MiraLAX daily and Anusol for treatment of hemorrhoids. Patient to follow up after discharge for a colonoscopy in the outpatient setting.
[2018-07-05] MEDS: POLYETHYLENE GLYCOL 3350 17 GM POWD.PACK PO SCH (15:25)
[2018-07-05 15:33] LABS: Creatine Kinase 49 U/L (30-135)
[2018-07-05 15:45] LABS: Creatine Kinase MB <0.2 ng/mL (0.0-2.4); Troponin I <0.012 ng/mL (0.000-0.034)
[2018-07-05 17:29] VITALS: RESP 18
[2018-07-05] MEDS: LATANOPROST 0.005% OPHTH DROPS 2.5 ML BTL BOTH EYES SCH (20:31)
[2018-07-05] MEDS: TOPIRAMATE 25 MG TAB PO SCH (20:31)
[2018-07-05 23:26] LABS: Creatine Kinase 44 U/L (30-135)
[2018-07-05 23:36] LABS: Creatine Kinase MB <0.2 ng/mL (0.0-2.4)
[2018-07-05 23:40] LABS: Troponin I <0.012 ng/mL (0.000-0.034)
[2018-07-06 08:02] VITALS: BP 103/67; PULSE 63; TEMP 98.3
[2018-07-06] MEDS: NICOTINE 14MG/24HR PATCH TRANSDERM SCH (08:10)
[2018-07-06] MEDS: PANTOPRAZOLE 40 MG/10 ML VIAL IVP SCH (08:10)
[2018-07-06] MEDS: POLYETHYLENE GLYCOL 3350 17 GM POWD.PACK PO SCH (08:11)
[2018-07-06] MEDS: SODIUM CHLORIDE 0.9% 1,000 ML IV SCH (08:12)
[2018-07-06] MEDS ORDERED: HYDROCORTISONE SUPPOSITORY 25 MG SUPP RECTAL SCH (09:00)
[2018-07-06 11:11] LABS: Basophils % (A) 1 %; Eosinophils # (A) 0.1 k/uL (0-0.7); Eosinophils % (A) 2 %; HCT 38.5 % (34.0-46.0); HGB 12.7 gm/dL (11.4-16.0); Lymphocytes # (A) 1.3 k/uL (1.0-4.8); Lymphocytes % (A) 29 %; MCV 97.1 fL (80.0-100.0); Mean Platelet Volume 6.9; Monocytes # (A) 0.2 k/uL (0-1.0); Monocytes % (A) 5 %; Neutrophils # (A) 2.7 k/uL (1.3-7.7); Neutrophils % (A) 61 %; Platelet Count 184 k/uL (150-450); RBC 3.96 m/uL (3.80-5.40); RDW 12.9 % (11.5-15.5); WBC 4.4 k/uL (3.8-10.6)
[2018-07-06 11:33] LABS: ALT 30 U/L (9-52); AST 16 U/L (14-36); Albumin 3.9 g/dL (3.5-5.0); Alkaline Phosphatase 70 U/L (38-126); Anion Gap 2 mmol/L; Blood Urea Nitrogen 8 mg/dL (7-17); Calcium 9.4 mg/dL (8.4-10.2); Carbon Dioxide 24 mmol/L (22-30); Chloride 116 mmol/L (98-107); Glucose 93 mg/dL (74-99); Potassium 4.4 mmol/L (3.5-5.1); Sodium 142 mmol/L (137-145); Total Bilirubin 0.6 mg/dL (0.2-1.3); Total Protein 6.9 g/dL (6.3-8.2)
--- NOTE | 2018-07-06 12:15 | P.PN ---
Subjective Progress Note Date: 07/06/18 Principal diagnosis: Hematochezia Status post EGD flecks. Endoscopy for evaluation of hematochezia; EGD no active bleeding. Moderate gastritis biopsies pending. Moderate internal hemorrhoids. Presently denies abdominal pain. Mother at bedside denies hematochezia or hematemesis or melena. Mother anticipates discharged today. Tolerating diet. Hemoglobin 12.7. Objective - Vital Signs Vital signs: Vital Signs Temp 98.3 F 07/06/18 07:00 Pulse 63 07/06/18 07:00 Resp 18 07/06/18 07:00 BP 103/67 07/06/18 07:00 Pulse Ox 98 07/06/18 07:00 Intake & Output 07/05/18 07/06/18 07/06/18 18:59 06:59 18:59 Intake Total 400 800 Balance 400 800 Intake: IV 400 Intake, IV Titration 800 Amount Sodium Chloride 0.9% 1, 800 000 ml @ 50 mls/hr IV . Q20H DOMINIQUE Rx#:[id number] Other: # Voids 5 # Bowel Movements 3 - Exam General appearance: The patient is alert, oriented, in no acute distress. HET: Head is normocephalic and atraumatic. Pupils are equal and reactive. Oropharynx is clear without lesions. Neck: Supple without lymphadenopathy. Trachea midline. Heart: S1 S2. Regular rate and rhythm. Lungs: No crackles or wheezes are heard. Abdomen: Soft, nontender, nondistended with bowel sounds. No peritoneal signs. No palpable organomegaly or masses. Extremities: Normal skin color and turgor. No cyanosis, rash, ulceration, clubbing, or edema. Radial and pedal pulses are 2/4 bilaterally. Neurological: No focal deficits. Strength and sensation are grossly intact. - Labs CBC & Chem 7: 07/06/18 10:36 07/06/18 10:36 Labs: Abnormal Lab Results - Last 24 Hours (Table) 07/06/18 Range/Units 10:36 Chloride 116 H (98-107) mmol/L Assessment and Plan (1) Hematochezia Narrative/Plan: EGD moderate gastritis possible sigmoidoscopy internal hemorrhoids. Current Visit: Yes Status: Acute Code(s): K92.1 - MELENA SNOMED Code(s): 582571107 (2) Abdominal pain Current Visit: Yes Status: Acute Code(s): R10.9 - UNSPECIFIED ABDOMINAL PAIN SNOMED Code(s): 45433001 (3) GERD (gastroesophageal reflux disease) Current Visit: Yes Status: Acute Code(s): K21.9 - GASTRO-ESOPHAGEAL REFLUX DISEASE WITHOUT ESOPHAGITIS SNOMED Code(s): 022565523 (4) GI bleed Current Visit: Yes Status: Acute Code(s): K92.2 - GASTROINTESTINAL HEMORRHAGE, UNSPECIFIED SNOMED Code(s): 59087515 Plan: 1. MiraLAX 17 g daily Anusol before meals 25 mg daily at bedtime for hemorrhoids. Return office in 2-3 weeks for reevaluation discussion of outpat ient colonoscopy. Assessment and plan of care discussed with Dr. García
--- NOTE | 2018-07-06 13:19 | P.DS ---
Providers Date of admission: 07/05/18 15:07 Expected date of discharge: 07/06/18 Attending physician: Zabrina Burrell Consults: 07/05/18 09:39 Consult Physician Routine Consulting Provider: Hairka Mariee Consult Reason/Comments: bradycardia chest pain Do you want consulting provider notified?: Yes Primary care physician: Zabrina Ashanti [facility] Course: Discharge diagnosis 1. GI bleed with abdominal tenderness. Positive occult blood. CT of abdomen and pelvis completed showing mild increased interstitial density at the lung bases is nonspecific. No acute abnormality within the abdomen and pelvis. No adverse change compared to old exam. Hemoglobin stable at 12.4. EGD completed showing moderate gastritis possible sigmoidoscopy internal hemorrhoids. Patient has been cleared for discharge from GI services. Patient to continue MiraLAX and Anusol and follow-up outpatient with GI services with possible colonoscopy in 2-3 weeks 2. History of asthma 3. Chromosomal defect with developmental disability 4. History of seizures. Last seizure 2004. Not currently on any seizure medication 5. History of GERD 6. History of osteoarthritis 7. Nicotine dependence. Patient educated greater than 3 minutes on smoking cessation 8. Chest pain. patient complains this has been intermittent. Per nursing Patient was cleared by cardiology services. 2-D echo completed showing EF of 60-65%. Troponins negative 3 Hospital course This is a 38-year-old female patient presented to the hospital complaints of GI bleed. Patient reports that the blood started in her stool but then proceeded to just be blood and blood clots. Patient reports that is bright red. Patient also complaining of right lower quadrant abdomen pain. Patient denies taking any blood thinners. Occult stool positive for blood. Per patient this has been intermittently occurring over the past 4-5 months but has never become this bad. patient denies any nausea or vomiting. Patient denies alcohol intake. Patient does have a past medical history of chromosomal defect developmental disability,Asthma, GERD, osteoarthritis, pneumonia and seizure disorder. CT and of abdomen and pelvis completed showing mild increased interstitial density at the lung bases is nonspecific. No acute abnormality within the abdomen and pelvis do not see a cause for rectal bleeding. No adverse change compared to old exam. EKG completed in ER showing normal sinus rhythm normal EKG. Patient started on clear liquid diet. GI services have been consulted. At this time patient denies chest pain or shortness of breath. Patient is complaining of lower right abdomen pain. Patient denies any nausea or vomiting. Patient denies any urinary burning or frequency On 07/05/2018 patient is alert and oriented 3 resting comfortably in bed. Patient to undergo flex sigmoid in EGD today with GI services. At this time patient is stating that she's been having intermittent chest discomfort. Patient's heart rate has been low in the 50s. Will order EKG along with troponins and chest pain profile. Cardiology services have been consulted. 2-D echo ordered. Patient denies any shortness of breath. Patient denies nausea vomiting or diarrhea. Patient denies any urinary burning or frequency. Hemoglobin remains stable at 12.7 On 07/06/2018 patient is alert and oriented 3. Patient expresses that she is very eager to go home. EGD completed showing moderate gastritis possible sigmoidoscopy showing internal hemorrhoids. Patient has been cleared for discharge from GI standpoint. Patient to follow-up outpatient for possible colonoscopy in 2-3 weeks. Patient was also evaluated by cardiology services due to chest pain. Patient was cleared for discharge from cardiology standpoint. 2-D echo was completed troponins negative 3. This time patient denies chest pain or shortness of breath. Patient denies nausea vomiting or diarrhea. Kimberly ent denies any urinary burning or frequency. I performed an examination of the patient and discussed their management with the Nurse Practitioner. I have reviewed the Nurse Practitioner's notes and agree with the documented findings and plan of care Patient Condition at Discharge: Stable Plan - Discharge Summary Discharge Rx Participant: No New Discharge Prescriptions: New Hydrocortisone Suppository [Anusol-Hc] 25 mg RECTAL DAILY #30 supp Polyethylene Glycol 3350 [Miralax] 17 gm PO DAILY powd.pack Continue Travoprost [Travatan Z 0.004%] 1 drop BOTH EYES HS Albuterol Inhaler [Ventolin Hfa Inhaler] 2 puff INHALATION RT-Q4H PRN PRN Reason: Shortness Of Breath Pantoprazole [Protonix] 40 mg PO DAILY PRN PRN Reason: STOMACH Olopatadine HCl [Pataday] 2.5 ml BOTH EYES DAILY PRN PRN Reason: Allergy Symptoms Multivitamin [Children's Multivitamins] 2 tab PO DAILY EPINEPHrine (Auto Inject) [Epipen] 0.3 mg IM DIRECTED PRN PRN Reason: Anaphylaxis Topiramate [Topamax] 50 mg PO HS Suzan Back And Body (Unknown) 1 tab PO DAILY Discharge Medication List Albuterol Inhaler [Ventolin Hfa Inhaler] 2 puff INHALATION RT-Q4H PRN 05/19/16 [History] Pantoprazole [Protonix] 40 mg PO DAILY PRN 05/19/16 [History] Travoprost [Travatan Z 0.004%] 1 drop BOTH EYES HS 05/19/16 [History] Multivitamin [Children's Multivitamins] 2 tab PO DAILY 07/02/16 [History] Olopatadine HCl [Pataday] 2.5 ml BOTH EYES DAILY PRN 07/02/16 [History] Suzan Back And Body (Unknown) 1 tab PO DAILY 07/03/18 [History] EPINEPHrine (Auto Inject) [Epipen] 0.3 mg IM DIRECTED PRN 07/03/18 [History] Topiramate [Topamax] 50 mg PO HS 07/03/18 [History] Hydrocortisone Suppository [Anusol-Hc] 25 mg RECTAL DAILY #30 supp 07/06/18 [Rx] Polyethylene Glycol 3350 [Miralax] 17 gm PO DAILY powd.pack 07/06/18 [Rx] Follow up Appointment(s)/Referral(s): Zabrina Burrell MD [Primary Care Provider] - 1-2 days (patients mother prefers to make appointments) Cholo García MD [STAFF PHYSICIAN] - 2 Weeks (patients mother prefers to make f/u appointments) Ambulatory/Diagnostic Orders: Complete Blood Count w/diff [LAB.AMB] Time Frame: 1 Week, Location: None Selected Patient Instructions/Handouts: Gastrointestinal Bleeding (DC) Care Plan Goals (MU): Activity as tolerated Diet low fiber diet Discharge Disposition: HOME SELF-CARE
--- NOTE | 2018-07-06 13:33 | CONS ---
CONSULTATION Mrs. Nobles is a 38-year-old female who is seen for cardiac evaluation. Patient's medical records reviewed. We are seeing this patient for complaint of some vague chest discomfort. She is a 38-year-old female who has been admitted with a rectal bleed. Her vital signs have remained stable. Patient complained of some vague chest discomfort yesterday. She cannot actually describe the pain. EKG was normal. Echocardiogram was also done, which was normal. The patient has underwent GI workup and has been found to have hemorrhoids. The patient denies any past history of cardiac problems. Denies any history of exertional angina. No prior history of myocardial infarction. PAST MEDICAL HISTORY: Past medical history includes a history of pneumonia and seizure disorder, right elbow fracture, debridement of buttocks, mediastinoscopy, colonoscopy, and laparoscopy. HOME MEDICATIONS: Patient's home medications include Protonix, Ventolin inhaler, epinephrine auto injection, and Topamax. PHYSICAL EXAMINATION: Physical examination at present reveals a 38-year-old female who does not appear to be in any acute distress. Patient's blood pressure is 103/67 mmHg, heart rate is 63 per minute. Head/ENT examination is negative. Neck is supple. There is no increase in jugular venous pressure. Both the carotid pulses are felt. There is no bruit. Chest is symmetrical. HEART: The PMI is not felt. First and second heart sounds are heard. There is no evidence of any murmur. Lungs are clinically clear to auscultation and percussion. Abdomen is soft. Liver and spleen are not enlarged. Bowel sounds are heard. EXTREMITIES: Peripheral pulsations are 2+. EKG shows sinus rhythm without any acute ischemic changes. Cardiac enzymes are normal. Patient's echocardiogram is normal. FINAL IMPRESSION: This patient had a vague atypical chest discomfort. EKGs and cardiac enzymes are normal. The patient's gastrointestinal bleeding is stable. At present, patient does not require any further cardiac evaluation. If the patient has any problem in the future, she can be evaluated with a stress test. MMODL / IJN: [id number] /
== END 2018-07-06 13:59 | disposition home or self-care (01) | DRG 378 ==
LOC: EC 16:31 → 3NMEDONC 21:45 → UNDOADMOB 21:45 → 3NMEDONC 07-04 08:03 → 4MS4W 07-04 08:03 → OBSVTOIN 07-05 15:07
PROVIDERS: ADMIT Internal Medicine; ATTEND Internal Medicine
PROC: 0DB78ZX Excision of Stomach, Pylorus, Via Natural or Artificial Opening Endoscopic, Diagnostic (ICD-10-PCS; principal; 2018-07-05 08:05)
PROC: 0DJD8ZZ Inspection of Lower Intestinal Tract, Via Natural or Artificial Opening Endoscopic (ICD-10-PCS; 2018-07-05 08:05)
DX: K29.71 Gastritis, unspecified, with bleeding (principal); E72.12 Methylenetetrahydrofolate reductase deficiency; J98.4 Other disorders of lung; K64.8 Other hemorrhoids; F79 Unspecified intellectual disabilities; G40.909 Epilepsy, unspecified, not intractable, without status epilepticus; J45.909 Unspecified asthma, uncomplicated; I51.7 Cardiomegaly; K21.9 Gastro-esophageal reflux disease without esophagitis; M19.90 Unspecified osteoarthritis, unspecified site; K44.9 Diaphragmatic hernia without obstruction or gangrene; R07.89 Other chest pain; H57.9 Unspecified disorder of eye and adnexa; M54.5 Low back pain; F17.200 Nicotine dependence, unspecified, uncomplicated; Z71.6 Tobacco abuse counseling; Z79.899 Other long term (current) drug therapy; Z91.19 Patient's noncompliance with other medical treatment and regimen; Z87.01 Personal history of pneumonia (recurrent); Z86.14 Personal history of Methicillin resistant Staphylococcus aureus infection; Z90.49 Acquired absence of other specified parts of digestive tract; Z90.710 Acquired absence of both cervix and uterus; Z98.51 Tubal ligation status; Z88.1 Allergy status to other antibiotic agents; Z91.041 Radiographic dye allergy status; Z91.040 Latex allergy status; Z88.5 Allergy status to narcotic agent; Z91.010 Allergy to peanuts; Z88.0 Allergy status to penicillin; Z88.2 Allergy status to sulfonamides; Z88.8 Allergy status to other drugs, medicaments and biological substances; Z91.018 Allergy to other foods; Z91.048 Other nonmedicinal substance allergy status; Z82.49 Family history of ischemic heart disease and other diseases of the circulatory system; Z83.3 Family history of diabetes mellitus; Z82.61 Family history of arthritis; Z82.5 Family history of asthma and other chronic lower respiratory diseases
CPT/HCPCS: 36415; 43239; 45331; 74177; 80053; 82272; 82550; 82553; 84484; 85025; 85610; 85730; 88305; 93005; 93306; 96361; 96374; 96375; 96376; 99285

== ENCOUNTER 2019-01-21 05:00 | Emergency (ER) | payer MEDICARE, OTHER ==
--- NOTE | 2019-01-21 05:10 | ED ---
General Adult HPI - General Stated complaint: Nausea, vomiting Time Seen by Provider: 01/21/19 05:02 - History of Present Illness Initial comments: Patient is a 38-year-old female with extensive past medical history listed below presenting to the ER today with multiple complaints. Patient reports she's had URI-like symptoms for approximately 2 weeks, she's been using her mom's breathing treatments because her nebulizer medications are . Patient reports she feels some wheezing that was resolved with using nebulizers. She denies any chest pain palpitation or productive cough. Patient states that over the past night she's also had some nausea and vomiting. Patient states that she has a history of a hiatal hernia and she stuck to a surgeon about in the past but does not want surgical repair. Patient states that she's not been able to s leep well tonight because of burning epigastric discomfort and nausea. This prompted her to call EMS for further evaluation. - Related Data Home Medications Medication Instructions Recorded Confirmed Albuterol Inhaler [Ventolin Hfa 2 puff INHALATION RT-Q4H PRN 05/19/16 01/21/19 Inhaler] Pantoprazole [Protonix] 40 mg PO DAILY PRN 05/19/16 01/21/19 Travoprost [Travatan Z 0.004%] 1 drop BOTH EYES HS 05/19/16 01/21/19 Suzan Back And Body (Unknown) 1 tab PO DAILY 07/03/18 01/21/19 EPINEPHrine (Auto Inject) [Epipen] 0.3 mg IM DIRECTED PRN 07/03/18 01/21/19 Topiramate [Topamax] 50 mg PO HS 07/03/18 01/21/19 Previous Rx's Medication Instructions Recorded Albuterol Nebulized [Ventolin 2.5 mg INHALATION Q4H #60 nebu 01/21/19 Nebulized] Allergies Allergy/AdvReac Type Severity Reaction Status Date / Time carbamazepine [From Tegretol] Allergy Intermediate Unknown Verified 01/21/19 05:10 adhesive Allergy Unknown Verified 01/21/19 05:10 amphetamine aspartate Allergy Unknown Verified 01/21/19 05:10 [From Adderall] amphetamine sulfate Allergy Unknown Verified 01/21/19 05:10 [From Adderall] azithromycin Allergy Unknown Verified 01/21/19 05:10 [From Zithromax Z-Tunde] banana Allergy Anaphylaxis Verified 01/21/19 05:10 cephalexin monohydrate Allergy Unknown Verified 01/21/19 05:10 [From Keflex] dextroamphetamine saccharate Allergy Unknown Verified 01/21/19 05:10 [From Adderall] dextroamphetamine sulfate Allergy Unknown Verified 01/21/19 05:10 [From Adderall] Iodinated Contrast Media Allergy Anaphylaxis Verified 01/21/19 05:10 [Iodinated Contrast Media - IV Dye] ketorolac tromethamine Allergy Rash/Hives Verified 01/21/19 05:10 [From Toradol] kiwi Allergy Anaphylaxis Verified 01/21/19 05:10 latex Allergy Anaphylaxis Verified 01/21/19 05:10 levofloxacin [From Levaquin] Allergy Swelling Verified 01/21/19 05:10 lorazepam [From Ativan] Allergy Unknown Verified 01/21/19 05:10 Melon Allergy Anaphylaxis Verified 01/21/19 05:10 metoclopramide HCl Allergy Unknown Verified 01/21/19 05:10 [From Reglan] nitrofurantoin Allergy Unknown Verified 01/21/19 05:10 [From Macrobid] nitrofurantoin Allergy Unknown Verified 01/21/19 05:10 macrocrystalline [From Macrobid] peanut Allergy Anaphylaxis Verified 01/21/19 05:10 Sulfa (Sulfonamide Allergy Unknown Verified 01/21/19 05:10 Antibiotics) codeine AdvReac Diarrhea Verified 01/21/19 05:10 doxycycline AdvReac Diarrhea Verified 01/21/19 05:10 methimazole AdvReac Unknown Verified 01/21/19 05:10 Penicillins AdvReac Diarrhea Verified 01/21/19 05:10 prednisone AdvReac Unknown Verified 01/21/19 05:10 avacado Allergy Anaphylaxis Uncoded 01/21/19 05:10 cantalope Allergy Anaphylaxis Uncoded 01/21/19 05:10 TAPE AdvReac Unknown Uncoded 01/21/19 05:10 Review of Systems ROS Statement: Those systems with pertinent positive or pertinent negative responses have been documented in the HPI. ROS Other: All systems not noted in ROS Statement are negative. Past Medical History Past Medical History: Asthma, Eye Disorder, GERD/Reflux, Osteoarthritis (OA), Pneumonia, Seizure Disorder Additional Past Medical History / Comment(s): Pt and her mother states that pt has had abdominal pain and rectal bleeding intermittently over the past 4-5 months and that it has become worse over the past 4 days. She was seen be Dr. Frias today in his office and he stated her lungs sounded like she was not moving air so she was sent to hospital per mother. 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 History of Any Multi-Drug Resistant Organisms: MRSA Date of last positivie culture/infection: 2006 MDRO Source:: spider bite/buttocks Past Surgical History: Cholecystectomy, Hysterectomy, Orthopedic Surgery, Tubal Ligation Additional Past Surgical History / Comment(s): rt elbow orif. debridment frank buttocks d/t spider bite, nasal septal surgery, mediastinoscopy with bx-benign, colonoscopy, laparoscopy with lysis of adhesions. Past Anesthesia/Blood Transfusion Reactions: No Reported Reaction Past Psychological History: No Psychological Hx Reported Additional Psychological History / Comment(s): Pt resides with her parents. She has developmental diability. She performs her own ADLs. She uses no assistive device. She does not drive. Mother takes her to [employer]. There is a pet cat in the home. No other animal exposures. No tobacco use. No alcohol use. No travel Smoking Status: Current every day smoker Past Alcohol Use History: None Reported Additional Past Alcohol Use History / Comment(s): Pt started smoking in 2001. Past Drug Use History: None Reported - Past Family History Father Family Medical History: Coronary Artery Disease (CAD), Diabetes Mellitus, Myocardial Infarction (NC) Additional Family Medical History / Comment(s): Father had a NC at the age of 62 yrs. He has had CABG. Mother Family Medical History: Congestive Heart Failure (CHF), COPD, Osteoarthritis (OA), Rheumatoid Arthritis (RA) Additional Family Medical History / Comment(s): Spondylosis, subclavian boyce with stents. General Exam - General Exam Comments Initial Comments: Physical Exam GENERAL: Patient is well-developed and well-nourished. HENT: Atraumatic. EYES: PERRL, EOMI PULMONARY: Unlabored respirations. No audible rales rhonchi or wheezing was noted. CARDIOVASCULAR: RRR ABDOMEN: Soft and nontender with normal bowel sounds. SKIN: Skin is clear with no lesions or rashes and otherwise unremarkable. : Deferred NEUROLOGIC: Patient is alert and oriented x3. Moving all extremities spontaneously MUSCULOSKELETAL: Normal extremities with adequate strength and full range of motion. No lower extremity swelling or edema. No calf tenderness. PSYCHIATRIC: Normal psychiatric evaluation. Course Vital Signs 01/21/19 01/21/19 05:07 06:38 Temperature 98.1 F Pulse Rate 84 75 Respiratory 19 15 Rate Blood Pressure 116/71 97/68 O2 Sat by Pulse 97 100 Oximetry Medical Decision Making - Medical Decision Making Patient was seen and evaluated history was obtained from patient and EMS sign history and physical exam are concerning for likely viral illnesses the patient had wheezing intermittently for greater than 2 weeks, she is out of her nebulizer medications and has been having to use her mother's. Patient also states some nausea after using multiple breathing treatments throughout the nig ht. Labs were unremarkable Chest x-ray with no consolidation or signs of pneumonia Patient's feeling better after some IV fluids, unfortunately she pulled her IV and is now infiltrated. Patient does not want a repeat IV she is comfortable with the plan for discharge home with a prescription for nebulized albuterol. Pain. Return parameters discussed patient discharged home in stable condition. - Lab Data Result diagrams: 01/21/19 05:18 01/21/19 05:18 Lab Results 01/21/19 01/21/19 Range/Units 05:18 05:18 WBC 6.9 (3.8-10.6) k/uL RBC 4.14 (3.80-5.40) m/uL Hgb 13.4 (11.4-16.0) gm/dL Hct 39.5 (34.0-46.0) % MCV 95.4 (80.0-100.0) fL MCH 32.5 (25.0-35.0) pg MCHC 34.0 (31.0-37.0) g/dL RDW 12.9 (11.5-15.5) % Plt Count 203 (150-450) k/uL Neutrophils % 53 % Lymphocytes % 35 % Monocytes % 6 % Eosinophils % 1 % Basophils % 0 % Neutrophils # 3.6 (1.3-7.7) k/uL Lymphocytes # 2.4 (1.0-4.8) k/uL Monocytes # 0.4 (0-1.0) k/uL Eosinophils # 0.1 (0-0.7) k/uL Basophils # 0.0 (0-0.2) k/uL Sodium 143 (137-145) mmol/L Potassium 3.8 (3.5-5.1) mmol/L Chloride 113 H (98-107) mmol/L Carbon Dioxide 20 L (22-30) mmol/L Anion Gap 10 mmol/L BUN 14 (7-17) mg/dL Creatinine 0.71 (0.52-1.04) mg/dL Est GFR (CKD-EPI)AfAm >90 (>60 ml/min/1.73 sqM) Est GFR (CKD-EPI)NonAf >90 (>60 ml/min/1.73 sqM) Glucose 105 H (74-99) mg/dL Calcium 9.9 (8.4-10.2) mg/dL Total Bilirubin 0.5 (0.2-1.3) mg/dL AST 26 (14-36) U/L ALT 20 (9-52) U/L Alkaline Phosphatase 65 (38-126) U/L Total Protein 7.7 (6.3-8.2) g/dL Albumin 4.4 (3.5-5.0) g/dL Disposition Clinical Impression: Acute upper respiratory infection Disposition: HOME SELF-CARE Condition: Stable Instructions (If sedation given, give patient instructions): Upper Respiratory Infection (ED) Prescriptions: Albuterol Nebulized [Ventolin Nebulized] 2.5 mg INHALATION Q4H #60 nebu Is patient prescribed a controlled substance at d/c from ED?: No Referrals: Zoe Frias MD [Primary Care Provider] - 1-2 days
[2019-01-21 05:11] VITALS: TEMP 98.1
[2019-01-21] MEDS ORDERED: SODIUM CHLORIDE 0.9% 1,000 ML IV ONE (05:24)
[2019-01-21] MEDS ORDERED: SODIUM CHLORIDE 0.9% 1,000 ML IV SCH (05:30)
[2019-01-21 05:59] LABS: Basophils % (A) 0 %; Eosinophils # (A) 0.1 k/uL (0-0.7); Eosinophils % (A) 1 %; HCT 39.5 % (34.0-46.0); HGB 13.4 gm/dL (11.4-16.0); Lymphocytes # (A) 2.4 k/uL (1.0-4.8); Lymphocytes % (A) 35 %; MCH 32.5 pg (25.0-35.0); MCV 95.4 fL (80.0-100.0); Mean Platelet Volume 6.2; Monocytes # (A) 0.4 k/uL (0-1.0); Monocytes % (A) 6 %; Neutrophils # (A) 3.6 k/uL (1.3-7.7); Neutrophils % (A) 53 %; Platelet Count 203 k/uL (150-450); RBC 4.14 m/uL (3.80-5.40); RDW 12.9 % (11.5-15.5); WBC 6.9 k/uL (3.8-10.6)
[2019-01-21 06:26] LABS: ALT 20 U/L (9-52); AST 26 U/L (14-36); African American GFR (CKD) >90 (>60 ml/min/1.73 sqM); Albumin 4.4 g/dL (3.5-5.0); Alkaline Phosphatase 65 U/L (38-126); Anion Gap 10 mmol/L; Blood Urea Nitrogen 14 mg/dL (7-17); Calcium 9.9 mg/dL (8.4-10.2); Carbon Dioxide 20 mmol/L (22-30); Chloride 113 mmol/L (98-107); Glucose 105 mg/dL (74-99); Potassium 3.8 mmol/L (3.5-5.1); Sodium 143 mmol/L (137-145); Total Bilirubin 0.5 mg/dL (0.2-1.3); Total Protein 7.7 g/dL (6.3-8.2)
[2019-01-21 06:43] VITALS: BP 97/68; PULSE 75; RESP 15
--- NOTE | 2019-01-21 07:28 | XR ---
EXAM: XR Chest, 2 Views CLINICAL HISTORY: Cough. TECHNIQUE: Frontal and lateral views of the chest. COMPARISON: 07/02/2016 FINDINGS: Lungs: Mild peribronchial cuffing is suspected, most notable in the lateral view, raising concern for infectious versus inflammatory airways disease. Pleural space: Unremarkable. No pneumothorax. Heart: Unremarkable. No cardiomegaly. Mediastinum: Essentially unchanged. Bones/joints: Unremarkable. IMPRESSION: Mild peribronchial cuffing raising concern for infectious versus inflammatory airways disease.
== END 2019-01-21 06:51 | disposition home or self-care (01) ==
LOC: EC 05:00
DX: J06.9 Acute upper respiratory infection, unspecified (principal); R11.2 Nausea with vomiting, unspecified; J45.909 Unspecified asthma, uncomplicated; K21.9 Gastro-esophageal reflux disease without esophagitis; G40.909 Epilepsy, unspecified, not intractable, without status epilepticus; H53.8 Other visual disturbances; K44.9 Diaphragmatic hernia without obstruction or gangrene; F17.200 Nicotine dependence, unspecified, uncomplicated; Z79.51 Long term (current) use of inhaled steroids; Z79.899 Other long term (current) drug therapy; Z88.8 Allergy status to other drugs, medicaments and biological substances; Z91.048 Other nonmedicinal substance allergy status; Z88.1 Allergy status to other antibiotic agents; Z91.018 Allergy to other foods; Z91.041 Radiographic dye allergy status; Z88.6 Allergy status to analgesic agent; Z91.040 Latex allergy status; Z88.5 Allergy status to narcotic agent; Z88.2 Allergy status to sulfonamides; Z88.0 Allergy status to penicillin; Z86.14 Personal history of Methicillin resistant Staphylococcus aureus infection
CPT/HCPCS: 36415; 71046; 80053; 85025; 87502; 96360; 99284

== ENCOUNTER 2019-09-16 07:11 | Emergency (ER) | payer MEDICARE, OTHER ==
[2019-09-16] MEDS ORDERED: IPRATROPIUM-ALBUTEROL 3 ML NEB INHALATION STA (07:32)
[2019-09-16] MEDS ORDERED: KETOROLAC 30 MG/ML 1 ML VIAL IVP STA (07:34)
--- NOTE | 2019-09-16 07:44 | ED ---
Chest Pain HPI - General Chief Complaint: Chest Pain Stated Complaint: Chest pain Time Seen by Provider: 09/16/19 07:20 Source: patient, RN notes reviewed Mode of arrival: ambulatory Limitations: no limitations - History of Present Illness Initial Comments: This is a 39-year-old female history of multiple medical issues including asthma and COPD but no known history of heart disease she also does have reflux who presents with complaints the onset this morning at around 6:30 AM of anterior chest pain dull in nature 09/26 severity since get worse with deep breathing and movement she does have a cough but is unable to expectorate. She also has some shortness of breath exertional dyspnea. No chills she states she has had a slight fever no sweats no other modifying factors at this time other than she does smoke cigarettes. Pain feels similar to her previous reflux pain she states but not quite as bad MD Complaint: chest pain - Related Data Home Medications Medication Instructions Recorded Confirmed Albuterol Inhaler (Mhu) [Ventolin 2 puff INHALATION RT-Q4H PRN 05/19/16 01/21/19 Hfa Inhaler (Mhu)] Pantoprazole [Protonix] 40 mg PO DAILY PRN 05/19/16 01/21/19 Travoprost [Travatan Z 0.004%] 1 drop BOTH EYES HS 05/19/16 01/21/19 Suzan Back And Body (Unknown) 1 tab PO DAILY 07/03/18 01/21/19 EPINEPHrine (Auto Inject) [Epipen] 0.3 mg IM DIRECTED PRN 07/03/18 01/21/19 Topiramate [Topamax] 50 mg PO HS 07/03/18 01/21/19 Previous Rx's Medication Instructions Recorded Albuterol Nebulized [Ventolin 2.5 mg INHALATION Q4H #60 nebu 01/21/19 Nebulized] Ipratropium/Albuter 20-100Mcg 1 puff INHALATION Q6HR PRN #1 puff 09/16/19 [Combivent Respimat 20-100Mcg Inhaler] predniSONE [Deltasone] 20 mg PO BID #10 tab 09/16/19 Allergies Allergy/AdvReac Type Severity Reaction Status Date / Time carbamazepine [From Tegretol] Allergy Intermediate Unknown Verified 09/16/19 07:18 adhesive Allergy Unknown Verified 09/16/19 07:18 amphetamine aspartate Allergy Unknown Verified 09/16/19 07:18 [From Adderall] amphetamine sulfate Allergy Unknown Verified 09/16/19 07:18 [From Adderall] azithromycin Allergy Unknown Verified 09/16/19 07:18 [From Zithromax Z-Tunde] banana Allergy Anaphylaxis Verified 09/16/19 07:18 cephalexin monohydrate Allergy Unknown Verified 09/16/19 07:18 [From Keflex] dextroamphetamine saccharate Allergy Unknown Verified 09/16/19 07:18 [From Adderall] dextroamphetamine sulfate Allergy Unknown Verified 09/16/19 07:18 [From Adderall] Iodinated Contrast Media Allergy Anaphylaxis Verified 09/16/19 07:18 [Iodinated Contrast Media - IV Dye] ketorolac tromethamine Allergy Rash/Hives Verified 09/16/19 07:18 [From Toradol] kiwi Allergy Anaphylaxis Verified 09/16/19 07:18 latex Allergy Anaphylaxis Verified 09/16/19 07:18 levofloxacin [From Levaquin] Allergy Swelling Verified 09/16/19 07:18 lorazepam [From Ativan] Allergy Unknown Verified 09/16/19 07:18 Melon Allergy Anaphylaxis Verified 09/16/19 07:18 metoclopramide HCl Allergy Unknown Verified 09/16/19 07:18 [From Reglan] nitrofurantoin Allergy Unknown Verified 09/16/19 07:18 [From Macrobid] nitrofurantoin Allergy Unknown Verified 09/16/19 07:18 macrocrystalline [From Macrobid] peanut Allergy Anaphylaxis Verified 09/16/19 07:18 Sulfa (Sulfonamide Allergy Unknown Verified 09/16/19 07:18 Antibiotics) codeine AdvReac Diarrhea Verified 09/16/19 07:18 doxycycline AdvReac Diarrhea Verified 09/16/19 07:18 methimazole AdvReac Unknown Verified 09/16/19 07:18 Penicillins AdvReac Diarrhea Verified 09/16/19 07:18 prednisone AdvReac Unknown Verified 09/16/19 07:18 avacado Allergy Anaphylaxis Uncoded 09/16/19 07:18 cantalope Allergy Anaphylaxis Uncoded 09/16/19 07:18 TAPE AdvReac Unknown Uncoded 09/16/19 07:18 Review of Systems ROS Statement: Those systems with pertinent positive or pertinent negative responses have been documented in the HPI. ROS Other: All systems not noted in ROS Statement are negative. EKG Findings - EKG Results: EKG: interpreted by JOSE M DAVID, sinus rhythm, normal axis, normal QRS, normal ST/T, no acute changes (Normal sinus rhythm of 82. Interval 186 QRS duration 84 QT since QTC 380/[address]-T wave abnormalities) Past Medical History Past Medical History: Asthma, Eye Disorder, GERD/Reflux, Osteoarthritis (OA), Pneumonia, Seizure Disorder Additional Past Medical History / Comment(s): Pt and her mother states that pt has had abdominal pain and rectal bleeding intermittently over the past 4-5 months and that it has become worse over the past 4 days. She was seen be Dr. Frias today in his office and he stated her lungs sounded like she was not moving air so she was sent to hospital per mother. 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 History of Any Multi-Drug Resistant Organisms: MRSA Date of last positivie culture/infection: 2006 MDRO Source:: spider bite/buttocks Past Surgical History: Cholecystectomy, Hysterectomy, Orthopedic Surgery, Tubal Ligation Additional Past Surgical History / Comment(s): rt elbow orif. debridment frank buttocks d/t spider bite, nasal septal surgery, mediastinoscopy with bx-benign, colonoscopy, laparoscopy with lysis of adhesions. Past Anesthesia/Blood Transfusion Reactions: No Reported Reaction Past Psychological History: Depression Smoking Status: Current every day smoker Past Alcohol Use History: None Reported Past Drug Use History: None Reported - Past Family History Father Family Medical History: Coronary Artery Disease (CAD), Diabetes Mellitus, Myocardial Infarction (CA) Additional Family Medical History / Comment(s): Father had a CA at the age of 62 yrs. He has had CABG. Mother Family Medical History: Congestive Heart Failure (CHF), COPD, Osteoarthritis (OA), Rheumatoid Arthritis (RA) Additional Family Medical History / Comment(s): Spondylosis, subclavian boyce with stents. General Exam - General Exam Comments Initial Comments: This is a well-developed well-nourished awake alert oriented 3 female Limitations: no limitations General appearance: alert, anxious Head exam: Present: atraumatic, normocephalic, normal inspection Eye exam: Present: normal appearance, PERRL, EOMI. Absent: scleral icterus, conjunctival injection, periorbital swelling ENT exam: Present: normal exam, mucous membranes moist Neck exam: Present: normal inspection, full ROM, other. Absent: tenderness, meningismus, lymphadenopathy Respiratory exam: Present: wheezes, chest wall tenderness (No stridor JVD or bruits reproducible tenderness palpation on the costochondral margin and costosternal margins bilaterally especially superiorly. No step-off no crepitation), decreased breath sounds. Absent: respiratory distress, rales, rhonchi, stridor Cardiovascular Exam: Present: regular rate, normal rhythm, normal heart sounds. Absent: systolic murmur, diastolic murmur, rubs, gallop, clicks GI/Abdominal exam: Present: soft, normal bowel sounds. Absent: distended, tenderness, guarding, rebound, rigid Extremities exam: Present: normal inspection, full ROM, normal capillary refill. Absent: tenderness, pedal edema, joint swelling, calf tenderness Back exam: Present: normal inspection Neurological exam: Present: alert, oriented X3, CN II-XII intact Psychiatric exam: Present: normal affect, normal mood Skin exam: Present: warm, dry, intact, normal color. Absent: rash Course Vital Signs 09/16/19 09/16/19 09/16/19 07:14 07:17 08:04 Temperature 98.3 F Pulse Rate 100 74 Pulse Rate [ 83 [employer] ] Respiratory 18 Rate Blood Pressure 123/71 O2 Sat by Pulse 100 Oximetry 09/16/19 08:14 Temperature Pulse Rate 74 Pulse Rate [ [employer] ] Respiratory Rate Blood Pressure O2 Sat by Pulse Oximetry - Reevaluation(s) Reevaluation #1: 09/16/19 08:49 The patient relates many ALLERGIES to substances she states steroids make her mean which she would agreed to take them for her current condition. She sees nonsteroidal such as ibuprofen makes her eyes roll back in her head. She does not get a rash or other problems she states. Procedures - Smoking Cessation Time Spent Discussing Smoking Cessation w/Patient (Minutes): 3 Patient Acknowledges Need for Cessation: Yes Chest Pain MDM - MDM Review the x-ray shows evidence of increased markings consistent with reactive airway disease which the patient does demonstrate clinically. Reevaluation the patient status treatment demonstrates increased aeration with minimal evidence of any type of wheezing good airway excursion/lung sounds. We did a long discussion regarding the findings the presentation is consistent with costochondritis and chest wall pain. Patient will be placed on appropriate medication. We did discuss smoking cessation. She does admit she's been sharing her inhalers with a brother who was unable to get his own. Patient be placed on appropriate medication. Patient will be recommended she use Tylenol for pain she will be given a Combivent inhaler. She was cautioned about sharing it with her brother. She also would like to try the steroids so we discussed. Disposition Clinical Impression: Costochondritis, Chest wall syndrome, Acute bronchospasm, Asthma exacerbation Disposition: HOME SELF-CARE Condition: Good Instructions (If sedation given, give patient instructions): Asthma (ED), Costochondritis (ED), Reactive Airways Disease (ED), Bronchospasm (ED), How Your Lungs Work (ED) Additional Instructions: Tylenol for pain. Medication prescriptions sent to your preferred [facility] pharmacy. Prescriptions: Ipratropium/Albuter 20-100Mcg [Combivent Respimat 20-100Mcg Inhaler] 1 puff INHALATION Q6HR PRN #1 puff PRN Reason: Dyspnea predniSONE [Deltasone] 20 mg PO BID #10 tab Is patient prescribed a controlled substance at d/c from ED?: No Referrals: Zoe Frias MD [Primary Care Provider] - 1-2 days
[2019-09-16 07:48] LABS: Basophils % (A) 0 %; Eosinophils # (A) 0.1 k/uL (0-0.7); Eosinophils % (A) 1 %; HCT 39.6 % (34.0-46.0); HGB 13.1 gm/dL (11.4-16.0); Lymphocytes # (A) 2.2 k/uL (1.0-4.8); Lymphocytes % (A) 24 %; MCH 32.8 pg (25.0-35.0); MCHC 33.1 g/dL (31.0-37.0); MCV 99.1 fL (80.0-100.0); Mean Platelet Volume 7.7; Monocytes # (A) 0.4 k/uL (0-1.0); Monocytes % (A) 4 %; Neutrophils # (A) 6.5 k/uL (1.3-7.7); Neutrophils % (A) 70 %; Platelet Count 178 k/uL (150-450); RBC 3.99 m/uL (3.80-5.40); RDW 13.2 % (11.5-15.5); WBC 9.4 k/uL (3.8-10.6)
[2019-09-16 07:59] LABS: ALT 17 U/L (4-34); AST 26 U/L (14-36); African American GFR (CKD) >90 (>60 ml/min/1.73 sqM); Albumin 4.2 g/dL (3.5-5.0); Alkaline Phosphatase 79 U/L (38-126); Anion Gap 8 mmol/L; Blood Urea Nitrogen 17 mg/dL (7-17); Calcium 9.5 mg/dL (8.4-10.2); Carbon Dioxide 21 mmol/L (22-30); Chloride 112 mmol/L (98-107); Glucose 106 mg/dL (74-99); Non-African American GFR(CKD) >90 (>60 ml/min/1.73 sqM); Potassium 4.2 mmol/L (3.5-5.1); Sodium 141 mmol/L (137-145); Total Bilirubin 0.4 mg/dL (0.2-1.3); Total Protein 7.6 g/dL (6.3-8.2)
--- NOTE | 2019-09-16 08:03 | XR ---
EXAMINATION TYPE: XR chest 2V DATE OF EXAM: 09/16/2019 COMPARISON: Chest x-ray January 21, 2019. HISTORY: History of COPD and asthma with chest pain and shortness of breath. TECHNIQUE: Frontal and lateral views of the chest are obtained. FINDINGS: There is no suspicious new focal air space opacity, pleural effusion, or pneumothorax seen . Coarse interstitial markings bilaterally remain present. The cardiac silhouette size remains within normal limits. The osseous structures are intact. Overlying EKG leads. Surgical clips right midabd omen noted. IMPRESSION: Bilateral central increased markings raises concern for reactive airway disease possibly from acute asthma exacerbation, correlate clinically. No suspicious focal infiltrate noted.
[2019-09-16 08:04] LABS: D-Dimer 0.49 mg/L FEU (<0.60); INR 0.9 (<1.2); Prothrombin Time 9.8 sec (9.0-12.0)
[2019-09-16 09:03] VITALS: BP 98/57; PULSE 83; RESP 16; TEMP 98
== END 2019-09-16 09:03 | disposition home or self-care (01) ==
LOC: EC 07:11
DX: M94.0 Chondrocostal junction syndrome [Tietze] (principal); J45.901 Unspecified asthma with (acute) exacerbation; K21.9 Gastro-esophageal reflux disease without esophagitis; F17.200 Nicotine dependence, unspecified, uncomplicated; G40.909 Epilepsy, unspecified, not intractable, without status epilepticus; Z79.51 Long term (current) use of inhaled steroids; Z79.899 Other long term (current) drug therapy; Z71.6 Tobacco abuse counseling; Z88.8 Allergy status to other drugs, medicaments and biological substances; Z91.048 Other nonmedicinal substance allergy status; Z88.1 Allergy status to other antibiotic agents; Z91.018 Allergy to other foods; Z91.041 Radiographic dye allergy status; Z88.6 Allergy status to analgesic agent; Z88.3 Allergy status to other anti-infective agents; Z91.040 Latex allergy status; Z91.010 Allergy to peanuts; Z88.2 Allergy status to sulfonamides; Z88.5 Allergy status to narcotic agent; Z88.0 Allergy status to penicillin; Z98.890 Other specified postprocedural states
CPT/HCPCS: 36415; 71046; 80053; 83690; 83735; 84484; 85025; 85379; 85610; 85730; 93005; 94640; 99284; 99406

== ENCOUNTER 2020-02-25 05:10 | Emergency (ER) | payer MEDICARE, OTHER ==
[2020-02-25 05:24] VITALS: TEMP 98.4
--- NOTE | 2020-02-25 06:20 | CT ---
EXAM: CT Temporal Bones Without Intravenous Contrast CLINICAL HISTORY: ITS.REASON CT Reason: right ear pain TECHNIQUE: Axial computed tomography images of the temporal bones without intravenous contrast. CTDI is 24.57 mGy and DLP is 276.6 mGy-cm. This CT exam was performed using one or more of the following dose reduction techniques: automated exposure control, adjustment of the mA and/or kV according to patient size, and/or use of iterative reconstruction technique. COMPARISON: No relevant prior studies available. FINDINGS: Right ossicles and middle ear: Unremarkable. Right cochlea: Unremarkable. Right vestibule: Unremarkable. Right semicircular canals: Unremarkable. Right vestibular and cochlear aqueducts: Unremarkable. Right facial nerve canal: Unremarkable. Right internal auditory canal: Unremarkable. Right external auditory canal: Unremarkable. Right carotid canal: Unremarkable. Right jugular foramen: Unremarkable. Right mastoid air cells: Unremarkable. Right temporomandibular joint: Unremarkable. Left ossicles and middle ear: Unremarkable. Left cochlea: Unremarkable. Left vestibule: Unremarkable. Left semicircular canals: Unremarkable. Left vestibular and cochlear aqueducts: Unremarkable. Left facial nerve canal: Unremarkable. Left internal auditory canal: Unremarkable. Left external auditory canal: Cerumen measuring 4 mm. Left carotid canal: Unremarkable. Left jugular foramen: Unremarkable. Left mastoid air cells: Unremarkable. Left temporomandibular joint: Unremarkable. Bones/joints: No acute fracture. Soft tissues: Unremarkable. Mucosal retention cyst in the right maxillary sinus. IMPRESSION: No acute findings. No evidence of mastoiditis.
[2020-02-25] MEDS ORDERED: CLINDAMYCIN 150 MG CAP PO STA (06:32)
[2020-02-25 06:33] VITALS: BP 107/64; PULSE 74; RESP 17
[2020-02-25] MEDS ORDERED: LIDOCAINE 1% INJ 10MG/ML (20 ML MDV) SQ ONE (06:52)
--- NOTE | 2020-02-25 07:57 | ED ---
Skin/Abscess/FB HPI - General Chief complaint: Skin/Abscess/Foreign Body Stated complaint: Bug bite behind ear Time Seen by Provider: 02/25/20 05:17 Source: patient, EMS Mode of arrival: EMS Limitations: no limitations - History of Present Illness Initial comments: this patient is a 39-year-old woman who presents to be evaluated for pain and swelling in the postauricular area of the right here. She states it has come on over the past few days and has gotten worse. She states that she did squeeze it and attempted range something. There was a little bit of fluid expressed. Patient denies change in hearing. No fever or chills. She has a history of previous MRSA MD complaint: abscess/boil -: days(s) Tetanus Up to Date: yes Location: head Severity: moderate Quality: aching Consistency: constant Improves with: none Worsens with: none Context: none Associated symptoms: denies other symptoms Treatments Prior to Arrival: attempted to drain pus at home - Related Data Home Medications Medication Instructions Recorded Confirmed Albuterol Inhaler (Mhu) [Ventolin 2 puff INHALATION RT-Q4H PRN 05/19/16 01/21/19 Hfa Inhaler (Mhu)] Pantoprazole [Protonix] 40 mg PO DAILY PRN 05/19/16 01/21/19 Travoprost [Travatan Z 0.004%] 1 drop BOTH EYES HS 05/19/16 01/21/19 Suzan Back And Body (Unknown) 1 tab PO DAILY 07/03/18 01/21/19 EPINEPHrine (Auto Inject) [Epipen] 0.3 mg IM DIRECTED PRN 07/03/18 01/21/19 Topiramate [Topamax] 50 mg PO HS 07/03/18 01/21/19 Previous Rx's Medication Instructions Recorded Albuterol Nebulized [Ventolin 2.5 mg INHALATION Q4H #60 nebu 01/21/19 Nebulized] Ipratropium/Albuter 20-100Mcg 1 puff INHALATION Q6HR PRN #1 puff 09/16/19 [Combivent Respimat 20-100Mcg Inhaler] predniSONE [Deltasone] 20 mg PO BID #10 tab 09/16/19 Minocycline [Minocin] 50 mg PO Q12HR #14 cap 02/25/20 Allergies Allergy/AdvReac Type Severity Reaction Status Date / Time carbamazepine [From Tegretol] Allergy Intermediate Unknown Verified 09/16/19 07:18 adhesive Allergy Unknown Verified 09/16/19 07:18 amphetamine aspartate Allergy Unknown Verified 09/16/19 07:18 [From Adderall] amphetamine sulfate Allergy Unknown Verified 09/16/19 07:18 [From Adderall] azithromycin Allergy Unknown Verified 09/16/19 07:18 [From Zithromax Z-Tunde] banana Allergy Anaphylaxis Verified 09/16/19 07:18 cephalexin monohydrate Allergy Unknown Verified 09/16/19 07:18 [From Keflex] dextroamphetamine saccharate Allergy Unknown Verified 09/16/19 07:18 [From Adderall] dextroamphetamine sulfate Allergy Unknown Verified 09/16/19 07:18 [From Adderall] Iodinated Contrast Media Allergy Anaphylaxis Verified 09/16/19 07:18 [Iodinated Contrast Media - IV Dye] ketorolac tromethamine Allergy Rash/Hives Verified 09/16/19 07:18 [From Toradol] kiwi Allergy Anaphylaxis Verified 09/16/19 07:18 latex Allergy Anaphylaxis Verified 09/16/19 07:18 levofloxacin [From Levaquin] Allergy Swelling Verified 09/16/19 07:18 lorazepam [From Ativan] Allergy Unknown Verified 09/16/19 07:18 Melon Allergy Anaphylaxis Verified 09/16/19 07:18 metoclopramide HCl Allergy Unknown Verified 09/16/19 07:18 [From Reglan] nitrofurantoin Allergy Unknown Verified 09/16/19 07:18 [From Macrobid] nitrofurantoin Allergy Unknown Verified 09/16/19 07:18 macrocrystalline [From Macrobid] peanut Allergy Anaphylaxis Verified 09/16/19 07:18 Sulfa (Sulfonamide Allergy Unknown Verified 09/16/19 07:18 Antibiotics) codeine AdvReac Diarrhea Verified 09/16/19 07:18 doxycycline AdvReac Diarrhea Verified 09/16/19 07:18 methimazole AdvReac Unknown Verified 09/16/19 07:18 Penicillins AdvReac Diarrhea Verified 09/16/19 07:18 prednisone AdvReac Unknown Verified 09/16/19 07:18 avacado Allergy Anaphylaxis Uncoded 09/16/19 07:18 cantalope Allergy Anaphylaxis Uncoded 09/16/19 07:18 TAPE AdvReac Unknown Uncoded 09/16/19 07:18 Review of Systems ROS Statement: Those systems with pertinent positive or pertinent negative responses have been documented in the HPI. ROS Other: All systems not noted in ROS Statement are negative. Constitutional: Denies: fever, chills ENT: Reports: as per HPI, ear pain. Denies: hearing loss Respiratory: Denies: cough, dyspnea Cardiovascular: Denies: chest pain, palpitations Gastrointestinal: Denies: abdominal pain, vomiting Skin: Reports: as per HPI, lesions Neurological: Denies: headache, weakness, numbness Past Medical History Past Medical History: Asthma, Eye Disorder, GERD/Reflux, Osteoarthritis (OA), Pneumonia, Seizure Disorder Additional Past Medical History / Comment(s): Pt and her mother states that pt has had abdominal pain and rectal bleeding intermittently over the past 4-5 months and that it has become worse over the past 4 days. She was seen be Dr. Frias today in his office and he stated her lungs sounded like she was not moving air so she was sent to hospital per mother. 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 History of Any Multi-Drug Resistant Organisms: MRSA Date of last positivie culture/infection: 2006 MDRO Source:: spider bite/buttocks Past Surgical History: Cholecystectomy, Hysterectomy, Orthopedic Surgery, Tubal Ligation Additional Past Surgical History / Comment(s): rt elbow orif. debridment frank buttocks d/t spider bite, nasal septal surgery, mediastinoscopy with bx-benign, colonoscopy, laparoscopy with lysis of adhesions. Past Anesthesia/Blood Transfusion Reactions: No Reported Reaction Past Psychological History: Depression Smoking Status: Former smoker, Vaper Past Alcohol Use History: None Reported Past Drug Use History: None Reported - Past Family History Father Family Medical History: Coronary Artery Disease (CAD), Diabetes Mellitus, Myocardial Infarction (HI) Additional Family Medical History / Comment(s): Father had a HI at the age of 62 yrs. He has had CABG. Mother Family Medical History: Congestive Heart Failure (CHF), COPD, Osteoarthritis (OA), Rheumatoid Arthritis (RA) Additional Family Medical History / Comment(s): Spondylosis, subclavian boyce with stents. General Exam Limitations: no limitations General appearance: alert, in no apparent distress Head exam: Present: atraumatic, normocephalic Eye exam: Present: normal appearance. Absent: scleral icterus, conjunctival injection ENT exam: Present: normal oropharynx, TM's normal bilaterally, other (patient has approximately 2 cmarea of induration with some fluctuance, and the right posterior radicular area. There does appear to have been drainage as there is ulceration. The patient does have some tenderness over the mastoid.) Neck exam: Present: normal inspection, full ROM. Absent: tenderness, meningismus, lymphadenopathy Respiratory exam: Present: normal lung sounds bilaterally. Absent: respiratory distress, wheezes, rales, rhonchi, stridor Cardiovascular Exam: Present: regular rate, normal rhythm, normal heart sounds. Absent: systolic murmur, diastolic murmur, rubs, gallop GI/Abdominal exam: Present: soft. Absent: tenderness Extremities exam: Present: normal inspection, normal capillary refill Back exam: Present: normal inspection. Absent: paraspinal tenderness Neurological exam: Present: alert, CN II-XII intact Skin exam: Present: warm, dry, intact, normal color. Absent: rash Course Vital Signs 02/25/20 02/25/20 05:13 06:15 Temperature 98.4 F Pulse Rate 73 74 Respiratory 20 17 Rate Blood Pressure 114/65 107/64 O2 Sat by Pulse 99 99 Oximetry Medical Decision Making - Medical Decision Making patient does appear to have pustule/bscess right postauricular area. There has been some drainagealready, but I did enlarge the drainage tract after obtaining CT that did not show any mastoid involvement. I injected small amount of lidocaine and then nickedthe lesion where the drainagetract was. Obtaineda small amount of pus and a little bit of blood. Discussed further treatment and follow-up. The patient such cycling ALLERGY was nausea, not anaphylaxis, and thereforewill try minocycline, and have close follow-up. discussed return parameters Disposition Clinical Impression: Pustule Disposition: HOME SELF-CARE Condition: Good Instructions (If sedation given, give patient instructions): Abscess (ED) Prescriptions: Minocycline [Minocin] 50 mg PO Q12HR #14 cap Is patient prescribed a controlled substance at d/c from ED?: No Referrals: Zoe Frias MD [Primary Care Provider] - 1-2 days
== END 2020-02-25 08:11 | disposition home or self-care (01) ==
LOC: EC 05:10
DX: L08.9 Local infection of the skin and subcutaneous tissue, unspecified (principal); J45.909 Unspecified asthma, uncomplicated; K21.9 Gastro-esophageal reflux disease without esophagitis; G40.909 Epilepsy, unspecified, not intractable, without status epilepticus; Z79.899 Other long term (current) drug therapy; Z87.891 Personal history of nicotine dependence; Z88.0 Allergy status to penicillin; Z88.1 Allergy status to other antibiotic agents; Z88.2 Allergy status to sulfonamides; Z88.5 Allergy status to narcotic agent; Z88.8 Allergy status to other drugs, medicaments and biological substances; Z91.010 Allergy to peanuts; Z91.040 Latex allergy status; Z91.041 Radiographic dye allergy status; Z91.048 Other nonmedicinal substance allergy status; Z91.018 Allergy to other foods; Z86.14 Personal history of Methicillin resistant Staphylococcus aureus infection
CPT/HCPCS: 87070; 87205; 87077; 87186; 70486; 99284; J2001

== ENCOUNTER → 2020-06-10 | Outpatient (CLI) | payer MEDICARE, OTHER ==
[2020-06-10 11:51] LABS: Basophils # (A) 0.1 k/uL (0-0.2); Basophils % (A) 1 %; Eosinophils # (A) 0.1 k/uL (0-0.7); Eosinophils % (A) 1 %; HCT 40.5 % (34.0-46.0); HGB 13.8 gm/dL (11.4-16.0); Lymphocytes # (A) 2.2 k/uL (1.0-4.8); Lymphocytes % (A) 41 %; MCH 33.2 pg (25.0-35.0); MCV 97.7 fL (80.0-100.0); Mean Platelet Volume 7.4; Monocytes # (A) 0.3 k/uL (0-1.0); Monocytes % (A) 5 %; Neutrophils # (A) 2.8 k/uL (1.3-7.7); Neutrophils % (A) 50 %; Platelet Count 198 k/uL (150-450); RBC 4.15 m/uL (3.80-5.40); RDW 12.8 % (11.5-15.5); WBC 5.5 k/uL (3.8-10.6)
[2020-06-10 19:17] LABS: % Iron Saturation 25.88 (12.00-45.00)
[2020-06-10 19:25] LABS: Ferritin 82.4 ng/mL (10.0-291.0)
== END | disposition home or self-care (01) ==
LOC: LABWHC1 11:11
PROVIDERS: ATTEND Internal Medicine
DX: D64.9 Anemia, unspecified (principal); K92.2 Gastrointestinal hemorrhage, unspecified
CPT/HCPCS: 36415; 82728; 83540; 83550; 85025

== ENCOUNTER 2020-09-29 05:49 | Emergency (ER) | payer MEDICARE, OTHER ==
[2020-09-29 05:55] VITALS: TEMP 97.9
[2020-09-29] MEDS ORDERED: SODIUM CHLORIDE 0.9% 1,000 ML IV STA (06:01)
[2020-09-29] MEDS ORDERED: ONDANSETRON 4 MG/2 ML VIAL IVP STA (06:02)
[2020-09-29] MEDS ORDERED: IPRATROPIUM-ALBUTEROL 3 ML NEB INHALATION STA (06:17)
[2020-09-29 06:32] LABS: Basophils % (A) 1 %; Eosinophils # (A) 0.1 k/uL (0-0.7); Eosinophils % (A) 1 %; HCT 39.8 % (34.0-46.0); HGB 13.7 gm/dL (11.4-16.0); Lymphocytes # (A) 2.2 k/uL (1.0-4.8); Lymphocytes % (A) 34 %; MCH 32.7 pg (25.0-35.0); MCHC 34.3 g/dL (31.0-37.0); MCV 95.3 fL (80.0-100.0); Mean Platelet Volume 7.3; Monocytes # (A) 0.3 k/uL (0-1.0); Monocytes % (A) 5 %; Neutrophils # (A) 3.8 k/uL (1.3-7.7); Neutrophils % (A) 58 %; Platelet Count 190 k/uL (150-450); RBC 4.18 m/uL (3.80-5.40); RDW 13.7 % (11.5-15.5); WBC 6.6 k/uL (3.8-10.6)
--- NOTE | 2020-09-29 06:38 | ED ---
General Adult HPI - General Chief complaint: Shortness of Breath Stated complaint: Vomiting Blood Time Seen by Provider: 09/29/20 06:01 Source: patient, RN notes reviewed Mode of arrival: ambulatory Limitations: no limitations - History of Present Illness Initial comments: 40-year-old female presents emergency from chief shortness of breath. Patient's been having increased shortness breath last 24 hours she has meant that she has COPD she's a trailer. Patient has not used her inhaler nebulizer she has been wheezing, cough and congested. Patient states she has tightness in her chest but no exact chest pain. Denies diarrhea but states his been having nausea and vomiting no history of PE or DVT. Denies leg pain, leg swelling - Related Data Home Medications Medication Instructions Recorded Confirmed Albuterol Inhaler (Mhu) [Ventolin 2 puff INHALATION RT-Q4H PRN 05/19/16 01/21/19 Hfa Inhaler (Mhu)] Pantoprazole [Protonix] 40 mg PO DAILY PRN 05/19/16 01/21/19 Travoprost [Travatan Z 0.004%] 1 drop BOTH EYES HS 05/19/16 01/21/19 Suzan Back And Body (Unknown) 1 tab PO DAILY 07/03/18 01/21/19 EPINEPHrine (Auto Inject) [Epipen] 0.3 mg IM DIRECTED PRN 07/03/18 01/21/19 Topiramate [Topamax] 50 mg PO HS 07/03/18 01/21/19 Previous Rx's Medication Instructions Recorded Albuterol Nebulized [Ventolin 2.5 mg INHALATION Q4H #60 nebu 01/21/19 Nebulized] Ipratropium/Albuter 20-100Mcg 1 puff INHALATION Q6HR PRN #1 puff 09/16/19 [Combivent Respimat 20-100Mcg Inhaler] predniSONE [Deltasone] 20 mg PO BID #10 tab 09/16/19 Minocycline [Minocin] 50 mg PO Q12HR #14 cap 02/25/20 Albuterol Sulfate [Proair Hfa] 1 - 2 puff INHALATION Q4HR PRN #1 09/29/20 inhaler Dexamethasone [Decadron] 6 mg PO DAILY #4 tablet 09/29/20 Allergies Allergy/AdvReac Type Severity Reaction Status Date / Time carbamazepine [From Tegretol] Allergy Intermediate Unknown Verified 09/29/20 05:56 adhesive Allergy Unknown Verified 09/29/20 05:56 amphetamine aspartate Allergy Unknown Verified 09/29/20 05:56 [From Adderall] amphetamine sulfate Allergy Unknown Verified 09/29/20 05:56 [From Adderall] azithromycin Allergy Unknown Verified 09/29/20 05:56 [From Zithromax Z-Tunde] banana Allergy Anaphylaxis Verified 09/29/20 05:56 cephalexin monohydrate Allergy Unknown Verified 09/29/20 05:56 [From Keflex] dextroamphetamine saccharate Allergy Unknown Verified 09/29/20 05:56 [From Adderall] dextroamphetamine sulfate Allergy Unknown Verified 09/29/20 05:56 [From Adderall] Iodinated Contrast Media Allergy Anaphylaxis Verified 09/29/20 05:56 [Iodinated Contrast Media - IV Dye] ketorolac tromethamine Allergy Rash/Hives Verified 09/29/20 05:56 [From Toradol] kiwi Allergy Anaphylaxis Verified 09/29/20 05:56 latex Allergy Anaphylaxis Verified 09/29/20 05:56 levofloxacin [From Levaquin] Allergy Swelling Verified 09/29/20 05:56 lorazepam [From Ativan] Allergy Unknown Verified 09/29/20 05:56 Melon Allergy Anaphylaxis Verified 09/29/20 05:56 metoclopramide HCl Allergy Unknown Verified 09/29/20 05:56 [From Reglan] nitrofurantoin Allergy Unknown Verified 09/29/20 05:56 [From Macrobid] nitrofurantoin Allergy Unknown Verified 09/29/20 05:56 macrocrystalline [From Macrobid] peanut Allergy Anaphylaxis Verified 09/29/20 05:56 Sulfa (Sulfonamide Allergy Unknown Verified 09/29/20 05:56 Antibiotics) codeine AdvReac Diarrhea Verified 09/29/20 05:56 doxycycline AdvReac Diarrhea Verified 09/29/20 05:56 methimazole AdvReac Unknown Verified 09/29/20 05:56 Penicillins AdvReac Diarrhea Verified 09/29/20 05:56 prednisone AdvReac Unknown Verified 09/29/20 05:56 avacado Allergy Anaphylaxis Uncoded 09/29/20 05:56 cantalope Allergy Anaphylaxis Uncoded 09/29/20 05:56 TAPE AdvReac Unknown Uncoded 09/29/20 05:56 Review of Systems ROS Statement: Those systems with pertinent positive or pertinent negative responses have been documented in the HPI. ROS Other: All systems not noted in ROS Statement are negative. Past Medical History Past Medical History: Asthma, Eye Disorder, GERD/Reflux, Osteoarthritis (OA), Pneumonia, Seizure Disorder Additional Past Medical History / Comment(s): Pt and her mother states that pt has had abdominal pain and rectal bleeding intermittently over the past 4-5 months and that it has become worse over the past 4 days. She was seen be Dr. Frias today in his office and he stated her lungs sounded like she was not moving air so she was sent to hospital per mother. 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 History of Any Multi-Drug Resistant Organisms: MRSA Date of last positivie culture/infection: 2006 MDRO Source:: spider bite/buttocks Past Surgical History: Cholecystectomy, Hysterectomy, Orthopedic Surgery, Tubal Ligation Additional Past Surgical History / Comment(s): rt elbow orif. debridment frank buttocks d/t spider bite, nasal septal surgery, mediastinoscopy with bx-benign, colonoscopy, laparoscopy with lysis of adhesions. Past Anesthesia/Blood Transfusion Reactions: No Reported Reaction Past Psychological History: Depression Smoking Status: Current every day smoker, Vaper Past Alcohol Use History: None Reported Past Drug Use History: None Reported - Past Family History Father Family Medical History: Coronary Artery Disease (CAD), Diabetes Mellitus, Myocardial Infarction ([place]) Additional Family Medical History / Comment(s): Father had a [place] at the age of 62 yrs. He has had CABG. Mother Family Medical History: Congestive Heart Failure (CHF), COPD, Osteoarthritis (OA), Rheumatoid Arthritis (RA) Additional Family Medical History / Comment(s): Spondylosis, subclavian boyce with stents. General Exam Limitations: no limitations General appearance: alert, in no apparent distress Head exam: Present: atraumatic, normocephalic, normal inspection Eye exam: Present: normal appearance, PERRL, EOMI. Absent: scleral icterus, conjunctival injection, periorbital swelling ENT exam: Present: normal exam, normal oropharynx, mucous membranes moist Neck exam: Present: normal inspection, full ROM. Absent: tenderness, meningismus, lymphadenopathy Respiratory exam: Present: wheezes. Absent: normal lung sounds bilaterally, respiratory distress, rales, rhonchi, stridor Cardiovascular Exam: Present: normal rhythm, tachycardia, normal heart sounds. Absent: systolic murmur, diastolic murmur, rubs, gallop, clicks GI/Abdominal exam: Present: soft, normal bowel sounds. Absent: distended, tenderness, guarding, rebound, rigid Extremities exam: Present: normal capillary refill. Absent: pedal edema, calf tenderness Neurological exam: Present: alert Skin exam: Present: warm, dry, intact, normal color. Absent: rash Course Vital Signs 09/29/20 09/29/20 09/29/20 05:50 06:23 07:12 Temperature 97.9 F Pulse Rate 138 H 67 63 Respiratory 20 22 16 Rate Blood Pressure 105/76 117/64 99/57 O2 Sat by Pulse 100 100 98 Oximetry 09/29/20 07:17 Temperature Pulse Rate 72 Respiratory Rate Blood Pressure O2 Sat by Pulse Oximetry Medical Decision Making - Medical Decision Making X-rays unremarkable as are unremarkable. Patient x-ray was reviewed no segment changes mild COPD patient does have mild COPD exacerbation. Patient's was given breathing treatment really improved. Patient given a dose of Solu-Medrol states that she can't take prednisone because it makes her angry. Patient will be discharged on dexamethasone. Patient continued breathing treatments. - Lab Data Result diagrams: 09/29/20 06:15 09/29/20 06:15 Lab Results 09/29/20 09/29/20 09/29/20 Range/Units 06:15 06:15 06:15 WBC 6.6 (3.8-10.6) k/uL RBC 4.18 (3.80-5.40) m/uL Hgb 13.7 (11.4-16.0) gm/dL Hct 39.8 (34.0-46.0) % MCV 95.3 (80.0-100.0) fL MCH 32.7 (25.0-35.0) pg MCHC 34.3 (31.0-37.0) g/dL RDW 13.7 (11.5-15.5) % Plt Count 190 (150-450) k/uL MPV 7.3 Neutrophils % 58 % Lymphocytes % 34 % Monocytes % 5 % Eosinophils % 1 % Basophils % 1 % Neutrophils # 3.8 (1.3-7.7) k/uL Lymphocytes # 2.2 (1.0-4.8) k/uL Monocytes # 0.3 (0-1.0) k/uL Eosinophils # 0.1 (0-0.7) k/uL Basophils # 0.0 (0-0.2) k/uL PT 10.5 (9.0-12.0) sec INR 1.0 (<1.2) APTT 24.1 (22.0-30.0) sec D-Dimer 0.34 (<0.60) mg/L FEU Sodium 144 (137-145) mmol/L Potassium 3.8 (3.5-5.1) mmol/L Chloride 111 H (98-107) mmol/L Carbon Dioxide 24 (22-30) mmol/L Anion Gap 9 mmol/L BUN 17 (7-17) mg/dL Creatinine 0.94 (0.52-1.04) mg/dL Est GFR (CKD-EPI)AfAm 87 (>60 ml/min/1.73 sqM) Est GFR (CKD-EPI)NonAf 75 (>60 ml/min/1.73 sqM) Glucose 89 (74-99) mg/dL Calcium 9.5 (8.4-10.2) mg/dL Magnesium 2.0 (1.6-2.3) mg/dL Total Bilirubin 0.5 (0.2-1.3) mg/dL AST 24 (14-36) U/L ALT 19 (4-34) U/L Alkaline Phosphatase 86 (38-126) U/L Troponin I (0.000-0.034) ng/mL NT-Pro-B Natriuret Pep pg/mL Total Protein 7.7 (6.3-8.2) g/dL Albumin 4.5 (3.5-5.0) g/dL Coronavirus (PCR) (Not Detectd) 09/29/20 09/29/20 09/29/20 Range/Units 06:15 06:15 06:20 WBC (3.8-10.6) k/uL RBC (3.80-5.40) m/uL Hgb (11.4-16.0) gm/dL Hct (34.0-46.0) % MCV (80.0-100.0) fL MCH (25.0-35.0) pg MCHC (31.0-37.0) g/dL RDW (11.5-15.5) % Plt Count (150-450) k/uL MPV Neutrophils % % Lymphocytes % % Monocytes % % Eosinophils % % Basophils % % Neutrophils # (1.3-7.7) k/uL Lymphocytes # (1.0-4.8) k/uL Monocytes # (0-1.0) k/uL Eosinophils # (0-0.7) k/uL Basophils # (0-0.2) k/uL PT (9.0-12.0) sec INR (<1.2) APTT (22.0-30.0) sec D-Dimer (<0.60) mg/L FEU Sodium (137-145) mmol/L Potassium (3.5-5.1) mmol/L Chloride (98-107) mmol/L Carbon Dioxide (22-30) mmol/L Anion Gap mmol/L BUN (7-17) mg/dL Creatinine (0.52-1.04) mg/dL Est GFR (CKD-EPI)AfAm (>60 ml/min/1.73 sqM) Est GFR (CKD-EPI)NonAf (>60 ml/min/1.73 sqM) Glucose (74-99) mg/dL Calcium (8.4-10.2) mg/dL Magnesium (1.6-2.3) mg/dL Total Bilirubin (0.2-1.3) mg/dL AST (14-36) U/L ALT (4-34) U/L Alkaline Phosphatase (38-126) U/L Troponin I <0.012 (0.000-0.034) ng/mL NT-Pro-B Natriuret Pep 32 pg/mL Total Protein (6.3-8.2) g/dL Albumin (3.5-5.0) g/dL Coronavirus (PCR) Not Detected (Not Detectd) Disposition Clinical Impression: COPD exacerbation Disposition: HOME SELF-CARE Condition: Stable Instructions (If sedation given, give patient instructions): COPD (Chronic Obstructive Pulmonary Disease) (ED) Additional Instructions: Please return to the Emergency Department if symptoms worsen or any other concerns. Prescriptions: Dexamethasone [Decadron] 6 mg PO DAILY #4 tablet Albuterol Sulfate [Proair Hfa] 1 - 2 puff INHALATION Q4HR PRN #1 inhaler PRN Reason: difficulty in breathing Is patient prescribed a controlled substance at d/c from ED?: No Referrals: Zabrina Burrlel MD [Primary Care Provider] - 1-2 days Time of Disposition: 07:28
--- NOTE | 2020-09-29 06:47 | XR ---
EXAM: XR Chest, 2 Views CLINICAL HISTORY: ITS.REASON XR Reason: difficulty breathing TECHNIQUE: Frontal and lateral views of the chest. COMPARISON: 01/21/2019. FINDINGS: Lungs: The lungs are well aerated. Pleural space: Unremarkable. No pneumothorax. Heart: Cardiomediastinal silhouette unremarkable per Mediastinum: See above. Bones/joints: Osteopenia. Alignment of the thoracic spine is within normal limits. IMPRESSION: 1. No active disease. 2. Osteopenia.
[2020-09-29 06:48] LABS: D-Dimer 0.34 mg/L FEU (<0.60); Partial Thromboplastin Time 24.1 sec (22.0-30.0); Prothrombin Time 10.5 sec (9.0-12.0)
[2020-09-29 07:08] LABS: Albumin 4.5 g/dL (3.5-5.0); Calcium 9.5 mg/dL (8.4-10.2); Potassium 3.8 mmol/L (3.5-5.1); Total Bilirubin 0.5 mg/dL (0.2-1.3); Total Protein 7.7 g/dL (6.3-8.2)
[2020-09-29 07:14] VITALS: BP 99/57; RESP 16
[2020-09-29 07:19] VITALS: PULSE 72
[2020-09-29] MEDS ORDERED: methylPREDNISolone SOD SUCCI 125 MG/2 ML VIAL IV STA (07:20)
== END 2020-09-29 07:44 | disposition home or self-care (01) ==
LOC: SUPCPDRO 05:49 → EC 05:49
DX: J44.1 Chronic obstructive pulmonary disease with (acute) exacerbation (principal); F17.290 Nicotine dependence, other tobacco product, uncomplicated; K21.9 Gastro-esophageal reflux disease without esophagitis; G40.909 Epilepsy, unspecified, not intractable, without status epilepticus; Z20.822 Contact with and (suspected) exposure to COVID-19; Z79.899 Other long term (current) drug therapy; Z88.8 Allergy status to other drugs, medicaments and biological substances; Z88.1 Allergy status to other antibiotic agents; Z91.09 Other allergy status, other than to drugs and biological substances; Z91.018 Allergy to other foods; Z91.041 Radiographic dye allergy status; Z88.6 Allergy status to analgesic agent; Z91.040 Latex allergy status; Z88.3 Allergy status to other anti-infective agents; Z91.010 Allergy to peanuts; Z88.2 Allergy status to sulfonamides; Z88.5 Allergy status to narcotic agent; Z88.0 Allergy status to penicillin
CPT/HCPCS: 99285; 96374; 96375; 96361; 36415; 94640; 93005; 85379; 83880; 80053; 83605; 83735; 84484; 85025; 85610; 85730; 87635; 71046; J2930; J2405

== ENCOUNTER → 2021-02-17 | Outpatient (CLI) | payer MEDICARE, OTHER ==
--- NOTE | 2021-02-17 12:34 | US ---
EXAMINATION TYPE: US pelvis complete transvag DATE OF EXAM: 02/17/2021 COMPARISON: Ultrasound 09/09/2016 CLINICAL HISTORY: R10.2 Female pelvic pain. Uterus and left ovary removed TECHNIQUE: Transvaginal (TV) and Transabdominal (TA) . Transabdominal sonographic images of the pel vis were acquired. Transvaginal sonographic images were medically necessary to better assess the fol lowing anatomy: Ovaries Date of LMP: Partial hysterectomy EXAM MEASUREMENTS: Right Ovary: 2.7 x 1.4 x 1.2 cm Grayscale and color Doppler imaging performed, color flow noted to the right ovary 1. Uterus: Surgically absent 2. Endometrium: Surgically absent 3. Right Ovary: wnl 4. Left Ovary: Surgically absent 5. Bilateral Adnexa: wnl 6. Posterior cul-de-sac: no free fluid IMPRESSION: The right ovary is unremarkable, similar to prior exam
--- NOTE | 2021-02-17 12:45 | XR ---
EXAMINATION TYPE: XR chest 2V DATE OF EXAM: 02/17/2021 COMPARISON: Chest x-ray 09/29/2020 HISTORY: Cough and chest congestion TECHNIQUE: Frontal and lateral views of the chest are obtained. FINDINGS: There is no focal air space opacity, pleural effusion, or pneumothorax seen. The cardiac silhouette size is within normal limits. Question some prominence of interstitium. Patient is rotated . Surgical clips are present in the right upper quadrant. There is a slight spinal curvature the pat ient may be rotated. The osseous structures are intact. IMPRESSION: No acute cardiopulmonary process. There may be some underlying interstitial lung disease .
== END | disposition home or self-care (01) ==
LOC: RADUSWWP 10:56
PROVIDERS: ATTEND Internal Medicine
DX: R10.2 Pelvic and perineal pain (principal); J98.4 Other disorders of lung
CPT/HCPCS: 71046; 76830; 76856

== ENCOUNTER → 2021-04-08 | Outpatient (CLI) | payer MEDICARE, OTHER ==
--- NOTE | 2021-04-08 11:27 | XR ---
EXAMINATION TYPE: XR chest 2V DATE OF EXAM: 04/08/2021 COMPARISON: Chest x-ray 02/17/2021 HISTORY: Shortness of breath, cough TECHNIQUE: Frontal and lateral views of the chest are obtained. FINDINGS: There is no focal air space opacity, pleural effusion, or pneumothorax seen. The cardiac silhouette size is within normal limits. Lung volumes are low. Surgical clips are present in the uppe r abdomen. Patient is rotated. The osseous structures are intact. IMPRESSION: No acute cardiopulmonary process.
== END | disposition home or self-care (01) ==
LOC: RADXRMAIN 09:30
PROVIDERS: ATTEND Internal Medicine
DX: R05.9 Cough, unspecified (principal); R06.02 Shortness of breath
CPT/HCPCS: 71046

== ENCOUNTER 2021-04-22 09:35 | Emergency (ER) | payer MEDICARE, OTHER ==
[2021-04-22 09:47] VITALS: BP 109/69; PULSE 88; TEMP 98.6
[2021-04-22 09:58] VITALS: RESP 18
--- NOTE | 2021-04-22 10:14 | ED ---
General Adult HPI - General Chief complaint: Upper Respiratory Infection Stated complaint: SOB Time Seen by Provider: 04/22/21 09:49 Source: patient Mode of arrival: ambulatory Limitations: no limitations - History of Present Illness Initial comments: 41-year-old female with a past medical history of asthma, GERD, pneumonia presents to the emergency room for a chief complaint of cough. Patient states she hasn't felt well for 2-3 days now. Patient states she has a cough and is coughing up brown and green mucus. No known fevers at home. Patient is not vaccinated for COVID-19. She also has congestion. Patient has no other complaints at this time including shortness of breath, chest pain, abdominal pain, nausea or vomiting, headache, or visual changes. - Related Data Home Medications Medication Instructions Recorded Confirmed Pantoprazole [Protonix] 40 mg PO DAILY PRN 05/19/16 04/22/21 Topiramate [Topamax] 50 mg PO HS 07/03/18 04/22/21 Albuterol Sulfate [Albuterol 2 puff PO RT-Q6H PRN 04/22/21 04/22/21 Sulfate Hfa] Latanoprost/Pf [Latanoprost 0.005% 1 drop BOTH EYES HS 04/22/21 04/22/21 Eye Drop] Previous Rx's Medication Instructions Recorded Benzonatate [Tessalon Perles] 200 mg PO Q8H PRN #15 capsule 04/22/21 guaiFENesin [Mucinex] 600 mg PO Q12HR PRN #20 tab 04/22/21 Allergies Allergy/AdvReac Type Severity Reaction Status Date / Time carbamazepine [From Tegretol] Allergy Intermediate Unknown Verified 04/22/21 11:13 adhesive Allergy Unknown Verified 04/22/21 11:13 amphetamine aspartate Allergy Unknown Verified 04/22/21 11:13 [From Adderall] amphetamine sulfate Allergy Unknown Verified 04/22/21 11:13 [From Adderall] azithromycin Allergy Unknown Verified 04/22/21 11:13 [From Zithromax Z-Tunde] banana Allergy Anaphylaxis Verified 04/22/21 11:13 cephalexin monohydrate Allergy Unknown Verified 04/22/21 11:13 [From Keflex] dextroamphetamine saccharate Allergy Unknown Verified 04/22/21 11:13 [From Adderall] dextroamphetamine sulfate Allergy Unknown Verified 04/22/21 11:13 [From Adderall] Iodinated Contrast Media Allergy Anaphylaxis Verified 04/22/21 11:13 [Iodinated Contrast Media - IV Dye] ketorolac tromethamine Allergy Rash/Hives Verified 04/22/21 11:13 [From Toradol] kiwi Allergy Anaphylaxis Verified 04/22/21 11:13 latex Allergy Anaphylaxis Verified 04/22/21 11:13 levofloxacin [From Levaquin] Allergy Swelling Verified 04/22/21 11:13 lorazepam [From Ativan] Allergy Unknown Verified 04/22/21 11:13 Melon Allergy Anaphylaxis Verified 04/22/21 11:13 metoclopramide HCl Allergy Unknown Verified 04/22/21 11:13 [From Reglan] nitrofurantoin Allergy Unknown Verified 04/22/21 11:13 [From Macrobid] nitrofurantoin Allergy Unknown Verified 04/22/21 11:13 macrocrystalline [From Macrobid] peanut Allergy Anaphylaxis Verified 04/22/21 11:13 Sulfa (Sulfonamide Allergy Unknown Verified 04/22/21 11:13 Antibiotics) codeine AdvReac Diarrhea Verified 04/22/21 11:13 doxycycline AdvReac Diarrhea Verified 04/22/21 11:13 methimazole AdvReac Unknown Verified 04/22/21 11:13 Penicillins AdvReac Diarrhea Verified 04/22/21 11:13 prednisone AdvReac Unknown Verified 04/22/21 11:13 avacado Allergy Anaphylaxis Uncoded 09/29/20 05:56 cantalope Allergy Anaphylaxis Uncoded 09/29/20 05:56 TAPE AdvReac Unknown Uncoded 09/29/20 05:56 Review of Systems ROS Statement: Those systems with pertinent positive or pertinent negative responses have been documented in the HPI. ROS Other: All systems not noted in ROS Statement are negative. Past Medical History Past Medical History: Asthma, Eye Disorder, GERD/Reflux, Osteoarthritis (OA), Pneumonia, Seizure Disorder Additional Past Medical History / Comment(s): Pt and her mother states that pt has had abdominal pain and rectal bleeding intermittently over the past 4-5 mo nths and that it has become worse over the past 4 days. She was seen be Dr. Frias today in his office and he stated her lungs sounded like she was not moving air so she was sent to hospital per mother. 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 History of Any Multi-Drug Resistant Organisms: MRSA Date of last positivie culture/infection: 2006 MDRO Source:: spider bite/buttocks Past Surgical History: Cholecystectomy, Hysterectomy, Orthopedic Surgery, Tubal Ligation Additional Past Surgical History / Comment(s): rt elbow orif. debridment frank buttocks d/t spider bite, nasal septal surgery, mediastinoscopy with bx-benign, colonoscopy, laparoscopy with lysis of adhesions. Past Anesthesia/Blood Transfusion Reactions: No Reported Reaction Past Psychological History: Depression Smoking Status: Current every day smoker, Vaper Past Alcohol Use History: None Reported Past Drug Use History: None Reported - Past Family History Father Family Medical History: Coronary Artery Disease (CAD), Diabetes Mellitus, Myocardial Infarction ([place]) Additional Family Medical History / Comment(s): Father had a [place] at the age of 62 yrs. He has had CABG. Mother Family Medical History: Congestive Heart Failure (CHF), COPD, Osteoarthritis (OA), Rheumatoid Arthritis (RA) Additional Family Medical History / Comment(s): Spondylosis, subclavian boyce with stents. General Exam Limitations: no limitations General appearance: alert, in no apparent distress Head exam: Present: atraumatic Eye exam: Present: normal appearance, PERRL, EOMI. Absent: scleral icterus, conjunctival injection ENT exam: Present: normal exam, mucous membranes moist Neck exam: Present: normal inspection, full ROM. Absent: tenderness Respiratory exam: Present: normal lung sounds bilaterally. Absent: respiratory distress, wheezes Cardiovascular Exam: Present: regular rate, normal rhythm, normal heart sounds GI/Abdominal exam: Present: soft, normal bowel sounds. Absent: distended, tenderness Neurological exam: Present: alert Course Vital Signs 04/22/21 04/22/21 09:44 09:55 Temperature 98.6 F Pulse Rate 88 Respiratory 22 18 Rate Blood Pressure 109/69 O2 Sat by Pulse 98 Oximetry Medical Decision Making - Medical Decision Making Vitals are stable. Patient is well-appearing. Patient presents for upper respiratory symptoms. COVID-19 is negative. Chest x-ray shows no acute pulmonary process. At this time patient likely is viral respiratory infection. We will start patient on steroids given her history of asthma. She will follow- up with her doctor. She will return here for any worsening symptoms. - Lab Data Lab Results 04/22/21 Range/Units 09:59 Coronavirus (PCR) Not Detected (Not Detectd) Disposition Clinical Impression: Cough Disposition: HOME SELF-CARE Condition: Good Instructions (If sedation given, give patient instructions): Upper Respiratory Infection (ED) Additional Instructions: Please take medications as directed. Follow-up with your doctor. Return to the emergency room for any worsening symptoms. Prescriptions: guaiFENesin [Mucinex] 600 mg PO Q12HR PRN #20 tab PRN Reason: Congestion Benzonatate [Tessalon Perles] 200 mg PO Q8H PRN #15 capsule PRN Reason: Cough Is patient prescribed a controlled substance at d/c from ED?: No Referrals: Zabrina Burrell MD [Primary Care Provider] - 1-2 days Time of Disposition: 11:15
--- NOTE | 2021-04-22 10:23 | XR ---
EXAMINATION TYPE: XR chest 2V DATE OF EXAM: 04/22/2021 COMPARISON: 04/08/2021 INDICATION: Cough congestion TECHNIQUE: Frontal and lateral views of the chest are obtained. FINDINGS: The heart size is normal. The pulmonary vasculature is normal. The lungs are clear. IMPRESSION: 1. No acute pulmonary process.
== END 2021-04-22 12:20 | disposition home or self-care (01) ==
LOC: EC 09:35
DX: R05.9 Cough, unspecified (principal); J45.909 Unspecified asthma, uncomplicated; M19.90 Unspecified osteoarthritis, unspecified site; G40.909 Epilepsy, unspecified, not intractable, without status epilepticus; K21.9 Gastro-esophageal reflux disease without esophagitis; F17.200 Nicotine dependence, unspecified, uncomplicated; F32.A Depression, unspecified; Z79.51 Long term (current) use of inhaled steroids; Z79.899 Other long term (current) drug therapy
CPT/HCPCS: 71046; 87635

== ENCOUNTER 2021-05-06 21:02 | Emergency (ER) | payer MEDICARE, OTHER ==
[2021-05-06] MEDS ORDERED: ONDANSETRON 4 MG/2 ML VIAL IVP STA (21:41)
[2021-05-06] MEDS ORDERED: SODIUM CHLORIDE 0.9% 500 ML 500 ML IV STA (21:41)
[2021-05-06] MEDS ORDERED: PANTOPRAZOLE 40 MG/10 ML VIAL IVP STA (21:42)
--- NOTE | 2021-05-06 21:44 | ED ---
Abdominal Pain HPI - General Chief Complaint: GI Bleed Stated Complaint: Abdominal pain Time Seen by Provider: 05/06/21 21:29 Source: patient, EMS, RN notes reviewed, old records reviewed Mode of arrival: EMS Limitations: no limitations - History of Present Illness Initial Comments: This is a 41-year-old female DF for evaluation of abdominal pain. Abdominal pain with nausea and vomiting. Patient does claim to be vomiting blood occasionally. Patient has no weakness lightheadedness or dizziness complaints of syncope or near syncope. Abdominal pain is severe she is had before she believes it may be her ovaries. Patient denying any fevers, no diarrhea MD Complaint: abdominal pain -: hour(s) Location: suprapubic Radiation: suprapubic Migration to: suprapubic Severity: moderate Severity scale (1-10): 7 Quality: sharp Consistency: intermittent Improves With: nothing Worsens With: nothing Context: other (Street of prior urinary tract infections) Associated Symptoms: nausea, vomiting Treatments Prior to Arrival: other (none) - Related Data Home Medications Medication Instructions Recorded Confirmed Pantoprazole [Protonix] 40 mg PO DAILY PRN 05/19/16 04/22/21 Topiramate [Topamax] 50 mg PO HS 07/03/18 04/22/21 Albuterol Sulfate [Albuterol 2 puff PO RT-Q6H PRN 04/22/21 04/22/21 Sulfate Hfa] Latanoprost/Pf [Latanoprost 0.005% 1 drop BOTH EYES HS 04/22/21 04/22/21 Eye Drop] Previous Rx's Medication Instructions Recorded Benzonatate [Tessalon Perles] 200 mg PO Q8H PRN #15 capsule 04/22/21 guaiFENesin [Mucinex] 600 mg PO Q12HR PRN #20 tab 04/22/21 predniSONE 50 mg PO DAILY #5 tablet 04/22/21 Clindamycin [Cleocin] 450 mg PO Q6H #20 cap 05/07/21 Allergies Allergy/AdvReac Type Severity Reaction Status Date / Time carbamazepine [From Tegretol] Allergy Intermediate Unknown Verified 05/06/21 21:27 adhesive Allergy Unknown Verified 05/06/21 21:27 amphetamine aspartate Allergy Unknown Verified 05/06/21 21:27 [From Adderall] amphetamine sulfate Allergy Unknown Verified 05/06/21 21:27 [From Adderall] azithromycin Allergy Unknown Verified 05/06/21 21:27 [From Zithromax Z-Tunde] banana Allergy Anaphylaxis Verified 05/06/21 21:27 cephalexin monohydrate Allergy Unknown Verified 05/06/21 21:27 [From Keflex] dextroamphetamine saccharate Allergy Unknown Verified 05/06/21 21:27 [From Adderall] dextroamphetamine sulfate Allergy Unknown Verified 05/06/21 21:27 [From Adderall] Iodinated Contrast Media Allergy Anaphylaxis Verified 05/06/21 21:27 [Iodinated Contrast Media - IV Dye] ketorolac tromethamine Allergy Rash/Hives Verified 05/06/21 21:27 [From Toradol] kiwi Allergy Anaphylaxis Verified 05/06/21 21:27 latex Allergy Anaphylaxis Verified 05/06/21 21:27 levofloxacin [From Levaquin] Allergy Swelling Verified 05/06/21 21:27 lorazepam [From Ativan] Allergy Unknown Verified 05/06/21 21:27 Melon Allergy Anaphylaxis Verified 05/06/21 21:27 metoclopramide HCl Allergy Unknown Verified 05/06/21 21:27 [From Reglan] nitrofurantoin Allergy Unknown Verified 05/06/21 21:27 [From Macrobid] nitrofurantoin Allergy Unknown Verified 05/06/21 21:27 macrocrystalline [From Macrobid] peanut Allergy Anaphylaxis Verified 05/06/21 21:27 Sulfa (Sulfonamide Allergy Unknown Verified 05/06/21 21:27 Antibiotics) codeine AdvReac Diarrhea Verified 05/06/21 21:27 doxycycline AdvReac Diarrhea Verified 05/06/21 21:27 methimazole AdvReac Unknown Verified 05/06/21 21:27 Penicillins AdvReac Diarrhea Verified 05/06/21 21:27 prednisone AdvReac Unknown Verified 05/06/21 21:27 avacado Allergy Anaphylaxis Uncoded 05/06/21 21:27 cantalope Allergy Anaphylaxis Uncoded 05/06/21 21:27 TAPE AdvReac Unknown Uncoded 05/06/21 21:27 Review of Systems ROS Statement: Those systems with pertinent positive or pertinent negative responses have been documented in the HPI. ROS Other: All systems not noted in ROS Statement are negative. Past Medical History Past Medical History: Asthma, Eye Disorder, GERD/Reflux, Osteoarthritis (OA), Pneumonia, Seizure Disorder Additional Past Medical History / Comment(s): Pt and her mother states that pt has had abdominal pain and rectal bleeding intermittently over the past 4-5 months and that it has become worse over the past 4 days. She was seen be Dr. Frias today in his office and he stated her lungs sounded like she was not moving air so she was sent to hospital per mother. 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 History of Any Multi-Drug Resistant Organisms: MRSA Date of last positivie culture/infection: 2006 MDRO Source:: spider bite/buttocks Past Surgical History: Cholecystectomy, Hysterectomy, Orthopedic Surgery, Tubal Ligation Additional Past Surgical History / Comment(s): rt elbow orif. debridment frank buttocks d/t spider bite, nasal septal surgery, mediastinoscopy with bx-benign, colonoscopy, laparoscopy with lysis of adhesions. Past Anesthesia/Blood Transfusion Reactions: No Reported Reaction Past Psychological History: Depression Smoking Status: Current every day smoker, Vaper Past Alcohol Use History: None Reported Past Drug Use History: None Reported - Past Family History Father Family Medical History: Coronary Artery Disease (CAD), Diabetes Mellitus, Myocardial Infarction ([place]) Additional Family Medical History / Comment(s): Father had a [place] at the age of 62 yrs. He has had CABG. Mother Family Medical History: Congestive Heart Failure (CHF), COPD, Osteoarthritis (OA), Rheumatoid Arthritis (RA) Additional Family Medical History / Comment(s): Spondylosis, subclavian boyce with stents. General Exam Limitations: no limitations General appearance: alert, in no apparent distress Head exam: Present: atraumatic, normocephalic, normal inspection Eye exam: Present: normal appearance, PERRL, EOMI. Absent: scleral icterus, co njunctival injection, periorbital swelling ENT exam: Present: normal exam, mucous membranes moist Neck exam: Present: normal inspection. Absent: tenderness, meningismus, lymphadenopathy Respiratory exam: Present: normal lung sounds bilaterally. Absent: respiratory distress, wheezes, rales, rhonchi, stridor Cardiovascular Exam: Present: regular rate, normal rhythm, normal heart sounds. Absent: systolic murmur, diastolic murmur, rubs, gallop, clicks GI/Abdominal exam: Present: soft, normal bowel sounds. Absent: distended, tenderness, guarding, rebound, rigid Extremities exam: Present: normal inspection, full ROM, normal capillary refill. Absent: tenderness, pedal edema, joint swelling, calf tenderness Back exam: Present: normal inspection Neurological exam: Present: alert, oriented X3, CN II-XII intact Psychiatric exam: Present: normal affect, normal mood Skin exam: Present: warm, dry, intact, normal color. Absent: rash Course Vital Signs 05/06/21 05/07/21 05/07/21 21:21 00:00 01:25 Temperature 98.2 F 98.7 F Pulse Rate 86 78 78 Respiratory 22 18 18 Rate Blood Pressure 115/69 128/78 142/74 O2 Sat by Pulse 98 99 95 Oximetry - Reevaluation(s) Reevaluation #1: 05/07/21 Medical record is reviewed Patient symptoms are significantly improved here in the emergency department Patient informed of results and questions answered Medical Decision Making - Medical Decision Making 41 female to the emergency room today. Patient does have abdominal pain positive for urinary tract infection vomiting is improved currently. Multiple medication ALLERGIES patient started on medication mainly at work for UTI will await cultures - Lab Data Result diagrams: 05/06/21 21:46 05/06/21 21:46 Lab Results 05/06/21 05/06/21 05/06/21 Range/Units 21:46 21:46 21:46 WBC 6.4 (3.8-10.6) k/uL RBC 3.84 (3.80-5.40) m/uL Hgb 12.3 (11.4-16.0) gm/dL Hct 37.3 (34.0-46.0) % MCV 97.3 (80.0-100.0) fL MCH 32.1 (25.0-35.0) pg MCHC 33.0 (31.0-37.0) g/dL RDW 13.7 (11.5-15.5) % Plt Count 233 (150-450) k/uL MPV 7.8 Neutrophils % 65 % Lymphocytes % 28 % Monocytes % 4 % Eosinophils % 1 % Basophils % 0 % Neutrophils # 4.1 (1.3-7.7) k/uL Lymphocytes # 1.8 (1.0-4.8) k/uL Monocytes # 0.3 (0-1.0) k/uL Eosinophils # 0.1 (0-0.7) k/uL Basophils # 0.0 (0-0.2) k/uL Hypochromasia Slight PT (9.0-12.0) sec INR (<1.2) APTT (22.0-30.0) sec Sodium 143 (137-145) mmol/L Potassium 3.8 (3.5-5.1) mmol/L Chloride 113 H (98-107) mmol/L Carbon Dioxide 21 L (22-30) mmol/L Anion Gap 9 mmol/L BUN 12 (7-17) mg/dL Creatinine 0.86 (0.52-1.04) mg/dL Est GFR (CKD-EPI)AfAm >90 (>60 ml/min/1.73 sqM) Est GFR (CKD-EPI)NonAf 84 (>60 ml/min/1.73 sqM) Glucose 113 H (74-99) mg/dL Calcium 9.0 (8.4-10.2) mg/dL Phosphorus 2.9 (2.5-4.5) mg/dL Magnesium 2.0 (1.6-2.3) mg/dL Total Bilirubin 0.3 (0.2-1.3) mg/dL AST 19 (14-36) U/L ALT 15 (4-34) U/L Alkaline Phosphatase 78 (38-126) U/L Troponin I <0.012 (0.000-0.034) ng/mL Total Protein 7.0 (6.3-8.2) g/dL Albumin 3.7 (3.5-5.0) g/dL Urine Color Urine Appearance (Clear) Urine pH (5.0-8.0) Ur Specific [place] (1.001-1.035) Urine Protein (Negative) Urine Glucose (UA) (Negative) Urine Ketones (Negative) Urine Blood (Negative) Urine Nitrite (Negative) Urine Bilirubin (Negative) Urine Urobilinogen (<2.0) mg/dL Ur Leukocyte Esterase (Negative) Urine RBC (0-5) /hpf Urine WBC (0-5) /hpf Urine WBC Clumps (None) /hpf Ur Squamous Epith Cells (0-4) /hpf Urine Bacteria (None) /hpf Urine Mucus (None) /hpf Urine Yeast (Budding) (None) /hpf 05/06/21 05/06/21 Range/Units 22:27 22:32 WBC (3.8-10.6) k/uL RBC (3.80-5.40) m/uL Hgb (11.4-16.0) gm/dL Hct (34.0-46.0) % MCV (80.0-100.0) fL MCH (25.0-35.0) pg MCHC (31.0-37.0) g/dL RDW (11.5-15.5) % Plt Count (150-450) k/uL MPV Neutrophils % % Lymphocytes % % Monocytes % % Eosinophils % % Basophils % % Neutrophils # (1.3-7.7) k/uL Lymphocytes # (1.0-4.8) k/uL Monocytes # (0-1.0) k/uL Eosinophils # (0-0.7) k/uL Basophils # (0-0.2) k/uL Hypochromasia PT 9.9 (9.0-12.0) sec INR 0.9 (<1.2) APTT 20.1 L (22.0-30.0) sec Sodium (137-145) mmol/L Potassium (3.5-5.1) mmol/L Chloride (98-107) mmol/L Carbon Dioxide (22-30) mmol/L Anion Gap mmol/L BUN (7-17) mg/dL Creatinine (0.52-1.04) mg/dL Est GFR (CKD-EPI)AfAm (>60 ml/min/1.73 sqM) Est GFR (CKD-EPI)NonAf (>60 ml/min/1.73 sqM) Glucose (74-99) mg/dL Calcium (8.4-10.2) mg/dL Phosphorus (2.5-4.5) mg/dL Magnesium (1.6-2.3) mg/dL Total Bilirubin (0.2-1.3) mg/dL AST (14-36) U/L ALT (4-34) U/L Alkaline Phosphatase (38-126) U/L Troponin I (0.000-0.034) ng/mL Total Protein (6.3-8.2) g/dL Albumin (3.5-5.0) g/dL Urine Color Yellow Urine Appearance Cloudy H (Clear) Urine pH 6.5 (5.0-8.0) Ur Specific [place] 1.022 (1.001-1.035) Urine Protein Trace H (Negative) Urine Glucose (UA) Negative (Negative) Urine Ketones Negative (Negative) Urine Blood Negative (Negative) Urine Nitrite Negative (Negative) Urine Bilirubin Negative (Negative) Urine Urobilinogen 4.0 (<2.0) mg/dL Ur Leukocyte Esterase Large H (Negative) Urine RBC 9 H (0-5) /hpf Urine WBC 86 H (0-5) /hpf Urine WBC Clumps Rare H (None) /hpf Ur Squamous Epith Cells 11 H (0-4) /hpf Urine Bacteria Rare H (None) /hpf Urine Mucus Few H (None) /hpf Urine Yeast (Budding) Occasional H (None) /hpf - EKG Data -: EKG Interpreted by Me (EKG sinus rhythm 75 MN 170 QRS 82 QTC 431) - Radiology Data Radiology results: report reviewed (CT abdomen and pelvis is negative for acute disease), image reviewed Disposition Clinical Impression: UTI (urinary tract infection) Disposition: HOME SELF-CARE Condition: Good Instructions (If sedation given, give patient instructions): Urinary Tract Infection in Women (ED) Prescriptions: Clindamycin [Cleocin] 450 mg PO Q6H #20 cap Is patient prescribed a controlled substance at d/c from ED?: No Referrals: Zabrina Burrell MD [Primary Care Provider] - 1-2 days
[2021-05-06 22:26] LABS: ALT 15 U/L (4-34); AST 19 U/L (14-36); African American GFR (CKD) >90 (>60 ml/min/1.73 sqM); Albumin 3.7 g/dL (3.5-5.0); Alkaline Phosphatase 78 U/L (38-126); Anion Gap 9 mmol/L; Basophils % (A) 0 %; Blood Urea Nitrogen 12 mg/dL (7-17); Carbon Dioxide 21 mmol/L (22-30); Chloride 113 mmol/L (98-107); Eosinophils # (A) 0.1 k/uL (0-0.7); Eosinophils % (A) 1 %; Glucose 113 mg/dL (74-99); HCT 37.3 % (34.0-46.0); HGB 12.3 gm/dL (11.4-16.0); Hypochromasia Slight; Lymphocytes # (A) 1.8 k/uL (1.0-4.8); Lymphocytes % (A) 28 %; MCH 32.1 pg (25.0-35.0); MCV 97.3 fL (80.0-100.0); Mean Platelet Volume 7.8; Monocytes # (A) 0.3 k/uL (0-1.0); Monocytes % (A) 4 %; Neutrophils # (A) 4.1 k/uL (1.3-7.7); Neutrophils % (A) 65 %; Non-African American GFR(CKD) 84 (>60 ml/min/1.73 sqM); Phosphorus 2.9 mg/dL (2.5-4.5); Platelet Count 233 k/uL (150-450); Potassium 3.8 mmol/L (3.5-5.1); RBC 3.84 m/uL (3.80-5.40); RDW 13.7 % (11.5-15.5); Sodium 143 mmol/L (137-145); Total Bilirubin 0.3 mg/dL (0.2-1.3); WBC 6.4 k/uL (3.8-10.6)
[2021-05-06 22:49] LABS: Appearance,Urine Cloudy (Clear); Bacteria,Urine Rare /hpf; Bilirubin,Urine Negative (Negative); Blood,Urine Negative (Negative); Budding Yeast,Urine Occasional /hpf; Color,Urine Yellow; Glucose,Urine (UA) Negative (Negative); Ketones,Urine Negative (Negative); Leukocyte Esterase,Urine Large (Negative); Mucus,Urine Few /hpf; Nitrite,Urine Negative (Negative); PH, Urine 6.5 (5.0-8.0); Protein,Urine Trace (Negative); RBC,Urine 9 /hpf (0-5); Specific Gravity,Urine 1.022 (1.001-1.035); Squamous Epithelial Cell,Urine 11 /hpf (0-4); WBC,Urine 86 /hpf (0-5)
[2021-05-06 22:57] LABS: INR 0.9 (<1.2); Prothrombin Time 9.9 sec (9.0-12.0)
[2021-05-06 23:01] LABS: Partial Thromboplastin Time 20.1 sec (22.0-30.0)
[2021-05-06] MEDS ORDERED: HYDROmorphone 1 MG/ML 1 ML SYRINGE IVP STA (23:10)
--- NOTE | 2021-05-07 00:32 | CT ---
EXAMINATION TYPE: CT abdomen pelvis wo con DATE OF EXAM: 05/06/2021 COMPARISON: 07/03/2018 HISTORY: pain CT DLP: 462.3 mGycm Automated exposure control for dose reduction was used. Images obtained from the diaphragm to the floor of the pelvis with no contrast. The lung bases are clear of consolidation. There is no pleural effusion. Heart appears slightly enlar ged. There is no pericardial effusion. There are clips from cholecystectomy. Liver spleen and stomach pancreas appear intact. The bile press ure not dilated. There is no adrenal mass. Kidneys have normal size and contour. There is 6 mm calculus lower pole lef t kidney. There is 4 mm calculus lower pole right kidney. Ureters are not dilated. There is no hydron ephrosis. There is no retroperitoneal adenopathy. Appendix is medial and appears normal. The bladder distends smoothly. There is no inguinal hernia. There is small amount of free fluid in the pelvis. Th ere is hysterectomy. The lumbar vertebra have normal spacing and alignment. Posterior elements are intact. There is no com pression fracture. The bony pelvis is intact. Hip joints appear intact. There is no mesenteric edema. There is no free air. There is no sign of bowel obstruction. IMPRESSION: Nonobstructing renal calculi. Normal appendix. Small amount of free fluid in the pelvis. I do not see a cause for rectal bleeding. No evidence of co litis. There is improvement in the interstitial edema at the lung bases compared to old exam.
[2021-05-07] MEDS ORDERED: CLINDAMYCIN 150 MG CAP PO STA (00:54)
[2021-05-07] MEDS ORDERED: traMADol 50 MG STARTER PACK 3 TAB BTL PO STA (00:55)
[2021-05-07] MEDS ORDERED: ONDANSETRON 4 MG ODT STARTER PACK 2 TAB BTL PO STA (00:55)
[2021-05-07 01:16] VITALS: PULSE 78; RESP 18; TEMP 98.7
[2021-05-07 01:27] VITALS: BP 142/74
== END 2021-05-07 01:27 | disposition home or self-care (01) ==
LOC: EC 21:02
DX: N39.0 Urinary tract infection, site not specified (principal); J45.909 Unspecified asthma, uncomplicated; K21.9 Gastro-esophageal reflux disease without esophagitis; G40.909 Epilepsy, unspecified, not intractable, without status epilepticus; M19.90 Unspecified osteoarthritis, unspecified site; F32.A Depression, unspecified; F17.290 Nicotine dependence, other tobacco product, uncomplicated; Z79.51 Long term (current) use of inhaled steroids; Z79.52 Long term (current) use of systemic steroids; Z79.899 Other long term (current) drug therapy
CPT/HCPCS: 36415; 93005; 80053; 83735; 84100; 84484; 85025; 85610; 85730; 81001; 87086; 74176; 99285; 96374; 96375 ×2; J2405; J1170; S0119; C9113

== ENCOUNTER 2021-10-12 20:08 | Inpatient (IN) | payer MEDICARE, OTHER ==
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
[2021-10-12] MEDS ORDERED: IBUPROFEN 600 MG TAB PO STA (23:18)
[2021-10-12] MEDS ORDERED: HYDROcodone/APAP 5-325MG 1 EACH TAB PO STA (23:18)
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
[2021-10-12] MEDS ORDERED: VANCOMYCIN IV PER PHARMACY 1 EACH MISC MISCELLANE PRN (23:25)
[2021-10-12] MEDS ORDERED: NALOXONE 0.4 MG/ML 1 ML VIAL IV PRN (23:33)
[2021-10-12] MEDS ORDERED: PANTOPRAZOLE 40 MG TABLET PO PRN (23:36)
[2021-10-13] MEDS ORDERED: VANCOMYCIN 1,000 MG in SODIUM CHLORIDE 0.9% 250 ML IVPB ONE ×2
[2021-10-13] MEDS: SODIUM CHLORIDE 0.9% 1,000 ML IV SCH ×2 (02:53→12:06)
[2021-10-13] MEDS: HYDROcodone/APAP 10-325MG 1 EACH TAB PO PRN ×4 (04:39→21:55)
[2021-10-13 08:53] LABS: Basophils % (A) 1 %; Eosinophils # (A) 0.1 k/uL (0-0.7); Eosinophils % (A) 2 %; HCT 34.7 % (34.0-46.0); HGB 11.5 gm/dL (11.4-16.0); Lymphocytes # (A) 1.9 k/uL (1.0-4.8); Lymphocytes % (A) 24 %; MCHC 33.1 g/dL (31.0-37.0); MCV 99.5 fL (80.0-100.0); Mean Platelet Volume 8.6; Monocytes # (A) 0.4 k/uL (0-1.0); Monocytes % (A) 5 %; Neutrophils # (A) 5.4 k/uL (1.3-7.7); Neutrophils % (A) 67 %; Platelet Count 186 k/uL (150-450); RBC 3.49 m/uL (3.80-5.40); RDW 12.8 % (11.5-15.5)
[2021-10-13 09:06] LABS: African American GFR (CKD) >90 (>60 ml/min/1.73 sqM); Non-African American GFR(CKD) >90 (>60 ml/min/1.73 sqM)
[2021-10-13] MEDS: VANCOMYCIN 1,250 MG in SODIUM CHLORIDE 0.9% 250 ML IVPB SCH (12:03)
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
[2021-10-13] MEDS ORDERED: traMADol 50 MG TAB PO PRN (18:18)
[2021-10-13] MEDS ORDERED: ALBUTEROL NEBULIZED 2.5 MG/3 ML INHALATION PRN ×2 (18:18)
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
[2021-10-13] MEDS: TOPIRAMATE 25 MG TAB PO SCH (21:23)
[2021-10-13] MEDS: LATANOPROST 0.005% OPHTH DROPS 2.5 ML BTL BOTH EYES SCH (21:54)
[2021-10-13] MEDS: TRIAMCINOLONE 0.1% CREAM 80 GM TUBE TOPICAL SCH (21:55)
[2021-10-14] MEDS: VANCOMYCIN 1,250 MG in SODIUM CHLORIDE 0.9% 250 ML IVPB SCH ×3 (00:30→23:23)
[2021-10-14] MEDS: HYDROcodone/APAP 10-325MG 1 EACH TAB PO PRN ×4 (04:28→23:50)
[2021-10-14] MEDS: SODIUM CHLORIDE 0.9% 1,000 ML IV SCH ×3 (04:47→20:15)
[2021-10-14] MEDS: TRIAMCINOLONE 0.1% CREAM 80 GM TUBE TOPICAL SCH ×2 (09:04→20:11)
[2021-10-14] MEDS: ENOXAPARIN 40 MG/0.4 ML SYRINGE SQ SCH (09:29)
[2021-10-14] MEDS: ASPIRIN 81 MG PO SCH (09:29)
[2021-10-14] MEDS ORDERED: VANCOMYCIN TROUGH DUE 1 EACH MISC MISCELLANE ONE (11:00)
[2021-10-14 11:04] LABS: Basophils # (A) 0.05 X 10*3/uL (0.00-0.10); Basophils % (A) 0.5 %; Eosinophils # (A) 0.11 X 10*3/uL (0.04-0.35); Eosinophils % (A) 1.1 %; HCT 35.4 % (37.2-46.3); HGB 11.2 g/dL (12.0-15.0); Immature Grans, Automated 0.4 %; Lymphocytes # (A) 2.02 X 10*3/uL (0.90-5.00); MCH 31.3 pg (27.0-32.0); MCHC 31.6 g/dL (32.0-37.0); MCV 98.9 fL (80.0-97.0); Mean Platelet Volume 10.7 fL (9.5-12.2); Monocytes # (A) 0.51 X 10*3/uL (0.20-1.00); Monocytes % (A) 5.3 %; NRBC Per 100 WBC 0 /100 WBCS (0.0-0.0); Neutrophils # (A) 6.89 X 10*3/uL (1.80-7.70); Neutrophils % (A) 71.7 %; Platelet Count 223 X 10*3/uL (140-440); RBC 3.58 X 10*6/uL (4.10-5.20); WBC 9.62 X 10*3/uL (4.50-10.00)
[2021-10-14 11:21] LABS: African American GFR (CKD) 104.7 (60.0-200.0); Albumin 3.8 g/dL (3.8-4.9); Albumin/Globulin Ratio 1.31 (1.60-3.17); Anion Gap 7.9 mmol/L (10.00-18.00); BUN/Creat Ratio 8.25 Ratio (12.00-20.00); Blood Urea Nitrogen 6.6 mg/dL (9.0-27.0); Calcium 9.1 mg/dL (8.7-10.3); Carbon Dioxide 26.1 mmol/L (20.0-27.5); Globulin 2.9 g/dL (1.6-3.3); Non-African American GFR(CKD) 90.3 (60.0-200.0); Potassium 4.1 mmol/L (3.5-5.5); Total Bilirubin 0.3 mg/dL (0.30-1.20); Total Protein 6.7 g/dL (6.2-8.2)
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
--- NOTE | 2021-10-14 13:25 | P.PN ---
Subjective Progress Note Date: 10/14/21 CHIEF COMPLAINT: Posterior scalp and neck cellulitis HISTORY OF PRESENT ILLNESS: Marisol scalp and neck Lantus. Patient reports still having pain. No significant drainage. She is currently on antibiotics. Afebrile. WBC 9.62. ID service is now on consult Patient seen and examined with Dr. merino PHYSICAL EXAM: VITAL SIGNS: Reviewed. GENERAL: Well-developed in no acute distress. HEENT: Posterior aspect of the base of the scalp and into the neck area of induration and tenderness. 2 small scabs noted no drainage. Patient does have a pimple formation on the lower left side of the scalp ABDOMEN: Soft. Nondistended. Nontender. NEUROLOGIC: Alert and oriented. Cranial nerves II through XII grossly intact. ASSESSMENT: 1. Posterior scalp and neck cellulitis PLAN: -No surgical intervention planned -Continue antibiotics -Continue warm compresses -Continue supportive care Physician Glass Fitter note has been reviewed by physician. Signing provider agrees with the documented findings, assessment, and plan of care. Objective - Vital Signs Vital signs: Vital Signs Temp 98.8 F 10/14/21 11:39 Pulse 80 10/14/21 11:39 Resp 18 10/14/21 11:39 BP 105/69 10/14/21 11:39 Pulse Ox 100 10/14/21 04:20 FiO2 Intake & Output 10/13/21 10/14/21 10/14/21 18:59 06:59 18:59 Intake Total 250 Balance 250 Intake: Intake, IV Titration 250 Amount Vancomycin 1,250 mg In 250 Sodium Chloride 0.9% 250 ml @ 125 mls/hr IVPB Q12H [facility] Rx#:[id number] Other: Voiding Method Toilet Diaper # Voids 4 - Labs CBC & Chem 7: 10/14/21 07:49 10/14/21 07:49 Labs: Abnormal Lab Results - Last 24 Hours (Table) 10/14/21 10/14/21 Range/Units 07:49 07:49 RBC 3.58 L (4.10-5.20) X 10*6/uL Hgb 11.2 L (12.0-15.0) g/dL Hct 35.4 L (37.2-46.3) % MCV 98.9 H (80.0-97.0) fL MCHC 31.6 L (32.0-37.0) g/dL Anion Gap 7.90 L (10.00-18.00) mmol/L BUN 6.6 L (9.0-27.0) mg/dL BUN/Creatinine Ratio 8.25 L (12.00-20.00) Ratio Albumin/Globulin Ratio 1.31 L (1.60-3.17) g/dL Microbiology - Last 24 Hours (Table) 10/13/21 00:00 Blood Culture - Preliminary Blood No Growth after 24 hours
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
[2021-10-14] MEDS: TOPIRAMATE 25 MG TAB PO SCH (20:11)
[2021-10-14] MEDS: LATANOPROST 0.005% OPHTH DROPS 2.5 ML BTL BOTH EYES SCH (20:11)
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
[2021-10-15] MEDS: HYDROcodone/APAP 10-325MG 1 EACH TAB PO PRN ×4 (06:11→23:20)
[2021-10-15 06:39] LABS: African American GFR (CKD) >90 (>60 ml/min/1.73 sqM); Non-African American GFR(CKD) 85 (>60 ml/min/1.73 sqM)
[2021-10-15] MEDS: ENOXAPARIN 40 MG/0.4 ML SYRINGE SQ SCH (09:51)
[2021-10-15] MEDS: TRIAMCINOLONE 0.1% CREAM 80 GM TUBE TOPICAL SCH ×2 (09:52→20:19)
[2021-10-15] MEDS: ASPIRIN 81 MG PO SCH (09:52)
[2021-10-15] MEDS: VANCOMYCIN 1,250 MG in SODIUM CHLORIDE 0.9% 250 ML IVPB SCH ×2 (11:58→23:19)
--- NOTE | 2021-10-15 15:40 | P.PN ---
Subjective Progress Note Date: 10/15/21 CHIEF COMPLAINT: Posterior scalp and neck cellulitis HISTORY OF PRESENT ILLNESS: Patient's area of cellulitis has shown some mild improvement of movement. Her pain appears better controlled. She denies any drainage. She is currently on antibiotics. Low-grade temp 99 Patient seen and examined with Dr. merino PHYSICAL EXAM: VITAL SIGNS: Reviewed. GENERAL: Well-developed in no acute distress. HEENT: Posterior aspect of the base of the scalp and into the neck area of induration and tenderness. Area of erythema has decreased in intensity. No drainage noted. Pimple area noted on the left ABDOMEN: Soft. Nondistended. Nontender. NEUROLOGIC: Alert and oriented. Cranial nerves II through XII grossly intact. ASSESSMENT: 1. Posterior scalp and neck cellulitis PLAN: -No surgical intervention planned. No drainable abscess. -Continue antibiotics -Continue warm compresses -Continue supportive care -Educated patient to not take at the infected area Physician Formula Room Worker note has been reviewed by physician. Signing provider agrees with the documented findings, assessment, and plan of care. Objective - Vital Signs Vital signs: Vital Signs Temp 98.9 F 10/15/21 11:34 Pulse 74 10/15/21 11:34 Resp 18 10/15/21 11:34 BP 97/62 10/15/21 11:34 Pulse Ox 100 10/15/21 11:34 FiO2 Intake & Output 10/14/21 10/15/21 10/15/21 18:59 06:59 18:59 Intake Total 1150 Balance 1150 Intake: Intake, IV Titration 1150 Amount Sodium Chloride 0.9% 1, 900 000 ml @ 75 mls/hr IV . [id number] [facility] Rx#:[id number] Vancomycin 1,250 mg In 250 Sodium Chloride 0.9% 250 ml @ 125 mls/hr IVPB Q12H [facility] Rx#:[id number] Other: Voiding Method Toilet Diaper Incontinent # Voids 2 - Labs CBC & Chem 7: 10/14/21 07:49 10/15/21 05:44 Labs: Microbiology - Last 24 Hours (Table) 10/13/21 00:00 Blood Culture - Preliminary Blood No Growth after 48 hours
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
[2021-10-15] MEDS: SODIUM CHLORIDE 0.9% 1,000 ML IV SCH (19:17)
[2021-10-15] MEDS: TOPIRAMATE 25 MG TAB PO SCH (20:18)
[2021-10-15] MEDS: ACETAMINOPHEN TAB 500 MG TAB PO PRN (20:18)
[2021-10-15] MEDS: LATANOPROST 0.005% OPHTH DROPS 2.5 ML BTL BOTH EYES SCH (20:20)
[2021-10-16] MEDS: HYDROcodone/APAP 10-325MG 1 EACH TAB PO PRN ×3 (05:22→19:44)
[2021-10-16] MEDS: SODIUM CHLORIDE 0.9% 1,000 ML IV SCH ×2 (05:23→19:46)
[2021-10-16] MEDS: ASPIRIN 81 MG PO SCH (08:39)
[2021-10-16] MEDS: ENOXAPARIN 40 MG/0.4 ML SYRINGE SQ SCH ×2 (08:39→16:44)
[2021-10-16] MEDS: TRIAMCINOLONE 0.1% CREAM 80 GM TUBE TOPICAL SCH ×2 (08:40→19:45)
--- NOTE | 2021-10-16 08:46 | P.PN ---
Subjective Progress Note Date: 10/15/21 Principal diagnosis: Posterior neck abscess and cellulitis Patient is a 41-year-old female presented to the hospital with the painful area posterior neck with swelling and redness concerning for an abscess, in this patient with multiple antibiotic ALLERGIES. On today's evaluation that is 10/15/2021, the patient denies having any fever or chills but no significant pain to the posterior neck area currently do not have any open wound or any drainage denies any chest pain shortness of breath or cough no abdominal pain no diarrhea Objective - Vital Signs Vital signs: Vital Signs Temp 98.9 F 10/15/21 11:34 Pulse 74 10/15/21 11:34 Resp 18 10/15/21 11:34 BP 97/62 10/15/21 11:34 Pulse Ox 100 10/15/21 11:34 FiO2 Intake & Output 10/14/21 10/15/21 10/15/21 18:59 06:59 18:59 Intake Total 1150 Balance 1150 Intake: Intake, IV Titration 1150 Amount Sodium Chloride 0.9% 1, 900 000 ml @ 75 mls/hr IV . [id number] Rx#:[id number] Vancomycin 1,250 mg In 250 Sodium Chloride 0.9% 250 ml @ 125 mls/hr IVPB Q12H [facility] Rx#:[id number] Other: Voiding Method Toilet Diaper Incontinent # Voids 2 - Exam GENERAL DESCRIPTION: A middle-age female lying in bed in no distress. HEENT: Posterior neck area did have a painful fluctuant area with redness RESPIRATORY SYSTEM: Unlabored breathing , decreased breath sounds at bases HEART: S1 S2 regular rate and rhythm , ABDOMEN: Soft , no tenderness EXTREMITIES: No edema feet - Labs CBC & Chem 7: 10/14/21 07:49 10/15/21 05:44 Labs: Microbiology - Last 24 Hours (Table) 10/13/21 00:00 Blood Culture - Preliminary Blood No Growth after 48 hours Assessment and Plan (1) Abscess Current Visit: Yes Status: Acute Code(s): L02.91 - CUTANEOUS ABSCESS, UNSPECIFIED SNOMED Code(s): 809098704 Plan: 1patient presented to hospital with pain swelling redness to the posterior neck area concerning for abscess and cellulitis likely from gram-positive skin emilie and possibly MRSA. 2patient with multiple antibiotic allergies that would limit the number of an tibiotics safe to use. 3patient will benefit from surgical drainage and deep culture as there was some evidence of fluctuation on clinical examination will be discussed further with general surgery. 4vancomycin pharmacy to dose target trough of 15 while watching kidney function and vancomycin trough closely.
[2021-10-16 10:33] LABS: Basophils # (A) 0.04 X 10*3/uL (0.00-0.10); Basophils % (A) 0.5 %; Eosinophils # (A) 0.13 X 10*3/uL (0.04-0.35); Eosinophils % (A) 1.6 %; HCT 30.4 % (37.2-46.3); HGB 9.4 g/dL (12.0-15.0); Immature Grans, Automated 0.6 %; Lymphocytes # (A) 1.88 X 10*3/uL (0.90-5.00); Lymphocytes % (A) 22.8 %; MCH 30.9 pg (27.0-32.0); MCHC 30.9 g/dL (32.0-37.0); Mean Platelet Volume 10.6 fL (9.5-12.2); Monocytes # (A) 0.58 X 10*3/uL (0.20-1.00); NRBC Per 100 WBC 0 /100 WBCS (0.0-0.0); Neutrophils # (A) 5.56 X 10*3/uL (1.80-7.70); Neutrophils % (A) 67.5 %; Platelet Count 178 X 10*3/uL (140-440); RBC 3.04 X 10*6/uL (4.10-5.20); RDW 12.6 % (11.5-14.5); WBC 8.24 X 10*3/uL (4.50-10.00)
[2021-10-16 11:08] LABS: ALT 20 U/L (8-44); AST 15 U/L (13-35); Albumin 3.2 g/dL (3.8-4.9); Albumin/Globulin Ratio 1.19 (1.60-3.17); Alkaline Phosphatase 60 U/L (41-126); BUN/Creat Ratio 10.43 Ratio (12.00-20.00); Blood Urea Nitrogen 7.3 mg/dL (9.0-27.0); Calcium 8.7 mg/dL (8.7-10.3); Carbon Dioxide 23.6 mmol/L (20.0-27.5); Chloride 108 mmol/L (96-109); Globulin 2.7 g/dL (1.6-3.3); Glucose 119 mg/dL (70-110); Non-African American GFR(CKD) 106.1 (60.0-200.0); Potassium 3.8 mmol/L (3.5-5.5); Sodium 140 mmol/L (135-145); Total Bilirubin <0.15 mg/dL (0.30-1.20); Total Protein 5.9 g/dL (6.2-8.2)
[2021-10-16] MEDS: VANCOMYCIN 1,250 MG in SODIUM CHLORIDE 0.9% 250 ML IVPB SCH ×2 (11:31→23:53)
--- NOTE | 2021-10-16 14:56 | P.PN ---
Subjective Progress Note Date: 10/16/21 CHIEF COMPLAINT: Posterior scalp and neck cellulitis HISTORY OF PRESENT ILLNESS: Patient cellulitis is showing improvement. Her pain is decreased. She had some minimal drainage from the area on the right side of the neck. Afebrile. WBC is 8.24 Patient seen and examined with Dr. merino PHYSICAL EXAM: VITAL SIGNS: Reviewed. GENERAL: Well-developed in no acute distress. HEENT: Posterior aspect of the base of the scalp and into the neck area of induration and tenderness. Area of erythema has decreased in intensity. No drainage noted. Pimple area noted on the right decrease in size ABDOMEN: Soft. Nondistended. Nontender. NEUROLOGIC: Alert and oriented. Cranial nerves II through XII grossly intact. ASSESSMENT: 1. Posterior scalp and neck cellulitis PLAN: -No surgical intervention planned. No drainable abscess. -Continue antibiotics -Continue warm compresses -Continue supportive care Physician Director Validation note has been reviewed by physician. Signing provider agrees with the documented findings, assessment, and plan of care. Objective - Vital Signs Vital signs: Vital Signs Temp 98.1 F 10/16/21 13:27 Pulse 72 10/16/21 13:27 Resp 16 10/16/21 13:27 BP 98/62 10/16/21 13:27 Pulse Ox 98 10/16/21 13:27 FiO2 Intake & Output 10/15/21 10/16/21 10/16/21 18:59 06:59 18:59 Intake Total 1150 1750 Balance 1150 1750 Intake: Intake, IV Titration 1150 1150 Amount Sodium Chloride 0.9% 1, 900 900 000 ml @ 75 mls/hr IV . [id number] [facility] Rx#:[id number] Vancomycin 1,250 mg In 250 250 Sodium Chloride 0.9% 250 ml @ 125 mls/hr IVPB Q12H [facility] Rx#:[id number] Oral 600 Other: Voiding Method Toilet Diaper Incontinent # Voids 5 2 # Bowel Movements 2 - Labs CBC & Chem 7: 10/16/21 06:38 10/16/21 06:38 Labs: Abnormal Lab Results - Last 24 Hours (Table) 10/16/21 10/16/21 Range/Units 06:38 06:38 RBC 3.04 L (4.10-5.20) X 10*6/uL Hgb 9.4 L (12.0-15.0) g/dL Hct 30.4 L (37.2-46.3) % MCV 100.0 H (80.0-97.0) fL MCHC 30.9 L (32.0-37.0) g/dL Immature Gran # 0.05 H (0.00-0.04) X 10*3/uL Anion Gap 8.40 L (10.00-18.00) mmol/L BUN 7.3 L (9.0-27.0) mg/dL BUN/Creatinine Ratio 10.43 L (12.00-20.00) Ratio Glucose 119 H (70-110) mg/dL Total Bilirubin <0.15 L (0.30-1.20) mg/dL Total Protein 5.9 L (6.2-8.2) g/dL Albumin 3.2 L (3.8-4.9) g/dL Albumin/Globulin Ratio 1.19 L (1.60-3.17) g/dL Microbiology - Last 24 Hours (Table) 10/13/21 00:00 Blood Culture - Preliminary Blood No Growth after 72 hours
[2021-10-16] MEDS: NYSTATIN 100,000UNIT/GM CREAM 30 GM TUBE TOPICAL SCH (19:45)
[2021-10-16] MEDS: LATANOPROST 0.005% OPHTH DROPS 2.5 ML BTL BOTH EYES SCH (19:46)
[2021-10-16] MEDS: TOPIRAMATE 25 MG TAB PO SCH (19:52)
[2021-10-17] MEDS: HYDROcodone/APAP 10-325MG 1 EACH TAB PO PRN ×3 (02:13→16:23)
[2021-10-17 05:01] VITALS: RESP 16
[2021-10-17] MEDS: SODIUM CHLORIDE 0.9% 1,000 ML IV SCH (05:33)
[2021-10-17] MEDS: ACETAMINOPHEN TAB 500 MG TAB PO PRN (05:45)
[2021-10-17] MEDS: NYSTATIN 100,000UNIT/GM CREAM 30 GM TUBE TOPICAL SCH ×2 (08:36→08:39)
[2021-10-17] MEDS: ASPIRIN 81 MG PO SCH (08:36)
[2021-10-17] MEDS: TRIAMCINOLONE 0.1% CREAM 80 GM TUBE TOPICAL SCH (08:37)
--- NOTE | 2021-10-17 09:33 | P.PN ---
Subjective Progress Note Date: 10/16/21 Principal diagnosis: Posterior neck abscess and cellulitis Patient is a 41-year-old female presented to the hospital with the painful area posterior neck with swelling and redness concerning for an abscess, in this patient with multiple antibiotic ALLERGIES. On today's evaluation that is 10/16/2021, the patient remains to be afebrile, the patient pain to the posterior neck area has slightly decreased intensity, the patient did not have any open wound or any drainage , the patient denies any chest pain shortness of breath or cough no abdominal pain no diarrhea Objective - Vital Signs Vital signs: Vital Signs Temp 98.1 F 10/16/21 13:27 Pulse 72 10/16/21 13:27 Resp 16 10/16/21 13:27 BP 98/62 10/16/21 13:27 Pulse Ox 98 10/16/21 13:27 FiO2 Intake & Output 10/15/21 10/16/21 10/16/21 18:59 06:59 18:59 Intake Total 1150 1750 Balance 1150 1750 Intake: Intake, IV Titration 1150 1150 Amount Sodium Chloride 0.9% 1, 900 900 000 ml @ 75 mls/hr IV . [id number] [facility] Rx#:[id number] Vancomycin 1,250 mg In 250 250 Sodium Chloride 0.9% 250 ml @ 125 mls/hr IVPB Q12H [facility] Rx#:[id number] Oral 600 Other: Voiding Method Toilet Diaper Incontinent # Voids 5 2 # Bowel Movements 2 - Exam GENERAL DESCRIPTION: A middle-age female lying in bed in no distress. HEENT: Posterior neck area did have a painful fluctuant area with redness RESPIRATORY SYSTEM: Unlabored breathing , decreased breath sounds at bases HEART: S1 S2 regular rate and rhythm , ABDOMEN: Soft , no tenderness EXTREMITIES: No edema feet - Labs CBC & Chem 7: 10/16/21 06:38 10/16/21 06:38 Labs: Abnormal Lab Results - Last 24 Hours (Table) 10/16/21 10/16/21 Range/Units 06:38 06:38 RBC 3.04 L (4.10-5.20) X 10*6/uL Hgb 9.4 L (12.0-15.0) g/dL Hct 30.4 L (37.2-46.3) % MCV 100.0 H (80.0-97.0) fL MCHC 30.9 L (32.0-37.0) g/dL Immature Gran # 0.05 H (0.00-0.04) X 10*3/uL Anion Gap 8.40 L (10.00-18.00) mmol/L BUN 7.3 L (9.0-27.0) mg/dL BUN/Creatinine Ratio 10.43 L (12.00-20.00) Ratio Glucose 119 H (70-110) mg/dL Total Bilirubin <0.15 L (0.30-1.20) mg/dL Total Protein 5.9 L (6.2-8.2) g/dL Albumin 3.2 L (3.8-4.9) g/dL Albumin/Globulin Ratio 1.19 L (1.60-3.17) g/dL Microbiology - Last 24 Hours (Table) 10/13/21 00:00 Blood Culture - Preliminary Blood No Growth after 72 hours Assessment and Plan (1) Abscess Current Visit: Yes Status: Acute Code(s): L02.91 - CUTANEOUS ABSCESS, UNSPECIFIED SNOMED Code(s): 855089419 Plan: 1patient presented to hospital with pain swelling redness to the posterior neck area concerning for abscess and cellulitis likely from gram-positive skin emilie and possibly MRSA. 2patient with multiple antibiotic allergies that would limit the number of antibiotics safe to use. 3patient case discussed with general surgery on the phone recommending no drainage on the basis of clinical improvement. 4patient to continue with vancomycin pharmacy to dose target trough of 15 and in view of clinical response will get a PICC line and 2 weeks of IV vancomycin on discharge Time with Patient: Less than 30
--- NOTE | 2021-10-17 10:51 | P.PN ---
Progress Note - Text Progress Note Date: 10/17/21 Patient's feeling better. The cellulitic area on her scalp is improving. There is some mild super fascial drainage from the site colitis. There is no definite abscess. Patient can receive IV Vanco. We will follow with you
[2021-10-17] MEDS ORDERED: VANCOMYCIN TROUGH DUE 1 EACH MISC MISCELLANE ONE (11:00)
[2021-10-17 11:49] VITALS: BP 115/74; PULSE 71; TEMP 97.8
[2021-10-17 12:35] LABS: African American GFR (CKD) >90 (>60 ml/min/1.73 sqM); Non-African American GFR(CKD) >90 (>60 ml/min/1.73 sqM)
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
[2021-10-17] MEDS: VANCOMYCIN 1,250 MG in SODIUM CHLORIDE 0.9% 250 ML IVPB SCH (13:06)
--- NOTE | 2021-10-17 13:28 | P.PN ---
Subjective Progress Note Date: 10/17/21 Principal diagnosis: Posterior neck abscess and cellulitis Patient is a 41-year-old female presented to the hospital with the painful area posterior neck with swelling and redness concerning for an abscess, in this patient with multiple antibiotic ALLERGIES. On today's evaluation that is 10/17/2021, the patient denies any fever or chills, the patient pain to the posterior neck area has decreased in intensity, the patient mentioned the swelling is decreased and there is no drainage , the patient denies any chest pain shortness of breath or cough no abdominal pain no diarrhea Objective - Vital Signs Vital signs: Vital Signs Temp 97.8 F 10/17/21 11:28 Pulse 71 10/17/21 11:28 Resp 16 10/17/21 11:28 BP 115/74 10/17/21 11:28 Pulse Ox 100 10/17/21 11:28 FiO2 Intake & Output 10/16/21 10/17/21 10/17/21 18:59 06:59 18:59 Intake Total 1750 Balance 1750 Intake: Intake, IV Titration 1150 Amount Sodium Chloride 0.9% 1, 900 000 ml @ 75 mls/hr IV . [id number] [facility] Rx#:[id number] Vancomycin 1,250 mg In 250 Sodium Chloride 0.9% 250 ml @ 125 mls/hr IVPB Q12H [facility] Rx#:[id number] Oral 600 Other: Voiding Method Toilet Toilet Diaper Diaper Incontinent Incontinent # Voids 3 3 - Exam GENERAL DESCRIPTION: A middle-age female lying in bed in no distress. HEENT: Posterior neck area did have a painful fluctuant area with redness RESPIRATORY SYSTEM: Unlabored breathing , decreased breath sounds at bases HEART: S1 S2 regular rate and rhythm , ABDOMEN: Soft , no tenderness EXTREMITIES: No edema feet - Labs CBC & Chem 7: 10/16/21 06:38 10/17/21 10:52 Labs: Microbiology - Last 24 Hours (Table) 10/13/21 00:00 Blood Culture - Preliminary Blood No Growth after 96 hours Assessment and Plan (1) Abscess Current Visit: Yes Status: Acute Code(s): L02.91 - CUTANEOUS ABSCESS, UNSPECIFIED SNOMED Code(s): 600560854 Plan: 1patient presented to hospital with pain swelling redness to the posterior neck area concerning for abscess and cellulitis likely from gram-positive skin emilie and possibly MRSA. 2patient with multiple antibiotic allergies that would limit the number of antibiotics safe to use. 3patient was evaluated by surgery recommended no drainage in view of clinical improvement. 4keeping in mind ALLERGIES and no culture data and improvement on vancomycin and she will get a PICC line and plan for 2 weeks of IV vancomycin and close observation outpatient setting, discussed with the family Time with Patient: Less than 30
--- NOTE | 2021-10-17 16:13 | IR ---
PICC LINE PLACEMENT: HISTORY: Infection requiring long-term antibiotic therapy PROCEDURE: Ultrasound and fluoroscopic guidance of PICC line placement. COMPLICATIONS: None ANESTHESIA: 1. 1% Lidocaine locally. FINDINGS/TECHNIQUE: The procedure was explained to the patient. The risks, complications, benefits and alternatives were discussed and any questions were answered. Informed consent was obtained. The patient was placed supine on the fluoroscopic table and prepped and draped in the usual sterile fash ion. Utilizing a 21 gauge needle and sonographic and fluoroscopic guidance, access in the right cep halic vein was achieved and there is placement of a 0.018 guidewire. The vein is patent. A 4-F hamilton th was placed over the guidewire. The guidewire and dilator were removed and a 4-F. PICC line was pl aced through the sheath with the tip at the level of the SVC. The sheath was removed, the catheter w as flushed and sutured into position. The patient was stable throughout the procedure and remained s table upon discharge from the Department of Radiology. The vein puncture was patent under ultrasound. A gilmore scale image was obtained to document patency of the vein punctured. All elements of the maximal barrier technique were utilized. FLUOROSCOPY TIME: 0.7 minutes and 1 images submitted IMPRESSION: Successful PICC line placement under ultrasound and fluoroscopic guidance.
== END 2021-10-17 16:50 | disposition home or self-care (01) | DRG 603 ==
LOC: EC 20:08 → 5NMEDONC 23:33
PROVIDERS: ADMIT Internal Medicine; ATTEND Internal Medicine
PROC: 02HV33Z Insertion of Infusion Device into Superior Vena Cava, Percutaneous Approach (ICD-10-PCS; principal; 2021-10-17 07:30)
DX: L02.11 Cutaneous abscess of neck (principal); L02.811 Cutaneous abscess of head [any part, except face]; E72.12 Methylenetetrahydrofolate reductase deficiency; L03.221 Cellulitis of neck; F79 Unspecified intellectual disabilities; S09.90XA Unspecified injury of head, initial encounter; Y09 Assault by unspecified means; F17.290 Nicotine dependence, other tobacco product, uncomplicated; M77.01 Medial epicondylitis, right elbow; Q99.8 Other specified chromosome abnormalities; M15.9 Polyosteoarthritis, unspecified; M54.9 Dorsalgia, unspecified; K21.9 Gastro-esophageal reflux disease without esophagitis; H54.61 Unqualified visual loss, right eye, normal vision left eye; Z28.21 Immunization not carried out because of patient refusal; F32.A Depression, unspecified; G40.909 Epilepsy, unspecified, not intractable, without status epilepticus; J45.909 Unspecified asthma, uncomplicated; Z79.82 Long term (current) use of aspirin; Z79.899 Other long term (current) drug therapy; Z82.49 Family history of ischemic heart disease and other diseases of the circulatory system; Z82.5 Family history of asthma and other chronic lower respiratory diseases; Z83.3 Family history of diabetes mellitus; Z86.14 Personal history of Methicillin resistant Staphylococcus aureus infection; Z28.310 Unvaccinated for COVID-19; Z88.1 Allergy status to other antibiotic agents; Z88.0 Allergy status to penicillin; Z88.2 Allergy status to sulfonamides; Z91.041 Radiographic dye allergy status; Z91.040 Latex allergy status; Z82.61 Family history of arthritis
CPT/HCPCS: 36573; 70450; 72125; 80053; 80202; 82565; 85025; 87040; 87070; 87077; 87186; 87205; 99285

== ENCOUNTER → 2022-03-24 | Outpatient (CLI) | payer MEDICARE, OTHER ==
--- NOTE | 2022-03-24 11:35 | XR ---
EXAMINATION TYPE: XR lumbosacral spine min 4V DATE OF EXAM: 03/24/2022 10:40 AM INDICATION: Patient age:Female; 41 years old; Reason for study: M54.50 Low back pain; [facility]. COMPARISON: CT abdomen pelvis 05/06/2021, CT lumbar spine 06/25/2015 TECHNIQUE: Frontal, lateral , bilateral oblique and coned in L5-S1 lateral views of the spine. FINDINGS: There are 5 lumbar type vertebral bodies identified. No evidence of any acute osseous patho logy. No evidence of loss of vertebral body height is seen. There is normal alignment of the lumbar vertebral bodies. Minimal disc space narrowing with endplate sclerosis at L1-L2 and L5-S1. Surgical c lips in the right upper quadrant. IMPRESSION: 1. No acute process. 2. Mild multilevel degenerative disc disease.
== END | disposition home or self-care (01) ==
LOC: RADXRMAIN 10:22
PROVIDERS: ATTEND Internal Medicine
DX: M51.37 Other intervertebral disc degeneration, lumbosacral region (principal)
CPT/HCPCS: 72110

== ENCOUNTER → 2022-05-07 | Outpatient (CLI) | payer MEDICARE, OTHER ==
--- NOTE | 2022-05-08 07:03 | US ---
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 Enlarged. GLAND SIZE: Right Lobe: 6.1 x 2.4 x 3.5 cm, previously 6.5 x 2.3 x 2.5 cm. Overall Parenchyma: heterogenous Left Lobe: 6.6 x 2.6 x 3.6 cm, previously 6.6 x 2.0 x 2.1 cm. Overall Parenchyma: heterogeneous Isthmus Thickness: .8 cm NODULES RIGHT: # of nodules measured on right: 0 LEFT: # of nodules measured on left: 0 ISTHMUS: # of nodules measured in the isthmus: 0 Bilateral neck scanned, no evidence of lymphadenopathy. IMPRESSION: Enlarged heterogenous thyroid gland without discrete nodule.
== END | disposition home or self-care (01) ==
LOC: RADUSWWP 16:12
PROVIDERS: ATTEND Internal Medicine Endocrinology, Diabetes & Metabolism
DX: E04.9 Nontoxic goiter, unspecified (principal); E05.90 Thyrotoxicosis, unspecified without thyrotoxic crisis or storm
CPT/HCPCS: 76536

== ENCOUNTER → 2022-05-13 | Day surgery (SDC) | payer MEDICARE, OTHER | LOC: CATHCVL 10:40 | PROVIDERS: ATTEND Internal Medicine Infectious Disease | DX: L66.2 Folliculitis decalvans (principal) | CPT/HCPCS: 36410; 76937; C1751 ==

== ENCOUNTER 2022-11-18 11:14 | Emergency (ER) | payer MEDICARE, OTHER ==
--- NOTE | 2022-11-18 11:50 | XR ---
EXAMINATION TYPE: XR chest 2V DATE OF EXAM: 11/18/2022 11:42 AM COMPARISON: Chest radiographs from 04/22/2021 TECHNIQUE: XR chest 2V Frontal and lateral views of the chest. CLINICAL INDICATION:Female, 42 years old with history of cough productive cough +sob; FINDINGS: Lungs/Pleura: There is no evidence of pleural effusion, focal consolidation, or pneumothorax. Pulmonary vascularity: Unremarkable. Heart/mediastinum: Cardiomediastinal silhouette is unremarkable. Musculoskeletal: No acute osseous pathology. Other findings: Cholecystectomy clips in the right upper quadrant. IMPRESSION: No acute cardiopulmonary disease/process.
--- NOTE | 2022-11-18 13:05 | ED ---
General Adult HPI - General Chief complaint: Upper Respiratory Infection Stated complaint: URI Time Seen by Provider: 11/18/22 12:00 Source: patient, family, RN notes reviewed, old records reviewed Mode of arrival: ambulatory Limitations: no limitations - History of Present Illness Initial comments: This is a 42-year-old female who is developmentally delayed she comes in with her mother mother gives all the history. Mom states she's been coughing for about 4 days and coughing up quite a bit of sputum. Patient has had no difficulty breathing and no fevers or chills. Patient has had no chest pain or palpitations. Patient is not short of breath per patient denies any swelling to legs or calf tenderness. Patient has a little bit of a sore throat. Patient denies any headache patient denies numbness weakness. Patient denies any abdominal pain patient denies nausea vomiting diarrhea. - Related Data Home Medications Medication Instructions Recorded Confirmed Pantoprazole [Protonix] 40 mg PO DAILY 05/19/16 06/24/22 Topiramate [Topamax] 50 mg PO DAILY 07/03/18 06/24/22 Latanoprost/Pf [Latanoprost 0.005% 1 drop BOTH EYES HS 04/22/21 06/24/22 Eye Drop] traMADol HCl [Ultram] 50 mg PO Q8H PRN 10/13/21 06/24/22 Fenofibrate Nanocrystallized 145 mg PO DAILY 06/24/22 06/24/22 [Fenofibrate] Halobetasol Propionate [Ultravate 1 applic TOPICAL BID 06/24/22 06/24/22 0.05%] Ondansetron [Zofran] 4 mg PO DIRECTED 06/24/22 06/24/22 Topiramate [Topamax] 25 mg PO HS 06/24/22 06/24/22 Allergies Allergy/AdvReac Type Severity Reaction Status Date / Time carbamazepine [From Tegretol] Allergy Intermediate Unknown Verified 01/05/22 17:51 adhesive Allergy Unknown Verified 01/05/22 17:51 amphetamine aspartate Allergy Unknown Verified 01/05/22 17:51 [From Adderall] amphetamine sulfate Allergy Unknown Verified 01/05/22 17:51 [From Adderall] azithromycin Allergy Unknown Verified 01/05/22 17:51 [From Zithromax Z-Tunde] baclofen Allergy Unknown Verified 06/24/22 21:27 banana Allergy Anaphylaxis Verified 01/05/22 17:51 cephalexin monohydrate Allergy Unknown Verified 01/05/22 17:51 [From Keflex] dextroamphetamine saccharate Allergy Unknown Verified 01/05/22 17:51 [From Adderall] dextroamphetamine sulfate Allergy Unknown Verified 01/05/22 17:51 [From Adderall] dicyclomine [From Bentyl] Allergy Unknown Verified 06/24/22 21:27 gabapentin [From Neurontin] Allergy Unknown Verified 06/24/22 21:27 Iodinated Contrast Media Allergy Anaphylaxis Verified 01/05/22 17:51 [Iodinated Contrast Media - IV Dye] ketorolac tromethamine Allergy Rash/Hives Verified 01/05/22 17:51 [From Toradol] kiwi Allergy Anaphylaxis Verified 01/05/22 17:51 latex Allergy Anaphylaxis Verified 01/05/22 17:51 levofloxacin [From Levaquin] Allergy Swelling Verified 01/05/22 17:51 lorazepam [From Ativan] Allergy Unknown Verified 01/05/22 17:51 Melon Allergy Anaphylaxis Verified 01/05/22 17:51 metoclopramide HCl Allergy Unknown Verified 01/05/22 17:51 [From Reglan] nitrofurantoin Allergy Unknown Verified 01/05/22 17:51 [From Macrobid] nitrofurantoin Allergy Unknown Verified 01/05/22 17:51 macrocrystalline [From Macrobid] peanut Allergy Anaphylaxis Verified 01/05/22 17:51 propylthiouracil Allergy Unknown Verified 06/24/22 21:27 Sulfa (Sulfonamide Allergy Unknown Verified 01/05/22 17:51 Antibiotics) venlafaxine [From Effexor] Allergy Unknown Verified 06/24/22 21:27 codeine AdvReac Diarrhea Verified 01/05/22 17:51 doxycycline AdvReac Diarrhea Verified 01/05/22 17:51 methimazole AdvReac Unknown Verified 01/05/22 17:51 Penicillins AdvReac Diarrhea Verified 01/05/22 17:51 prednisone AdvReac Unknown Verified 01/05/22 17:51 avacado Allergy Anaphylaxis Uncoded 01/05/22 17:51 cantalope Allergy Anaphylaxis Uncoded 01/05/22 17:51 TAPE AdvReac Unknown Uncoded 01/05/22 17:51 Review of Systems ROS Statement: Those systems with pertinent positive or pertinent negative responses have been documented in the HPI. ROS Other: All systems not noted in ROS Statement are negative. 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 History of Any Multi-Drug Resistant Organisms: MRSA Date of last positivie culture/infection: 10/17/21 MDRO Source:: Neck Past Surgical History: Cholecystectomy, Hysterectomy, Orthopedic Surgery, Tubal Ligation Additional Past Surgical History / Comment(s): rt elbow orif. debridment frank buttocks d/t spider bite, nasal septal surgery, mediastinoscopy with bx-benign, colonoscopy, laparoscopy with lysis of adhesions. Past Anesthesia/Blood Transfusion Reactions: No Reported Reaction Past Psychological History: Depression Smoking Status: Current every day smoker, Vaper Past Alcohol Use History: None Reported Past Drug Use History: None Reported - Past Family History Father Family Medical History: Coronary Artery Disease (CAD), Diabetes Mellitus, Myocardial Infarction (DC) Additional Family Medical History / Comment(s): Father had a DC at the age of 62 yrs. He has had CABG. Mother Family Medical History: Congestive Heart Failure (CHF), COPD, Osteoarthritis (OA), Rheumatoid Arthritis (RA) Additional Family Medical History / Comment(s): Spondylosis, subclavian bocye with stents. General Exam - General Exam Comments Initial Comments: GENERAL: Patient is well-developed and well-nourished. Patient is nontoxic and well-hydrated and is in no acute distress. ENT: Neck is soft and supple. No significant lymphadenopathy is noted. Oropharynx is clear. Moist mucous membranes. Neck has full range of motion without eliciting any pain. EYES: The sclera were anicteric and conjunctiva were pink and moist. Extraocular movements were intact and pupils were equal round and reactive to light. Eyelids were unremarkable. PULMONARY: Unlabored respirations. Good breath sounds bilaterally. No audible rales rhonchi or wheezing was noted. CARDIOVASCULAR: There is a regular rate and rhythm without any murmurs gallops or rubs. ABDOMEN: Soft and nontender with normal bowel sounds. SKIN: Skin is clear with no lesions or rashes and otherwise unremarkable. NEUROLOGIC: Patient is alert and oriented x3. Cranial nerves II through XII are grossly intact. Motor and sensory are also intact. Normal speech, volume and content. Symmetrical smile. MUSCULOSKELETAL: Normal extremities with adequate strength and full range of motion. LYMPHATICS: No significant lymphadenopathy is noted PSYCHIATRIC: Normal psychiatric evaluation. Limitations: no limitations Course Vital Signs 11/18/22 11:21 Temperature 98.7 F Pulse Rate 72 Respiratory 16 Rate Blood Pressure 116/70 O2 Sat by Pulse 97 Oximetry Medical Decision Making - Medical Decision Making Patient's EKG is interpreted by myself shows a sinus rhythm at 65 bpm SD interval 280 QRS is 90 QT intervals 46 QTC is 418. Patient's EKG shows no ST segment elevation or depression. Was pt. sent in by a medical professional or institution (, PA, LOG STACKER OPERATOR, urgent care, hospital, or alf...) When possible be specific @ -Dr. Burrell sent the patient into the emergency department Did you speak to anyone other than the patient for history (EMS, parent, family, police, friend...)? What history was obtained from this source @ -Mother gave all of the history Did you review nursing and triage notes (agree or disagree)? Why? @ -I reviewed and agree with nursing and triage notes Were old charts reviewed (outside hosp., previous admission, EMS record, old EKG, old radiological studies, urgent care reports/EKG's, alf records)? Report findings @ -I reviewed prior charts on this patient Differential Diagnosis (chest pain, altered mental status, abdominal pain women, abdominal pain men, vaginal bleeding, weakness, fever, dyspnea, syncope, headache, dizziness, GI bleed, back pain, seizure, CVA, palpatations, mental health, musculoskeletal)? @ -COVID, upper respiratory infection, pneumonia, bronchitis, ALLERGIES EKG interpreted by me (3pts min.). @ -As above X-rays interpreted by me (1pt min.). @ -Chest x-ray shows no acute abnormality CT interpreted by me (1pt min.). @ -None done U/S interpreted by me (1pt. min.). @ -None done What testing was considered but not performed or refused? (CT, X-rays, U/S, nicholas bs)? Why? @ -None What meds were considered but not given or refused? Why? @ -None Did you discuss the management of the patient with other professionals (professionals i.e. , PA, LOG STACKER OPERATOR, lab, RT, psych nurse, social director, wash worker, teacher, special officer, case filler)? Give summary @ -No Was smoking cessation discussed for >3mins.? @ -No Was critical care preformed (if so, how long)? @ -No Were there social determinants of health that impacted care today? How? (Homelessness, low income, unemployed, alcoholism, drug addiction, transportation, low edu. Level, literacy, decrease access to med. care, [facility], rehab)? @ -No Was there de-escalation of care discussed even if they declined (Discuss DNR or withdrawal of care, Hospice)? DNR status @ -No What co-morbidities impacted this encounter? (DM, HTN, Smoking, COPD, CAD, Cancer, CVA, ARF, Chemo, Hep., AIDS, mental health diagnosis, sleep apnea, morbid obesity)? @ -None Was patient admitted / discharged? Hospital course, mention meds given and route, prescriptions, significant lab abnormalities, going to OR and other pertinent info. @ -I went back in to see the patient and reviewed the results with the mother and the patient and the patient was in no distress. Undiagnosed new problem with uncertain prognosis? @ -No Drug Therapy requiring intensive monitoring for toxicity (Heparin, Nitro, Insulin, Cardizem)? @ -No Were any procedures done? @ -No Diagnosis/symptom? @ -bronchitis Acute, or Chronic, or Acute on Chronic? @ -Acute Uncomplicated (without systemic symptoms) or Complicated (systemic symptoms)? @ -Uncomplicated Side effects of treatment? @ -No Exacerbation, Progression, or Severe Exacerbation? @ -No Poses a threat to life or bodily function? How? (Chest pain, USA, DC, pneumonia, PE, COPD, DKA, ARF, appy, cholecystitis, CVA, Diverticulitis, Homicidal, Suicidal, threat to staff... and all critical care pts) @ -No - Lab Data Lab Results 11/18/22 Range/Units 11:20 Influenza Type A (PCR) Not Detected (Not Detectd) Influenza Type B (PCR) Not Detected (Not Detectd) RSV (PCR) Not Detected (Not Detectd) SARS-CoV-2 (PCR) Not Detected (Not Detectd) Disposition Clinical Impression: Bronchitis Disposition: HOME SELF-CARE Condition: Good Instructions (If sedation given, give patient instructions): Acute Bronchitis (ED) Is patient prescribed a controlled substance at d/c from ED?: No Referrals: Zabrina Burrell MD [Primary Care Provider] - 1-2 days Time of Disposition: 13:05
[2022-11-18 13:14] VITALS: BP 112/78; PULSE 87; RESP 18; TEMP 98.9
== END 2022-11-18 13:12 | disposition home or self-care (01) ==
LOC: EC 11:14
DX: J40 Bronchitis, not specified as acute or chronic (principal); J44.9 Chronic obstructive pulmonary disease, unspecified; K21.9 Gastro-esophageal reflux disease without esophagitis; G40.909 Epilepsy, unspecified, not intractable, without status epilepticus; F17.290 Nicotine dependence, other tobacco product, uncomplicated; Z20.822 Contact with and (suspected) exposure to COVID-19; Z79.899 Other long term (current) drug therapy; Z88.0 Allergy status to penicillin; Z88.1 Allergy status to other antibiotic agents; Z88.2 Allergy status to sulfonamides; Z88.5 Allergy status to narcotic agent; Z88.8 Allergy status to other drugs, medicaments and biological substances; Z91.040 Latex allergy status; Z91.09 Other allergy status, other than to drugs and biological substances; Z91.018 Allergy to other foods; Z91.041 Radiographic dye allergy status; Z91.010 Allergy to peanuts
CPT/HCPCS: 71046; 87636; 93005; 99284

== ENCOUNTER 2023-04-01 11:57 | Observation (INO) | payer MEDICARE, OTHER ==
--- NOTE | 2023-04-01 12:11 | ED ---
General Adult HPI - General Source: patient Mode of arrival: ambulatory Limitations: no limitations <Rashida Tirado - Last Filed: 04/01/23 13:52> - General Source: RN notes reviewed, old records reviewed <Tyrell Xie - Last Filed: 04/01/23 17:20> - General Stated complaint: dizziness/ Pos Seizures Time Seen by Provider: 04/01/23 12:38 - History of Present Illness Initial comments: Patient is a 43-year-old female presents to the emergency room accompanied by mother with complaints seizures. Patient has had another seizure yesterday while at rehab. Mom believes that they are petit mal seizures. She had seizures years ago however has not had them for a significant amount of years and has been off medications. Patient is in rehab for crack cocaine use. Last used at the beginning of March. Denies any falls or injuries. Denies any pain. She complains of extreme fatigue. Patient also complains of bruising to the right upper tibia that is worsening over the last few months. (Rashida Tirado) This is a 43-year-old female who presents emergency Department complaining that she had 2 seizures yesterday. Patient was court ordered to go to rehab for crack cocaine. Patient was at rehab and mom was told she had 2 brief seizures e alfonso though she hasn't had a seizure in over 20 years according to the mother. Patient is pretty uncooperative at this point mother gives almost all the history. Mother spoke with the primary medical care doctor and was told to come the emergency department. Patient denies any physical complaints currently (Tyrell Xie) - Related Data Home Medications Medication Instructions Recorded Confirmed Pantoprazole [Protonix] 40 mg PO DAILY 05/19/16 06/24/22 Topiramate [Topamax] 50 mg PO DAILY 07/03/18 06/24/22 Latanoprost/Pf [Latanoprost 0.005% 1 drop BOTH EYES HS 04/22/21 06/24/22 Eye Drop] traMADol HCl [Ultram] 50 mg PO Q8H PRN 10/13/21 06/24/22 Fenofibrate Nanocrystallized 145 mg PO DAILY 06/24/22 06/24/22 [Fenofibrate] Halobetasol Propionate [Ultravate 1 applic TOPICAL BID 06/24/22 06/24/22 0.05%] Ondansetron [Zofran] 4 mg PO DIRECTED 06/24/22 06/24/22 Topiramate [Topamax] 25 mg PO HS 06/24/22 06/24/22 Allergies Allergy/AdvReac Type Severity Reaction Status Date / Time carbamazepine [From Tegretol] Allergy Intermediate Unknown Verified 04/01/23 12:10 adhesive Allergy Unknown Verified 04/01/23 12:10 amphetamine aspartate Allergy Unknown Verified 04/01/23 12:10 [From Adderall] amphetamine sulfate Allergy Unknown Verified 04/01/23 12:10 [From Adderall] azithromycin Allergy Unknown Verified 04/01/23 12:10 [From Zithromax Z-Tunde] baclofen Allergy Unknown Verified 04/01/23 12:10 banana Allergy Anaphylaxis Verified 04/01/23 12:10 cephalexin monohydrate Allergy Unknown Verified 04/01/23 12:10 [From Keflex] dextroamphetamine saccharate Allergy Unknown Verified 04/01/23 12:10 [From Adderall] dextroamphetamine sulfate Allergy Unknown Verified 04/01/23 12:10 [From Adderall] dicyclomine [From Bentyl] Allergy Unknown Verified 04/01/23 12:10 gabapentin [From Neurontin] Allergy Unknown Verified 04/01/23 12:10 Iodinated Contrast Media Allergy Anaphylaxis Verified 04/01/23 12:10 [Iodinated Contrast Media - IV Dye] ketorolac tromethamine Allergy Rash/Hives Verified 04/01/23 12:10 [From Toradol] kiwi Allergy Anaphylaxis Verified 04/01/23 12:10 latex Allergy Anaphylaxis Verified 04/01/23 12:10 levofloxacin [From Levaquin] Allergy Swelling Verified 04/01/23 12:10 lorazepam [From Ativan] Allergy Unknown Verified 04/01/23 12:10 Melon Allergy Anaphylaxis Verified 04/01/23 12:10 metoclopramide HCl Allergy Unknown Verified 04/01/23 12:10 [From Reglan] nitrofurantoin Allergy Unknown Verified 04/01/23 12:10 [From Macrobid] nitrofurantoin Allergy Unknown Verified 04/01/23 12:10 macrocrystalline [From Macrobid] peanut Allergy Anaphylaxis Verified 04/01/23 12:10 propylthiouracil Allergy Unknown Verified 04/01/23 12:10 Sulfa (Sulfonamide Allergy Unknown Verified 04/01/23 12:10 Antibiotics) venlafaxine [From Effexor] Allergy Unknown Verified 04/01/23 12:10 codeine AdvReac Diarrhea Verified 04/01/23 12:10 doxycycline AdvReac Diarrhea Verified 04/01/23 12:10 methimazole AdvReac Unknown Verified 04/01/23 12:10 Penicillins AdvReac Diarrhea Verified 04/01/23 12:10 prednisone AdvReac Unknown Verified 04/01/23 12:10 avacado Allergy Anaphylaxis Uncoded 04/01/23 12:10 cantalope Allergy Anaphylaxis Uncoded 04/01/23 12:10 TAPE AdvReac Unknown Uncoded 04/01/23 12:10 Review of Systems ROS Other: All systems not noted in ROS Statement are negative. <Rashida Tirado - Last Filed: 04/01/23 13:52> ROS Other: All systems not noted in ROS Statement are negative. <Tyrell Xie - Last Filed: 04/01/23 17:20> ROS Statement: Those systems with pertinent positive or pertinent negative responses have been documented in the HPI. 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 History of Any Multi-Drug Resistant Organisms: MRSA Date of last positivie culture/infection: 10/17/21 MDRO Source:: Neck Past Surgical History: Cholecystectomy, Hysterectomy, Orthopedic Surgery, Tubal Ligation Additional Past Surgical History / Comment(s): rt elbow orif. debridment frank buttocks d/t spider bite, nasal septal surgery, mediastinoscopy with bx-benign, colonoscopy, laparoscopy with lysis of adhesions. Past Anesthesia/Blood Transfusion Reactions: No Reported Reaction Past Psychological History: Depression Smoking Status: Current every day smoker, Vaper Past Alcohol Use History: None Reported Past Drug Use History: None Reported - Past Family History Father Family Medical History: Coronary Artery Disease (CAD), Diabetes Mellitus, Myocardial Infarction (PA) Additional Family Medical History / Comment(s): Father had a PA at the age of 62 yrs. He has had CABG. Mother Family Medical History: Congestive Heart Failure (CHF), COPD, Osteoarthritis (OA), Rheumatoid Arthritis (RA) Additional Family Medical History / Comment(s): Spondylosis, subclavian boyce with stents. <Stewart Tiradon - Last Filed: 04/01/23 13:52> General Exam Limitations: no limitations <Rashida Tirado - Last Filed: 04/01/23 13:52> <Tyrell Xie - Last Filed: 04/01/23 17:20> - General Exam Comments Initial Comments: Visual Physical Exam Vital signs reviewed General: Well-appearing, nontoxic, no acute distress. Head: Normocephalic, atraumatic Eyes: PERRLA, EOMI ENT: Airway patent Chest: Nonlabored breathing Skin: No visual rash, normal skin tone Neuro: Alert and oriented 3 Musculoskeletal: Ecchymosis to the proximal tibia with no significant pain. No erythema or signs of a septic joint. (CandidaRashida) GENERAL: Patient is well-developed and well-nourished. Patient is nontoxic and well- hydrated and is in no acute distress. ENT: Neck is soft and supple. No significant lymphadenopathy is noted. Oropharynx is clear. Moist mucous membranes. Neck has full range of motion without eliciting any pain. EYES: The sclera were anicteric and conjunctiva were pink and moist. Extraocular movements were intact and pupils were equal round and reactive to light. Eyelids were unremarkable. PULMONARY: Unlabored respirations. Good breath sounds bilaterally. No audible rales rhonchi or wheezing was noted. CARDIOVASCULAR: There is a regular rate and rhythm without any murmurs gallops or rubs. ABDOME Soft and nontender with normal bowel sounds. No palpable organomegaly was noted. There is no palpable pulsatile mass SKIN: Skin is clear with no lesions or rashes and otherwise unremarkable. NEUROLOGIC: Patient is alert and oriented x3. Cranial nerves II through XII are grossly intact. Motor and sensory are also intact. Normal speech, volume and content. Symmetrical smile. MUSCULOSKELETAL: Normal extremities with adequate strength and full range of motion. No lower extremity swelling or edema. No calf tenderness. LYMPHATICS: No significant lymphadenopathy is noted PSYCHIATRIC: Normal psychiatric evaluation. (Tyrell Xie) Course Vital Signs 04/01/23 04/01/23 12:03 17:07 Temperature 97.6 F Pulse Rate 80 71 Respiratory 18 20 Rate Blood Pressure 116/74 110/74 O2 Sat by Pulse 100 100 Oximetry Medical Decision Making - Lab Data Result diagrams: 04/01/23 12:38 <Rashida Tirado - Last Filed: 04/01/23 13:52> - Lab Data Result diagrams: 04/01/23 12:38 04/01/23 14:40 <Tyrell Xie - Last Filed: 04/01/23 17:20> - Medical Decision Making Quick note portion completed by myself, electronically signed TIMOTHY Murdock. (Rashida Tirado) EKG was interpreted by myself. EKG shows a sinus rhythm at 75 bpm IN interval 275 QRSs 85 Q-T intervals 31 QTC is 49. Patient's EKG shows no ST segment elevation or depression. Was pt. sent in by a medical professional or institution (, PA, CALL CENTER AGENT, urgent care, hospital, or detention...) When possible be specific @ -Sent in by the primary medical care doctor Did you speak to anyone other than the patient for history (EMS, parent, family, police, friend...)? What history was obtained from this source @ -Mother gave most of the history Did you review nursing and triage notes (agree or disagree)? Why? @ -I reviewed and agree with nursing and triage notes Were old charts reviewed (outside hosp., previous admission, EMS record, old EKG, old radiological studies, urgent care reports/EKG's, detention records)? Report findings @ -Are checked in prior laboratory this patient Differential Diagnosis (chest pain, altered mental status, abdominal pain women, abdominal pain men, vaginal bleeding, weakness, fever, dyspnea, syncope, hea dache, dizziness, GI bleed, back pain, seizure, CVA, palpatations, mental health, musculoskeletal)? @ -Differential Seizure: Recurrent seizure disorder, febrile seizure, alcohol withdrawal, stimulants, meningitis, encephalitis, intercranial hemorrhage, intracranial tumor, stroke, eclampsia, thyrotoxicosis, hypocalcemia, hyponatremia, hypernatremia, hypomagnesemia, psychogenic, this is not meant to be an all-inclusive list. EKG interpreted by me (3pts min.). @ -As above X-rays interpreted by me (1pt min.). @ -None done CT interpreted by me (1pt min.). @ -CT of the brain shows no acute abnormality U/S interpreted by me (1pt. min.). @ -None done What testing was considered but not performed or refused? (CT, X-rays, U/S, labs)? Why? @ -None What meds were considered but not given or refused? Why? @ -None Did you discuss the management of the patient with other professionals (professionals i.e. DrLissette, PA, CALL CENTER AGENT, lab, RT, psych nurse, social work associate, general adjuster, teacher, conservation science officer, disease case manager rn)? Give summary @ -I spoke with Dr. Burrell and he wanted to admit the patient. I spoke with Dr. High and he Was smoking cessation discussed for >3mins.? @ -No Was critical care preformed (if so, how long)? @ -No Were there social determinants of health that impacted care today? How? (Homelessness, low income, unemployed, alcoholism, drug addiction, transportation, low edu. Level, literacy, decrease access to med. care, nursing home, rehab)? @ -No Was there de-escalation of care discussed even if they declined (Discuss DNR or withdrawal of care, Hospice)? DNR status @ -No What co-morbidities impacted this encounter? (DM, HTN, Smoking, COPD, CAD, Cancer, CVA, ARF, Chemo, Hep., AIDS, mental health diagnosis, sleep apnea, morbid obesity)? @ -None Was patient admitted / discharged? Hospital course, mention meds given and route, prescriptions, significant lab abnormalities, going to OR and other pertinent info. @ -Patient was without any seizure activity during the ED stay. Undiagnosed new problem with uncertain prognosis? @ -No Drug Therapy requiring intensive monitoring for toxicity (Heparin, Nitro, Insulin, Cardizem)? @ -No Were any procedures done? @ -No Diagnosis/symptom? @ -Seizure generalized Acute, or Chronic, or Acute on Chronic? @ -Acute Uncomplicated (without systemic symptoms) or Complicated (systemic symptoms)? @ -Complicated (Tyrell Xie) - Lab Data Lab Results 04/01/23 04/01/23 04/01/23 Range/Units 12:38 12:38 12:38 WBC 6.2 (3.8-10.6) k/uL RBC 4.59 (3.80-5.40) m/uL Hgb 14.7 (11.4-16.0) gm/dL Hct 44.0 (34.0-46.0) % MCV 95.9 (80.0-100.0) fL MCH 32.0 (25.0-35.0) pg MCHC 33.3 (31.0-37.0) g/dL RDW 13.1 (11.5-15.5) % Plt Count 225 (150-450) k/uL MPV 7.4 Neutrophils % 52 % Lymphocytes % 38 % Monocytes % 5 % Eosinophils % 3 % Basophils % 1 % Neutrophils # 3.2 (1.3-7.7) k/uL Lymphocytes # 2.3 (1.0-4.8) k/uL Monocytes # 0.3 (0-1.0) k/uL Eosinophils # 0.2 (0-0.7) k/uL Basophils # 0.0 (0-0.2) k/uL Sodium (137-145) mmol/L Potassium (3.5-5.1) mmol/L Chloride (98-107) mmol/L Carbon Dioxide (22-30) mmol/L Anion Gap mmol/L BUN (7-17) mg/dL Creatinine (0.52-1.04) mg/dL Est GFR (CKD-EPI)AfAm (>60 ml/min/1.73 sqM) Est GFR (CKD-EPI)NonAf (>60 ml/min/1.73 sqM) Glucose (74-99) mg/dL Calcium (8.4-10.2) mg/dL Total Bilirubin (0.2-1.3) mg/dL AST (14-36) U/L ALT (4-34) U/L Alkaline Phosphatase (38-126) U/L Total Protein (6.3-8.2) g/dL Albumin (3.5-5.0) g/dL HCG, Quant mIU/mL Urine Color Yellow Urine Appearance Clear (Clear) Urine pH 6.5 (5.0-8.0) Ur Specific [place] 1.025 (1.001-1.035) Urine Protein Negative (Negative) Urine Glucose (UA) Negative (Negative) Urine Ketones Negative (Negative) Urine Blood Trace H (Negative) Urine Nitrite Negative (Negative) Urine Bilirubin Negative (Negative) Urine Urobilinogen 0.2 (<2.0) mg/dL Ur Leukocyte Esterase Moderate H (Negative) Urine RBC 2 (0-5) /hpf Urine WBC 6 H (0-5) /hpf Ur Squamous Epith Cells 9 H (0-4) /hpf Urine Bacteria Occasional H (None) /hpf Urine Mucus Rare H (None) /hpf Urine Opiates Screen Not Detected (NotDetected) Ur Oxycodone Screen Not Detected (NotDetected) Urine Methadone Screen Not Detected (NotDetected) Ur Propoxyphene Screen Not Detected (NotDetected) Ur Barbiturates Screen Not Detected (NotDetected) U Tricyclic Antidepress Not Detected (NotDetected) Ur Phencyclidine Scrn Not Detected (NotDetected) Ur Amphetamines Screen Not Detected (NotDetected) U Methamphetamines Scrn Not Detected (NotDetected) U Benzodiazepines Scrn Not Detected (NotDetected) Urine Cocaine Screen Not Detected (NotDetected) U Marijuana (THC) Screen Not Detected (NotDetected) 04/01/23 Range/Units 14:40 WBC (3.8-10.6) k/uL RBC (3.80-5.40) m/uL Hgb (11.4-16.0) gm/dL Hct (34.0-46.0) % MCV (80.0-100.0) fL MCH (25.0-35.0) pg MCHC (31.0-37.0) g/dL RDW (11.5-15.5) % Plt Count (150-450) k/uL MPV Neutrophils % % Lymphocytes % % Monocytes % % Eosinophils % % Basophils % % Neutrophils # (1.3-7.7) k/uL Lymphocytes # (1.0-4.8) k/uL Monocytes # (0-1.0) k/uL Eosinophils # (0-0.7) k/uL Basophils # (0-0.2) k/uL Sodium 143 (137-145) mmol/L Potassium 4.0 (3.5-5.1) mmol/L Chloride 108 H (98-107) mmol/L Carbon Dioxide 26 (22-30) mmol/L Anion Gap 9 mmol/L BUN 20 H (7-17) mg/dL Creatinine 0.74 (0.52-1.04) mg/dL Est GFR (CKD-EPI)AfAm >90 (>60 ml/min/1.73 sqM) Est GFR (CKD-EPI)NonAf >90 (>60 ml/min/1.73 sqM) Glucose 103 H (74-99) mg/dL Calcium 9.4 (8.4-10.2) mg/dL Total Bilirubin 0.4 (0.2-1.3) mg/dL AST 37 H (14-36) U/L ALT 40 H (4-34) U/L Alkaline Phosphatase 89 (38-126) U/L Total Protein 7.3 (6.3-8.2) g/dL Albumin 3.9 (3.5-5.0) g/dL HCG, Quant <2.4 mIU/mL Urine Color Urine Appearance (Clear) Urine pH (5.0-8.0) Ur Specific [place] (1.001-1.035) Urine Protein (Negative) Urine Glucose (UA) (Negative) Urine Ketones (Negative) Urine Blood (Negative) Urine Nitrite (Negative) Urine Bilirubin (Negative) Urine Urobilinogen (<2.0) mg/dL Ur Leukocyte Esterase (Negative) Urine RBC (0-5) /hpf Urine WBC (0-5) /hpf Ur Squamous Epith Cells (0-4) /hpf Urine Bacteria (None) /hpf Urine Mucus (None) /hpf Urine Opiates Screen (NotDetected) Ur Oxycodone Screen (NotDetected) Urine Methadone Screen (NotDetected) Ur Propoxyphene Screen (NotDetected) Ur Barbiturates Screen (NotDetected) U Tricyclic Antidepress (NotDetected) Ur Phencyclidine Scrn (NotDetected) Ur Amphetamines Screen (NotDetected) U Methamphetamines Scrn (NotDetected) U Benzodiazepines Scrn (NotDetected) Urine Cocaine Screen (NotDetected) U Marijuana (THC) Screen (NotDetected) Disposition <Mascarin,Rashida - Last Filed: 04/01/23 13:52> Time of Disposition: 17:20 <Tyrell Xie - Last Filed: 04/01/23 17:20> Clinical Impression: Generalized seizure Disposition: ADMITTED IP TO THIS [facility] Instructions (If sedation given, give patient instructions): Seizure/Epilepsy Discharge Instructions & Follow-Up Referrals: Zabrina Burrell MD [Primary Care Provider] - 1-2 days
[2023-04-01 13:03] LABS: Basophils % (A) 1 %; Eosinophils # (A) 0.2 k/uL (0-0.7); Eosinophils % (A) 3 %; HGB 14.7 gm/dL (11.4-16.0); Lymphocytes # (A) 2.3 k/uL (1.0-4.8); Lymphocytes % (A) 38 %; MCHC 33.3 g/dL (31.0-37.0); MCV 95.9 fL (80.0-100.0); Mean Platelet Volume 7.4; Monocytes # (A) 0.3 k/uL (0-1.0); Monocytes % (A) 5 %; Neutrophils # (A) 3.2 k/uL (1.3-7.7); Neutrophils % (A) 52 %; Platelet Count 225 k/uL (150-450); RBC 4.59 m/uL (3.80-5.40); RDW 13.1 % (11.5-15.5); WBC 6.2 k/uL (3.8-10.6)
--- NOTE | 2023-04-01 13:44 | CT ---
EXAMINATION TYPE: CT brain wo con CT DLP: 1132.4 mGycm, Automated exposure control for dose reduction was used. DATE OF EXAM: 04/01/2023 1:24 PM COMPARISON: 10/12/2021. CLINICAL INDICATION:Female, 43 years old with history of seizures, History of seizure x 2 yesterday TECHNIQUE: Brain: Axial CT images of the brain were obtained with coronal and sagittal reformats created and rev iewed. Contrast used: None. Oral contrast used: None. FINDINGS: Brain: Extra-axial spaces: No abnormal extra-axial fluid collections. Ventricular system: Within normal limits Cerebral parenchyma: No acute intraparenchymal hemorrhage or mass effect. The gilmore-white junction is well differentiated. Cerebellum: Unremarkable. Mass effect: No evidence of midline shift. Intracranial vasculature: unremarkable Soft tissues: Normal. Calvarium/osseous structures: No depressed skull fracture. Paranasal sinuses and mastoid air cells: Mild scattered paranasal sinus disease. Visualized orbits: Orbital contents are intact. IMPRESSION: No acute intracranial process.
[2023-04-01 14:00] LABS: Color,Urine Yellow
[2023-04-01 14:01] LABS: Appearance,Urine Clear (Clear); Bilirubin,Urine Negative (Negative); Blood,Urine Trace (Negative); Glucose,Urine (UA) Negative (Negative); Ketones,Urine Negative (Negative); Leukocyte Esterase,Urine Moderate (Negative); Nitrite,Urine Negative (Negative); PH, Urine 6.5 (5.0-8.0); Protein,Urine Negative (Negative); Specific Gravity,Urine 1.025 (1.001-1.035); Urobilinogen,Urine 0.2 mg/dL (<2.0)
[2023-04-01 14:02] LABS: Bacteria,Urine Occasional /hpf; Mucus,Urine Rare /hpf; RBC,Urine 2 /hpf (0-5); Squamous Epithelial Cell,Urine 9 /hpf (0-4); WBC,Urine 6 /hpf (0-5)
[2023-04-01 14:05] LABS: Amphetamine Screen,Urine Not Detected (NotDetected); Barbiturate Screen,Urine Not Detected (NotDetected); Benzodiazepines Screen,Urine Not Detected (NotDetected); Cocaine Screen,Urine Not Detected (NotDetected); Methadone Screen, Urine Not Detected (NotDetected); Opiate Screen,Urine Not Detected (NotDetected); Oxycodone Screen, Urine Not Detected (NotDetected); Phencyclidine Screen,Urine Not Detected (NotDetected); Tricyclic Antidepressant,Urine Not Detected (NotDetected); Urn Cannabinoid Scrn Not Detected (NotDetected)
--- NOTE | 2023-04-01 14:24 | US ---
EXAMINATION TYPE: US venous doppler duplex LE RT DATE OF EXAM: 04/01/2023 2:13 PM COMPARISON: NONE CLINICAL INDICATION: Female, 43 years old with history of Worsening ecchymosis and swelling; RT leg s welling, spider veins SIDE PERFORMED: Right TECHNIQUE: The lower extremity deep venous system is examined utilizing real time linear array sonog ed with graded compression, doppler sonography and color-flow sonography. VESSELS IMAGED: Common Femoral Vein Deep Femoral Vein Greater Saphenous Vein * Femoral Vein Popliteal Vein Small Saphenous Vein * Proximal Calf Veins (* superficial vessels) Right Leg: Negative for DVT IMPRESSION: Grayscale, color doppler, spectral doppler imaging performed of the deep veins of the lo wer extremities. There is normal flow, compressibility, vascular waveforms.
[2023-04-01 15:34] LABS: ALT 40 U/L (4-34); AST 37 U/L (14-36); African American GFR (CKD) >90 (>60 ml/min/1.73 sqM); Albumin 3.9 g/dL (3.5-5.0); Alkaline Phosphatase 89 U/L (38-126); Anion Gap 9 mmol/L; Blood Urea Nitrogen 20 mg/dL (7-17); Calcium 9.4 mg/dL (8.4-10.2); Carbon Dioxide 26 mmol/L (22-30); Chloride 108 mmol/L (98-107); Glucose 103 mg/dL (74-99); Non-African American GFR(CKD) >90 (>60 ml/min/1.73 sqM); Sodium 143 mmol/L (137-145); Total Bilirubin 0.4 mg/dL (0.2-1.3); Total Protein 7.3 g/dL (6.3-8.2)
[2023-04-01 16:08] LABS: HCG,Quantitative Serum <2.4 mIU/mL
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
[2023-04-02] MEDS ORDERED: ALBUTEROL NEBULIZED 2.5 MG/3 ML INHALATION PRN (02:28)
[2023-04-02] MEDS ORDERED: traMADol 50 MG TAB PO PRN (02:28)
[2023-04-02] MEDS ORDERED: PANTOPRAZOLE 40 MG TABLET PO SCH (07:30)
[2023-04-02] MEDS ORDERED: HYDROCORTISONE 1% CREAM 30 GM TUBE TOPICAL SCH (09:00)
--- NOTE | 2023-04-02 09:59 | P.HPIM ---
History of Present Illness H&P Date: 04/02/23 Chief Complaint: Seizures. This is a 43-year-old female patient who presented with concerns of seizures. According patient's mother at bedside patient had just entered a rehab program for cocaine when she was notified by facility that patient was having seizures. Patient has a history of seizures but however had not had them for a significant amount of time and has been off all medications. Additional medical history includes asthma, COPD, GERD, OA, chromosome disorder, developmental disability, chronic back pain. Head CT was completed showing no acute intracranial process. Venous Doppler completed showing negative for DVT. EKG showing sinus rhythm. Drug screen negative, heart rate 79, respiratory rate 16, blood pressure 136/76 with pulse ox 100% on room air. Patient has been evaluated by neurology services. He prolonged EEG has been ordered hold off on antibiotic medication for now per neurology services. At this time patient is alert and oriented 4 resting comfortably in bed currently getting prolonged EEG complaining of some back pain. Home meds have been resumed. Patient denies chest pain or shortness of breath. Patient denies nausea vomiting or diarrhea. Patient denies any urinary burning or frequency Review of Systems Please refer to HPI otherwise unremarkable Past Medical History Past Medical History: Asthma, COPD, Eye Disorder, GERD/Reflux, Osteoarthritis (OA), Pneumonia, Seizure Disorder Additional Past Medical History / Comment(s): 4X CHROMOSOME DISORDER, (MTHFR-GENE)-METHYLENETETRAHYDROFOLATE REDUCTASE with developemental disablil ity, pneumonias, last seizure in 2004, current R flank lump, hiatal hernia, epicondylitis R elbow with injections q 3 months, arthritis multiple joints, DDD, back pain, R eye limited vision and wanders, hypoglycemia. History of Any Multi-Drug Resistant Organisms: MRSA Date of last positivie culture/infection: 10/17/21 MDRO Source:: Neck Past Surgical History: Cholecystectomy, Hysterectomy, Orthopedic Surgery, Tubal Ligation Additional Past Surgical History / Comment(s): rt elbow orif. debridment frank buttocks d/t spider bite, nasal septal surgery, mediastinoscopy with bx-benign, colonoscopy, laparoscopy with lysis of adhesions. Past Anesthesia/Blood Transfusion Reactions: No Reported Reaction Past Psychological History: Depression Additional Psychological History / Comment(s): Pt resides with her parents. She has developmental diability. She performs her own ADLs. She uses no assistive device. She does not drive. Mother takes her to [employer]. There is a pet cat in the home. No other animal exposures. No tobacco use. No alcohol use. No travel Smoking Status: Current every day smoker Past Alcohol Use History: None Reported Additional Past Alcohol Use History / Comment(s): Pt started smoking in 2001. Past Drug Use History: Cocaine Additional Drug Use History / Comment(s): last use of crack cocaine was February 19/2023. court ordered to rehab [facility] in [place], [place]. [phone]. has a chief digital media officer Nitesh Rose. - Past Family History Father Family Medical History: Coronary Artery Disease (CAD), Diabetes Mellitus, Myocardial Infarction (NV) Additional Family Medical History / Comment(s): Father had a NV at the age of 62 yrs. He has had CABG. Mother Family Medical History: Congestive Heart Failure (CHF), COPD, Osteoarthritis (OA), Rheumatoid Arthritis (RA) Additional Family Medical History / Comment(s): Spondylosis, subclavian boyce with stents. Medications and Allergies Home Medications Medication Instructions Recorded Confirmed Type Pantoprazole [Protonix] 40 mg PO DAILY 05/19/16 04/01/23 History Latanoprost/Pf [Latanoprost 0.005% 1 drop BOTH EYES HS 04/22/21 04/01/23 History Eye Drop] traMADol HCl [Ultram] 50 mg PO Q8H PRN 10/13/21 04/01/23 History Halobetasol Propionate [Ultravate 1 applic TOPICAL BID 06/24/22 04/01/23 History 0.05%] Topiramate [Topamax] 50 mg PO HS 06/24/22 04/01/23 History Albuterol Sulfate [Albuterol 1 - 2 puff PO RT-Q6H PRN 04/01/23 04/01/23 History Sulfate Hfa] Hydrocortisone Cream 1 applic TOPICAL BID 04/01/23 04/01/23 History [Hydrocortisone 2.5% Cream] Allergies Allergy/AdvReac Type Severity Reaction Status Date / Time carbamazepine [From Tegretol] Allergy Intermediate Unknown Verified 04/01/23 18:03 adhesive Allergy Unknown Verified 04/01/23 18:03 amphetamine aspartate Allergy Unknown Verified 04/01/23 18:03 [From Adderall] amphetamine sulfate Allergy Unknown Verified 04/01/23 18:03 [From Adderall] azithromycin Allergy Unknown Verified 04/01/23 18:03 [From Zithromax Z-Tunde] baclofen Allergy Unknown Verified 04/01/23 18:03 banana Allergy Anaphylaxis Verified 04/01/23 18:03 cephalexin monohydrate Allergy Unknown Verified 04/01/23 18:03 [From Keflex] dextroamphetamine saccharate Allergy Unknown Verified 04/01/23 18:03 [From Adderall] dextroamphetamine sulfate Allergy Unknown Verified 04/01/23 18:03 [From Adderall] dicyclomine [From Bentyl] Allergy Unknown Verified 04/01/23 18:03 gabapentin [From Neurontin] Allergy Unknown Verified 04/01/23 18:03 Iodinated Contrast Media Allergy Anaphylaxis Verified 04/01/23 18:03 [Iodinated Contrast Media - IV Dye] ketorolac tromethamine Allergy Rash/Hives Verified 04/01/23 18:03 [From Toradol] kiwi Allergy Anaphylaxis Verified 04/01/23 18:03 latex Allergy Anaphylaxis Verified 04/01/23 18:03 levofloxacin [From Levaquin] Allergy Swelling Verified 04/01/23 18:03 lorazepam [From Ativan] Allergy Unknown Verified 04/01/23 18:03 Melon Allergy Anaphylaxis Verified 04/01/23 18:03 metoclopramide HCl Allergy Unknown Verified 04/01/23 18:03 [From Reglan] nitrofurantoin Allergy Unknown Verified 04/01/23 18:03 [From Macrobid] nitrofurantoin Allergy Unknown Verified 04/01/23 18:03 macrocrystalline [From Macrobid] peanut Allergy Anaphylaxis Verified 04/01/23 18:03 propylthiouracil Allergy Unknown Verified 04/01/23 18:03 Sulfa (Sulfonamide Allergy Unknown Verified 04/01/23 18:03 Antibiotics) venlafaxine [From Effexor] Allergy Unknown Verified 04/01/23 18:03 codeine AdvReac Diarrhea Verified 04/01/23 18:03 doxycycline AdvReac Diarrhea Verified 04/01/23 18:03 methimazole AdvReac Unknown Verified 04/01/23 18:03 Penicillins AdvReac Diarrhea Verified 04/01/23 18:03 prednisone AdvReac Unknown Verified 04/01/23 18:03 avacado Allergy Anaphylaxis Uncoded 04/01/23 18:03 cantalope Allergy Anaphylaxis Uncoded 04/01/23 18:03 TAPE AdvReac Unknown Uncoded 04/01/23 18:03 Physical Exam Vitals: Vital Signs Temp Pulse Pulse Resp BP BP Pulse Ox 04/02/23 07:00 97.6 F 67 15 92/55 98 04/02/23 01:10 97.7 F 76 16 108/66 97 04/01/23 22:29 97.8 F 79 16 136/76 100 04/01/23 21:59 83 17 106/63 98 04/01/23 17:07 71 20 110/74 100 04/01/23 12:03 97.6 F 80 18 116/74 100 Intake and Output 04/01/23 04/02/23 04/02/23 22:59 06:59 14:59 Intake Total 240 Balance 240 Intake: Oral 240 Other: # Voids 1 1 Weight 72.575 kg Head normocephalic Neck supple Lungs clear to auscultation bilaterally no wheezing or crackles Heart regular rate and rhythm S1-S2, no rub or gallop Abdomen is soft nontender nondistended positive bowel sounds no hepatospl enomegaly Extremities no edema Neuro alert and orientated to 3 Results CBC & Chem 7: 04/01/23 12:38 04/01/23 14:40 Labs: Abnormal Lab Results - Last 24 Hours (Table) 04/01/23 04/01/23 Range/Units 12:38 14:40 Chloride 108 H (98-107) mmol/L BUN 20 H (7-17) mg/dL Glucose 103 H (74-99) mg/dL AST 37 H (14-36) U/L ALT 40 H (4-34) U/L Urine Blood Trace H (Negative) Ur Leukocyte Esterase Moderate H (Negative) Urine WBC 6 H (0-5) /hpf Ur Squamous Epith Cells 9 H (0-4) /hpf Urine Bacteria Occasional H (None) /hpf Urine Mucus Rare H (None) /hpf Thrombosis Risk Factor Assmnt - Choose All That Apply Any of the Below Risk Factors Present?: Yes Each Factor Represents 1 point: Abnormal pulmonary function (COPD), Age 41-60 years Other Risk Factors: No Other congenital or acquired thrombophilia - If yes, enter type in comment: No Thrombosis Risk Factor Assessment Total Risk Factor Score: 2 Thrombosis Risk Factor Assessment Level: Low Risk Assessment and Plan Assessment: 1. Seizure 2. History of seizure disorder since age 3. Patient has not had any seizure activity in 15 years not currently on any medication 3. Cocaine use patient was in rehab when seizure activity occurred 4. 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 Polysubstance abuse 6. History of asthma 7. History of COPD 8. History of right epicondylitis 9. History of right amblyopia DVT prophylaxis Lovenox. GI prophylaxis Protonix Patient maintained and seizure precaution Neurology services consulted Prolonged EEG has been ordered Repeat labs ordered Case management consulted for discharge planning Time with Patient: Greater than 30 (Greater than 60% of the total time spent in counseling and coordination of care)
--- NOTE | 2023-04-02 12:35 | EEG ---
ELECTROENCEPHALOGRAM REPORT PREAMBLE: This is a 43-year-old female with seizure disorder, currently not on any seizure medication. Patient has some breakthrough seizure. EEG FINDINGS: This is a prolonged EEG performed for 1 hour. The recording start time is 8:40 a.m. on 04/02/2023, recording end time 9:40 a.m. on 04/02/2023. This is a 21-channel digital EEG recorded with video component, utilizing 10/20 international system with referential and bipolar montages. Background consists of well developed, well regulated moderate voltage activity in 9-10 hertz alpha. Background is posterior dominant and reactive to eye opening and closing. Photic driving response was not clearly seen. There were paroxysmal episodes of high amplitude, frontally, maximal, generalized delta slowing in 3-4 hertz, lasting for about 1-2 seconds. During these events, the eyes were closed, but with these events, there was slight blinking noticed during some of these events. Drowsiness was seen with appearance of bilaterally symmetric theta frequency rhythm. Some stage 2 sleep was seen with presence of sleep spindles. Hyperventilation was not done. No electrographic seizure was recorded. IMPRESSION: This is an abnormal EEG due to presence of intermittent spells of paroxysmal high- amplitude 3 to 4 hertz delta slowing, frontally maximal, lasting for about 1-2 seconds. Clinically, some of these events were associated with rapid eye blinking. This may suggest tendency for absence seizures. Clinical correlation and prolonged EEG recommended, if clinically indicated. No obvious electrographic seizures were recorded otherwise. MMLELA / EDMONDN: [id number] / TRACY
--- NOTE | 2023-04-02 13:52 | P.DS ---
Providers Date of admission: 04/01/23 17:21 Expected date of discharge: 04/02/23 Attending physician: Zabrina Burrell Consults: 04/01/23 17:21 Consult Physician Urgent Consulting Provider: Angelina Muñoz Consult Reason/Comments: Seizure Do you want consulting provider notified?: Yes Primary care physician: Zabrina Ashanti [facility] Course: Diagnosis on discharge: 1. Seizure 2. History of seizure disorder since age 3. Patient has not had any seizure activity in 15 years not currently on any medication 3. Cocaine use patient was in rehab when seizure activity occurred 4. 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 Polysubstance abuse 6. History of asthma 7. History of COPD 8. History of right epicondylitis 9. History of right amblyopia Hospital course: This is a 43-year-old female patient who presented with concerns of seizures. According patient's mother at bedside patient had just entered a rehab program for cocaine when she was notified by facility that patient was having seizures. Patient has a history of seizures but however had not had them for a significant amount of time and has been off all medications. Additional medical history includes asthma, COPD, GERD, OA, chromosome disorder, developmental disability, chronic back pain. Head CT was completed showing no acute intracranial process. Venous Doppler completed showing negative for DVT. EKG showing sinus rhythm. Drug screen negative, heart rate 79, respiratory rate 16, blood pressure 136/76 with pulse ox 100% on room air. Patient has been evaluated by neurology services. He prolonged EEG has been ordered hold off on antibiotic medication for now per neurology services. At this time patient is alert and oriented 4 resting comfortably in bed currently getting prolonged EEG complaining of some back pain. Home meds have been resumed. Patient denies chest pain or shortness of breath. Patient denies nausea vomiting or diarrhea. Patient denies any urinary burning or frequency On 04/02/2023 Patient was seen and examined on the medical floor, she is alert and oriented 3 in no apparent distress there is no fever or chills no headache or dizziness no chest pain no shortness of breath no cough no nausea or vomiting no abdominal pain no diarrhea and no urinary symptoms. Patient was evaluated by neurology she had a prolonged EEG, recommendation by Dr. High neurologist is to increase Topamax to 50 mg twice daily, patient was sent cleared for discharge and cleared to return to rehab by neurology. Patient was instructed to try to decrease the use of tramadol. Patient was instructed to follow-up with Dr. Mayfield neurologist as outpatient. Plan - Discharge Summary Discharge Rx Participant: No New Discharge Prescriptions: New Topiramate [Topamax] 50 mg PO BID 60 Days #30 tab Continue Pantoprazole [Protonix] 40 mg PO DAILY traMADol HCl [Ultram] 50 mg PO Q8H PRN PRN Reason: Pain Hydrocortisone Cream [Hydrocortisone 2.5% Cream] 1 applic TOPICAL BID Latanoprost/Pf [Latanoprost 0.005% Eye Drop] 1 drop BOTH EYES HS Halobetasol Propionate [Ultravate 0.05%] 1 applic TOPICAL BID Albuterol Sulfate [Albuterol Sulfate Hfa] 1 - 2 puff PO RT-Q6H PRN PRN Reason: Shortness Of Breath Discontinued Topiramate [Topamax] 50 mg PO HS Discharge Medication List Pantoprazole [Protonix] 40 mg PO DAILY 05/19/16 [History] Latanoprost/Pf [Latanoprost 0.005% Eye Drop] 1 drop BOTH EYES HS 04/22/21 [History] traMADol HCl [Ultram] 50 mg PO Q8H PRN 10/13/21 [History] Halobetasol Propionate [Ultravate 0.05%] 1 applic TOPICAL BID 06/24/22 [History] Albuterol Sulfate [Albuterol Sulfate Hfa] 1 - 2 puff PO RT-Q6H PRN 04/01/23 [History] Hydrocortisone Cream [Hydrocortisone 2.5% Cream] 1 applic TOPICAL BID 04/01/23 [History] Topiramate [Topamax] 50 mg PO BID 60 Days #30 tab 04/02/23 [Rx] Follow up Appointment(s)/Referral(s): Zabrina Burrell MD [Primary Care Provider] - 1-2 days Patient Instructions/Handouts: Seizure/Epilepsy Discharge Instructions & Follow-Up
[2023-04-02 14:23] VITALS: BP 109/69; PULSE 71; RESP 16; TEMP 97.9
[2023-04-02] MEDS ORDERED: LATANOPROST 0.005% OPHTH DROPS 2.5 ML BTL BOTH EYES SCH (21:00)
[2023-04-02] MEDS ORDERED: TOPIRAMATE 25 MG TAB PO SCH ×2 (21:00)
[2023-04-03] MEDS ORDERED: ENOXAPARIN 40 MG/0.4 ML SYRINGE SQ SCH (09:00)
--- NOTE | 2023-04-04 17:43 | P.PN ---
Subjective Progress Note Date: 04/02/23 Patient was seen for a follow-up. Patient's mother was also present today. Offers no new complaints. No further seizure-like spells. Patient is sitting comfortably in the bed, wants to go home. Objective - Vital Signs Vital signs: Vital Signs Temp 97.6 F 04/02/23 07:00 Pulse 67 04/02/23 08:34 Resp 15 04/02/23 08:34 BP 92/55 04/02/23 07:00 Pulse Ox 98 04/02/23 07:00 FiO2 Intake & Output 04/01/23 04/02/23 04/02/23 18:59 06:59 18:59 Intake Total 240 Balance 240 Weight 72.575 kg 72.575 kg Intake: Oral 240 Other: Voiding Method Toilet # Voids 1 - Exam Examination essentially unchanged. - Labs CBC & Chem 7: 04/01/23 12:38 04/01/23 14:40 Labs: Abnormal Lab Results - Last 24 Hours (Table) 04/01/23 04/01/23 Range/Units 12:38 14:40 Chloride 108 H (98-107) mmol/L BUN 20 H (7-17) mg/dL Glucose 103 H (74-99) mg/dL AST 37 H (14-36) U/L ALT 40 H (4-34) U/L Urine Blood Trace H (Negative) Ur Leukocyte Esterase Moderate H (Negative) Urine WBC 6 H (0-5) /hpf Ur Squamous Epith Cells 9 H (0-4) /hpf Urine Bacteria Occasional H (None) /hpf Urine Mucus Rare H (None) /hpf Assessment and Plan Assessment: * Long-standing history of seizure disorder since age 3, in remission for last 15 years. However patient does have episodes of blank stare off and on about 3-4 times a week lasting for 1-2 minutes. She is off seizure medications for last 10+ years. Patient had a possible seizure-type spell while in the rehab facility, for which she was transferred to the hospital. * History of 4X-chromosomal disorder with developmental delays * Polysubstance abuse * History of recurrent MRSA infection * Asthma * COPD * History of right epicondylitis, gets injections. 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 Plan: * Prolonged EEG 1 hour performed today was abnormal due to presence of intermittent spells of paroxysmal high amplitude 3-4 Hz delta slowing, frontally maximal, lasting for about 1-2 seconds. Clinically, some of these events were associated with rapid eye blinking. This may suggest tendency for absence seizures, which patient is experiencing. No obvious low traffic seizure was seen otherwise. * Patient takes tramadol every day. Tramadol can lower seizure threshold. I suggested patient to stop taking tramadol, which she declined. She wants to continue taking tramadol as this is the only medication which helps and she is already ALLERGIC to numerous medications. She understands the risks of seizure breakthroughs with tramadol. * Keppra was considered for seizure prophylaxis, but can affect mood problems. Patient is already on Topamax 50 mg once a day. We will increase the dose of Topamax to 50 mg twice a day. * Discussed with patient's mother in detail. * Recommended abstinence from substance use. * Patient is clear to be transferred to rehab facility. Discussed with primary physician in detail. * Recommended no driving for 6 months, climbing ladders, operating dangerous machinery or unsupervised swimming.
== END 2023-04-02 16:00 | disposition home or self-care (01) ==
LOC: EC 11:57 → 6NMEDSUR 17:21
PROVIDERS: ADMIT Internal Medicine; ATTEND Internal Medicine
DX: G40.409 Other generalized epilepsy and epileptic syndromes, not intractable, without status epilepticus (principal); F14.90 Cocaine use, unspecified, uncomplicated; F19.10 Other psychoactive substance abuse, uncomplicated; Q92.9 Trisomy and partial trisomy of autosomes, unspecified; G89.29 Other chronic pain; M54.9 Dorsalgia, unspecified; K21.9 Gastro-esophageal reflux disease without esophagitis; M19.90 Unspecified osteoarthritis, unspecified site; H53.001 Unspecified amblyopia, right eye; Z87.01 Personal history of pneumonia (recurrent); J44.89 Other specified chronic obstructive pulmonary disease; F17.200 Nicotine dependence, unspecified, uncomplicated; F32.A Depression, unspecified; Z71.9 Counseling, unspecified; Z86.14 Personal history of Methicillin resistant Staphylococcus aureus infection; Z90.49 Acquired absence of other specified parts of digestive tract; Z79.899 Other long term (current) drug therapy; Z88.8 Allergy status to other drugs, medicaments and biological substances; Z88.1 Allergy status to other antibiotic agents; Z88.2 Allergy status to sulfonamides; Z91.02 Food additives allergy status; Z91.040 Latex allergy status; Z88.5 Allergy status to narcotic agent; Z91.010 Allergy to peanuts; Z83.3 Family history of diabetes mellitus; Z82.49 Family history of ischemic heart disease and other diseases of the circulatory system; Z82.5 Family history of asthma and other chronic lower respiratory diseases; Z82.61 Family history of arthritis
CPT/HCPCS: 99285; 36415; 95816; 93005; 80053; 85025; 81001; 84702; 80306; 93971; 70450; G0378 ×2

== ENCOUNTER → 2023-05-17 | Outpatient (CLI) | payer MEDICARE, OTHER ==
--- NOTE | 2023-05-17 14:08 | US ---
EXAMINATION TYPE: US venous doppler duplex LE BI DATE OF EXAM: 05/17/2023 1:48 PM COMPARISON: NONE CLINICAL INDICATION: Female, 43 years old with history of R22.40 LOCALIZED SWELLING, MASS AND LUMP, U NSPECIF; pain and edema SIDE PERFORMED: Bilateral TECHNIQUE: The lower extremity deep venous system is examined utilizing real time linear array sonog ed with graded compression, doppler sonography and color-flow sonography. VESSELS IMAGED: Common Femoral Vein Deep Femoral Vein Greater Saphenous Vein * Femoral Vein Popliteal Vein Small Saphenous Vein * Proximal Calf Veins (* superficial vessels) Right Leg: Negative for DVT Left Leg: Negative for DVT IMPRESSION: Grayscale, color doppler, spectral doppler imaging performed of the deep veins of the lo wer extremities. There is normal flow, compressibility, vascular waveforms.
== END | disposition home or self-care (01) ==
LOC: RADUSWWP 13:26
PROVIDERS: ATTEND Internal Medicine
DX: R22.40 Localized swelling, mass and lump, unspecified lower limb (principal)
CPT/HCPCS: 93970

== ENCOUNTER 2023-06-06 11:21 | Emergency (ER) | payer MEDICARE, OTHER ==
--- NOTE | 2023-06-06 12:23 | ED ---
URI HPI - General Chief Complaint: Upper Respiratory Infection Stated Complaint: cough,body aches Time Seen by Provider: 06/06/23 11:40 Source: patient, RN notes reviewed Mode of arrival: ambulatory Limitations: no limitations - History of Present Illness Initial Comments: This is a 43-year-old female who presents to the emergency department for coughing, congestion, and body aches. Her symptoms started 2 days ago, after she checked herself into [facility]. She has not been around anyone else who is sick there. She does have asthma and has been coughing and wheezing as well. She is using her inhaler and breathing treatments with some improvement in symptoms. The cough is productive. Also states that she has foul smelling urine with some discomfort on urination. MD Complaint: cough, nasal congestion - Related Data Home Medications Medication Instructions Recorded Confirmed Pantoprazole [Protonix] 40 mg PO DAILY 05/19/16 04/01/23 Latanoprost/Pf [Latanoprost 0.005% 1 drop BOTH EYES HS 04/22/21 04/01/23 Eye Drop] traMADol HCl [Ultram] 50 mg PO Q8H PRN 10/13/21 04/01/23 Halobetasol Propionate [Ultravate 1 applic TOPICAL BID 06/24/22 04/01/23 0.05%] Albuterol Sulfate [Albuterol 1 - 2 puff PO RT-Q6H PRN 04/01/23 04/01/23 Sulfate Hfa] Hydrocortisone Cream 1 applic TOPICAL BID 04/01/23 04/01/23 [Hydrocortisone 2.5% Cream] Previous Rx's Medication Instructions Recorded Topiramate [Topamax] 50 mg PO BID 60 Days #30 tab 04/02/23 cefUROXime axetiL [Ceftin] 500 mg PO BID 7 Days #14 tab 06/06/23 Allergies Allergy/AdvReac Type Severity Reaction Status Date / Time carbamazepine [From Tegretol] Allergy Intermediate Unknown Verified 06/06/23 11:37 adhesive Allergy Unknown Verified 06/06/23 11:37 amphetamine aspartate Allergy Unknown Verified 06/06/23 11:37 [From Adderall] amphetamine sulfate Allergy Unknown Verified 06/06/23 11:37 [From Adderall] azithromycin Allergy Unknown Verified 06/06/23 11:37 [From Zithromax Z-Tunde] baclofen Allergy Unknown Verified 06/06/23 11:37 banana Allergy Anaphylaxis Verified 06/06/23 11:37 cephalexin monohydrate Allergy Unknown Verified 06/06/23 11:37 [From Keflex] dexamethasone Allergy Rash/Hives Verified 06/06/23 11:39 dextroamphetamine saccharate Allergy Unknown Verified 06/06/23 11:37 [From Adderall] dextroamphetamine sulfate Allergy Unknown Verified 06/06/23 11:37 [From Adderall] dicyclomine [From Bentyl] Allergy Unknown Verified 06/06/23 11:37 gabapentin [From Neurontin] Allergy Unknown Verified 06/06/23 11:37 Iodinated Contrast Media Allergy Anaphylaxis Verified 06/06/23 11:37 [Iodinated Contrast Media - IV Dye] ketorolac tromethamine Allergy Rash/Hives Verified 06/06/23 11:37 [From Toradol] kiwi Allergy Anaphylaxis Verified 06/06/23 11:37 latex Allergy Anaphylaxis Verified 06/06/23 11:37 levofloxacin [From Levaquin] Allergy Swelling Verified 06/06/23 11:37 lorazepam [From Ativan] Allergy Unknown Verified 06/06/23 11:37 Melon Allergy Anaphylaxis Verified 06/06/23 11:37 metoclopramide HCl Allergy Unknown Verified 06/06/23 11:37 [From Reglan] nitrofurantoin Allergy Unknown Verified 06/06/23 11:37 [From Macrobid] nitrofurantoin Allergy Unknown Verified 06/06/23 11:37 macrocrystalline [From Macrobid] peanut Allergy Anaphylaxis Verified 06/06/23 11:37 propylthiouracil Allergy Unknown Verified 06/06/23 11:37 Sulfa (Sulfonamide Allergy Unknown Verified 06/06/23 11:37 Antibiotics) venlafaxine [From Effexor] Allergy Unknown Verified 06/06/23 11:37 codeine AdvReac Diarrhea Verified 06/06/23 11:37 doxycycline AdvReac Diarrhea Verified 06/06/23 11:37 methimazole AdvReac Unknown Verified 06/06/23 11:37 Penicillins AdvReac Diarrhea Verified 06/06/23 11:37 prednisone AdvReac Unknown Verified 06/06/23 11:37 [place] Allergy Anaphylaxis Uncoded 06/06/23 11:37 cantalope Allergy Anaphylaxis Uncoded 06/06/23 11:37 TAPE AdvReac Unknown Uncoded 06/06/23 11:37 Review of Systems ROS Statement: Those systems with pertinent positive or pertinent negative responses have been documented in the HPI. ROS Other: All systems not noted in ROS Statement are negative. 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 History of Any Multi-Drug Resistant Organisms: MRSA Date of last positivie culture/infection: 10/17/21 MDRO Source:: Neck Past Surgical History: Cholecystectomy, Hysterectomy, Orthopedic Surgery, Tubal Ligation Additional Past Surgical History / Comment(s): rt elbow orif. debridment frank buttocks d/t spider bite, nasal septal surgery, mediastinoscopy with bx-benign, colonoscopy, laparoscopy with lysis of adhesions. Past Anesthesia/Blood Transfusion Reactions: No Reported Reaction Past Psychological History: Depression Smoking Status: Current every day smoker, Vaper Past Alcohol Use History: None Reported Past Drug Use History: None Reported - Past Family History Father Family Medical History: Coronary Artery Disease (CAD), Diabetes Mellitus, Myocardial Infarction (RI) Additional Family Medical History / Comment(s): Father had a RI at the age of 62 yrs. He has had CABG. Mother Family Medical History: Congestive Heart Failure (CHF), COPD, Osteoarthritis (OA), Rheumatoid Arthritis (RA) Additional Family Medical History / Comment(s): Spondylosis, subclavian boyce with stents. General Exam Limitations: no limitations General appearance: alert, in no apparent distress Head exam: Present: atraumatic, normocephalic, normal inspection Respiratory exam: Present: wheezes, decreased breath sounds, prolonged expiratory Cardiovascular Exam: Present: regular rate, normal rhythm, normal heart sounds. Absent: systolic murmur, diastolic murmur, rubs, gallop, clicks Neurological exam: Present: alert, oriented X3, CN II-XII intact Psychiatric exam: Present: normal affect, normal mood Skin exam: Present: warm, dry, intact, normal color. Absent: rash Course Vital Signs 06/06/23 06/06/23 06/06/23 11:35 13:23 13:32 Temperature 99.1 F Pulse Rate 104 H 96 100 Respiratory 24 Rate Blood Pressure 118/60 O2 Sat by Pulse 99 Oximetry 06/06/23 14:28 Temperature 98.9 F Pulse Rate 98 Respiratory 18 Rate Blood Pressure 120/68 O2 Sat by Pulse 97 Oximetry Medical Decision Making - Medical Decision Making This is a 43 year old female who presents to the emergency department for coughing and congestion. Was pt. sent in by a medical professional or institution? @ -No Did you speak to anyone other than the patient for history? @ -No Did you review nursing and triage notes? @ -Yes, and I agree, it is accurate with regards to the patient's symptoms. Were old charts reviewed? @ -No Differential Diagnosis? @ -Differential Cough: Influenza, Covid, RSV, croup, allergic rhinitis, GERD, pneumonia, bronchitis, COPD, viral pharyngitis, streptococcal pharyngitis, this is not meant to be an all-inclusive list. EKG interpreted by me (3pts min.)? @ -Not obtained X-rays interpreted by me (1pt min.)? @ -Chest x-ray obtained, my interpretation identifies no localized consolidations or infiltrates. CT interpreted by me (1pt min.)? @ -Not obtained U/S interpreted by me (1pt. min.)? @ -Not obtained What testing was considered but not performed? (CT, X-rays, U/S, labs)? Why? @ -None What meds were considered but not given? Why? @ -None Did you discuss the management of the patient with other professionals? @ -No Did you reconcile home meds? @ -No Was smoking cessation discussed for >3mins.? @ -I discussed smoking cessation for greater than 3 minutes. The risk of smoking were discussed with the patient including but not limited to risks of cancer, stroke, coronary artery disease and COPD. Also discussed with patient were multiple methods of quitting smoking. Lastly we discussed the financial cost of smoking. Was critical care preformed (if so, how long)? @ -No Were there social determinants of health that impacted care today? How? (Homelessness, low income, unemployed, alcoholism, drug addiction, transportation, low edu. Level, literacy, decrease access to med. care, correction, rehab)? @ -No Was there de-escalation of care discussed even if they declined? (Discuss DNR or withdrawal of care, Hospice)? @ -No What co-morbidities impacted this encounter? (DM, HTN, Smoking, COPD, CAD, Cancer, CVA, Hep., AIDS, mental health diagnosis, sleep apnea, morbid obesity)? @ -Asthma, smoking Was patient admitted / discharged? @ -Discharged. Covid, influenza, and RSV testing were negative. Chest x-ray reveals no acute process. Urinalysis was contaminated, but somewhat suggestive of infection. Given her urinary symptoms, will treat patient with antibiotic management. Urine sent for culture. She does have multiple antibiotic allergies. She was given a dose of cefuroxime in the emergency department, which she tolerated without difficulty. Prescription for cefuroxime provided with dosing instructions reviewed. Advised Tylenol as needed for any additional body aches. Otherwise advised follow-up with her primary care provider. Undiagnosed new problem with uncertain prognosis? @ -None Drug Therapy requiring intensive monitoring for toxicity (Heparin, Nitro, Insulin, Cardizem)? @ -None Were any procedures done? @ -None Diagnosis/symptom? @ -UTI, URI Acute, or Chronic, or Acute on Chronic? @ -Acute Uncomplicated (without systemic symptoms) or Complicated (systemic symptoms)? @ -Uncomplicated Side effects of treatment? @ -None Exacerbation, Progression, or Severe Exacerbation] @ -Not applicable Poses a threat to life or bodily function? @ -No Return precautions reviewed in depth, the patient is instructed to return to the emergency department with any new, worsening, or concerning symptoms. Patient verbalized understanding. This case was discussed in detail with the attending ED physician, Dr. De La O. Presentation, findings, and treatment plan discussed in detail as well. - Lab Data Lab Results 06/06/23 06/06/23 Range/Units 12:12 12:35 Urine Color Yellow Urine Appearance Cloudy H (Clear) Urine pH 8.5 H (5.0-8.0) Ur Specific [place] 1.026 (1.001-1.035) Urine Protein 1+ H (Negative) Urine Glucose (UA) Negative (Negative) Urine Ketones Negative (Negative) Urine Blood Negative (Negative) Urine Nitrite Negative (Negative) Urine Bilirubin Negative (Negative) Urine Urobilinogen 4.0 (<2.0) mg/dL Ur Leukocyte Esterase Large H (Negative) Urine RBC 3 (0-5) /hpf Urine WBC 24 H (0-5) /hpf Ur Squamous Epith Cells 10 H (0-4) /hpf Amorphous Sediment Few H (None) /hpf Urine Bacteria Rare H (None) /hpf Urine Mucus Rare H (None) /hpf Influenza Type A (PCR) Not Detected (Not Detectd) Influenza Type B (PCR) Not Detected (Not Detectd) RSV (PCR) Not Detected (Not Detectd) SARS-CoV-2 (PCR) Not Detected (Not Detectd) Disposition Clinical Impression: Nicotine dependence, UTI (urinary tract infection), URI (upper respiratory infection) Disposition: HOME SELF-CARE Instructions (If sedation given, give patient instructions): Upper Respiratory Infection (ED) Additional Instructions: Return to the emergency department with any new, worsening, or concerning symptoms. Take the antibiotic as prescribed for 7 days. Take Tylenol as needed for pain relief. Follow up with your primary care provider in 1-2 days. Prescriptions: cefUROXime axetiL [Ceftin] 500 mg PO BID 7 Days #14 tab Is patient prescribed a controlled substance at d/c from ED?: No Referrals: Zabrina Burrell MD [Primary Care Provider] - 1-2 days Time of Disposition: 14:04
[2023-06-06 12:56] LABS: Amorphous Sediment,Urine Few /hpf; Appearance,Urine Cloudy (Clear); Bacteria,Urine Rare /hpf; Bilirubin,Urine Negative (Negative); Blood,Urine Negative (Negative); Color,Urine Yellow; Glucose,Urine (UA) Negative (Negative); Ketones,Urine Negative (Negative); Leukocyte Esterase,Urine Large (Negative); Mucus,Urine Rare /hpf; Nitrite,Urine Negative (Negative); PH, Urine 8.5 (5.0-8.0); Protein,Urine 1+ (Negative); RBC,Urine 3 /hpf (0-5); Specific Gravity,Urine 1.026 (1.001-1.035); Squamous Epithelial Cell,Urine 10 /hpf (0-4); WBC,Urine 24 /hpf (0-5)
[2023-06-06] MEDS: BENZONATATE 100 MG CAP PO STA (13:19)
[2023-06-06] MEDS: ACETAMINOPHEN TAB 500 MG TAB PO STA (13:20)
[2023-06-06] MEDS: LIDOCAINE 4% PATCH TOPICAL ONE (13:20)
[2023-06-06] MEDS: IPRATROPIUM-ALBUTEROL 3 ML NEB INHALATION STA (13:23)
--- NOTE | 2023-06-06 13:34 | XR ---
EXAMINATION TYPE: XR chest 2V DATE OF EXAM: 06/06/2023 1:22 PM CLINICAL INDICATION:Female, 43 years old with history of Cough; COMPARISON: Chest radiographs from 11/18/2022. TECHNIQUE: XR chest 2V Frontal and lateral views of the chest. FINDINGS: Lungs/Pleura: There is no evidence of pleural effusion, focal consolidation, or pneumothorax. Pulmonary vascularity: Unremarkable. Heart/mediastinum: Cardiomediastinal silhouette is unremarkable. Musculoskeletal: No acute osseous pathology. IMPRESSION: No acute cardiopulmonary disease/process.
[2023-06-06] MEDS: traMADol 50 MG TAB PO STA (14:24)
[2023-06-06] MEDS: CEFUROXIME 750 MG VIAL IM STA (14:25)
[2023-06-06 14:30] VITALS: BP 120/68; PULSE 98; RESP 18; TEMP 98.9
== END 2023-06-06 14:48 | disposition home or self-care (01) ==
LOC: EC 11:21
DX: J06.9 Acute upper respiratory infection, unspecified (principal); N39.0 Urinary tract infection, site not specified; J44.89 Other specified chronic obstructive pulmonary disease; K21.9 Gastro-esophageal reflux disease without esophagitis; M19.90 Unspecified osteoarthritis, unspecified site; F32.A Depression, unspecified; F17.290 Nicotine dependence, other tobacco product, uncomplicated; Z79.899 Other long term (current) drug therapy; Z91.018 Allergy to other foods; Z91.040 Latex allergy status; Z88.0 Allergy status to penicillin; Z88.2 Allergy status to sulfonamides; Z88.5 Allergy status to narcotic agent; Z88.8 Allergy status to other drugs, medicaments and biological substances; Z20.822 Contact with and (suspected) exposure to COVID-19
CPT/HCPCS: 99284; 96372; 94640; 81001; 87086; 87636; 71046; J0697

== ENCOUNTER 2023-06-08 15:14 | Emergency (ER) | payer MEDICARE, OTHER ==
[2023-06-08 16:20] LABS: Basophils % (A) 1 %; Eosinophils # (A) 0.1 k/uL (0-0.7); Eosinophils % (A) 2 %; HCT 37.1 % (34.0-46.0); HGB 12.1 gm/dL (11.4-16.0); Lymphocytes # (A) 2.1 k/uL (1.0-4.8); Lymphocytes % (A) 42 %; MCH 31.4 pg (25.0-35.0); MCHC 32.6 g/dL (31.0-37.0); MCV 96.4 fL (80.0-100.0); Mean Platelet Volume 7.8; Monocytes # (A) 0.2 k/uL (0-1.0); Monocytes % (A) 5 %; Neutrophils # (A) 2.4 k/uL (1.3-7.7); Neutrophils % (A) 48 %; Platelet Count 175 k/uL (150-450); RBC 3.85 m/uL (3.80-5.40); RDW 13.2 % (11.5-15.5); WBC 5.1 k/uL (3.8-10.6)
[2023-06-08] MEDS: SODIUM CHLORIDE 0.9% 1,000 ML IV STA (16:21)
[2023-06-08 16:32] LABS: INR 0.9 (<1.2)
[2023-06-08 16:33] LABS: Partial Thromboplastin Time 25.4 sec (22.0-30.0); Prothrombin Time 10.1 sec (10.0-12.5)
[2023-06-08] MEDS: KETOROLAC 15 MG/ML 1 ML VIAL IVP STA (16:37)
[2023-06-08 16:45] LABS: ALT 32 U/L (4-34); AST 37 U/L (14-36); African American GFR (CKD) >90 (>60 ml/min/1.73 sqM); Albumin 3.9 g/dL (3.5-5.0); Alkaline Phosphatase 73 U/L (38-126); Anion Gap 4 mmol/L; Blood Urea Nitrogen 12 mg/dL (7-17); Calcium 9.4 mg/dL (8.4-10.2); Carbon Dioxide 24 mmol/L (22-30); Chloride 115 mmol/L (98-107); Glucose 102 mg/dL (74-99); Non-African American GFR(CKD) 80 (>60 ml/min/1.73 sqM); Potassium 4.5 mmol/L (3.5-5.1); Sodium 143 mmol/L (137-145); Total Bilirubin 0.4 mg/dL (0.2-1.3)
--- NOTE | 2023-06-08 16:49 | ED ---
GI Bleed HPI - General Chief complaint: GI Bleed Stated complaint: Vag/Rectal Bleeding Time Seen by Provider: 06/08/23 15:46 Source: patient, RN notes reviewed, Caregiver Mode of arrival: ambulatory Limitations: no limitations - History of Present Illness Initial comments: Patient is a 43-year-old female presented to ER with a chief complaint of GI bleed. Caregiver/guardian providing past medical history and HPI. Patient seen here on Wednesday also with viral illness. Patient states Wednesday night she started having vaginal bleeding. Patient did have a hysterectomy years ago. Patient also reports an episode of feeling the toilet with bright red blood last night. Patient also reports right sided abdominal pain for the past 24 hours. She states it is a crampy pain. She does not recall when her last bowel movement was. Denies any fevers, chills, night sweats, chest pain, shortness of breath, peripheral edema. Denies any urinary complaints. No blood thinner use. - Related Data Home Medications Medication Instructions Recorded Confirmed Pantoprazole [Protonix] 40 mg PO DAILY 05/19/16 04/01/23 Latanoprost/Pf [Latanoprost 0.005% 1 drop BOTH EYES HS 04/22/21 04/01/23 Eye Drop] traMADol HCl [Ultram] 50 mg PO Q8H PRN 10/13/21 04/01/23 Halobetasol Propionate [Ultravate 1 applic TOPICAL BID 06/24/22 04/01/23 0.05%] Albuterol Sulfate [Albuterol 1 - 2 puff PO RT-Q6H PRN 04/01/23 04/01/23 Sulfate Hfa] Hydrocortisone Cream 1 applic TOPICAL BID 04/01/23 04/01/23 [Hydrocortisone 2.5% Cream] Previous Rx's Medication Instructions Recorded Topiramate [Topamax] 50 mg PO BID 60 Days #30 tab 04/02/23 cefUROXime axetiL [Ceftin] 500 mg PO BID 7 Days #14 tab 06/06/23 Allergies Allergy/AdvReac Type Severity Reaction Status Date / Time carbamazepine [From Tegretol] Allergy Intermediate Unknown Verified 06/06/23 1 1:37 adhesive Allergy Unknown Verified 06/06/23 11:37 amphetamine aspartate Allergy Unknown Verified 06/06/23 11:37 [From Adderall] amphetamine sulfate Allergy Unknown Verified 06/06/23 11:37 [From Adderall] azithromycin Allergy Unknown Verified 06/06/23 11:37 [From Zithromax Z-Tunde] baclofen Allergy Unknown Verified 06/06/23 11:37 banana Allergy Anaphylaxis Verified 06/06/23 11:37 cephalexin monohydrate Allergy Unknown Verified 06/06/23 11:37 [From Keflex] dexamethasone Allergy Rash/Hives Verified 06/06/23 11:39 dextroamphetamine saccharate Allergy Unknown Verified 06/06/23 11:37 [From Adderall] dextroamphetamine sulfate Allergy Unknown Verified 06/06/23 11:37 [From Adderall] dicyclomine [From Bentyl] Allergy Unknown Verified 06/06/23 11:37 gabapentin [From Neurontin] Allergy Unknown Verified 06/06/23 11:37 Iodinated Contrast Media Allergy Anaphylaxis Verified 06/06/23 11:37 [Iodinated Contrast Media - IV Dye] ketorolac tromethamine Allergy Rash/Hives Verified 06/06/23 11:37 [From Toradol] kiwi Allergy Anaphylaxis Verified 06/06/23 11:37 latex Allergy Anaphylaxis Verified 06/06/23 11:37 levofloxacin [From Levaquin] Allergy Swelling Verified 06/06/23 11:37 lorazepam [From Ativan] Allergy Unknown Verified 06/06/23 11:37 Melon Allergy Anaphylaxis Verified 06/06/23 11:37 metoclopramide HCl Allergy Unknown Verified 06/06/23 11:37 [From Reglan] nitrofurantoin Allergy Unknown Verified 06/06/23 11:37 [From Macrobid] nitrofurantoin Allergy Unknown Verified 06/06/23 11:37 macrocrystalline [From Macrobid] peanut Allergy Anaphylaxis Verified 06/06/23 11:37 propylthiouracil Allergy Unknown Verified 06/06/23 11:37 Sulfa (Sulfonamide Allergy Unknown Verified 06/06/23 11:37 Antibiotics) venlafaxine [From Effexor] Allergy Unknown Verified 06/06/23 11:37 codeine AdvReac Diarrhea Verified 06/06/23 11:37 doxycycline AdvReac Diarrhea Verified 06/06/23 11:37 methimazole AdvReac Unknown Verified 06/06/23 11:37 Penicillins AdvReac Diarrhea Verified 06/06/23 11:37 prednisone AdvReac Unknown Verified 06/06/23 11:37 avacado Allergy Anaphylaxis Uncoded 06/06/23 11:37 cantalope Allergy Anaphylaxis Uncoded 06/06/23 11:37 TAPE AdvReac Unknown Uncoded 06/06/23 11:37 Review of Systems ROS Statement: Those systems with pertinent positive or pertinent negative responses have been documented in the HPI. ROS Other: All systems not noted in ROS Statement are negative. 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 History of Any Multi-Drug Resistant Organisms: MRSA Date of last positivie culture/infection: 10/17/21 MDRO Source:: Neck Past Surgical History: Cholecystectomy, Hysterectomy, Orthopedic Surgery, Tubal Ligation Additional Past Surgical History / Comment(s): rt elbow orif. debridment frank buttocks d/t spider bite, nasal septal surgery, mediastinoscopy with bx-benign, colonoscopy, laparoscopy with lysis of adhesions. Past Anesthesia/Blood Transfusion Reactions: No Reported Reaction Past Psychological History: Depression Smoking Status: Current every day smoker, Vaper Past Alcohol Use History: None Reported Past Drug Use History: None Reported - Past Family History Father Family Medical History: Coronary Artery Disease (CAD), Diabetes Mellitus, Myocardial Infarction (ME) Additional Family Medical History / Comment(s): Father had a ME at the age of 62 yrs. He has had CABG. Mother Family Medical History: Congestive Heart Failure (CHF), COPD, Osteoarthritis (OA), Rheumatoid Arthritis (RA) Additional Family Medical History / Comment(s): Spondylosis, subclavian boyce with stents. General Exam Limitations: no limitations General appearance: alert, in no apparent distress Head exam: Present: atraumatic, normocephalic, normal inspection Respiratory exam: Present: normal lung sounds bilaterally. Absent: respiratory distress, wheezes, rales, rhonchi, stridor Cardiovascular Exam: Present: regular rate, normal rhythm, normal heart sounds. Absent: systolic murmur, diastolic murmur, rubs, gallop, clicks GI/Abdominal exam: Present: soft, tenderness (Right-sided), guarding, normal bowel sounds. Absent: distended, rebound, rigid Neurological exam: Present: alert, oriented X3, CN II-XII intact Psychiatric exam: Present: normal affect, normal mood Skin exam: Present: warm, dry, intact, normal color. Absent: rash Course Vital Signs 06/08/23 15:26 Temperature 98.8 F Pulse Rate 83 Respiratory 16 Rate Blood Pressure 115/69 O2 Sat by Pulse 94 L Oximetry Medical Decision Making - Medical Decision Making Was pt. sent in by a medical professional or institution (, PA, ECHO TECHNICIAN, urgent care, hospital, or group home...) When possible be specific @ -No Did you speak to anyone other than the patient for history (EMS, parent, family, police, friend...)? What history was obtained from this source @ -Guardian providing past medical history. Did you review nursing and triage notes (agree or disagree)? Why? @ -I reviewed and agree with nursing and triage notes Were old charts reviewed (outside hosp., previous admission, EMS record, old EKG, old radiological studies, urgent care reports/EKG's, group home records)? Report findings @ -No old charts were reviewed Differential Diagnosis (chest pain, altered mental status, abdominal pain women, abdominal pain men, vaginal bleeding, weakness, fever, dyspnea, syncope, headache, dizziness, GI bleed, back pain, seizure, CVA, palpatations, mental health, musculoskeletal)? @ -Differential GI Bleed:Esophageal varices, aortoenteric fistula, Carmenza- Harper, gastritis, peptic ulcer disease, diverticulosis, inflammatory bowel disease, hemorrhoids, fissure, colitis, malignancy, Meckels diverticulum, this is not meant to be an all-inclusive list. EKG interpreted by me (3pts min.). @ -None X-rays interpreted by me (1pt min.). @ -None done CT interpreted by me (1pt min.). @ -CT abdomen pelvis without contrast significant for hepatomegaly at 20.3 cm. There is also multiple nonobstructive renal calculi. Moderate stool burden. Normal appendix. U/S interpreted by me (1pt. min.). @ -None done What testing was considered but not performed or refused? (CT, X-rays, U/S, labs)? Why? @ -None What meds were considered but not given or refused? Why? @ -None Did you discuss the management of the patient with other professionals (professionals i.e. , PA, ECHO TECHNICIAN, lab, RT, psych nurse, criminal justice social worker, imaging administrator, teacher, special service officer, manager case management)? Give summary @ -No Was smoking cessation discussed for >3mins.? @ -I discussed smoking cessation for greater than 3 minutes. The risk of smoki ng were discussed with the patient including but not limited to risks of cancer, stroke, coronary artery disease and COPD. Also discussed with patient were multiple methods of quitting smoking. Lastly we discussed the financial cost of smoking. Was critical care preformed (if so, how long)? @ -No Were there social determinants of health that impacted care today? How? (Homelessness, low income, unemployed, alcoholism, drug addiction, transportation, low edu. Level, literacy, decrease access to med. care, fpc, rehab)? @ -Resident at [facility] for rehab. Developmental disability. Was there de-escalation of care discussed even if they declined (Discuss DNR or withdrawal of care, Hospice)? DNR status @ -No What co-morbidities impacted this encounter? (DM, HTN, Smoking, COPD, CAD, Canc er, CVA, ARF, Chemo, Hep., AIDS, mental health diagnosis, sleep apnea, morbid obesity)? @ -Developmental disability Was patient admitted / discharged? Hospital course, mention meds given and route, prescriptions, significant lab abnormalities, going to OR and other pertinent info. @ -Discharge. Patient is a 43-year-old female presented to ER with chief complaint of bright red blood per rectum. History and physical exam were completed. Vitals stable. Patient in no signs of acute distress nontoxic- appearing. Patient was mildly tender to right abdomen. Labs obtained significant for hemoglobin of 12.1. Urine did show blood but from recent culture from visit on 06-06-2023, no growth. CT abdomen pelvis without contrast significant for hepatomegaly at 20.3 cm. There is also multiple nonobstructive renal calculi. Moderate stool burden. Normal appendix. Patient received IV fluids. On reevaluation patient was resting comfortably in exam bed nontoxic- appearing. Results discussed with patient and caregiver. I discussed smoking cessation for greater than 3 minutes. The risk of smoking were discussed with the patient including but not limited to risks of cancer, stroke, coronary a rtery disease and COPD. Also discussed with patient were multiple methods of quitting smoking. Lastly we discussed the financial cost of smoking. Advised her to follow-up with GI/Dr. Carbajal as he has seen her in the past for scopes. Return parameters were discussed. Patient be discharged stable condition with follow-up to [facility]/Dr. Carbajal. Patient and caregiver expressed understanding and agreement with care plan. Undiagnosed new problem with uncertain prognosis? @ -No Drug Therapy requiring intensive monitoring for toxicity (Heparin, Nitro, Insulin, Cardizem)? @ -No Were any procedures done? @ -No Diagnosis/symptom? @ -Abdominal pain/bright red blood per rectum Acute, or Chronic, or Acute on Chronic? @ -Acute Uncomplicated (without systemic symptoms) or Complicated (systemic symptoms)? @ -Uncomplicated Side effects of treatment? @ -No Exacerbation, Progression, or Severe Exacerbation? @ -No Poses a threat to life or bodily function? How? (Chest pain, USA, ME, pneumonia, PE, COPD, DKA, ARF, appy, cholecystitis, CVA, Diverticulitis, Homicidal, Suicidal, threat to staff... and all critical care pts) @ -No - Lab Data Result diagrams: 06/08/23 15:59 06/08/23 15:59 Lab Results 06/08/23 06/08/23 06/08/23 Range/Units 15:59 15:59 15:59 WBC 5.1 (3.8-10.6) k/uL RBC 3.85 (3.80-5.40) m/uL Hgb 12.1 (11.4-16.0) gm/dL Hct 37.1 (34.0-46.0) % MCV 96.4 (80.0-100.0) fL MCH 31.4 (25.0-35.0) pg MCHC 32.6 (31.0-37.0) g/dL RDW 13.2 (11.5-15.5) % Plt Count 175 (150-450) k/uL MPV 7.8 Neutrophils % 48 % Lymphocytes % 42 % Monocytes % 5 % Eosinophils % 2 % Basophils % 1 % Neutrophils # 2.4 (1.3-7.7) k/uL Lymphocytes # 2.1 (1.0-4.8) k/uL Monocytes # 0.2 (0-1.0) k/uL Eosinophils # 0.1 (0-0.7) k/uL Basophils # 0.0 (0-0.2) k/uL PT 10.1 (10.0-12.5) sec INR 0.9 (<1.2) APTT 25.4 (22.0-30.0) sec Sodium 143 (137-145) mmol/L Potassium 4.5 (3.5-5.1) mmol/L Chloride 115 H (98-107) mmol/L Carbon Dioxide 24 (22-30) mmol/L Anion Gap 4 mmol/L BUN 12 (7-17) mg/dL Creatinine 0.88 (0.52-1.04) mg/dL Est GFR (CKD-EPI)AfAm >90 (>60 ml/min/1.73 sqM) Est GFR (CKD-EPI)NonAf 80 (>60 ml/min/1.73 sqM) Glucose 102 H (74-99) mg/dL Plasma Lactic Acid Eladio (0.7-2.0) mmol/L Calcium 9.4 (8.4-10.2) mg/dL Total Bilirubin 0.4 (0.2-1.3) mg/dL AST 37 H (14-36) U/L ALT 32 (4-34) U/L Alkaline Phosphatase 73 (38-126) U/L Total Protein 7.0 (6.3-8.2) g/dL Albumin 3.9 (3.5-5.0) g/dL Amylase (30-110) U/L Lipase (23-300) U/L Urine Color Urine Appearance (Clear) Urine pH (5.0-8.0) Ur Specific [place] (1.001-1.035) Urine Protein (Negative) Urine Glucose (UA) (Negative) Urine Ketones (Negative) Urine Blood (Negative) Urine Nitrite (Negative) Urine Bilirubin (Negative) Urine Urobilinogen (<2.0) mg/dL Ur Leukocyte Esterase (Negative) Urine RBC (0-5) /hpf Urine WBC (0-5) /hpf Ur Squamous Epith Cells (0-4) /hpf Urine Bacteria (None) /hpf Urine Mucus (None) /hpf Urine HCG, Qual (Not Detectd) 06/08/23 06/08/23 06/08/23 Range/Units 15:59 15:59 15:59 WBC (3.8-10.6) k/uL RBC (3.80-5.40) m/uL Hgb (11.4-16.0) gm/dL Hct (34.0-46.0) % MCV (80.0-100.0) fL MCH (25.0-35.0) pg MCHC (31.0-37.0) g/dL RDW (11.5-15.5) % Plt Count (150-450) k/uL MPV Neutrophils % % Lymphocytes % % Monocytes % % Eosinophils % % Basophils % % Neutrophils # (1.3-7.7) k/uL Lymphocytes # (1.0-4.8) k/uL Monocytes # (0-1.0) k/uL Eosinophils # (0-0.7) k/uL Basophils # (0-0.2) k/uL PT (10.0-12.5) sec INR (<1.2) APTT (22.0-30.0) sec Sodium (137-145) mmol/L Potassium (3.5-5.1) mmol/L Chloride (98-107) mmol/L Carbon Dioxide (22-30) mmol/L Anion Gap mmol/L BUN (7-17) mg/dL Creatinine (0.52-1.04) mg/dL Est GFR (CKD-EPI)AfAm (>60 ml/min/1.73 sqM) Est GFR (CKD-EPI)NonAf (>60 ml/min/1.73 sqM) Glucose (74-99) mg/dL Plasma Lactic Acid Eladio 1.1 (0.7-2.0) mmol/L Calcium (8.4-10.2) mg/dL Total Bilirubin (0.2-1.3) mg/dL AST (14-36) U/L ALT (4-34) U/L Alkaline Phosphatase (38-126) U/L Total Protein (6.3-8.2) g/dL Albumin (3.5-5.0) g/dL Amylase (30-110) U/L Lipase (23-300) U/L Urine Color Yellow Urine Appearance Cloudy H (Clear) Urine pH 6.0 (5.0-8.0) Ur Specific [place] 1.025 (1.001-1.035) Urine Protein Trace H (Negative) Urine Glucose (UA) Negative (Negative) Urine Ketones Negative (Negative) Urine Blood Negative (Negative) Urine Nitrite Negative (Negative) Urine Bilirubin Negative (Negative) Urine Urobilinogen 2.0 (<2.0) mg/dL Ur Leukocyte Esterase Large H (Negative) Urine RBC 16 H (0-5) /hpf Urine WBC 19 H (0-5) /hpf Ur Squamous Epith Cells 12 H (0-4) /hpf Urine Bacteria Rare H (None) /hpf Urine Mucus Many H (None) /hpf Urine HCG, Qual Not Detected (Not Detectd) 06/08/23 Range/Units 16:24 WBC (3.8-10.6) k/uL RBC (3.80-5.40) m/uL Hgb (11.4-16.0) gm/dL Hct (34.0-46.0) % MCV (80.0-100.0) fL MCH (25.0-35.0) pg MCHC (31.0-37.0) g/dL RDW (11.5-15.5) % Plt Count (150-450) k/uL MPV Neutrophils % % Lymphocytes % % Monocytes % % Eosinophils % % Basophils % % Neutrophils # (1.3-7.7) k/uL Lymphocytes # (1.0-4.8) k/uL Monocytes # (0-1.0) k/uL Eosinophils # (0-0.7) k/uL Basophils # (0-0.2) k/uL PT (10.0-12.5) sec INR (<1.2) APTT (22.0-30.0) sec Sodium (137-145) mmol/L Potassium (3.5-5.1) mmol/L Chloride (98-107) mmol/L Carbon Dioxide (22-30) mmol/L Anion Gap mmol/L BUN (7-17) mg/dL Creatinine (0.52-1.04) mg/dL Est GFR (CKD-EPI)AfAm (>60 ml/min/1.73 sqM) Est GFR (CKD-EPI)NonAf (>60 ml/min/1.73 sqM) Glucose (74-99) mg/dL Plasma Lactic Acid Eladio (0.7-2.0) mmol/L Calcium (8.4-10.2) mg/dL Total Bilirubin (0.2-1.3) mg/dL AST (14-36) U/L ALT (4-34) U/L Alkaline Phosphatase (38-126) U/L Total Protein (6.3-8.2) g/dL Albumin (3.5-5.0) g/dL Amylase 41 (30-110) U/L Lipase 169 (23-300) U/L Urine Color Urine Appearance (Clear) Urine pH (5.0-8.0) Ur Specific [place] (1.001-1.035) Urine Protein (Negative) Urine Glucose (UA) (Negative) Urine Ketones (Negative) Urine Blood (Negative) Urine Nitrite (Negative) Urine Bilirubin (Negative) Urine Urobilinogen (<2.0) mg/dL Ur Leukocyte Esterase (Negative) Urine RBC (0-5) /hpf Urine WBC (0-5) /hpf Ur Squamous Epith Cells (0-4) /hpf Urine Bacteria (None) /hpf Urine Mucus (None) /hpf Urine HCG, Qual (Not Detectd) - Radiology Data Radiology results: report reviewed, image reviewed Disposition Clinical Impression: Abdominal pain, Rectal bleeding Disposition: HOME SELF-CARE Condition: Stable Instructions (If sedation given, give patient instructions): Abdominal Pain (ED) Additional Instructions: Please follow-up with GI or Dr. Carbajal. Return to the ER for any new or worsening symptoms Is patient prescribed a controlled substance at d/c from ED?: No Referrals: Zabrina Burrell MD [Primary Care Provider] - 1-2 days Elliott Carbajal MD [Medical Doctor] - 1-2 days Mackenzie Giron MD [STAFF PHYSICIAN] - 1-2 days Time of Disposition: 17:40
[2023-06-08 16:58] LABS: Appearance,Urine Cloudy (Clear); Bacteria,Urine Rare /hpf; Bilirubin,Urine Negative (Negative); Blood,Urine Negative (Negative); Color,Urine Yellow; Glucose,Urine (UA) Negative (Negative); Ketones,Urine Negative (Negative); Leukocyte Esterase,Urine Large (Negative); Mucus,Urine Many /hpf; Nitrite,Urine Negative (Negative); Protein,Urine Trace (Negative); RBC,Urine 16 /hpf (0-5); Specific Gravity,Urine 1.025 (1.001-1.035); Squamous Epithelial Cell,Urine 12 /hpf (0-4); WBC,Urine 19 /hpf (0-5)
[2023-06-08 17:13] LABS: Amylase 41 U/L (30-110); Lipase 169 U/L (23-300)
--- NOTE | 2023-06-08 17:20 | CT ---
EXAMINATION TYPE: CT abdomen pelvis wo con DATE OF EXAM: 06/08/2023 COMPARISON: 05/06/2021 HISTORY: 43-year-old female RLQ pain, rectal and vaginal bleeding. Coughing up blood. CT DLP: 615.4 mGycm. Automated exposure control for dose reduction was used. TECHNIQUE: Contiguous axial scanning of the abdomen and pelvis without IV contrast. Coronal and sagit lena reconstructions performed. FINDINGS: LUNG BASES: No significant abnormality is appreciated. LIVER/GB: Hepatomegaly at 20.3 cm. There may be mild fatty infiltration. Cholecystectomy clips. PANCREAS: No significant abnormality is seen. SPLEEN: No significant abnormality is seen. ADRENALS: No significant abnormality is seen. KIDNEYS: A couple punctate 2 to 3 mm calculi within either kidney. No hydronephrosis. BOWEL: Normal appendix. Moderate stool burden. No dilated small bowel, free fluid, or free air. No pe ricolonic inflammatory change. LYMPH NODES: No suspicious greater than 1 cm lymph node is identified. OTHER: No significant abnormality is identified. PELVIS: Uterus surgically absent. Bladder is collapsed. Suspect visualization of a small left ovary. Right ovary not clearly delineated from clustered adjacent bowel. No abnormal fluid collection in the pelvis or pelvic lymphadenopathy. BONES: There is left L5 hemisacralization. Hypertrophic facet arthropathy lower lumbar spine especial ly towards the left. IMPRESSION: 1. Hepatomegaly at 20.3 cm. Suspect mild hepatic steatosis. Status post cholecystectomy. 2. A couple punctate 2 to 3 mm nonobstructive renal calculi. 3. Moderate stool burden. Normal appendix. 4. Status post hysterectomy.
[2023-06-08 18:08] VITALS: BP 101/67; PULSE 76; RESP 12; TEMP 98.1
== END 2023-06-08 17:49 | disposition home or self-care (01) ==
LOC: EC 15:14
DX: K62.5 Hemorrhage of anus and rectum (principal); N20.0 Calculus of kidney; J44.89 Other specified chronic obstructive pulmonary disease; K21.9 Gastro-esophageal reflux disease without esophagitis; M19.90 Unspecified osteoarthritis, unspecified site; F32.A Depression, unspecified; F17.290 Nicotine dependence, other tobacco product, uncomplicated; Z79.899 Other long term (current) drug therapy; Z91.018 Allergy to other foods; Z88.0 Allergy status to penicillin; Z88.1 Allergy status to other antibiotic agents; Z88.2 Allergy status to sulfonamides; Z88.5 Allergy status to narcotic agent; Z88.8 Allergy status to other drugs, medicaments and biological substances; Z91.040 Latex allergy status; Z91.041 Radiographic dye allergy status; Z90.49 Acquired absence of other specified parts of digestive tract
CPT/HCPCS: 36415; 74176; 80053; 81001; 81025; 82150; 83605; 83690; 85025; 85610; 85730; 87086; 99285

== ENCOUNTER 2023-07-06 09:57 | Day surgery (SDC) | payer MEDICARE, OTHER ==
[2023-07-02 13:10] VITALS: BMI 27.1
[2023-07-06] MEDS: LACTATED RINGERS 1,000 ML IV SCH (10:41)
[2023-07-06 10:46] VITALS: TEMP 97.1
[2023-07-06] MEDS ORDERED: PROPOFOL 10 MG/ML 20 ML VIAL IV ONE (11:11)
--- NOTE | 2023-07-06 11:21 | P.GSHP ---
History of Present Illness H&P Date: 07/06/23 Chief Complaint: Rectal bleeding 43-year-old female here for colonoscopy. Patient with intermittent rectal bleeding. Patient with chronic abdominal pain as well. Recent CAT scan in May showed no abnormalities to explain her pain. Past Medical History Past Medical History: Asthma, COPD, Eye Disorder, GERD/Reflux, Osteoarthritis (OA), Pneumonia, Seizure Disorder Additional Past Medical History / Comment(s): RECENT rectal bleeding 07/10. 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 Sores to head-not open. History of Any Multi-Drug Resistant Organisms: MRSA Date of last positivie culture/infection: 10/17/21 MDRO Source:: Neck, bilat legs Past Surgical History: Cholecystectomy, Hysterectomy, Orthopedic Surgery, Tubal Ligation Additional Past Surgical History / Comment(s): rt elbow orif. debridment frank buttocks d/t spider bite, nasal septal surgery, mediastinoscopy with bx-benign, colonoscopy, laparoscopy with lysis of adhesions. Past Anesthesia/Blood Transfusion Reactions: No Reported Reaction Smoking Status: Current every day smoker, Vaper - Past Family History Father Family Medical History: Cancer, Coronary Artery Disease (CAD), Diabetes Mellitus, Myocardial Infarction (DE) Additional Family Medical History / Comment(s): Father had a DE at the age of 62 yrs. He has had CABG. Prostate Brother(s) Family Medical History: Cancer Additional Family Medical History / Comment(s): Prostate Mother Family Medical History: Congestive Heart Failure (CHF), COPD, Osteoarthritis (OA), Rheumatoid Arthritis (RA) Additional Family Medical History / Comment(s): Spondylosis, subclavian boyce with stents. Factor 5 disease. Medications and Allergies Home Medications Medication Instructions Recorded Confirmed Type Pantoprazole [Protonix] 40 mg PO QAM 05/19/16 07/06/23 History Latanoprost/Pf [Latanoprost 0.005% 1 drop BOTH EYES HS 04/22/21 07/06/23 History Eye Drop] traMADol HCl [Ultram] 50 mg PO Q8H PRN 10/13/21 07/06/23 History Halobetasol Propionate [Ultravate 1 applic TOPICAL BID PRN 06/24/22 07/06/23 History 0.05%] Albuterol Sulfate [Albuterol 1 - 2 puff PO RT-Q6H PRN 04/01/23 07/06/23 History Sulfate Hfa] Hydrocortisone Cream 1 applic TOPICAL BID PRN 04/01/23 07/06/23 History [Hydrocortisone 2.5% Cream] Aspirin [Adult Low Dose Aspirin EC] 81 mg PO QAM 07/02/23 07/02/23 History Topiramate [Topamax] 50 mg PO HS 07/02/23 07/06/23 History Allergies Allergy/AdvReac Type Severity Reaction Status Date / Time carbamazepine [From Tegretol] Allergy Intermediate Unknown Verified 07/02/23 12:53 neomycin Allergy Unknown Unknown Verified 07/02/23 13:28 adhesive Allergy Unknown Verified 07/02/23 12:53 amphetamine aspartate Allergy Unknown Verified 07/02/23 12:53 [From Adderall] amphetamine sulfate Allergy Unknown Verified 07/02/23 12:53 [From Adderall] azithromycin Allergy Unknown Verified 07/02/23 12:53 [From Zithromax Z-Tunde] baclofen Allergy Unknown Verified 07/02/23 12:53 banana Allergy Anaphylaxis Verified 07/02/23 12:53 cephalexin monohydrate Allergy Unknown Verified 07/02/23 12:53 [From Keflex] dexamethasone Allergy Rash/Hives Verified 07/02/23 12:53 dextroamphetamine saccharate Allergy Unknown Verified 07/02/23 12:53 [From Adderall] dextroamphetamine sulfate Allergy Unknown Verified 07/06/23 10:26 [From Adderall] dicyclomine [From Bentyl] Allergy Unknown Verified 07/06/23 10:26 gabapentin [From Neurontin] Allergy Unknown Verified 07/06/23 10:26 Iodinated Contrast Media Allergy Anaphylaxis Verified 07/06/23 10:26 [Iodinated Contrast Media - IV Dye] ketorolac tromethamine Allergy Rash/Hives Verified 07/02/23 12:53 [From Toradol] kiwi Allergy Anaphylaxis Verified 07/06/23 10:26 latex Allergy Anaphylaxis Verified 07/06/23 10:26 levofloxacin [From Levaquin] Allergy Swelling Verified 07/06/23 10:26 lorazepam [From Ativan] Allergy Unknown Verified 07/06/23 10:26 Melon Allergy Anaphylaxis Verified 07/06/23 10:26 metoclopramide HCl Allergy Unknown Verified 07/06/23 10:26 [From Reglan] nitrofurantoin Allergy Unknown Verified 07/06/23 10:26 [From Macrobid] nitrofurantoin Allergy Unknown Verified 07/06/23 10:26 macrocrystalline [From Macrobid] peanut Allergy Anaphylaxis Verified 07/06/23 10:26 propylthiouracil Allergy Unknown Verified 07/06/23 10:26 Sulfa (Sulfonamide Allergy Unknown Verified 07/06/23 10:26 Antibiotics) venlafaxine [From Effexor] Allergy Unknown Verified 07/06/23 10:26 codeine AdvReac Diarrhea Verified 07/06/23 10:26 doxycycline AdvReac Diarrhea Verified 07/06/23 10:26 methimazole AdvReac Unknown Verified 07/06/23 10:26 Penicillins AdvReac Diarrhea Verified 07/06/23 10:26 prednisone AdvReac Unknown Verified 07/06/23 10:26 avacado Allergy Anaphylaxis Uncoded 07/06/23 10:26 cantalope Allergy Anaphylaxis Uncoded 07/06/23 10:26 TAPE AdvReac Unknown Uncoded 07/06/23 10:26 Surgical - Exam Vital Signs Temp Pulse Resp BP Pulse Ox 97.1 F L 95 16 133/84 97 07/06/23 10:20 07/06/23 10:20 07/06/23 10:20 07/06/23 10:20 07/06/23 10:20 Physical exam: General: Well-developed, well-nourished HEENT: Normocephalic, sclerae nonicteric Abdomen: Mild diffuse tenderness nondistended Extremities: No edema Neuro: Alert and oriented Assessment and Plan (1) Rectal bleeding Narrative/Plan: Will proceed with colonoscopy at this time. Current Visit: No Status: Acute Code(s): K62.5 - HEMORRHAGE OF ANUS AND RECTUM SNOMED Code(s): 42762240
--- NOTE | 2023-07-06 11:30 | P.PCN ---
Date of Procedure: 07/06/23 Procedure(s) Performed: PREOPERATIVE DIAGNOSIS: Rectal bleeding POSTOPERATIVE DIAGNOSIS: Normal exam PROCEDURE: Colonoscopy ANESTHESIA: MAC SURGEON: Elliott Carbajal M.D. SPECIMENS: None ENDOSCOPIC PROCEDURE: The patient was placed on the endoscopy table in the left decubitus position. The Olympus colonoscope was inserted into the anus and passed under direct visualization to the base of the cecum. The appendiceal orifice was visualized. From that point the scope was slowly withdrawn inspecting all surfaces carefully. There were no neoplastic inflammatory or polypoid lesions throughout the cecum, ascending, transverse, descending, sigmoid and rectum. There was no visible diverticulosis noted. Retroflexion at the anus revealed no obvious hemorrhoidal disease to explain bleeding. Digital rectal examination was normal. The patient was taken to the recovery room in stable condition per anesthesia guidelines. RECOMMENDATIONS: Source of bleeding not seen. Continue increasing fiber. Follow-up colonoscopy 10 years.
[2023-07-06 12:32] VITALS: BP 98/66; PULSE 72; RESP 16
== END 2023-07-06 12:26 ==
LOC: ORWHC2ENDO 09:57
PROVIDERS: ATTEND Surgery
DX: K62.5 Hemorrhage of anus and rectum (principal); K21.9 Gastro-esophageal reflux disease without esophagitis; J44.89 Other specified chronic obstructive pulmonary disease; G89.29 Other chronic pain; G40.909 Epilepsy, unspecified, not intractable, without status epilepticus; M19.90 Unspecified osteoarthritis, unspecified site; E05.90 Thyrotoxicosis, unspecified without thyrotoxic crisis or storm; E72.12 Methylenetetrahydrofolate reductase deficiency; F17.200 Nicotine dependence, unspecified, uncomplicated; Z88.0 Allergy status to penicillin; Z88.1 Allergy status to other antibiotic agents; Z88.2 Allergy status to sulfonamides; Z88.5 Allergy status to narcotic agent; Z88.8 Allergy status to other drugs, medicaments and biological substances; Z90.49 Acquired absence of other specified parts of digestive tract; Z91.040 Latex allergy status; Z91.041 Radiographic dye allergy status; Z90.710 Acquired absence of both cervix and uterus; Z79.899 Other long term (current) drug therapy
CPT/HCPCS: 45378; J2704

== ENCOUNTER 2023-07-21 13:40 | Emergency (ER) | payer MEDICARE, OTHER ==
[2023-07-21] MEDS: HYDROcodone/APAP 7.5-325MG 1 EACH TAB PO ONE (14:04)
[2023-07-21 14:17] LABS: Basophils # (A) 0.1 k/uL (0-0.2); Basophils % (A) 1 %; Eosinophils # (A) 0.1 k/uL (0-0.7); Eosinophils % (A) 3 %; HCT 40.8 % (34.0-46.0); Lymphocytes # (A) 1.4 k/uL (1.0-4.8); Lymphocytes % (A) 29 %; MCH 30.5 pg (25.0-35.0); MCHC 31.9 g/dL (31.0-37.0); MCV 95.8 fL (80.0-100.0); Mean Platelet Volume 7.6; Monocytes # (A) 0.2 k/uL (0-1.0); Monocytes % (A) 4 %; Neutrophils # (A) 2.9 k/uL (1.3-7.7); Neutrophils % (A) 61 %; Platelet Count 235 k/uL (150-450); RBC 4.26 m/uL (3.80-5.40); RDW 13.4 % (11.5-15.5); WBC 4.8 k/uL (3.8-10.6)
[2023-07-21 14:44] LABS: ALT 28 U/L (4-34); AST 32 U/L (14-36); African American GFR (CKD) >90 (>60 ml/min/1.73 sqM); Albumin 4.1 g/dL (3.5-5.0); Alkaline Phosphatase 72 U/L (38-126); Anion Gap 9 mmol/L; Blood Urea Nitrogen 15 mg/dL (7-17); C Reactive Protein <0.5 mg/dL (<1.0); Calcium 9.2 mg/dL (8.4-10.2); Carbon Dioxide 20 mmol/L (22-30); Chloride 115 mmol/L (98-107); Glucose 118 mg/dL (74-99); Non-African American GFR(CKD) 81 (>60 ml/min/1.73 sqM); Potassium 3.9 mmol/L (3.5-5.1); Sodium 144 mmol/L (137-145); Total Bilirubin 0.4 mg/dL (0.2-1.3); Total Protein 7.7 g/dL (6.3-8.2)
--- NOTE | 2023-07-21 15:05 | ED ---
Skin/Abscess/FB HPI - General Chief complaint: Skin/Abscess/Foreign Body Stated complaint: infection on neck Time Seen by Provider: 07/21/23 13:46 Source: patient, RN notes reviewed Mode of arrival: ambulatory Limitations: no limitations - History of Present Illness Initial comments: This is a 43-year-old female who presents to the emergency department for lesions on her head and neck. States that she has had wounds on her head and neck for a long period of time, however they seem to be increasing in severity. She does have a history of MRSA from these wounds. States that she saw infectious disease today, and was advised to come to the emergency department for evaluation. These wounds are painful and itchy. Reports similar wounds on the right leg as well. MD complaint: rash - Related Data Home Medications Medication Instructions Recorded Confirmed Pantoprazole [Protonix] 40 mg PO QAM 05/19/16 07/06/23 Latanoprost/Pf [Latanoprost 0.005% 1 drop BOTH EYES HS 04/22/21 07/06/23 Eye Drop] traMADol HCl [Ultram] 50 mg PO Q8H PRN 10/13/21 07/06/23 Halobetasol Propionate [Ultravate 1 applic TOPICAL BID PRN 06/24/22 07/06/23 0.05%] Albuterol Sulfate [Albuterol 1 - 2 puff PO RT-Q6H PRN 04/01/23 07/06/23 Sulfate Hfa] Hydrocortisone Cream 1 applic TOPICAL BID PRN 04/01/23 07/06/23 [Hydrocortisone 2.5% Cream] Aspirin [Adult Low Dose Aspirin EC] 81 mg PO QAM 07/02/23 07/02/23 Topiramate [Topamax] 50 mg PO HS 07/02/23 07/06/23 Previous Rx's Medication Instructions Recorded Bacitracin Zinc Oint 1 applic TOPICAL TID #28 gm 07/21/23 Linezolid [Zyvox] 600 mg PO Q12H 10 Days #20 tab 07/21/23 Allergies Allergy/AdvReac Type Severity Reaction Status Date / Time carbamazepine [From Tegretol] Allergy Intermediate Unknown Verified 07/02/23 12:53 neomycin Allergy Unknown Unknown Verified 07/02/23 13:28 adhesive Allergy Unknown Verified 07/02/23 12:53 amphetamine aspartate Allergy Unknown Verified 07/02/23 12:53 [From Adderall] amphetamine sulfate Allergy Unknown Verified 07/02/23 12:53 [From Adderall] azithromycin Allergy Unknown Verified 07/02/23 12:53 [From Zithromax Z-Tunde] baclofen Allergy Unknown Verified 07/02/23 12:53 banana Allergy Anaphylaxis Verified 07/02/23 12:53 cephalexin monohydrate Allergy Unknown Verified 07/02/23 12:53 [From Keflex] clindamycin Allergy Unknown Verified 07/21/23 15:21 dexamethasone Allergy Rash/Hives Verified 07/02/23 12:53 dextroamphetamine saccharate Allergy Unknown Verified 07/02/23 12:53 [From Adderall] dextroamphetamine sulfate Allergy Unknown Verified 07/06/23 10:26 [From Adderall] dicyclomine [From Bentyl] Allergy Unknown Verified 07/06/23 10:26 gabapentin [From Neurontin] Allergy Unknown Verified 07/06/23 10:26 Iodinated Contrast Media Allergy Anaphylaxis Verified 07/06/23 10:26 [Iodinated Contrast Media - IV Dye] ketorolac tromethamine Allergy Rash/Hives Verified 07/02/23 12:53 [From Toradol] kiwi Allergy Anaphylaxis Verified 07/06/23 10:26 latex Allergy Anaphylaxis Verified 07/06/23 10:26 levofloxacin [From Levaquin] Allergy Swelling Verified 07/06/23 10:26 lorazepam [From Ativan] Allergy Unknown Verified 07/06/23 10:26 Melon Allergy Anaphylaxis Verified 07/06/23 10:26 metoclopramide HCl Allergy Unknown Verified 07/06/23 10:26 [From Reglan] nitrofurantoin Allergy Unknown Verified 07/06/23 10:26 [From Macrobid] nitrofurantoin Allergy Unknown Verified 07/06/23 10:26 macrocrystalline [From Macrobid] peanut Allergy Anaphylaxis Verified 07/06/23 10:26 propylthiouracil Allergy Unknown Verified 07/06/23 10:26 Sulfa (Sulfonamide Allergy Unknown Verified 07/06/23 10:26 Antibiotics) venlafaxine [From Effexor] Allergy Unknown Verified 07/06/23 10:26 codeine AdvReac Diarrhea Verified 07/06/23 10:26 doxycycline AdvReac Diarrhea Verified 07/06/23 10:26 methimazole AdvReac Unknown Verified 07/06/23 10:26 Penicillins AdvReac Diarrhea Verified 07/06/23 10:26 prednisone AdvReac Unknown Verified 07/06/23 10:26 avacado Allergy Anaphylaxis Uncoded 07/06/23 10:26 cantalope Allergy Anaphylaxis Uncoded 07/06/23 10:26 TAPE AdvReac Unknown Uncoded 07/06/23 10:26 Review of Systems ROS Statement: Those systems with pertinent positive or pertinent negative responses have been documented in the HPI. ROS Other: All systems not noted in ROS Statement are negative. Past Medical History Past Medical History: Asthma, COPD, Eye Disorder, GERD/Reflux, Osteoarthritis (OA), Pneumonia, Seizure Disorder Additional Past Medical History / Comment(s): RECENT rectal bleeding 07/10. 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 Sores to head-not open. History of Any Multi-Drug Resistant Organisms: MRSA Date of last positivie culture/infection: 10/17/21 MDRO Source:: Neck, bilat legs Past Surgical History: Cholecystectomy, Hysterectomy, Orthopedic Surgery, Tubal Ligation Additional Past Surgical History / Comment(s): rt elbow orif. debridment frank buttocks d/t spider bite, nasal septal surgery, mediastinoscopy with bx-benign, colonoscopy, laparoscopy with lysis of adhesions. Past Anesthesia/Blood Transfusion Reactions: No Reported Reaction Past Psychological History: Depression Smoking Status: Current every day smoker, Vaper - Past Family History Father Family Medical History: Cancer, Coronary Artery Disease (CAD), Diabetes Mellitus, Myocardial Infarction (MS) Additional Family Medical History / Comment(s): Father had a MS at the age of 62 yrs. He has had CABG. Prostate Brother(s) Family Medical History: Cancer Additional Family Medical History / Comment(s): Prostate Mother Family Medical History: Congestive Heart Failure (CHF), COPD, Osteoarthritis (OA), Rheumatoid Arthritis (RA) Additional Family Medical History / Comment(s): Spondylosis, subclavian boyce with stents. Factor 5 disease. General Exam Limitations: no limitations General appearance: alert, in no apparent distress Head exam: Present: other (Scabbed over lesions across the scalp and neck) Respiratory exam: Present: normal lung sounds bilaterally. Absent: respiratory distress, wheezes, rales, rhonchi, stridor Cardiovascular Exam: Present: regular rate, normal rhythm, normal heart sounds. Absent: systolic murmur, diastolic murmur, rubs, gallop, clicks Neurological exam: Present: alert, oriented X3, CN II-XII intact Psychiatric exam: Present: normal affect, normal mood Course Vital Signs 07/21/23 07/21/23 07/21/23 13:43 14:40 15:47 Temperature 97.9 F 98.8 F 97.9 F Pulse Rate 115 H 79 76 Respiratory 20 18 Rate Blood Pressure 146/91 136/72 O2 Sat by Pulse 98 97 99 Oximetry Medical Decision Making - Medical Decision Making This is a 43-year-old female who presents to the emergency department for a rash. Was pt. sent in by a medical professional or institution? @ -No Did you speak to anyone other than the patient for history? @ -No Did you review nursing and triage notes? @ -Yes, and I agree, it is accurate with regards to the patient's symptoms. Were old charts reviewed? @ -No Differential Diagnosis? @ -Differential Rash: Roseola, measles, Lyme disease, erythema multiforme, cellulitis, toxic shock syndrome, Marcial Kirill syndrome, Kawasaki disease, diana mountain spotted fever, contact dermatitis, allergic dermatitis, measles, mumps, rubella, varicella, meningococcal disease, drug reaction, coxsackievirus, This is not meant to be an all-inclusive list. EKG interpreted by me (3pts min.)? @ -Not obtained X-rays interpreted by me (1pt min.)? @ -Not obtained CT interpreted by me (1pt min.)? @ -Not obtained U/S interpreted by me (1pt. min.)? @ -Not obtained What testing was considered but not performed? (CT, X-rays, U/S, labs)? Why? @ -None What meds were considered but not given? Why? @ -None Did you discuss the management of the patient with other professionals? @ -No Did you reconcile home meds? @ -No Was smoking cessation discussed for >3mins.? @ -I discussed smoking cessation for greater than 3 minutes. The risk of smoking were discussed with the patient including but not limited to risks of cancer, stroke, coronary artery disease and COPD. Also discussed with patient were multiple methods of quitting smoking. Lastly we discussed the financial cost of smoking. Was critical care preformed (if so, how long)? @ -No Were there social determinants of health that impacted care today? How? (Homelessness, low income, unemployed, alcoholism, drug addiction, transportation, low edu. Level, literacy, decrease access to med. care, custodial, rehab)? @ -No Was there de-escalation of care discussed even if they declined? (Discuss DNR or withdrawal of care, Hospice)? @ -No What co-morbidities impacted this encounter? (DM, HTN, Smoking, COPD, CAD, Cancer, CVA, Hep., AIDS, mental health diagnosis, sleep apnea, morbid obesity)? @ -Smoking, developmental delay Was patient admitted / discharged? @ -Discharged. Lab work unremarkable. Physical examination demonstrates scattered scabbed over lesions on the scalp. She also has other various crusted lesions on the extremities. Advised that if she continues to pick at them and scratch at them, they will break open again and resume bleeding. Patient has multiple antibiotic allergies and unfortunately does not know the reaction that she has to most of them. Given the history of these testing positive for MRSA, will put the patient on linezolid, which she does not have a known allergy to. Rx for bacitracin ointment provided as well. Patient discharged home in stable condition and advised to follow-up with her primary care provider and ID. Undiagnosed new problem with uncertain prognosis? @ -None Drug Therapy requiring intensive monitoring for toxicity (Heparin, Nitro, Insulin, Cardizem)? @ -None Were any procedures done? @ -None Diagnosis/symptom? @ -Skin lesions Acute, or Chronic, or Acute on Chronic? @ -Acute Uncomplicated (without systemic symptoms) or Complicated (systemic symptoms)? @ -Uncomplicated Side effects of treatment? @ -None Exacerbation, Progression, or Severe Exacerbation] @ -Not applicable Poses a threat to life or bodily function? @ -No Return precautions reviewed in depth, the patient is instructed to return to the emergency department with any new, worsening, or concerning symptoms. Patient verbalized understanding. This case was discussed in detail with the attending ED physician, Scot Sullivan. Presentation, findings, and treatment plan discussed in detail as well. - Lab Data Result diagrams: 07/21/23 14:08 07/21/23 14:08 Lab Results 07/21/23 07/21/23 07/21/23 Range/Units 14:08 14:08 14:08 WBC 4.8 (3.8-10.6) k/uL RBC 4.26 (3.80-5.40) m/uL Hgb 13.0 (11.4-16.0) gm/dL Hct 40.8 (34.0-46.0) % MCV 95.8 (80.0-100.0) fL MCH 30.5 (25.0-35.0) pg MCHC 31.9 (31.0-37.0) g/dL RDW 13.4 (11.5-15.5) % Plt Count 235 (150-450) k/uL MPV 7.6 Neutrophils % 61 % Lymphocytes % 29 % Monocytes % 4 % Eosinophils % 3 % Basophils % 1 % Neutrophils # 2.9 (1.3-7.7) k/uL Lymphocytes # 1.4 (1.0-4.8) k/uL Monocytes # 0.2 (0-1.0) k/uL Eosinophils # 0.1 (0-0.7) k/uL Basophils # 0.1 (0-0.2) k/uL Sodium 144 (137-145) mmol/L Potassium 3.9 (3.5-5.1) mmol/L Chloride 115 H (98-107) mmol/L Carbon Dioxide 20 L (22-30) mmol/L Anion Gap 9 mmol/L BUN 15 (7-17) mg/dL Creatinine 0.87 (0.52-1.04) mg/dL Est GFR (CKD-EPI)AfAm >90 (>60 ml/min/1.73 sqM) Est GFR (CKD-EPI)NonAf 81 (>60 ml/min/1.73 sqM) Glucose 118 H (74-99) mg/dL Plasma Lactic Acid Eladio 1.5 (0.7-2.0) mmol/L Calcium 9.2 (8.4-10.2) mg/dL Total Bilirubin 0.4 (0.2-1.3) mg/dL AST 32 (14-36) U/L ALT 28 (4-34) U/L Alkaline Phosphatase 72 (38-126) U/L C-Reactive Protein <0.5 (<1.0) mg/dL Total Protein 7.7 (6.3-8.2) g/dL Albumin 4.1 (3.5-5.0) g/dL Disposition Clinical Impression: Skin lesions, Nicotine dependence Disposition: HOME SELF-CARE Instructions (If sedation given, give patient instructions): Acute Rash (ED) Additional Instructions: Return to the emergency department with any new, worsening, or concerning symptoms. Take the antibiotic as prescribed for 10 days. Apply the bacitracin ointment to the scalp and other affected areas 2-3 times daily. Follow up with your primary care provider in 1-2 days. Prescriptions: Bacitracin Zinc Oint 1 applic TOPICAL TID #28 gm Linezolid [Zyvox] 600 mg PO Q12H 10 Days #20 tab Is patient prescribed a controlled substance at d/c from ED?: No Referrals: Zabrina Burrell MD [Primary Care Provider] - 1-2 days Time of Disposition: 15:36
[2023-07-21 15:50] VITALS: BP 136/72; PULSE 76; RESP 18; TEMP 97.9
== END 2023-07-21 17:03 | disposition home or self-care (01) ==
LOC: EC 13:40
DX: L98.9 Disorder of the skin and subcutaneous tissue, unspecified (principal); R62.50 Unspecified lack of expected normal physiological development in childhood; F17.290 Nicotine dependence, other tobacco product, uncomplicated; Z88.0 Allergy status to penicillin; Z88.1 Allergy status to other antibiotic agents; Z91.09 Other allergy status, other than to drugs and biological substances; Z88.8 Allergy status to other drugs, medicaments and biological substances; Z91.018 Allergy to other foods; Z91.041 Radiographic dye allergy status; Z88.6 Allergy status to analgesic agent; Z91.040 Latex allergy status; Z88.5 Allergy status to narcotic agent; Z91.010 Allergy to peanuts; Z88.2 Allergy status to sulfonamides
CPT/HCPCS: 36415; 80053; 83605; 85025; 86140; 99283; 99406

== ENCOUNTER 2023-07-31 06:52 | Emergency (ER) | payer MEDICARE, OTHER ==
[2023-07-31 07:24] VITALS: RESP 18; TEMP 98
--- NOTE | 2023-07-31 07:31 | ED ---
General Adult HPI - General Chief complaint: Abdominal Pain Stated complaint: Diarrhea Time Seen by Provider: 07/31/23 07:05 Source: patient, RN notes reviewed Mode of arrival: ambulatory Limitations: no limitations - History of Present Illness Initial comments: 43-year-old female presenting to the emergency department with diarrhea x 2 days. Describes diarrhea as liquid and bright orange. Admits about 3 episodes daily. States she is also having an intermittent right upper quadrant abdominal pain that is dull but has no relation to food. Denies nausea, vomiting, fever. She was recently given antibiotic linezolid 10 days ago for skin infection. She is able to tolerate orals well. Denies recent travel, blood in stool. Admits history of hysterectomy and cholecystectomy. - Related Data Home Medications Medication Instructions Recorded Confirmed Pantoprazole [Protonix] 40 mg PO QAM 05/19/16 07/06/23 Latanoprost/Pf [Latanoprost 0.005% 1 drop BOTH EYES HS 04/22/21 07/06/23 Eye Drop] traMADol HCl [Ultram] 50 mg PO Q8H PRN 10/13/21 07/06/23 Halobetasol Propionate [Ultravate 1 applic TOPICAL BID PRN 06/24/22 07/06/23 0.05%] Albuterol Sulfate [Albuterol 1 - 2 puff PO RT-Q6H PRN 04/01/23 07/06/23 Sulfate Hfa] Hydrocortisone Cream 1 applic TOPICAL BID PRN 04/01/23 07/06/23 [Hydrocortisone 2.5% Cream] Aspirin [Adult Low Dose Aspirin EC] 81 mg PO QAM 07/02/23 07/02/23 Topiramate [Topamax] 50 mg PO HS 07/02/23 07/06/23 Previous Rx's Medication Instructions Recorded Bacitracin Zinc Oint 1 applic TOPICAL TID #28 gm 07/21/23 Linezolid [Zyvox] 600 mg PO Q12H 10 Days #20 tab 07/21/23 Loperamide HCl [Loperamide] 2 mg PO Q6HR PRN #10 capsule 07/31/23 Allergies Allergy/AdvReac Type Severity Reaction Status Date / Time carbamazepine [From Tegretol] Allergy Intermediate Unknown Verified 07/31/23 07:24 neomycin Allergy Unknown Unknown Verified 07/31/23 07:24 adhesive Allergy Unknown Verified 07/31/23 07:24 amphetamine aspartate Allergy Unknown Verified 07/31/23 07:24 [From Adderall] amphetamine sulfate Allergy Unknown Verified 07/31/23 07:24 [From Adderall] azithromycin Allergy Unknown Verified 07/31/23 07:24 [From Zithromax Z-Tunde] baclofen Allergy Unknown Verified 07/31/23 07:24 banana Allergy Anaphylaxis Verified 07/31/23 07:24 cephalexin monohydrate Allergy Unknown Verified 07/31/23 07:24 [From Keflex] clindamycin Allergy Unknown Verified 07/31/23 07:24 dexamethasone Allergy Rash/Hives Verified 07/31/23 07:24 dextroamphetamine saccharate Allergy Unknown Verified 07/31/23 07:24 [From Adderall] dextroamphetamine sulfate Allergy Unknown Verified 07/31/23 07:24 [From Adderall] dicyclomine [From Bentyl] Allergy Unknown Verified 07/31/23 07:24 gabapentin [From Neurontin] Allergy Unknown Verified 07/31/23 07:24 Iodinated Contrast Media Allergy Anaphylaxis Verified 07/31/23 07:24 [Iodinated Contrast Media - IV Dye] ketorolac tromethamine Allergy Rash/Hives Verified 07/31/23 07:24 [From Toradol] kiwi Allergy Anaphylaxis Verified 07/31/23 07:24 latex Allergy Anaphylaxis Verified 07/31/23 07:24 levofloxacin [From Levaquin] Allergy Swelling Verified 07/31/23 07:24 lorazepam [From Ativan] Allergy Unknown Verified 07/31/23 07:24 Melon Allergy Anaphylaxis Verified 07/31/23 07:24 metoclopramide HCl Allergy Unknown Verified 07/31/23 07:24 [From Reglan] nitrofurantoin Allergy Unknown Verified 07/31/23 07:24 [From Macrobid] nitrofurantoin Allergy Unknown Verified 07/31/23 07:24 macrocrystalline [From Macrobid] peanut Allergy Anaphylaxis Verified 07/31/23 07:24 propylthiouracil Allergy Unknown Verified 07/31/23 07:24 Sulfa (Sulfonamide Allergy Unknown Verified 07/31/23 07:24 Antibiotics) venlafaxine [From Effexor] Allergy Unknown Verified 07/31/23 07:24 codeine AdvReac Diarrhea Verified 07/31/23 07:24 doxycycline AdvReac Diarrhea Verified 07/31/23 07:24 methimazole AdvReac Unknown Verified 07/31/23 07:24 Penicillins AdvReac Diarrhea Verified 07/31/23 07:24 prednisone AdvReac Unknown Verified 07/31/23 07:24 avacado Allergy Anaphylaxis Uncoded 07/31/23 07:24 cantalope Allergy Anaphylaxis Uncoded 07/31/23 07:24 TAPE AdvReac Unknown Uncoded 07/31/23 07:24 Review of Systems ROS Statement: Those systems with pertinent positive or pertinent negative responses have been documented in the HPI. ROS Other: All systems not noted in ROS Statement are negative. Past Medical History Past Medical History: Asthma, COPD, Eye Disorder, GERD/Reflux, Osteoarthritis (OA), Pneumonia, Seizure Disorder Additional Past Medical History / Comment(s): RECENT rectal bleeding 07/10. 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 Sores to head-not open. History of Any Multi-Drug Resistant Organisms: MRSA Date of last positivie culture/infection: 10/17/21 MDRO Source:: Neck, bilat legs Past Surgical History: Cholecystectomy, Hysterectomy, Orthopedic Surgery, Tubal Ligation Additional Past Surgical History / Comment(s): rt elbow orif. debridment frank buttocks d/t spider bite, nasal septal surgery, mediastinoscopy with bx-benign, colonoscopy, laparoscopy with lysis of adhesions. Past Anesthesia/Blood Transfusion Reactions: No Reported Reaction Past Psychological History: Depression Smoking Status: Current every day smoker, Vaper Past Alcohol Use History: None Reported Past Drug Use History: None Reported - Past Family History Father Family Medical History: Cancer, Coronary Artery Disease (CAD), Diabetes Mellitus, Myocardial Infarction ([place]) Additional Family Medical History / Comment(s): Father had a [place] at the age of 62 yrs. He has had CABG. Prostate Brother(s) Family Medical History: Cancer Additional Family Medical History / Comment(s): Prostate Mother Family Medical History: Congestive Heart Failure (CHF), COPD, Osteoarthritis (OA), Rheumatoid Arthritis (RA) Additional Family Medical History / Comment(s): Spondylosis, subclavian boyce with stents. Factor 5 disease. General Exam Limitations: no limitations ENT exam: Present: normal exam, mucous membranes moist Respiratory exam: Present: normal lung sounds bilaterally. Absent: respiratory distress, wheezes, rales, rhonchi, stridor Cardiovascular Exam: Present: regular rate, normal rhythm, normal heart sounds. Absent: systolic murmur, diastolic murmur, rubs, gallop, clicks GI/Abdominal exam: Present: soft, normal bowel sounds. Absent: distended, tenderness, guarding, rebound, rigid, pulsatile mass, hernia Skin exam: Present: warm, dry, intact, normal color. Absent: rash Course Vital Signs 07/31/23 07/31/23 07:20 09:21 Temperature 98.0 F Pulse Rate 89 72 Respiratory 18 18 Rate Blood Pressure 125/77 130/71 O2 Sat by Pulse 98 100 Oximetry Medical Decision Making - Medical Decision Making Was pt. sent in by a medical professional or institution (, PA, POOLROOM TABLE ATTENDANT, urgent care, hospital, or long-term...) When possible be specific @ -No Did you speak to anyone other than the patient for history (EMS, parent, family, police, friend...)? What history was obtained from this source @ -No Did you review nursing and triage notes (agree or disagree)? Why? @ -I reviewed and agree with nursing and triage notes Were old charts reviewed (outside hosp., previous admission, EMS record, old EKG, old radiological studies, urgent care reports/EKG's, long-term records)? Report findings @ -No old charts were reviewed Differential Diagnosis (chest pain, altered mental status, abdominal pain women, abdominal pain men, vaginal bleeding, weakness, fever, dyspnea, syncope, headache, dizziness, GI bleed, back pain, seizure, CVA, palpatations, mental health, musculoskeletal)? @ -Differential Abdominal Pain Women: Appendicitis, Cholecystitis, diverticulosis, ischemic bowel, pancreatitis, hepatitis, UTI, gastroenteritis, AAA, incarcerated hernia, bowel obstruction, constipation, inflammatory bowel, hepatitis, peptic ulcer disease, splenic infarction, perforated viscus, vulvitis, ovarian torsion, PID, kidney stone, placenta abruption, this is not meant to be an all-inclusive list EKG interpreted by me (3pts min.). @ -None X-rays interpreted by me (1pt min.). @ -None done CT interpreted by me (1pt min.). @ -None U/S interpreted by me (1pt. min.). @ -None What testing was considered but not performed or refused? (CT, X-rays, U/S, labs)? Why? @ -CT not performed due to no abdominal tenderness, and patient afebrile and in stable condition. RUQ Ultrasound not performed due to history of cholecystectomy What meds were considered but not given or refused? Why? @ -Loperamide offered at bedside however patient refused and prefers outpatient treatment Did you discuss the management of the patient with other professionals (professionals i.e. , PA, POOLROOM TABLE ATTENDANT, lab, RT, psych nurse, social work instructor, towboat engineer, teacher, enforcement safety officer, leather case finisher)? Give summary @ -No Was smoking cessation discussed for >3mins.? @ -No Was critical care preformed (if so, how long)? @ -No Were there social determinants of health that impacted care today? How? (Homelessness, low income, unemployed, alcoholism, drug addiction, transportation, low edu. Level, literacy, decrease access to med. care, retirement, rehab)? @ -No Was there de-escalation of care discussed even if they declined (Discuss DNR or withdrawal of care, Hospice)? DNR status @ -No What co-morbidities impacted this encounter? (DM, HTN, Smoking, COPD, CAD, Cancer, CVA, ARF, Chemo, Hep., AIDS, mental health diagnosis, sleep apnea, morbid obesity)? @ -None Was patient admitted / discharged? Hospital course, mention meds given and route, prescriptions, significant lab abnormalities, going to OR and other pertinent info. @ -Patient was discharged. Patient was seen and examined for diarrhea and abdominal pain for 2 days. There is no abdominal tenderness and vitals are unremarkable. Lab work was unremarkable. IV fluids given. Patient declined loperamide at bedside and prefers outpatient prescription. Discussed return symptoms. Discussed aggressive hydration and bland diet. Patient discharged in stable condition. Case discussed with Dr. Xie. Undiagnosed new problem with uncertain prognosis? @ -No Drug Therapy requiring intensive monitoring for toxicity (Heparin, Nitro, Insulin, Cardizem)? @ -No Were any procedures done? @ -No Diagnosis/symptom? @ -Gastroenteritis Acute, or Chronic, or Acute on Chronic? @ -Acute Uncomplicated (without systemic symptoms) or Complicated (systemic symptoms)? @ -Uncomplicated Side effects of treatment? @ -No Exacerbation, Progression, or Severe Exacerbation? @ -No Poses a threat to life or bodily function? How? (Chest pain, [place], [place], pneumonia, PE, COPD, DKA, ARF, appy, cholecystitis, CVA, Diverticulitis, Homicidal, Suicidal, threat to staff... and all critical care pts) @ -No - Lab Data Result diagrams: 07/31/23 08:15 07/31/23 08:15 Lab Results 07/31/23 07/31/23 07/31/23 Range/Units 08:15 08:15 08:26 WBC 6.4 (3.8-10.6) k/uL RBC 4.51 (3.80-5.40) m/uL Hgb 14.0 (11.4-16.0) gm/dL Hct 42.9 (34.0-46.0) % MCV 95.1 (80.0-100.0) fL MCH 31.0 (25.0-35.0) pg MCHC 32.6 (31.0-37.0) g/dL RDW 13.6 (11.5-15.5) % Plt Count 270 (150-450) k/uL MPV 7.8 Neutrophils % 66 % Lymphocytes % 25 % Monocytes % 4 % Eosinophils % 2 % Basophils % 1 % Neutrophils # 4.2 (1.3-7.7) k/uL Lymphocytes # 1.6 (1.0-4.8) k/uL Monocytes # 0.3 (0-1.0) k/uL Eosinophils # 0.1 (0-0.7) k/uL Basophils # 0.0 (0-0.2) k/uL Sodium 143 (137-145) mmol/L Potassium 4.2 (3.5-5.1) mmol/L Chloride 116 H (98-107) mmol/L Carbon Dioxide 18 L (22-30) mmol/L Anion Gap 9 mmol/L BUN 10 (7-17) mg/dL Creatinine 0.72 (0.52-1.04) mg/dL Est GFR (CKD-EPI)AfAm >90 (>60 ml/min/1.73 sqM) Est GFR (CKD-EPI)NonAf >90 (>60 ml/min/1.73 sqM) Glucose 111 H (74-99) mg/dL Calcium 9.8 (8.4-10.2) mg/dL Total Bilirubin 0.9 (0.2-1.3) mg/dL AST 52 H (14-36) U/L ALT 44 H (4-34) U/L Alkaline Phosphatase 68 (38-126) U/L Total Protein 8.5 H (6.3-8.2) g/dL Albumin 4.5 (3.5-5.0) g/dL Lipase 195 (23-300) U/L Urine Color Yellow Urine Appearance Turbid H (Clear) Urine pH 6.0 (5.0-8.0) Ur Specific [place] 1.025 (1.001-1.035) Urine Protein 1+ H (Negative) Urine Glucose (UA) Negative (Negative) Urine Ketones Negative (Negative) Urine Blood Negative (Negative) Urine Nitrite Negative (Negative) Urine Bilirubin Negative (Negative) Urine Urobilinogen 2.0 (<2.0) mg/dL Ur Leukocyte Esterase Negative (Negative) Urine WBC 2 (0-5) /hpf Ur Squamous Epith Cells 6 H (0-4) /hpf Urine Bacteria Occasional H (None) /hpf Urine Mucus Moderate H (None) /hpf C. difficile (EIA) Intrp (Negative) 07/31/23 Range/Units 08:29 WBC (3.8-10.6) k/uL RBC (3.80-5.40) m/uL Hgb (11.4-16.0) gm/dL Hct (34.0-46.0) % MCV (80.0-100.0) fL MCH (25.0-35.0) pg MCHC (31.0-37.0) g/dL RDW (11.5-15.5) % Plt Count (150-450) k/uL MPV Neutrophils % % Lymphocytes % % Monocytes % % Eosinophils % % Basophils % % Neutrophils # (1.3-7.7) k/uL Lymphocytes # (1.0-4.8) k/uL Monocytes # (0-1.0) k/uL Eosinophils # (0-0.7) k/uL Basophils # (0-0.2) k/uL Sodium (137-145) mmol/L Potassium (3.5-5.1) mmol/L Chloride (98-107) mmol/L Carbon Dioxide (22-30) mmol/L Anion Gap mmol/L BUN (7-17) mg/dL Creatinine (0.52-1.04) mg/dL Est GFR (CKD-EPI)AfAm (>60 ml/min/1.73 sqM) Est GFR (CKD-EPI)NonAf (>60 ml/min/1.73 sqM) Glucose (74-99) mg/dL Calcium (8.4-10.2) mg/dL Total Bilirubin (0.2-1.3) mg/dL AST (14-36) U/L ALT (4-34) U/L Alkaline Phosphatase (38-126) U/L Total Protein (6.3-8.2) g/dL Albumin (3.5-5.0) g/dL Lipase (23-300) U/L Urine Color Urine Appearance (Clear) Urine pH (5.0-8.0) Ur Specific [place] (1.001-1.035) Urine Protein (Negative) Urine Glucose (UA) (Negative) Urine Ketones (Negative) Urine Blood (Negative) Urine Nitrite (Negative) Urine Bilirubin (Negative) Urine Urobilinogen (<2.0) mg/dL Ur Leukocyte Esterase (Negative) Urine WBC (0-5) /hpf Ur Squamous Epith Cells (0-4) /hpf Urine Bacteria (None) /hpf Urine Mucus (None) /hpf C. difficile (EIA) Intrp Negative (Negative) Disposition Clinical Impression: Gastroenteritis Disposition: HOME SELF-CARE Condition: Stable Instructions (If sedation given, give patient instructions): Gastroenteritis (ED) Additional Instructions: Please return to the Emergency Department if symptoms worsen or any other concerns. Prescriptions: Loperamide HCl [Loperamide] 2 mg PO Q6HR PRN #10 capsule PRN Reason: as needed for diarrhea Is patient prescribed a controlled substance at d/c from ED?: No Referrals: Zabrina Burrell MD [Primary Care Provider] - 1-2 days Time of Disposition: 11:24
[2023-07-31] MEDS: SODIUM CHLORIDE 0.9% 1,000 ML IV STA ×2 (08:18→08:24)
[2023-07-31 08:28] LABS: Basophils % (A) 1 %; Eosinophils # (A) 0.1 k/uL (0-0.7); Eosinophils % (A) 2 %; HCT 42.9 % (34.0-46.0); Lymphocytes # (A) 1.6 k/uL (1.0-4.8); Lymphocytes % (A) 25 %; MCHC 32.6 g/dL (31.0-37.0); MCV 95.1 fL (80.0-100.0); Mean Platelet Volume 7.8; Monocytes # (A) 0.3 k/uL (0-1.0); Monocytes % (A) 4 %; Neutrophils # (A) 4.2 k/uL (1.3-7.7); Neutrophils % (A) 66 %; Platelet Count 270 k/uL (150-450); RBC 4.51 m/uL (3.80-5.40); RDW 13.6 % (11.5-15.5); WBC 6.4 k/uL (3.8-10.6)
[2023-07-31 08:38] LABS: ALT 44 U/L (4-34); AST 52 U/L (14-36); African American GFR (CKD) >90 (>60 ml/min/1.73 sqM); Anion Gap 9 mmol/L; Blood Urea Nitrogen 10 mg/dL (7-17); Calcium 9.8 mg/dL (8.4-10.2); Carbon Dioxide 18 mmol/L (22-30); Chloride 116 mmol/L (98-107); Glucose 111 mg/dL (74-99); Lipase 195 U/L (23-300); Non-African American GFR(CKD) >90 (>60 ml/min/1.73 sqM); Sodium 143 mmol/L (137-145); Total Bilirubin 0.9 mg/dL (0.2-1.3)
[2023-07-31 08:48] LABS: Albumin 4.5 g/dL (3.5-5.0); Alkaline Phosphatase 68 U/L (38-126); Potassium 4.2 mmol/L (3.5-5.1); Total Protein 8.5 g/dL (6.3-8.2)
[2023-07-31 09:26] VITALS: BP 130/71; PULSE 72
[2023-07-31 09:32] LABS: Appearance,Urine Turbid (Clear); Bacteria,Urine Occasional /hpf; Bilirubin,Urine Negative (Negative); Blood,Urine Negative (Negative); Color,Urine Yellow; Glucose,Urine (UA) Negative (Negative); Ketones,Urine Negative (Negative); Leukocyte Esterase,Urine Negative (Negative); Mucus,Urine Moderate /hpf; Nitrite,Urine Negative (Negative); Protein,Urine 1+ (Negative); Specific Gravity,Urine 1.025 (1.001-1.035); Squamous Epithelial Cell,Urine 6 /hpf (0-4); WBC,Urine 2 /hpf (0-5)
== END 2023-07-31 12:03 | disposition home or self-care (01) ==
LOC: EC 06:52
DX: K52.9 Noninfective gastroenteritis and colitis, unspecified (principal); F17.290 Nicotine dependence, other tobacco product, uncomplicated; Z88.1 Allergy status to other antibiotic agents; Z88.0 Allergy status to penicillin; Z88.2 Allergy status to sulfonamides; Z88.5 Allergy status to narcotic agent; Z88.8 Allergy status to other drugs, medicaments and biological substances; Z91.040 Latex allergy status; Z91.041 Radiographic dye allergy status; Z91.018 Allergy to other foods; Z88.6 Allergy status to analgesic agent; Z91.010 Allergy to peanuts; Z91.09 Other allergy status, other than to drugs and biological substances
CPT/HCPCS: 36415; 80053; 81001; 83690; 85025; 87324; 96360; 96361; 99284

== ENCOUNTER → 2024-05-09 | Outpatient (CLI) | payer MEDICARE, OTHER ==
--- NOTE | 2024-05-09 16:36 | US ---
EXAMINATION TYPE: US venous doppler duplex LE RT DATE OF EXAM: 05/09/2024 4:15 PM COMPARISON: US bilateral May 17 2023 CLINICAL INDICATION: Female, 44 years old with history of R22.41 LOCALIZED SWELLING, MASS AND LUMP, R IGHT LO; No hx of DVT. Patient does not take blood thinners. TECHNIQUE: The lower extremity deep venous system is examined utilizing real time linear array sonog ed with graded compression, color doppler sonography, and spectral doppler. SIDE PERFORMED: Right FINDINGS: VESSELS IMAGED: Common Femoral Vein Deep Femoral Vein Greater Saphenous Vein * Femoral Vein Popliteal Vein Small Saphenous Vein * Proximal Calf Veins (* superficial vessels) Right Leg: No evidence of DVT. IMPRESSION: 1. No evidence of deep vein thrombosis of the right lower extremity. [facility], , 05/09/2024 4:33 PM
== END | disposition home or self-care (01) ==
LOC: RADUSWWP 15:54
PROVIDERS: ATTEND Internal Medicine
DX: R22.41 Localized swelling, mass and lump, right lower limb (principal)

== ENCOUNTER → 2024-06-10 | Outpatient (CLI) | payer MEDICARE, OTHER ==
--- NOTE | 2024-06-10 14:23 | XR ---
EXAMINATION TYPE: XR Hip Complete RT DATE OF EXAM: 06/10/2024 12:34 PM COMPARISON: None. CLINICAL INDICATION: Female, 44 years old with history of RIGHT HIP PAIN, pain TECHNIQUE: 2 view(s) obtained. FINDINGS: Femoral head articulates with the acetabulum. Joint space is preserved. No acute fracture or dislocat ion evident. Follow up exams can be performed as clinically indicated IMPRESSION: 1. No acute osseous abnormality right hip [facility], , 06/10/2024 2:20 PM
--- NOTE | 2024-06-10 14:24 | XR ---
EXAMINATION TYPE: XR lumbosacral spine min 4V DATE OF EXAM: 06/10/2024 12:34 PM COMPARISON: 03/24/2022 CLINICAL INDICATION: Female, 44 years old with history of M25.551 RIGHT PAIN IN HIP, pain TECHNIQUE: 5 view(s) obtained. FINDINGS: There is attempted lumbarization of S1. There are 5 lumbar-type vertebral bodies. The pedicles are in tact. There is narrowing of the lower disc heights. Vertebral body heights are preserved. Remaining d isc heights are preserved. No spondylolytic defects are evident. On the frontal projection there is a 0.4 cm calcification overlying the left kidney. COMPARISON: Findings are stable over the interval IMPRESSION: 1. No acute osseous abnormality lumbar spine 2. May be a small inferior pole right renal stone [facility], , 06/10/2024 2:22 PM
== END | disposition home or self-care (01) ==
LOC: LABWHC1 11:30
PROVIDERS: ATTEND Internal Medicine
DX: M25.551 Pain in right hip (principal); M54.50 Low back pain, unspecified
CPT/HCPCS: 72110; 73502

== ENCOUNTER → 2024-08-18 | Outpatient (CLI) | payer MEDICARE, OTHER ==
--- NOTE | 2024-08-18 16:26 | CT ---
EXAMINATION TYPE: CT abdomen pelvis wo con DATE OF EXAM: 08/18/2024 11:48 AM COMPARISON: 06/08/2023 CLINICAL INDICATION: Female, 44 years old with history of N20.0 RENAL STONE; Lt side back and abdomen pain, radiates into leg TECHNIQUE: CT abdomen pelvis wo con;Sagittal and coronal reconstructions performed. CT DLP: 885 mGycm, Automated exposure control for dose reduction was used. FINDINGS: LOWER CHEST: Unremarkable ABDOMEN LIVER: Enlarged at 19.9 cm with arch diminished attenuation. GALLBLADDER AND BILE DUCTS: Cholecystectomy clips. PANCREAS: Unremarkable. SPLEEN: Unremarkable. ADRENAL GLANDS: Unremarkable. KIDNEYS AND URETERS: A nonobstructive stone on either side measuring up to 4 mm on the left. No hydro nephrosis on either side. PELVIS BLADDER: The bladder is collapsed. There is elkin pelvic floor laxity lesion. REPRODUCTIVE: Uterus surgically absent. Normal bilateral ovaries suspected. Tiny pelvic phleboliths. No abnormal fluid collection in the pelvis. ABDOMEN & PELVIS STOMACH AND BOWEL: No evidence of bowel obstruction. Suggestion of mild jejunal fold thickening in th e left side of the abdomen. Also involving the third portion of the duodenum. There is normal appendi x. Moderate stool burden. Mildly redundant sigmoid colon. No pericolonic inflammatory change. PERITONEUM/RETROPERITONEUM: No evidence of pneumoperitoneum or free fluid. VASCULATURE: No evidence of aortic aneurysm. MUSCULOSKELETAL: There is hypertrophic facet arthropathy lower lumbar spine with trace grade 1 linnette listhesis L4-L5. In addition, there is a large disc herniation here which may contribute to a severe focal spinal canal stenosis. Moderate bilateral neuroforaminal stenosis. LYMPH NODES: Cluster prominent lymph nodes midabdomen measuring up to 1.3 cm. There is slight associa abelino cintia mesentery here, refer to coronal image 35. SOFT TISSUE/ABDOMINAL WALL: Unremarkable IMPRESSION: 1. Hepatomegaly at 19.9 cm with severe hepatic steatosis. Appropriate clinical management is advised . 2. A nonobstructive stone within either kidney measuring up to 4 mm. No hydronephrosis. 3. Suggestion of some jejunal fold thickening in the left side of the abdomen and possibly involving the third portion of the duodenum as well. In addition, some clustered borderline to mildly enlarged lymph nodes in the mid abdomen may have cintia mesentery sign. Consider a nonspecific enteritis/mesent madeline panniculitis. Consider follow-up in 6-12 months to assess for stability/resolution. 4. Elkin pelvic floor relaxation. 5. Large disc herniation at L4-L5 may contribute to a focal severe spinal canal stenosis. Moderate bi lateral foraminal stenosis. [facility], Workstation: [place], 08/18/2024 4:24 PM
== END | disposition home or self-care (01) ==
LOC: RADCTMAIN 11:11
PROVIDERS: ATTEND Psychiatry & Neurology Neurology
DX: N20.0 Calculus of kidney (principal); K76.0 Fatty (change of) liver, not elsewhere classified; R16.0 Hepatomegaly, not elsewhere classified; R59.9 Enlarged lymph nodes, unspecified; M48.061 Spinal stenosis, lumbar region without neurogenic claudication; M51.26 Other intervertebral disc displacement, lumbar region
CPT/HCPCS: 74176

== ENCOUNTER 2024-10-21 05:28 | Emergency (ER) | payer MEDICARE, OTHER ==
[2024-10-21 05:36] VITALS: RESP 18
--- NOTE | 2024-10-21 06:18 | ED ---
Back Pain [facility] - General Chief Complaint: Back Pain/Injury Stated Complaint: back pain Time Seen by Provider: 10/21/24 05:58 Source: patient, EMS, RN notes reviewed Mode of arrival: ambulatory Limitations: no limitations - History of Present Illness Initial Comments: This is a 44-year-old female who presents to the emergency department for low back pain. Patient tripped and fell yesterday, landing on her lower back. Denies hitting her head or any LOC. Currently complains of pain to the right lower back. Denies sustaining any other injuries. Denies any loss of bowel/bladder control or saddle anesthesia. She has not yet taken any medication for her pain. MD Complaint: back injury, fall - Related Data Home Medications Medication Instructions Recorded Confirmed Pantoprazole [Protonix] 40 mg PO QAM 05/19/16 07/06/23 Latanoprost/Pf [Latanoprost 0.005% 1 drop BOTH EYES HS 04/22/21 07/06/23 Eye Drop] traMADol HCl [Ultram] 50 mg PO Q8H PRN 10/13/21 07/06/23 Halobetasol Propionate [Ultravate 1 applic TOPICAL BID PRN 06/24/22 07/06/23 0.05%] Albuterol Sulfate [Albuterol 1 - 2 puff PO RT-Q6H PRN 04/01/23 07/06/23 Sulfate Hfa] Hydrocortisone Cream 1 applic TOPICAL BID PRN 04/01/23 07/06/23 [Hydrocortisone 2.5% Cream] Aspirin [Adult Low Dose Aspirin EC] 81 mg PO QAM 07/02/23 07/02/23 Topiramate [Topamax] 50 mg PO HS 07/02/23 07/06/23 Previous Rx's Medication Instructions Recorded Bacitracin Zinc Oint 1 applic TOPICAL TID #28 gm 07/21/23 Linezolid [Zyvox] 600 mg PO Q12H 10 Days #20 tab 07/21/23 Loperamide HCl [Loperamide] 2 mg PO Q6HR PRN #10 capsule 07/31/23 Ondansetron Odt [Zofran Odt] 4 mg PO Q8HR PRN #10 tab 05/25/24 Lidocaine 5% Patch [Lidoderm 5% 1 patch TOPICAL DAILY PRN #30 patch 10/21/24 Patch] Orphenadrine [Norflex] 100 mg PO Q12H PRN #20 tab 10/21/24 Allergies Allergy/AdvReac Type Severity Reaction Status Date / Time carbamazepine [From Tegretol] Allergy Intermediate Unknown Verified 10/21/24 05:36 neomycin Allergy Unknown Unknown Verified 10/21/24 05:36 adhesive Allergy Unknown Verified 10/21/24 05:36 amphetamine aspartate Allergy Unknown Verified 10/21/24 05:36 [From Adderall] amphetamine sulfate Allergy Unknown Verified 10/21/24 05:36 [From Adderall] azithromycin Allergy Unknown Verified 10/21/24 05:36 [From Zithromax Z-Tunde] baclofen Allergy Unknown Verified 10/21/24 05:36 banana Allergy Anaphylaxis Verified 10/21/24 05:36 cephalexin monohydrate Allergy Unknown Verified 10/21/24 05:36 [From Keflex] clindamycin Allergy Unknown Verified 10/21/24 05:36 dexamethasone Allergy Rash/Hives Verified 10/21/24 05:36 dextroamphetamine saccharate Allergy Unknown Verified 10/21/24 05:36 [From Adderall] dextroamphetamine sulfate Allergy Unknown Verified 10/21/24 05:36 [From Adderall] dicyclomine [From Bentyl] Allergy Unknown Verified 10/21/24 05:36 gabapentin [From Neurontin] Allergy Unknown Verified 10/21/24 05:36 Iodinated Contrast Media Allergy Anaphylaxis Verified 10/21/24 05:36 [Iodinated Contrast Media - IV Dye] ketorolac tromethamine Allergy Rash/Hives Verified 10/21/24 05:36 [From Toradol] kiwi Allergy Anaphylaxis Verified 10/21/24 05:36 latex Allergy Anaphylaxis Verified 10/21/24 05:36 levofloxacin [From Levaquin] Allergy Swelling Verified 10/21/24 05:36 lorazepam [From Ativan] Allergy Unknown Verified 10/21/24 05:36 Melon Allergy Anaphylaxis Verified 10/21/24 05:36 metoclopramide HCl Allergy Unknown Verified 10/21/24 05:36 [From Reglan] nitrofurantoin Allergy Unknown Verified 10/21/24 05:36 [From Macrobid] nitrofurantoin Allergy Unknown Verified 10/21/24 05:36 macrocrystalline [From Macrobid] peanut Allergy Anaphylaxis Verified 10/21/24 05:36 propylthiouracil Allergy Unknown Verified 10/21/24 05:36 Sulfa (Sulfonamide Allergy Unknown Verified 10/21/24 05:36 Antibiotics) venlafaxine [From Effexor] Allergy Unknown Verified 10/21/24 05:36 codeine AdvReac Diarrhea Verified 10/21/24 05:36 doxycycline AdvReac Diarrhea Verified 10/21/24 05:36 methimazole AdvReac Unknown Verified 10/21/24 05:36 Penicillins AdvReac Diarrhea Verified 10/21/24 05:36 prednisone AdvReac Unknown Verified 10/21/24 05:36 avacado Allergy Anaphylaxis Uncoded 10/21/24 05:36 cantalope Allergy Anaphylaxis Uncoded 10/21/24 05:36 TAPE AdvReac Unknown Uncoded 10/21/24 05:36 Review of Systems ROS Statement: Those systems with pertinent positive or pertinent negative responses have been documented in the HPI. ROS Other: All systems not noted in ROS Statement are negative. Past Medical History Past Medical History: Asthma, COPD, Eye Disorder, GERD/Reflux, Osteoarthritis (OA), Pneumonia, Seizure Disorder Additional Past Medical History / Comment(s): RECENT rectal bleeding 07/10. 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 Sores to head-not open. History of Any Multi-Drug Resistant Organisms: MRSA Date of last positivie culture/infection: 10/17/21 MDRO Source:: Neck, bilat legs Past Surgical History: Cholecystectomy, Hysterectomy, Orthopedic Surgery, Tubal Ligation Additional Past Surgical History / Comment(s): rt elbow orif. debridment frank buttocks d/t spider bite, nasal septal surgery, mediastinoscopy with bx-benign, colonoscopy, laparoscopy with lysis of adhesions. Past Anesthesia/Blood Transfusion Reactions: No Reported Reaction Past Psychological History: Depression Smoking Status: Current every day smoker, Vaper Past Alcohol Use History: None Reported Past Drug Use History: None Reported, Cocaine - Past Family History Father Family Medical History: Cancer, Coronary Artery Disease (CAD), Diabetes Mellitus, Myocardial Infarction (GA) Additional Family Medical History / Comment(s): Father had a GA at the age of 62 yrs. He has had CABG. Prostate Brother(s) Family Medical History: Cancer Additional Family Medical History / Comment(s): Prostate Mother Family Medical History: Congestive Heart Failure (CHF), COPD, Osteoarthritis (OA), Rheumatoid Arthritis (RA) Additional Family Medical History / Comment(s): Spondylosis, subclavian boyce with stents. Factor 5 disease. General Exam Limitations: no limitations General appearance: alert, in no apparent distress Head exam: Present: atraumatic, normocephalic, normal inspection Respiratory exam: Present: normal lung sounds bilaterally. Absent: respiratory distress, wheezes, rales, rhonchi, stridor Cardiovascular Exam: Present: regular rate, normal rhythm Back exam: Present: other (Tenderness to palpation over the right lower back) Neurological exam: Present: alert, oriented X3, CN II-XII intact Psychiatric exam: Present: normal affect, normal mood Skin exam: Present: warm, dry, intact, normal color. Absent: rash Course Vital Signs 10/21/24 05:34 Temperature 98.6 F Pulse Rate 87 Respiratory 18 Rate Blood Pressure 114/78 O2 Sat by Pulse 99 Oximetry Medical Decision Making - Medical Decision Making This is a 44-year-old female who presents to the emergency department for back pain after a fall. Was pt. sent in by a medical professional or institution? @ -No Did you speak to anyone other than the patient for history? @ -No Did you review nursing and triage notes? @ -Yes, and I agree, it is accurate with regards to the patient's symptoms. Were old charts reviewed? @ -No Differential Diagnosis? @ -Differential Back Pain: Strain, zoster, cauda equina syndrome, epidural abscess, vertebral osteomyelitis, discitis, fracture, subluxation, disc herniation, DJD, spinal stenosis, dissection, AAA, pancreatitis, peptic ulcer disease, pyelonephritis, kidney stone, this is not meant to be an all-inclusive list. EKG interpreted by me (3pts min.)? @ -Not obtained X-rays interpreted by me (1pt min.)? @ -X-ray of the lumbar spine obtained. My interpretation identifies no acute fractures. CT interpreted by me (1pt min.)? @ -Not obtained U/S interpreted by me (1pt. min.)? @ -Not obtained What testing was considered but not performed? (CT, X-rays, U/S, labs)? Why? @ -None What meds were considered but not given? Why? @ -None Did you discuss the management of the patient with other professionals? @ -No Did you reconcile home meds? @ -No Was smoking cessation discussed for >3mins.? @ -I discussed smoking cessation for greater than 3 minutes. The risk of smoking were discussed with the patient including but not limited to risks of cancer, stroke, coronary artery disease and COPD. Also discussed with patient were multiple methods of quitting smoking. Lastly we discussed the financial cost of smoking. Was critical care preformed (if so, how long)? @ -No Were there social determinants of health that impacted care today? How? (Homelessness, low income, unemployed, alcoholism, drug addiction, transportation, low edu. Level, literacy, decrease access to med. care, snf, rehab)? @ -No Was there de-escalation of care discussed even if they declined? (Discuss DNR or withdrawal of care, Hospice)? @ -No What co-morbidities impacted this encounter? (DM, HTN, Smoking, COPD, CAD, Cancer, CVA, Hep., AIDS, mental health diagnosis, sleep apnea, morbid obesity)? @ -Smoking, osteoarthritis Was patient admitted / discharged? @ -Discharged. X-ray of the lumbar spine obtained revealing degenerative changes without acute process. Pain was managed in the emergency department. She does have a multitude of allergies, which makes treatment difficult. She did tolerate the Norflex well and this was prescribed along with lidocaine patches for further management. She will otherwise take Tylenol for pain control and have close follow-up with her PCP. Patient discharged home in stable condition. Case discussed with ED attending Dr. Jauregui. Return precautions reviewed in depth, the patient is instructed to return to the emergency department with any new, worsening, or concerning symptoms. Patient verbalized understanding. Undiagnosed new problem with uncertain prognosis? @ -None Drug Therapy requiring intensive monitoring for toxicity (Heparin, Nitro, Insulin, Cardizem)? @ -None Were any procedures done? @ -None Diagnosis/symptom? @ -Fall, low back contusion Acute, or Chronic, or Acute on Chronic? @ -Acute Uncomplicated (without systemic symptoms) or Complicated (systemic symptoms)? @ -Uncomplicated Side effects of treatment? @ -None Exacerbation, Progression, or Severe Exacerbation] @ -Not applicable Poses a threat to life or bodily function? @ -No - Radiology Data Radiology results: report reviewed, image reviewed Disposition Clinical Impression: Fall, Contusion of lower back, Nicotine dependence Disposition: HOME SELF-CARE Instructions (If sedation given, give patient instructions): Acute Low Back Pain (ED) Additional Instructions: Return to the emergency department with any new, worsening, or concerning symptoms. Take Tylenol as needed for pain relief. Take the Norflex up to twice daily for pain control. Be aware that this may make you drowsy. You can also apply the lidocaine patches daily. Follow up with your primary care provider in 1-2 days. Prescriptions: Lidocaine 5% Patch [Lidoderm 5% Patch] 1 patch TOPICAL DAILY PRN #30 patch PRN Reason: Pain Orphenadrine [Norflex] 100 mg PO Q12H PRN #20 tab PRN Reason: Pain Is patient prescribed a controlled substance at d/c from ED?: No Referrals: Zabrina Burrell MD [Primary Care Provider] - 1-2 days Time of Disposition: 07:31
[2024-10-21] MEDS: ORPHENADRINE 30 MG/ML 2 ML VIAL IM STA (06:38)
[2024-10-21] MEDS: traMADol 50 MG TAB PO STA (06:38)
[2024-10-21] MEDS: ACETAMINOPHEN TAB 500 MG TAB PO STA (06:39)
[2024-10-21] MEDS: LIDOCAINE 4% PATCH TOPICAL ONE (06:42)
--- NOTE | 2024-10-21 07:18 | XR ---
EXAMINATION TYPE: XR lumbar spine 2 or 3V DATE OF EXAM: 10/21/2024 6:51 AM COMPARISON: 06/10/2024 CLINICAL INDICATION: Female, 44 years old with history of Pain after fall; PHH, pain TECHNIQUE: XR lumbar spine 2 or 3V - Frontal, lateral and coned in L5-S1 lateral views of the spine. FINDINGS: No evidence of any acute osseous pathology. No evidence of loss of vertebral body height i s seen. There is normal alignment of the lumbar vertebral bodies. Scattered disc space narrowing. Mul tilevel marginal osteophyte formation throughout the visualized spine. There is facet joint arthropat hy throughout the spine. Scattered at least mild neural foraminal stenosis. Right upper quadrant chol ecystectomy clips. Left renal calculus thought to be present again measuring 3 mm. IMPRESSION: 1. No acute fracture. 2. Mild multilevel disc degeneration. [facility], , 10/21/2024 7:15 AM
[2024-10-21] MEDS: traMADol 50 MG STARTER PACK 3 TAB BTL PO STA (07:38)
[2024-10-21 10:15] VITALS: BP 103/62; PULSE 76; TEMP 98
== END 2024-10-21 07:44 | disposition home or self-care (01) ==
LOC: EC 05:28
DX: S30.0XXA Contusion of lower back and pelvis, initial encounter (principal); W01.0XXA Fall on same level from slipping, tripping and stumbling without subsequent striking against object, initial encounter; F17.290 Nicotine dependence, other tobacco product, uncomplicated; M19.90 Unspecified osteoarthritis, unspecified site; Z88.0 Allergy status to penicillin; Z88.1 Allergy status to other antibiotic agents; Z88.2 Allergy status to sulfonamides; Z88.5 Allergy status to narcotic agent; Z88.8 Allergy status to other drugs, medicaments and biological substances; Z91.041 Radiographic dye allergy status; Z91.040 Latex allergy status; Z88.9 Allergy status to unspecified drugs, medicaments and biological substances; Z88.3 Allergy status to other anti-infective agents; Z91.018 Allergy to other foods; Z88.6 Allergy status to analgesic agent; Z91.010 Allergy to peanuts; Z91.048 Other nonmedicinal substance allergy status
CPT/HCPCS: 72100; 99284; 96372; J2360